=== PATIENT | female | born 1980 | race African-American/Black ===

== ENCOUNTER 2018-08-22 18:17 | Emergency (ER) | payer OTHER ==
[2018-08-22 19:01] LABS: Absolute Lymphocytes (CBC) 2.8 K/uL (0.7-4.9); Absolute Monocytes 0.8 K/uL (0.1-1.3); Absolute Neutrophil 4.7 K/uL (1.8-8.0); Basophils % 0.4 % (0-1.3); Eosinophils % 1.3 % (0-4.4); Hematocrit 40.7 % (36.0-45.0); MCH 30.1 pg (27.0-35.0); MCV 88.4 fL (80-100); MPV 8.5 fL (7.6-11.3); Monocytes % 9.5 % (3.3-12.3); RBC Red Blood Cell Count 4.61 M/uL (3.86-4.86)
[2018-08-22 19:13] LABS: ALT/SGPT 29 U/L (12-78); AST/SGOT 17 U/L (15-37); Albumin 3.7 g/dL (3.4-5.0); Alkaline Phosphatase 83 U/L (45-117); BUN Blood Urea Nitrogen 12 mg/dL (7-18); Bicarbonate 27 mmol/L (21-32); Bilirubin Direct 0.1 mg/dL (0-0.2); Bilirubin Total 0.5 mg/dL (0.2-1.0); Glucose Level 112 mg/dL (74-106); Lipase 105 U/L (73-393); Potassium 3.7 mmol/L (3.5-5.1); Protein, Total 7.8 g/dL (6.4-8.2); Sodium Level 138 mmol/L (136-145)
--- NOTE | 2018-08-22 19:46 | RAD REPORT ---
EXAM DESCRIPTION: US - Abdomen Exam Limited - 08/22/2018 7:40 pm CLINICAL HISTORY: Abdominal pain. COMPARISON: None. FINDINGS: Multiple gallstones. Gallbladder wall upper limits normal thickness. The biliary tree is not well visualized but appears to be grossly normal in caliber IMPRESSION: Cholelithiasis.
[2018-08-22] MEDS ORDERED: ONDANSETRON 4 MG/2 ML VIAL ONE (19:50)
[2018-08-22] MEDS ORDERED: MORPHINE 4 MG/ML SYR ONE (19:50)
[2018-08-22] MEDS ORDERED: KETOROLAC 30 MG/ML INJ ONE (20:46)
[2018-08-22] MEDS ORDERED: DICYCLOMINE HCL 10 MG CAP ONE (20:46)
--- NOTE | 2018-08-22 21:18 | ER ---
Nurse's Notes [facility] Name: Keyonna James Age: 37 yrs Sex: Female : 1980 Arrival Date: 08/22/2018 Time: 18:18 Bed 2 Private MD: None, None Diagnosis: Cholelithiasis;Epigastric pain Presentation: 08/22 18:25 Presenting complaint: states: "Her gallbladder been giving her trouble for the jl7 last 4 days. She don't want to be here but she's in pain.". Transition of care: patient was not received from another setting of care. Onset of symptoms was August 18, 2018. Risk Assessment: Do you want to hurt yourself or someone else? Patient reports no desire to harm self or others. Initial Sepsis Screen: Does the patient meet any 2 criteria? No. Patient's initial sepsis screen is negative. Does the patient have a suspected source of infection? No. Patient's initial sepsis screen is negative. Care prior to arrival: None. 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 - Social history:: Smoking status: Patient/guardian denies using tobacco. - Ebola Screening: : No symptoms or risks identified at this time. Screenin:55 Abuse screen: Denies threats or abuse. Nutritional screening: No deficits noted. jd3 Tuberculosis screening: No symptoms or risk factors identified. Fall Risk Ambulatory Aid- None/Bed Rest/Nurse Assist (0 pts). Gait- Normal/Bed Rest/Wheelchair (0 pts) Mental Status- Oriented to own ability (0 pts). Total Almaraz Fall Scale indicates No Risk (0-24 pts). Assessment: 19:20 General: Appears in no apparent distress. uncomfortable, Behavior is calm, cooperative, jd3 appropriate for age. Pain: Complains of pain in abdomen. Neuro: Level of Consciousness is awake, alert, obeys commands, Oriented to person, place, time, situation. Cardiovascular: Capillary refill < 3 seconds Patient's skin is warm and dry. Respiratory: Airway is patent Respiratory effort is even, unlabored, Respiratory pattern is regular, symmetrical. GI: Abdomen is round non-distended, Reports upper abdominal pain, nausea. : No signs and/or symptoms were reported regarding the genitourinary system. EENT: No signs and/or symptoms were reported regarding the EENT system. Derm: Skin is intact, Skin is dry, Skin is normal, Skin temperature is warm. Musculoskeletal: Circulation, motion, and sensation intact. Range of motion: intact in all extremities. 20:20 Reassessment: Patient appears in no apparent distress at this time. Patient and/or jd3 family updated on plan of care and expected duration. Pain level reassessed. Patient is alert, oriented x 3, equal unlabored respirations, skin warm/dry/pink. 21:30 Reassessment: Patient appears in no apparent distress at this time. Patient and/or jd3 family updated on plan of care and expected duration. Pain level reassessed. Patient is alert, oriented x 3, equal unlabored respirations, skin warm/dry/pink. 22:31 Reassessment: Patient appears in no apparent distress at this time. Patient and/or jd3 family updated on plan of care and expected duration. Pain level reassessed. Patient is alert, oriented x 3, equal unlabored respirations, skin warm/dry/pink. Patient states feeling better. Vital Signs: 18:27 BP 144 / 97; Pulse 91; Resp 16 S; Temp 98.8(O); Pulse Ox 99% on R/A; Pain 10/10; jl7 19:58 BP 152 / 96; Pulse 86; Resp 16; Pulse Ox 100% on R/A; mt 21:00 BP 143 / 95; Pulse 88; Resp 17 S; Pulse Ox 98% on R/A; jd3 22:21 BP 126 / 86; Pulse 77; Resp 16; Pulse Ox 92% on R/A; mt ED Course: 18:18 Patient arrived in ED. sb2 18:18 None, None is Private Physician. sb2 18:26 Triage completed. jl7 18:27 Arm band placed on right wrist. jl7 18:30 Yan Gan PA is PHCP. jmm 18:30 Neto Acevedo MD is Attending Physician. jmm 19:00 IV is patent, is intact, with fluids infusing freely, with good blood return. jd3 19:40 Ultrasound completed. Patient tolerated well. ester 19:41 US Abdomen Limited In Process Unspecified. EDMS 20:44 Magaly Ramirez is Primary Nurse. cc3 20:56 Patient has correct armband on for positive identification. Placed in gown. Bed in low jd3 position. Call light in reach. Side rails up X 1. Adult w/ patient. 21:17 Brian Vazquez MD is Referral Physician. jmm 21:17 Nikita Thompson MD is Referral Physician. jmm 22:30 No provider procedures requiring assistance completed. IV discontinued, intact, jd3 bleeding controlled, No redness/swelling at site. Pressure dressing applied. Administered Medications: 19:46 Drug: morphine 4 mg Route: IVP; Site: right antecubital; rv 22:29 Follow up: Response: No adverse reaction jd3 19:46 Drug: Zofran 4 mg Route: IVP; Site: right antecubital; rv 22:29 Follow up: Response: No adverse reaction jd3 20:45 Drug: Ketorolac 30 mg Route: IVP; Site: right antecubital; jd3 22:29 Follow up: Response: No adverse reaction jd3 20:45 Drug: Bentyl 20 mg Route: PO; jd3 22:29 Follow up: Response: No adverse reaction jd3 22:29 CANCELLED (Physician Discretion): fentaNYL (PF) 25 mcg IVP once jd3 Outcome: 21:17 Discharge ordered by . jmm 22:30 Discharged to home ambulatory, with family. jd3 22:30 Condition: stable 22:30 Discharge instructions given to patient, family, Instructed on discharge instructions, follow up and referral plans. medication usage, Demonstrated understanding of instructions, follow-up care, medications, Prescriptions given X 4. 22:31 Patient left the ED. jd3 Signatures: Dispatcher [employer] EDMS Yan Gan PA PA jmm Dupre, Jacques jd Leal, Jahala, RN RN [email or web address] Clau Song mt, Jonathon, RN RN jd3 Nell Root 2 Hubert Viveros RN RN rv Magaly Ramirez cc3
--- NOTE | 2018-08-22 21:18 | EDPHYS ---
Physician Documentation [facility] Name: Keyonna James Age: 37 yrs Sex: Female : 1980 Arrival Date: 08/22/2018 Time: 18:18 Bed 2 Private MD: None, None ED Physician Neto Acevedo HPI: 08/22 18:56 This 37 yrs old Black Female presents to ER via Ambulatory with complaints of Abdominal jmm Pain. 18:56 The patient presents with abdominal pain in the epigastric area. Onset: The jmm symptoms/episode began/occurred gradually, 1 week(s) ago. The symptoms do not radiate. Associated signs and symptoms: Pertinent negatives: nausea and vomiting, diarrhea, fever. Modifying factors: The symptoms are alleviated by nothing. The patient has experienced similar episodes in the past. 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 - Social history:: Smoking status: Patient/guardian denies using tobacco. - Ebola Screening: : No symptoms or risks identified at this time. ROS: 18:56 Constitutional: Negative for fever, chills, and weight loss, Cardiovascular: Negative jmm for chest pain, palpitations, and edema, Respiratory: Negative for shortness of breath, cough, wheezing, and pleuritic chest pain. 18:56 Abdomen/GI: Positive for abdominal pain. 18:56 All other systems are negative. Exam: 18:56 Head/Face: atraumatic. Chest/axilla: Normal chest wall appearance and motion. jmm Cardiovascular: Regular rate and rhythm. No edema appreciated Respiratory: Normal respirations, no respiratory distress appreciated 18:56 Constitutional: The patient appears in no acute distress, alert, awake. 18:56 Abdomen/GI: Inspection: abdomen appears normal, Bowel sounds: normal, Palpation: soft, moderate abdominal tenderness, in the right upper quadrant. 18:56 Back: ROM is normal. 18:56 Musculoskeletal/extremity: ROM: intact in all extremities. 18:56 Neuro: Orientation: is normal, Mentation: is normal, Memory: is normal. 18:56 Psych: Behavior/mood is pleasant, cooperative. Vital Signs: 18:27 BP 144 / 97; Pulse 91; Resp 16 S; Temp 98.8(O); Pulse Ox 99% on R/A; Pain 10/10; jl7 19:58 BP 152 / 96; Pulse 86; Resp 16; Pulse Ox 100% on R/A; mt 21:00 BP 143 / 95; Pulse 88; Resp 17 S; Pulse Ox 98% on R/A; jd3 22:21 BP 126 / 86; Pulse 77; Resp 16; Pulse Ox 92% on R/A; mt MDM: 18:52 Patient medically screened. [facility] 21:15 Data reviewed: vital signs, nurses notes, lab test result(s). Data interpreted: Pulse [facility] oximetry: on room air is 98 %. Interpretation: normal. Counseling: I had a detailed discussion with the patient and/or guardian regarding: the historical points, exam findings, and any diagnostic results supporting the discharge/admit diagnosis, lab results, radiology results, the need for outpatient follow up, to return to the emergency department if symptoms worsen or persist or if there are any questions or concerns that arise at home. Response to treatment: the patient's symptoms have markedly improved after treatment. ED course: Patient states she feels much better. I advised the patient to follow up with general surgery. Patient given abdominal pain return precautions. patient and family understood and agree with the plan of care. . 08/22 18:31 Order name: Basic Metabolic Panel [facility] 08/22 18:31 Order name: CBC with Diff [facility] 08/22 18:31 Order name: Creatinine for Radiology [facility] 08/22 18:31 Order name: Hepatic Function [facility] 08/22 18:31 Order name: Lipase [facility] 08/22 19:02 Order name: CBC with Automated Diff; Complete Time: 19:12 EDNJ 08/22 18:53 Order name: US Abdomen Limited; Complete Time: 19:47 [facility] 08/22 19:12 Order name: Creatinine (Radiology Only); Complete Time: 19:34 EDMS 08/22 19:14 Order name: Basic Metabolic Panel; Complete Time: 19:34 EDNJ 08/22 19:14 Order name: Liver (Hepatic) Function; Complete Time: 19:34 EDMS 08/22 19:14 Order name: Lipase; Complete Time: 19:34 [facility] 08/22 18:31 Order name: IV Saline Lock; Complete Time: 19:04 [facility] 08/22 18:31 Order name: Labs collected and sent; Complete Time: 19:04 [facility] 08/22 18:31 Order name: Urine Test (obtain specimen); Complete Time: 21:01 [facility] Administered Medications: 19:46 Drug: morphine 4 mg Route: IVP; Site: right antecubital; rv 22:29 Follow up: Response: No adverse reaction jd3 19:46 Drug: Zofran 4 mg Route: IVP; Site: right antecubital; rv 22:29 Follow up: Response: No adverse reaction jd3 20:45 Drug: Ketorolac 30 mg Route: IVP; Site: right antecubital; jd3 22:29 Follow up: Response: No adverse reaction jd3 20:45 Drug: Bentyl 20 mg Route: PO; jd3 22:29 Follow up: Response: No adverse reaction jd3 22:29 CANCELLED (Physician Discretion): fentaNYL (PF) 25 mcg IVP once jd3 Disposition: 08/23 05:19 Co-signature as Attending Physician, Neto Acevedo MD I agree with the assessment and tw4 plan of care. Disposition: 08/22/18 21:17 Discharged to Home. Impression: Cholelithiasis, Epigastric pain. - Condition is Stable. - Discharge Instructions: Abdominal Pain, Adult, Cholelithiasis. - Prescriptions for Zofran ODT 4 mg Oral tablet,disintegrating - place 1 tablet by TRANSLINGUAL route every 4-6 hours; 20 tablet. Bentyl 20 mg Oral Tablet - take 1 tablet by ORAL route every 6 hours As needed; 40 tablet. Ibuprofen 800 mg Oral Tablet - take 1 tablet by ORAL route every 8 hours As needed take with food; 30 tablet. Ultracet 37.5- 325 mg Oral Tablet - take 1 tablet by ORAL route every 6 hours - for up to 5 days; do not exceed 8 tablets per day.; 12 tablet. - Medication Reconciliation Form, Thank You Letter, Antibiotic Education, Prescription Opioid Use form. - Follow up: Brian Vazquez MD; When: As needed; Reason: Recheck today's complaints, Continuance of care, Re-evaluation by your physician. Follow up: Nikita Thompson MD; When: As needed; Reason: Recheck today's complaints, Continuance of care, Re-evaluation by your physician. Signatures: Dispatcher [employer] EDYan Cook PA PA jmm Leal, Jahala, RN RN jl7 Julio Cesar Chau RN RN jd3 Neto Acevedo MD MD tw4 Hubert Viveros RN RN rv Corrections: (The following items were deleted from the chart) 08/22 22:29 22:22 fentaNYL (PF) 25 mcg IVP once ordered. [facility] jd3 22:31 21:17 08/22/2018 21:17 Discharged to Home. Impression: Cholelithiasis; Epigastric pain. jd3 Condition is Stable. Forms are Medication Reconciliation Form, Thank You Letter, Antibiotic Education, Prescription Opioid Use. Follow up: Brian Vazquez; When: As needed; Reason: Recheck today's complaints, Continuance of care, Re-evaluation by your physician. Follow up: Nikita Thompson; When: As needed; Reason: Recheck today's complaints, Continuance of care, Re-evaluation by your physician. stephan
[2018-08-22 23:49] VITALS: TEMP 98.8
[2018-08-22 23:53] VITALS: BP 126/86; O2SAT 92
== END 2018-08-22 22:31 | disposition home or self-care (01) ==
LOC: ER 18:17
DX: K80.20 Calculus of gallbladder without cholecystitis without obstruction (principal)
CPT/HCPCS: 36415; 76705; 80048; 80076; 83690; 85025; 96374; 96375; 99283; J2405

== ENCOUNTER 2021-11-25 19:18 | Emergency (ER) | payer BC, OTHER ==
--- OUTSIDE RECORDS SUMMARY | 2021-11-25 19:27 | XMS REPORT | Continuity of Care Document ---
:1980 Author Organization [facility] t Address [address] [place] [address] Care Team Providers Name Role Phone Pcp, Does Not Have A Primary Care Physician Sarah Denson NP Attending Clinician Tanna SOLARES Attending Clinician Unavailable Tanna Solares MD Attending Clinician Jil Lopez MD Attending Clinician FELIBERTO Attending Clinician Unavailable Feliberto BLACK Attending Clinician JIL LOPEZ Attending Clinician Unavailable Nurse, Women's Health Attending Clinician Unavailable Pob, Lab Main Attending Clinician Unavailable Room, Nst Attending Clinician Unavailable Doctor Unassigned, Name Attending Clinician Unavailable Ultrasound Attending Clinician Unavailable Dane Gallegos MD Attending Clinician 2, Lab Attending Clinician Unavailable Visit, Nurse Attending Clinician Unavailable Alexis FONSECA Attending Clinician Adriana Ruff MD Attending Clinician JIL LOPEZ Admitting Clinician Unavailable Jil Lopez MD Admitting Clinician Payers Payer Name Policy Type Policy Number Effective Date Expiration Date S ource BCBS OF [place] [facility] [id number] 2019 [facility] 00:00:00 [facility] [id number] 2020 [employer] MEDICAID 00:00:00 [facility] [id number] 2020 PPO/POS 00:00:00 Problems Condition Condition Condition Status Onset Resolution Last Treating Co mments Source Name Details Category Date Date Treatment Clinician Date Liveborn Liveborn Disease Active 2020-0 Unive rs infant, of , of 8-14 it y of higgins higgins 00:00: Luis A s , , 00 Me dical born in born in [facility] hospital by by delivery delivery 38 weeks 38 weeks Disease Active 2020-0 Unive rs gestation gestation 8-12 ity of of of 00:00: [place] 00 [facility] Status Status Disease Active 2020-0 Univers post post 8-12 ity of bilateral bilateral 00:00: Luis A s salpingect salpingect [address] [facility] GDM, class GDM, class Disease Active 2020-0 U nivers A2 A2 7-31 ity of 00:00: [address] GDM, class GDM, class Disease Active 2020-0 U nivers A1 A1 7-15 ity of 00:00: [address] Diet Diet Disease Active 2020-0 Univers controlled controlled 4-01 it y of gestationa gestationa [place] diabetes l diabetes 00 Me dical mellitus mellitus [place] (GDM) in (GDM) in second second trimester trimester Chronic Chronic Disease Active 2020-0 Univers hypertensi hypertensi 2-20 it y of on on 00:00: [address] 12 weeks 12 weeks Disease Active 2020-0 Unive rs gestation gestation 2-20 ity of of of 00:00: [place] [facility] 19 weeks 19 weeks Disease Active 2020-0 Unive rs gestation gestation 2-20 ity of of of 00:00: [place] 00 [facility] Supervisio Supervisio Disease Active 2020-0 U nivers n of n of 1-22 ity of high-risk high-risk 00:00: Luis A s [facility] of elderly of elderly Br anch multigravi multigravi da da Antepartum Antepartum Disease Active 2020-0 U nivers multigravi multigravi 1-22 it y of da of da of 00:00: [place] advanced advanced 00 Medica l maternal maternal Branch age age Previous Previous Disease Active 2020-0 Unive rs 1-22 ity of section section 00:00: [place] 00 Medical Branch Vaginal Vaginal Disease Active Univers spotting spotting 1-22 ity of 00:00: [place] [facility] Morbid Morbid Disease Active Univers obesity obesity 1-21 ity of with body with body 00:00[place] mass index mass index 00 Me dical of of Branch 40.0-49.9 40.0-49.9 Obesity Obesity Disease Active Overview: Univ ers complicati complicati 7-14 ICD10 it y of ng ng 00:00: Diagnosis [place] , , 00 Term Me dical childbirth childbirth Freedom Of Information Officer Branch , or , or Utility puerperium puerperium , , antepartum antepartum Abnormal Abnormal Disease Active Unive rs maternal maternal 6-11 ity of glucose glucose 00:00: [place] tolerance, tolerance, 00 Me dical antepartum antepartum Br anch No known No known Disease Unive rs active active ity of problems problems [facility] Allergies, Adverse Reactions, Alerts Allergy Allergy Status Severity Reaction(s) Onset Inactive Treating Comm ents Source Name Type Date Date Clinician CODEINE DRUG Active Hives Univers INGREDI 9-03 ity of 00:00: [place] [facility] Codeine Propensi Active Hives Univers ty to 9-03 ity of adverse 00:00: [place] reaction 00 [facility] Codeine Propensi Active Nausea Only 2005-10 Un kayleigh ty to 2-28 ity of adverse 00:00: [place] reaction 00 [facility] CODEINE DRUG Active NAUSEA ONLY 2005-10 Univ ers INGREDI 2-28 ity of 00:00: [place] 00 Medical Branch NO KNOWN Drug Active Univers ALLERGIE Class ity of S [facility] codeine Adverse Active rash [facility] Social History Social Habit Start Date Stop Date Quantity Comments Source ASSERTION 2019-09-05 University of 00:00:00 [facility] Exposure to Not sure University of SARS-CoV-2 [facility] (event) Branch Alcohol intake 2020-05-15 2020-05-15 Current University of 00:00:00 00:00:00 non-drinker of [facility] alcohol [place] (finding) Tobacco use and 2020-05-15 2020-05-15 Never used Universit y of exposure 00:00:00 00:00:00 [place] [facility] Sex [birth year] Benjamin y of 00:00:00 00:00:00 [facility] Smoking Status Start Date Stop Date Source Unknown if ever smoked [facility] y [facility] Never smoker [facility] Medications Ordered Filled Start Stop Current Ordering Indication Dosage Frequency Signature Comments Components Source Medication Medication Date Date Medication? Clinician (SIG) Name Name cefTRIAXone 2020- No 1000mg 1,000 mg, Univers (ROCEPHIN) 06-11 IV ity of 1,000 mg in 02:45: 02:19 [place], [place] NaCl 0.9% 00 :00 ONCE, 1 Medical (NS) 50 mL dose, Wed Bran ch MINI-BAG 06/10/21 at 2145, Administer over 30 Minutes, 50 mL
Reas on for Anti-Infec tive: Documented Infection< br>Documen maria e Infection Site: Urine
D uration of Therapy: 7 days ketorolac 2020- No 30mg 30 mg, Unive rs (TORADOL) 06-11 Slow IV ity of injection 02:45: 01:53 [place], [place] 30 mg 00 :00 ONCE, 1 Medical dose, [facility] 06/10/21 at 2145, Routine
sales floor team member approving Restricted medication : ERLIN DENSON cefTRIAXone 2020- No 1000mg 1,000 mg, Univers (ROCEPHIN) 06-11 IV ity of 1,000 mg in 02:45: 02:19 [place], [place] NaCl 0.9% 00 :00 ONCE, 1 Medical (NS) 50 mL dose, Wed Bran ch MINI-BAG 06/10/21 at 2145, Administer over 30 Minutes, 50 mL
Reas on for Anti-Infec tive: Documented Infection< br>Documen maria e Infection Site: Urine
D uration of Therapy: 7 days ketorolac 2020- No 30mg 30 mg, Unive rs (TORADOL) 06-11 Slow IV ity of injection 02:45: 01:53 [place], [place] 30 mg 00 :00 ONCE, 1 Medical dose, [facility] 06/10/21 at 2145, Routine
sales floor team member approving Restricted medication : ERLIN DENSON acetaminoph 2020- No 650mg 650 mg, U nivers en 06-11 Oral, ity of (TYLENOL) 00:30: 23:53 ONCE, 1 [place] tablet 650 00 :00 dose, Tue Medi hang mg 06/10/21 at [place] [address], CLAUDY ibuprofen 2020- No 800mg 800 mg, Uni vers (IBU) 06-11 Oral, ity of tablet 800 00:30: 23:53 ONCE, 1 [place] mg 00 :00 dose, [facility] Medical 06/10/21 at [place] [address], CLAUDY acetaminoph 2020- No 650mg 650 mg, U nivers en 06-11 Oral, ity of (TYLENOL) 00:30: 23:53 ONCE, 1 [place] tablet 650 00 :00 dose, Tue Medi hang mg 06/10/21 at [place] [address], CLAUDY ibuprofen 2020- No 800mg 800 mg, Uni vers (IBU) 06-11 Oral, ity of tablet 800 00:30: 23:53 ONCE, 1 [place] mg 00 :00 dose, [facility] 06/10/21 at [place] [address], [facility] cefdinir 2020- No [id number] 300mg Take 1 U nivers 300 mg 06-10 capsule by ity of capsule 00:00: 04:59 mouth [place] 00 :00 every 12 Medical (twelve) Branch hours for 10 days. cefdinir 2020- No [id number] 300mg Take 1 U nivers 300 mg 06-10 capsule by ity of capsule 00:00: 04:59 mouth [place] 00 :00 every 12 Medical (twelve) Branch hours for 10 days. traMADoL 50 2020-2020- No [id number] 50mg Take 1 Uni vers mg tablet 06-10 tablet by ity of 00:00: 04:59 mouth [place] 00 :00 every 6 Medical (six) Branch hours as needed for Pain (scale 4-6) or Pain (scale 7-10) for up to 7 days. Indication s: acute pain traMADoL 50 2020-0 2020- No [id number] 50mg Take 1 Uni vers mg tablet 9-08 09-16 tablet by ity of 00:00: 04:59 mouth [place] 00 :00 every 6 Medical (six) Branch hours as needed for Pain (scale 4-6) or Pain (scale 7-10) for up to 7 days. Indication s: acute pain fluconazole 2020- No [id number] 150mg Take 1 Univers 150 mg 06-10 tablet by ity of tablet 00:00: 04:59 mouth once [place] 00 :00 now for 1 Medical dose. Branch fluconazole 2020- No [id number] 150mg Take 1 Univers 150 mg 06-10 tablet by ity of tablet 00:00: 04:59 mouth once [place] 00 :00 now for 1 Medical dose. Branch ibuprofen Yes 600mg 600 mg, Univ ers (IBU) 8-14 Oral, Q6H ity of tablet 600 11:00: ABX, First [place] mg 00 dose on Medical Fri Branch 05/16/20 at 0600, Until Discontinu ed, Routine docusate 2019-0 Yes [id number] 240mg Take 1 U nivers calcium 240 8-14 capsule by it y of mg capsule 00:00: mouth once [place] 00 daily as Medical needed for Branch Constipati on. ferrous 2020-0 Yes [id number] 325mg Take 1 Un [place] sulfate 325 8-14 tablet by ity of mg (65 mg 00:00: mouth 2 [place] iron) 00 (two) Medical tablet times Branch daily. ibuprofen 0 Yes [id number] 600mg Take 1 Univers 600 mg 8-14 tablet by ity of tablet 00:00: mouth [place] 00 every 6 Medical (six) Branch hours as needed for Pain (scale 1-3) or Pain (scale 4-6) (Pain). Take with food or milk. acetaminoph 2020-0 Yes [id number] 650mg Take 2 Univers en 325 mg 8-14 tablets by ity of tablet 00:00: mouth [place] 00 every 6 Medical (six) Branch hours as needed for Pain (scale 1-3) or Pain (scale 4-6). 2020-0 Yes [id number] 1{tbl} Take 1 Univers vitamin 8-14 tablet by ity of w/FA tablet 00:00: mouth [place] 00 daily. Medical Branch docusate 2020-0 Yes [id number] 240mg Take 1 U nivers calcium 240 8-14 capsule by it y of mg capsule 00:00: mouth once [place] 00 daily as Medical needed for Branch Constipati on. ferrous 2020-0 Yes [id number] 325mg Take 1 Un [place] sulfate 325 8-14 tablet by ity of mg (65 mg 00:00: mouth 2 [place] iron) 00 (two) Medical tablet times Branch daily. ibuprofen 2020-0 Yes [id number] 600mg Take 1 Univers 600 mg 8-14 tablet by ity of tablet 00:00: mouth [place] 00 every 6 Medical (six) Branch hours as needed for Pain (scale 1-3) or Pain (scale 4-6) (Pain). Take with food or milk. acetaminoph 2020-0 Yes [id number] 650mg Take 2 Univers en 325 mg 8-14 tablets by ity of tablet 00:00: mouth [place] 00 every 6 Medical (six) Branch hours as needed for Pain (scale 1-3) or Pain (scale 4-6). 2020-0 Yes [id number] 1{tbl} Take 1 Univers vitamin 8-14 tablet by ity of w/FA tablet 00:00: mouth [place] 00 daily. Medical Branch docusate 2020-0 Yes [id number] 240mg Take 1 U nivers calcium 240 8-14 capsule by it y of mg capsule 00:00: mouth once [place] 00 daily as Medical needed for Branch Constipati on. ferrous 2020-0 Yes [id number] 325mg Take 1 Un [place] sulfate 325 8-14 tablet by ity of mg (65 mg 00:00: mouth 2 [place] iron) 00 (two) Medical tablet times Branch daily. ibuprofen 2020-0 Yes [id number] 600mg Take 1 Univers 600 mg 8-14 tablet by ity of tablet 00:00: mouth [place] 00 every 6 Medical (six) Branch hours as needed for Pain (scale 1-3) or Pain (scale 4-6) (Pain). Take with food or milk. acetaminoph 2020-0 Yes [id number] 650mg Take 2 Univers en 325 mg 8-14 tablets by ity of tablet 00:00: mouth [place] 00 every 6 Medical (six) Branch hours as needed for Pain (scale 1-3) or Pain (scale 4-6). 2020-0 Yes [id number] 1{tbl} Take 1 Univers vitamin 8-14 tablet by ity of w/FA tablet 00:00: mouth [place] 00 daily. Medical Branch docusate 2020-0 Yes [id number] 240mg Take 1 U nivers calcium 240 8-14 capsule by it y of mg capsule 00:00: mouth once [place] 00 daily as Medical needed for Branch Constipati on. ferrous 2020-0 Yes [id number] 325mg Take 1 Un [place] sulfate 325 8-14 tablet by ity of mg (65 mg 00:00: mouth 2 [place] iron) 00 (two) Medical tablet times Branch daily. ibuprofen 2020-0 Yes [id number] 600mg Take 1 Univers 600 mg 8-14 tablet by ity of tablet 00:00: mouth [place] 00 every 6 Medical (six) Branch hours as needed for Pain (scale 1-3) or Pain (scale 4-6) (Pain). Take with food or milk. acetaminoph 2020-0 Yes [id number] 650mg Take 2 Univers en 325 mg 8-14 tablets by ity of tablet 00:00: mouth [place] 00 every 6 Medical (six) Branch hours as needed for Pain (scale 1-3) or Pain (scale 4-6). 2020-0 Yes [id number] 1{tbl} Take 1 Univers vitamin 8-14 tablet by ity of w/FA tablet 00:00: mouth [place] 00 daily. Medical Branch docusate 2020-0 Yes [id number] 240mg Take 1 U nivers calcium 240 8-14 capsule by it y of mg capsule 00:00: mouth once [place] 00 daily as Medical needed for Branch Constipati on. ferrous 2020-0 Yes [id number] 325mg Take 1 Un [place] sulfate 325 8-14 tablet by ity of mg (65 mg 00:00: mouth 2 [place] iron) 00 (two) Medical tablet times Branch daily. ibuprofen 2020-0 Yes [id number] 600mg Take 1 Univers 600 mg 8-14 tablet by ity of tablet 00:00: mouth [place] 00 every 6 Medical (six) Branch hours as needed for Pain (scale 1-3) or Pain (scale 4-6) (Pain). Take with food or milk. acetaminoph 2020-0 Yes [id number] 650mg Take 2 Univers en 325 mg 8-14 tablets by ity of tablet 00:00: mouth [place] 00 every 6 Medical (six) Branch hours as needed for Pain (scale 1-3) or Pain (scale 4-6). 2020-0 Yes [id number] 1{tbl} Take 1 Univers vitamin 8-14 tablet by ity of w/FA tablet 00:00: mouth [place] 00 daily. Medical Branch docusate 2020-0 Yes [id number] 240mg Take 1 U nivers calcium 240 8-14 capsule by it y of mg capsule 00:00: mouth once [place] 00 daily as Medical needed for Branch Constipati on. ferrous 2020-0 Yes [id number] 325mg Take 1 Un [place] sulfate 325 8-14 tablet by ity of mg (65 mg 00:00: mouth 2 [place] iron) 00 (two) Medical tablet times Branch daily. ibuprofen 2020-0 Yes [id number] 600mg Take 1 Univers 600 mg 8-14 tablet by ity of tablet 00:00: mouth [place] 00 every 6 Medical (six) Branch hours as needed for Pain (scale 1-3) or Pain (scale 4-6) (Pain). Take with food or milk. acetaminoph 2020-0 Yes [id number] 650mg Take 2 Univers en 325 mg 8-14 tablets by ity of tablet 00:00: mouth [place] 00 every 6 Medical (six) Branch hours as needed for Pain (scale 1-3) or Pain (scale 4-6). 2020-0 Yes [id number] 1{tbl} Take 1 Univers vitamin 8-14 tablet by ity of w/FA tablet 00:00: mouth [place] 00 daily. Medical Branch docusate 2020-0 Yes [id number] 240mg Take 1 U nivers calcium 240 8-14 capsule by it y of mg capsule 00:00: mouth once [place] 00 daily as Medical needed for Branch Constipati on. ferrous 2020-0 Yes [id number] 325mg Take 1 Un [place] sulfate 325 8-14 tablet by ity of mg (65 mg 00:00: mouth 2 [place] iron) 00 (two) Medical tablet times Branch daily. ibuprofen 2020-0 Yes [id number] 600mg Take 1 Univers 600 mg 8-14 tablet by ity of tablet 00:00: mouth [place] 00 every 6 Medical (six) Branch hours as needed for Pain (scale 1-3) or Pain (scale 4-6) (Pain). Take with food or milk. acetaminoph 2020-0 Yes [id number] 650mg Take 2 Univers en 325 mg 8-14 tablets by ity of tablet 00:00: mouth [place] 00 every 6 Medical (six) Branch hours as needed for Pain (scale 1-3) or Pain (scale 4-6). 2020-0 Yes [id number] 1{tbl} Take 1 Univers vitamin 8-14 tablet by ity of w/FA tablet 00:00: mouth [place] 00 daily. Medical Branch docusate 2020-0 Yes [id number] 240mg Take 1 U nivers calcium 240 8-14 capsule by it y of mg capsule 00:00: mouth once [place] 00 daily as Medical needed for Branch Constipati on. ferrous 2020-0 Yes [id number] 325mg Take 1 Un [place] sulfate 325 8-14 tablet by ity of mg (65 mg 00:00: mouth 2 [place] iron) 00 (two) Medical tablet times Branch daily. ibuprofen 2020-0 Yes [id number] 600mg Take 1 Univers 600 mg 8-14 tablet by ity of tablet 00:00: mouth [place] 00 every 6 Medical (six) Branch hours as needed for Pain (scale 1-3) or Pain (scale 4-6) (Pain). Take with food or milk. acetaminoph 2020-0 Yes [id number] 650mg Take 2 Univers en 325 mg 8-14 tablets by ity of tablet 00:00: mouth [place] 00 every 6 Medical (six) Branch hours as needed for Pain (scale 1-3) or Pain (scale 4-6). 2020-0 Yes [id number] 1{tbl} Take 1 Univers vitamin 8-14 tablet by ity of w/FA tablet 00:00: mouth [place] 00 daily. Medical Branch docusate 2020-0 Yes [id number] 240mg Take 1 U nivers calcium 240 8-14 capsule by it y of mg capsule 00:00: mouth once [place] 00 daily as Medical needed for Branch Constipati on. ferrous 2020-0 Yes [id number] 325mg Take 1 Un [place] sulfate 325 8-14 tablet by ity of mg (65 mg 00:00: mouth 2 [place] iron) 00 (two) Medical tablet times Branch daily. ibuprofen 2020-0 Yes [id number] 600mg Take 1 Univers 600 mg 8-14 tablet by ity of tablet 00:00: mouth [place] 00 every 6 Medical (six) Branch hours as needed for Pain (scale 1-3) or Pain (scale 4-6) (Pain). Take with food or milk. acetaminoph 2020-0 Yes [id number] 650mg Take 2 Univers en 325 mg 8-14 tablets by ity of tablet 00:00: mouth [place] 00 every 6 Medical (six) Branch hours as needed for Pain (scale 1-3) or Pain (scale 4-6). 2020-0 Yes [id number] 1{tbl} Take 1 Univers vitamin 8-14 tablet by ity of w/FA tablet 00:00: mouth [place] 00 daily. Medical Branch docusate 2019-0 Yes [id number] 240mg Take 1 U nivers calcium 240 8-14 capsule by it y of mg capsule 00:00: mouth once [place] 00 daily as Medical needed for Branch Constipati on. ferrous 2020-0 Yes [id number] 325mg Take 1 Un [place] sulfate 325 8-14 tablet by ity of mg (65 mg 00:00: mouth 2 [place] iron) 00 (two) Medical tablet times Branch daily. ibuprofen 2019-0 Yes [id number] 600mg Take 1 Univers 600 mg 8-14 tablet by ity of tablet 00:00: mouth [place] 00 every 6 Medical (six) Branch hours as needed for Pain (scale 1-3) or Pain (scale 4-6) (Pain). Take with food or milk. acetaminoph 2019-0 Yes [id number] 650mg Take 2 Univers en 325 mg 8-14 tablets by ity of tablet 00:00: mouth [place] 00 every 6 Medical (six) Branch hours as needed for Pain (scale 1-3) or Pain (scale 4-6). 2020-0 Yes [id number] 1{tbl} Take 1 Univers vitamin 8-14 tablet by ity of w/FA tablet 00:00: mouth [place] 00 daily. Medical Branch HYDROcodone 2019-0 2020- No [id number] 1{tbl} Take 1 U nivers -acetaminop 8-14 08-22 tablet by it y of hen 5-325 00:00: 04:59 mouth [place] mg tablet 00 :00 every 6 Medical (six) Branch hours as needed for Pain (scale 7-10) for up to 7 days. Indication s: acute pain HYDROcodone 2020-0 2020- No [id number] 1{tbl} Take 1 U nivers -acetaminop 05-1622 tablet by it y of hen 5-325 00:00: 04:59 mouth [place] mg tablet 00 :00 every 6 Medical (six) Branch hours as needed for Pain (scale 7-10) for up to 7 days. Indication s: acute pain gabapentin 2019-0 2020- No [id number] 300mg Take 1 Univers 300 mg 05-16-20 capsule by ity of capsule 00:00: 04:59 mouth 3 [place] 00 :00 (three) Medical times Branch daily for 5 days. gabapentin 2020-0 2020- No [id number] 300mg Take 1 Univers 300 mg 05-16- capsule by ity of capsule 00:00: 04:59 mouth 3 [place] 00 :00 (three) Medical times Branch daily for 5 days. acetaminoph 2019-0 Yes 650mg 650 mg, Un kayleigh en 05-15 Oral, Q6H ity of (TYLENOL) 23:00: ABX, First [place] tablet 650 00 dose on Medica l mg Tue Branch 05/15/20 at 1800, Until Discontinu ed, Routine HYDROcodone 2019-0 Yes 1{tbl} 1 tablet, Univers -acetaminop 05-15 Oral, ity of hen (NORCO 18:26: Q6HPRN, [place] 5) 5-325 mg 32 Starting Medi hang tablet 1 Allie Branch tablet 05/15/20 at 1326, Until Discontinu ed, Routine, Pain (scale 7-10) ketorolac 2019-0 2019- No 30mg 30 mg, Unive rs (TORADOL) 05-15 Slow IV ity of injection 11:00: 05:05 [place], Q6H [place] 30 mg 00 :00 ABX, 4 Medical doses, Branch First dose on Tue05/15/20 at 0600, Last dose on Tue05/16/20 at 0000, Routine
sales floor team member approving Restricted medication : LPOEZ MELYSSA CAM labetalol 2019-0 Yes 100mg 100 mg, Univ ers (NORMODYNE) 8 Oral, ity of tablet 100 01:00: Q12H, [place] mg 00 First dose Medical on Tue Branch 05/14/20 at 2000, Until Discontinu ed, Routine acetaminoph 2020-0 2020- No 1000mg 1,000 mg, Univers en ADULT 05-14 08-12 IV ity of (OFIRMEV) 23:00: 23:09 Infusion, [place] injection 00 :00 Administer Medi hang 1,000 mg over 15 Branch Minutes, ONCE, 1 dose, [facility] 05/14/20 at 1800, Routine, PACU
Indicatio n: Perioperat roberta Patient gabapentin 2020-0 Yes 300mg 300 mg, Uni vers (NEURONTIN) 8-12 Oral, TID, it y of capsule 300 19:00: First dose [place] mg 00 on Tue Medical 05/14/20 at Branch 1400, Until Discontinu ed, Routine simethicone 2020-0 Yes 160mg 160 mg, Un [place] (GAS RELIEF 05-14 Oral, ity of (SIMETHICON 18:00: PC+HS, [place] E)) 00 First dose Medical chewable on Tue Branch tablet 160 05/14/20 at mg 1300, Until Discontinu ed, Routine lactated 2020-0 Yes 1000mL at 75 Univer s ringers IV 8-12 mL/hr, ity of infusion 17:45: 1,000 mL, [place] 1,000 mL 00 IV Medical Infusion, Branch CONTINUOUS , Starting [facility] 05/14/20 at 1245, Until Discontinu ed, Routine, PACU rho(D) 2020-0 Yes 300ug 300 mcg, Univer s immune 812 Intramuscu ity of globulin 17:42: lar, ONCE, [place] as (RHOGAM) 25 For 1 Medical syringe 300 dose, Branch mcg Conditiona l, Routine diphenhydrA 2020-0 Yes 25mg 25 mg, Univ ers MINE 812 Oral, ity of (BENADRYL) 17:42: Q6HPRN, [place] tablet 25 12 Starting Medica l mg [facility] 05/14/20 at 1242, Until Discontinu ed, Routine, Sleep, Itching ondansetron 2020-0 Yes 4mg 4 mg, Slow Univers (ZOFRAN 8 IV Push, ity of (PF)) 17:42: Q8HPRN, [place] injection 4 12 Starting Medi hang mg [facility] 05/14/20 at 1242, Until Discontinu ed, Routine, Nausea and Vomiting (N/V) bisacodyL 2020-0 Yes 10mg 10 mg, Univer s (DULCOLAX) 05-14 Rectal, ity of suppository 17:42: QDAILYPRN, [place] 10 mg 12 Starting Medical Wed Branch 05/14/20 at 1242, Until Discontinu ed, Routine, Constipati on docusate 2020-0 Yes 240mg 240 mg, Unive rs calcium 05-14 Oral, ity of (SURFAK) 17:42: QDAILYPRN, [place] capsule 240 12 Starting Medi hang mg Wed Branch 05/14/20 at 1242, Until Discontinu ed, Routine, Constipati on magnesium 2020-0 Yes 30mL 30 mL, Univer s hydroxide 05-14 Oral, ity of (MILK OF 17:42: QDAILYPRN, [place] MAGNESIA) 12 Starting Medica l 400 mg/5 mL [facility] Branch suspension 05/14/20 at 30 mL 1242, Until Discontinu ed, Routine, Constipati on nalbuphine 2019-0 2020- No 5mg 5 mg, Unive rs (NUBAIN) 05-1413 Intravenou ity of injection 5 17:41: 09:49 s, PRN, 1 [place] mg 44 :00 dose, Medical Starting Branch [facility] 05/14/20 at 1241, Until Discontinu ed, Routine, Itching, PACU ondansetron 2019-0 2020- No 4mg 4 mg, Slow Univers (ZOFRAN 05-14 IV Push, ity of (PF)) 17:41: 23:55 PRN, 1 [place] injection 4 44 :00 dose, Medical mg Starting Branch [facility] 05/14/20 at 1241, Until Discontinu ed, Routine, Nausea and Vomiting (N/V), PACU mupirocin 2019-0 Yes Intra-op Univ ers (BACTROBAN 05-14 ity of OINT) 2 % 16:54: [place] skin 00 Medical ointment Branch sodium 2020-0 Yes PRN, Univers chloride 05-14 Starting ity of 0.9 % 16:31: Wed [place] irrigation 00 05/14/20 at Med ical solution 1131, Branch Until Discontinu ed, Intra-op [id number] IV 2019-0 2020- No 1000mL at 125 Uni vers infusion 05-14 mL/hr, IV ity o f 1,000 mL 14:00: 17:42 Infusion, [place] 00 :26 CONTINUOUS Medical , Starting Branch Tue05/14/20 at 0900, Until Tue05/14/20 at 1242, Routine sodium 2020-0 2020- No 30mL 30 mL, Univers citrate-cit 05-14 Oral, ity of kevin acid 13:45: 15:14 PRE-PROCED [place] (BICITRA) 26 :00 URE ONCE, Medic al [id number] 1 dose, Branch mg/5 mL Starting solution 30 Tue mL 05/14/20 at 0845, Until Discontinu ed, Routine, Surgery glyBURIDE 2020-0 Yes [id number] 2.5mg Take 1 U nivers 2.5 mg 7-29 tablet by ity of tablet 00:00: mouth [place] 00 every Medical evening. Branch glyBURIDE 2020-0 Yes [id number] 2.5mg Take 1 U nivers 2.5 mg 7-29 tablet by ity of tablet 00:00: mouth [place] 00 every Medical evening. Branch glyBURIDE 2020-0 Yes [id number] 2.5mg Take 1 U nivers 2.5 mg 7-29 tablet by ity of tablet 00:00: mouth [place] 00 every Medical evening. Branch glyBURIDE 2020-0 Yes [id number] 2.5mg Take 1 [facility] 2.5 mg 7-29 tablet by ity of tablet 00:00: mouth [place] 00 every Medical evening. Branch glyBURIDE 2020-0 Yes [id number] 2.5mg Take 1 [facility] 2.5 mg 7-29 tablet by ity of tablet 00:00: mouth [place] 00 every Medical evening. Branch glyBURIDE 2020-0 Yes [id number] 2.5mg Take 1 [facility] 2.5 mg 7-29 tablet by ity of tablet 00:00: mouth [place] 00 every Medical evening. Branch glyBURIDE 2020-0 Yes [id number] 2.5mg Take 1 [facility] 2.5 mg 7-29 tablet by ity of tablet 00:00: mouth [place] 00 every Medical evening. Branch glyBURIDE 2020-0 Yes [id number] 2.5mg Take 1 [facility] 2.5 mg 7-29 tablet by ity of tablet 00:00: mouth [place] 00 every Medical evening. Branch glyBURIDE 2020-0 Yes [id number] 2.5mg Take 1 [facility] 2.5 mg 7-29 tablet by ity of tablet 00:00: mouth [place] 00 every Medical evening. Branch glyBURIDE 2020-0 Yes [id number] 2.5mg Take 1 [facility] 2.5 mg 7-29 tablet by ity of tablet 00:00: mouth [place] 00 every Medical evening. Branch glyBURIDE 2020-0 Yes [id number] 2.5mg Take 1 [facility] 2.5 mg 7-29 tablet by ity of tablet 00:00: mouth [place] 00 every Medical evening. Branch glyBURIDE 2020-0 Yes [id number] 2.5mg Take 1 [facility] 2.5 mg 7-29 tablet by ity of tablet 00:00: mouth [place] 00 every Medical evening. Branch glyBURIDE 2020-0 Yes [id number] 2.5mg Take 1 [facility] 2.5 mg 7-29 tablet by ity of tablet 00:00: mouth [place] 00 every Medical evening. Branch glyBURIDE 2020-0 2020- No [id number] 2.5mg Take 1 [facility] 2.5 mg 7-29 08-14 tablet by ity of tablet 00:00: 00:00 mouth [place] 00 :00 every Medical evening. Branch Blood-Gluco 2020-0 Yes Patient to [facility] se Meter 6-18 check ity of (BLOOD 00:00: blood [place] GLUCOSE 00 glucose 4 Medical MONITORING) times Branch Kit daily. blood sugar 2020-0 Yes Patient to [facility] diagnostic 6-18 check ity of strip 00:00: blood [place] 00 glucose 4 Medical times Branch daily Lancets 2020-0 Yes Patient to [facility] ers Misc 6-18 check ity of 00:00: blood [place] 00 glucose 4 Medical times Branch daily. Blood-Gluco 2020-0 Yes Patient to [facility] se Meter 6-18 check ity of (BLOOD 00:00: blood [place] GLUCOSE 00 glucose 4 Medical MONITORING) times Branch Kit daily. blood sugar 2020-0 Yes Patient to [facility] diagnostic 6-18 check ity of strip 00:00: blood [place] 00 glucose 4 Medical times Branch daily Lancets 2020-0 Yes Patient to [facility] ers Misc 6-18 check ity of 00:00: blood [place] 00 glucose 4 Medical times Branch daily. Blood-Gluco 2020-0 Yes Patient to [facility] se Meter 6-18 check ity of (BLOOD 00:00: blood [place] GLUCOSE 00 glucose 4 Medical MONITORING) times Branch Kit daily. blood sugar 2020-0 Yes Patient to [facility] diagnostic 6-18 check ity of strip 00:00: blood [place] 00 glucose 4 Medical times Branch daily Lancets 2020-0 Yes Patient to [facility] ers Misc 6-18 check ity of 00:00: blood [place] 00 glucose 4 Medical times Branch daily. Blood-Gluco 2020-0 Yes Patient to [facility] se Meter 6-18 check ity of (BLOOD 00:00: blood [place] GLUCOSE 00 glucose 4 Medical MONITORING) times Branch Kit daily. blood sugar 2020-0 Yes Patient to [facility] diagnostic 6-18 check ity of strip 00:00: blood [place] 00 glucose 4 Medical times Branch daily Lancets 2020-0 Yes Patient to [facility] ers Misc 6-18 check ity of 00:00: blood [place] 00 glucose 4 Medical times Branch daily. Blood-Gluco 2020-0 Yes Patient to [facility] se Meter 6-18 check ity of (BLOOD 00:00: blood [place] GLUCOSE 00 glucose 4 Medical MONITORING) times Branch Kit daily. blood sugar 2020-0 Yes Patient to [facility] diagnostic 6-18 check ity of strip 00:00: blood [place] 00 glucose 4 Medical times Branch daily Lancets 2020-0 Yes Patient to [employer] ers Misc 6-18 check ity of 00:00: blood [place] 00 glucose 4 Medical times Branch daily. Blood-Gluco 2020-0 Yes Patient to [facility] se Meter 6-18 check ity of (BLOOD 00:00: blood [place] GLUCOSE 00 glucose 4 Medical MONITORING) times Branch Kit daily. blood sugar 2020-0 Yes Patient to [facility] diagnostic 6-18 check ity of strip 00:00: blood [place] 00 glucose 4 Medical times Branch daily Lancets 2020-0 Yes Patient to [employer] ers Misc 6-18 check ity of 00:00: blood [place] 00 glucose 4 Medical times Branch daily. Blood-Gluco 2020-0 Yes Patient to [facility] se Meter 6-18 check ity of (BLOOD 00:00: blood [place] GLUCOSE 00 glucose 4 Medical MONITORING) times Branch Kit daily. blood sugar 2020-0 Yes Patient to [facility] diagnostic 6-18 check ity of strip 00:00: blood [place] 00 glucose 4 Medical times Branch daily Lancets 2020-0 Yes Patient to [facility] ers Misc 6-18 check ity of 00:00: blood [place] 00 glucose 4 Medical times Branch daily. Blood-Gluco 2020-0 Yes Patient to [facility] se Meter 6-18 check ity of (BLOOD 00:00: blood [place] GLUCOSE 00 glucose 4 Medical MONITORING) times Branch Kit daily. blood sugar 2020-0 Yes Patient to [facility] diagnostic 6-18 check ity of strip 00:00: blood [place] 00 glucose 4 Medical times Branch daily Lancets 2020-0 Yes Patient to [facility] ers Misc 6-18 check ity of 00:00: blood [place] 00 glucose 4 Medical times Branch daily. Blood-Gluco 2020-0 Yes Patient to [facility] se Meter 6-18 check ity of (BLOOD 00:00: blood [place] GLUCOSE 00 glucose 4 Medical MONITORING) times Branch Kit daily. blood sugar 2020-0 Yes Patient to [facility] diagnostic 6-18 check ity of strip 00:00: blood [place] 00 glucose 4 Medical times Branch daily Lancets 2020-0 Yes Patient to [facility] ers Misc 6-18 check ity of 00:00: blood [place] 00 glucose 4 Medical times Branch daily. Blood-Gluco 2020-0 Yes Patient to [facility] se Meter 6-18 check ity of (BLOOD 00:00: blood [place] GLUCOSE 00 glucose 4 Medical MONITORING) times Branch Kit daily. blood sugar 2020-0 Yes Patient to [facility] diagnostic 6-18 check ity of strip 00:00: blood [place] 00 glucose 4 Medical times Branch daily Lancets 2020-0 Yes Patient to [facility] ers Misc 6-18 check ity of 00:00: blood [place] 00 glucose 4 Medical times Branch daily. Blood-Gluco 2020-0 Yes Patient to [facility] se Meter 6-18 check ity of (BLOOD 00:00: blood [place] GLUCOSE 00 glucose 4 Medical MONITORING) times Branch Kit daily. blood sugar 2020-0 Yes Patient to [facility] diagnostic 6-18 check ity of strip 00:00: blood [place] 00 glucose 4 Medical times Branch daily Lancets 2020-0 Yes Patient to [facility] ers Misc 6-18 check ity of 00:00: blood [place] 00 glucose 4 Medical times Branch daily. Blood-Gluco 2020-0 Yes Patient to [facility] se Meter 6-18 check ity of (BLOOD 00:00: blood [place] GLUCOSE 00 glucose 4 Medical MONITORING) times Branch Kit daily. blood sugar 2020-0 Yes Patient to [facility] diagnostic 6-18 check ity of strip 00:00: blood [place] 00 glucose 4 Medical times Branch daily Lancets 2020-0 Yes Patient to [facility] ers Misc 6-18 check ity of 00:00: blood [place] 00 glucose 4 Medical times Branch daily. Blood-Gluco 2020-0 Yes Patient to [facility] se Meter 6-18 check ity of (BLOOD 00:00: blood [place] GLUCOSE 00 glucose 4 Medical MONITORING) times Branch Kit daily. blood sugar 2020-0 Yes Patient to [facility] diagnostic 6-18 check ity of strip 00:00: blood [place] 00 glucose 4 Medical times Branch daily Lancets 2020-0 Yes Patient to [facility] ers Misc 6-18 check ity of 00:00: blood [place] 00 glucose 4 Medical times Branch daily. Blood-Gluco 2020-0 Yes Patient to [facility] se Meter 6-18 check ity of (BLOOD 00:00: blood [place] GLUCOSE 00 glucose 4 Medical MONITORING) times Branch Kit daily. blood sugar 2020-0 Yes Patient to [facility] diagnostic 6-18 check ity of strip 00:00: blood [place] 00 glucose 4 Medical times Branch daily Lancets 2020-0 Yes Patient to [facility] ers Misc 6-18 check ity of 00:00: blood [place] 00 glucose 4 Medical times Branch daily. Blood-Gluco 2020-0 Yes Patient to [facility] se Meter 6-18 check ity of (BLOOD 00:00: blood [place] GLUCOSE 00 glucose 4 Medical MONITORING) times Branch Kit daily. blood sugar 2020-0 Yes Patient to [facility] diagnostic 6-18 check ity of strip 00:00: blood [place] 00 glucose 4 Medical times Branch daily Lancets 2020-0 Yes Patient to [employer] ers Misc 6-18 check ity of 00:00: blood [place] 00 glucose 4 Medical times Branch daily. Blood-Gluco 2020-0 Yes Patient to [facility] se Meter 6-18 check ity of (BLOOD 00:00: blood [place] GLUCOSE 00 glucose 4 Medical MONITORING) times Branch Kit daily. blood sugar 2020-0 Yes Patient to [facility] diagnostic 6-18 check ity of strip 00:00: blood [place] 00 glucose 4 Medical times Branch daily Lancets 2020-0 Yes Patient to [employer] ers Misc 6-18 check ity of 00:00: blood [place] 00 glucose 4 Medical times Branch daily. Blood-Gluco 2020-0 Yes Patient to [facility] se Meter 6-18 check ity of (BLOOD 00:00: blood [place] GLUCOSE 00 glucose 4 Medical MONITORING) times Branch Kit daily. blood sugar 2020-0 Yes Patient to [facility] diagnostic 6-18 check ity of strip 00:00: blood [place] 00 glucose 4 Medical times Branch daily Lancets 2020-0 Yes Patient to [facility] ers Misc 6-18 check ity of 00:00: blood [place] 00 glucose 4 Medical times Branch daily. Blood-Gluco 2020-0 Yes Patient to [facility] se Meter 6-18 check ity of (BLOOD 00:00: blood [place] GLUCOSE 00 glucose 4 Medical MONITORING) times Branch Kit daily. blood sugar 2020-0 Yes Patient to [facility] diagnostic 6-18 check ity of strip 00:00: blood [place] 00 glucose 4 Medical times Branch daily Lancets 2020-0 Yes Patient to [facility] ers Misc 6-18 check ity of 00:00: blood [place] 00 glucose 4 Medical times Branch daily. Blood-Gluco 2020-0 Yes Patient to [facility] se Meter 6-18 check ity of (BLOOD 00:00: blood [place] GLUCOSE 00 glucose 4 Medical MONITORING) times Branch Kit daily. blood sugar 2020-0 Yes Patient to [facility] diagnostic 6-18 check ity of strip 00:00: blood [place] 00 glucose 4 Medical times Branch daily Lancets 2020-0 Yes Patient to [facility] ers Misc 6-18 check ity of 00:00: blood [place] 00 glucose 4 Medical times Branch daily. Blood-Gluco 2020-0 Yes Patient to [facility] se Meter 6-18 check ity of (BLOOD 00:00: blood [place] GLUCOSE 00 glucose 4 Medical MONITORING) times Branch Kit daily. blood sugar 2020-0 Yes Patient to [facility] diagnostic 6-18 check ity of strip 00:00: blood [place] 00 glucose 4 Medical times Branch daily Lancets 2020-0 Yes Patient to [facility] ers Misc 6-18 check ity of 00:00: blood [place] 00 glucose 4 Medical times Branch daily. Blood-Gluco 2020-0 Yes Patient to [facility] se Meter 6-18 check ity of (BLOOD 00:00: blood [place] GLUCOSE 00 glucose 4 Medical MONITORING) times Branch Kit daily. blood sugar 2020-0 Yes Patient to [facility] diagnostic 6-18 check ity of strip 00:00: blood [place] 00 glucose 4 Medical times Branch daily Lancets 2020-0 Yes Patient to [employer] ers Misc 6-18 check ity of 00:00: blood [place] 00 glucose 4 Medical times Branch daily. Blood-Gluco 2020-0 Yes Patient to [facility] se Meter 6-18 check ity of (BLOOD 00:00: blood [place] GLUCOSE 00 glucose 4 Medical MONITORING) times Branch Kit daily. blood sugar 2020-0 Yes Patient to [facility] diagnostic 6-18 check ity of strip 00:00: blood [place] 00 glucose 4 Medical times Branch daily Lancets 2020-0 Yes Patient to [facility] ers Misc 6-18 check ity of 00:00: blood [place] 00 glucose 4 Medical times Branch daily. Blood-Gluco 2020-0 Yes Patient to [facility] se Meter 6-18 check ity of (BLOOD 00:00: blood [place] GLUCOSE 00 glucose 4 Medical MONITORING) times Branch Kit daily. blood sugar 2020-0 Yes Patient to [facility] diagnostic 6-18 check ity of strip 00:00: blood [place] 00 glucose 4 Medical times Branch daily Lancets 2020-0 Yes Patient to [facility] ers Misc 6-18 check ity of 00:00: blood [place] 00 glucose 4 Medical times Branch daily. Blood-Gluco 2020-0 Yes Patient to [facility] se Meter 6-18 check ity of (BLOOD 00:00: blood [place] GLUCOSE 00 glucose 4 Medical MONITORING) times Branch Kit daily. blood sugar 2020-0 Yes Patient to [facility] diagnostic 6-18 check ity of strip 00:00: blood [place] 00 glucose 4 Medical times Branch daily Lancets 2020-0 Yes Patient to [employer] ers Misc 6-18 check ity of 00:00: blood [place] 00 glucose 4 Medical times Branch daily. Blood-Gluco 2020-0 Yes Patient to [facility] se Meter 6-18 check ity of (BLOOD 00:00: blood [place] GLUCOSE 00 glucose 4 Medical MONITORING) times Branch Kit daily. blood sugar 2020-0 Yes Patient to [facility] diagnostic 6-18 check ity of strip 00:00: blood [place] 00 glucose 4 Medical times Branch daily Lancets 2020-0 Yes Patient to [employer] ers Misc 6-18 check ity of 00:00: blood [place] 00 glucose 4 Medical times Branch daily. Blood-Gluco 2020-0 Yes Patient to [facility] 6-18 check ity of (BLOOD 00:00: blood [place] GLUCOSE 00 glucose 4 Medical MONITORING) times Branch Kit daily. blood sugar 2020-0 Yes Patient to [facility] diagnostic 6-18 check ity of strip 00:00: blood [place] 00 glucose 4 Medical times Branch daily Lancets 2020-0 Yes Patient to [employer] [facility] Misc 6-18 check ity of 00:00: blood [place] 00 glucose 4 Medical times Branch daily. Blood-Gluco 2020-0 Yes Patient to [facility] se Meter 6-18 check ity of (BLOOD 00:00: blood [place] GLUCOSE 00 glucose 4 Medical MONITORING) times Branch Kit daily. blood sugar 2020-0 Yes Patient to [facility] diagnostic 6-18 check ity of strip 00:00: blood [place] 00 glucose 4 Medical times Branch daily Lancets 2020-[address] [facility] Misc 6-18 check ity of 00:00: blood [place] 00 glucose 4 Medical times Branch daily. Blood-Gluco 2020-0 Yes Patient to [facility] se Meter 6-18 check ity of (BLOOD 00:00: blood [place] GLUCOSE 00 glucose 4 Medical MONITORING) times Branch Kit daily. blood sugar 2020-0 Yes Patient to [facility] diagnostic 6-18 check ity of strip 00:00: blood [place] 00 glucose 4 Medical times Branch daily Lancets 2020-[address] [facility] Misc 6-18 check ity of 00:00: blood [place] 00 glucose 4 Medical times Branch daily. Blood-Gluco 2020-0 2020- No Patient to [facility] se Meter 6-18 05-16 check ity of (BLOOD 00:00: 00:00 blood [place] GLUCOSE 00 :00 glucose 4 Medical MONITORING) times Branch Kit daily. blood sugar 2020-0 2020- No Patient to [facility] diagnostic -18 05-16 check ity of strip 00:00: 00:00 blood [place] 00 :00 glucose 4 Medical times Branch daily Lancets 2020-0 2020- No Patient to [facility] [place] Misc -18 05-16 check ity of 00:00: 00:00 blood [place] 00 :00 glucose 4 Medical times Branch daily. labetalol 2020-0 Yes [id number] 100mg Take 1 [facility] nivers 100 mg 5-28 tablet by ity of tablet 00:00: mouth [place] 00 every 12 Medical (twelve) Branch hours. labetalol 2020-0 Yes [id number] 100mg Take 1 [facility] 100 mg 5-28 tablet by ity of tablet 00:00: mouth [place] 00 every 12 Medical (twelve) Branch hours. labetalol 2020-0 Yes [id number] 100mg Take 1 [facility] 100 mg 5-28 tablet by ity of tablet 00:00: mouth [place] 00 every 12 Medical (twelve) Branch hours. labetalol 2020-0 Yes [id number] 100mg Take 1 [facility] 100 mg 5-28 tablet by ity of tablet 00:00: mouth [place] 00 every 12 Medical (twelve) Branch hours. labetalol 2020-0 Yes [id number] 100mg Take 1 [facility] 100 mg 5-28 tablet by ity of tablet 00:00: mouth [place] 00 every 12 Medical (twelve) Branch hours. labetalol 2020-0 Yes [id number] 100mg Take 1 [facility] 100 mg 5-28 tablet by ity of tablet 00:00: mouth [place] 00 every 12 Medical (twelve) Branch hours. labetalol 2020-0 Yes [id number] 100mg Take 1 [facility] 100 mg 5-28 tablet by ity of tablet 00:00: mouth [place] 00 every 12 Medical (twelve) Branch hours. labetalol 2020-0 Yes [id number] 100mg Take 1 [facility] 100 mg 5-28 tablet by ity of tablet 00:00: mouth [place] 00 every 12 Medical (twelve) Branch hours. labetalol 2020-0 Yes [id number] 100mg Take 1 [facility] 100 mg 5-28 tablet by ity of tablet 00:00: mouth [place] 00 every 12 Medical (twelve) Branch hours. labetalol 2020-0 Yes [id number] 100mg Take 1 [facility] 100 mg 5-28 tablet by ity of tablet 00:00: mouth [place] 00 every 12 Medical (twelve) Branch hours. labetalol 2020-0 Yes [id number] 100mg Take 1 [facility] 100 mg 5-28 tablet by ity of tablet 00:00: mouth [place] 00 every 12 Medical (twelve) Branch hours. labetalol 2020-0 Yes [id number] 100mg Take 1 [facility] 100 mg 5-28 tablet by ity of tablet 00:00: mouth [place] 00 every 12 Medical (twelve) Branch hours. labetalol 2020-0 Yes [id number] 100mg Take 1 [facility] 100 mg 5-28 tablet by ity of tablet 00:00: mouth [place] 00 every 12 Medical (twelve) Branch hours. labetalol 2020-0 Yes [id number] 100mg Take 1 [facility] 100 mg 5-28 tablet by ity of tablet 00:00: mouth [place] 00 every 12 Medical (twelve) Branch hours. labetalol 2020-0 Yes [id number] 100mg Take 1 [facility] 100 mg 5-28 tablet by ity of tablet 00:00: mouth [place] 00 every 12 Medical (twelve) Branch hours. labetalol 2020-0 Yes [id number] 100mg Take 1 [facility] 100 mg 5-28 tablet by ity of tablet 00:00: mouth [place] 00 every 12 Medical (twelve) Branch hours. labetalol 2020-0 Yes [id number] 100mg Take 1 [facility] 100 mg 5-28 tablet by ity of tablet 00:00: mouth [place] 00 every 12 Medical (twelve) Branch hours. labetalol 2020-0 Yes [id number] 100mg Take 1 [facility] 100 mg 5-28 tablet by ity of tablet 00:00: mouth [place] 00 every 12 Medical (twelve) Branch hours. labetalol 2020-0 Yes [id number] 100mg Take 1 [facility] 100 mg 5-28 tablet by ity of tablet 00:00: mouth [place] 00 every 12 Medical (twelve) Branch hours. labetalol 2020-0 Yes [id number] 100mg Take 1 [facility] 100 mg 5-28 tablet by ity of tablet 00:00: mouth [place] 00 every 12 Medical (twelve) Branch hours. labetalol 2020-0 Yes [id number] 100mg Take 1 [facility] 100 mg 5-28 tablet by ity of tablet 00:00: mouth [place] 00 every 12 Medical (twelve) Branch hours. labetalol 2020-0 Yes [id number] 100mg Take 1 [facility] 100 mg 5-28 tablet by ity of tablet 00:00: mouth [place] 00 every 12 Medical (twelve) Branch hours. labetalol 2020-0 Yes [id number] 100mg Take 1 [facility] 100 mg 5-28 tablet by ity of tablet 00:00: mouth [place] 00 every 12 Medical (twelve) Branch hours. labetalol 2020-0 Yes [id number] 100mg Take 1 [facility] 100 mg 5-28 tablet by ity of tablet 00:00: mouth [place] 00 every 12 Medical (twelve) Branch hours. labetalol 2020-0 Yes [id number] 100mg Take 1 [facility] 100 mg 5-28 tablet by ity of tablet 00:00: mouth [place] 00 every 12 Medical (twelve) Branch hours. labetalol 2020-0 Yes [id number] 100mg Take 1 [facility] 100 mg 5-28 tablet by ity of tablet 00:00: mouth [place] 00 every 12 Medical (twelve) Branch hours. labetalol 2020-0 Yes [id number] 100mg Take 1 [facility] 100 mg 5-28 tablet by ity of tablet 00:00: mouth [place] 00 every 12 Medical (twelve) Branch hours. labetalol 2020-0 Yes [id number] 100mg Take 1 [facility] nivers 100 mg 5-28 tablet by ity of tablet 00:00: mouth [place] 00 every 12 Medical (twelve) Branch hours. labetalol 2020-0 Yes [id number] 100mg Take 1 [facility] 100 mg 5-28 tablet by ity of tablet 00:00: mouth [place] 00 every 12 Medical (twelve) Branch hours. labetalol 2020-0 Yes [id number] 100mg Take 1 [facility] 100 mg 5-28 tablet by ity of tablet 00:00: mouth [place] 00 every 12 Medical (twelve) Branch hours. labetalol 2020-0 Yes [id number] 100mg Take 1 [facility] 100 mg 5-28 tablet by ity of tablet 00:00: mouth [place] 00 every 12 Medical (twelve) Branch hours. labetalol 2020-0 Yes [id number] 100mg Take 1 [facility] 100 mg 5-28 tablet by ity of tablet 00:00: mouth [place] 00 every 12 Medical (twelve) Branch hours. labetalol 2020-0 2020- No [id number] 100mg Take 1 [facility] 100 mg 5-28 08-14 tablet by ity of tablet 00:00: 00:00 mouth [place] 00 :00 every 12 Medical (twelve) Branch hours. labetalol 2020-0 Yes [id number] 100mg Take 1 [facility] n[facility] 100 mg 3-17 tablet by ity of tablet 00:00: mouth [place] 00 every 12 Medical (twelve) Branch hours. labetalol 2020-0 Yes [id number] 100mg Take 1 [facility] 100 mg 3-17 tablet by ity of tablet 00:00: mouth [place] 00 every 12 Medical (twelve) Branch hours. labetalol 2020-0 Yes [id number] 100mg Take 1 [facility] 100 mg 3-17 tablet by ity of tablet 00:00: mouth [place] 00 every 12 Medical (twelve) Branch hours. labetalol 2020-0 Yes [id number] 100mg Take 1 [facility] 100 mg 3-17 tablet by ity of tablet 00:00: mouth [place] 00 every 12 Medical (twelve) Branch hours. labetalol 2020-0 Yes [id number] 100mg Take 1 [facility] 100 mg 3-17 tablet by ity of tablet 00:00: mouth [place] 00 every 12 Medical (twelve) Branch hours. labetalol 2020-0 Yes [id number] 100mg Take 1 [facility] 100 mg 3-17 tablet by ity of tablet 00:00: mouth [place] 00 every 12 Medical (twelve) Branch hours. labetalol 2020-0 Yes [id number] 100mg Take 1 [facility] 100 mg 3-17 tablet by ity of tablet 00:00: mouth [place] 00 every 12 Medical (twelve) Branch hours. labetalol 2020-0 Yes [id number] 100mg Take 1 [facility] 100 mg 3-17 tablet by ity of tablet 00:00: mouth [place] 00 every 12 Medical (twelve) Branch hours. labetalol 2020-0 Yes [id number] 100mg Take 1 [facility] 100 mg 3-17 tablet by ity of tablet 00:00: mouth [place] 00 every 12 Medical (twelve) Branch hours. labetalol 2020-0 2020- No [id number] 100mg Take 1 [facility] 100 mg 3-17 05-28 tablet by ity of tablet 00:00: 00:00 mouth [place] 00 :00 every 12 Medical (twelve) Branch hours. Alcohol 2020-0 Yes [id number] Apply to [facility] Swabs 3-02 area(s) 4 ity of (ALCOHOL 00:00: (four) [place] PREP PADS) 00 times Medical PadM daily. Branch Blood-Gluco 2020-0 Yes [id number] Check BS [facility] se Meter 3-02 QID ity of Kit 00:00: [place] 00 Medical Branch Lancets 2020-0 Yes [id number] Check BS [facility] nivers Misc 3-02 QID ity of 00:00: [place] 00 Medical Branch blood sugar 2020-0 Yes [id number] Check BS [facility] diagnostic 3-02 QID ity of (BLOOD 00:00: [place] GLUCOSE 00 Medical TEST) strip Branch Alcohol 2020-0 Yes [id number] Apply to [facility] Swabs 3-02 area(s) 4 ity of (ALCOHOL 00:00: (four) [place] PREP PADS) 00 times Medical PadM daily. Branch Blood-Gluco 2020-0 Yes [id number] Check BS [facility] se Meter 3-02 QID ity of Kit 00:00: [place] 00 Medical Branch Lancets 2020-0 Yes [id number] Check BS [facility] nivers Misc 3-02 QID ity of 00:00: [place] 00 Medical Branch blood sugar 2020-0 Yes [id number] Check BS [facility] diagnostic 3-02 QID ity of (BLOOD 00:00: [place] GLUCOSE 00 Medical TEST) strip Branch Alcohol 2020-0 Yes [id number] Apply to [facility] Swabs 3-02 area(s) 4 ity of (ALCOHOL 00:00: (four) [place] PREP PADS) 00 times Medical PadM daily. Branch Blood-Gluco 2020-0 Yes [id number] Check BS [facility] se Meter 3-02 QID ity of Kit 00:00: [place] 00 Medical Branch Lancets 2020-0 Yes [id number] Check BS [facility] nivers Misc 3-02 QID ity of 00:00: [place] 00 Medical Branch blood sugar 2020-0 Yes [id number] Check BS [facility] diagnostic 3-02 QID ity of (BLOOD 00:00: [place] GLUCOSE 00 Medical TEST) strip Branch Alcohol 2020-0 Yes [id number] Apply to [facility] Swabs 3-02 area(s) 4 ity of (ALCOHOL 00:00: (four) [place] PREP PADS) 00 times Medical PadM daily. Branch Blood-Gluco 2020-0 Yes [id number] Check BS [facility] se Meter 3-02 QID ity of Kit 00:00: [place] 00 Medical Branch Lancets 2020-0 Yes [id number] Check BS U nivers Misc 3-02 QID ity of 00:00: [place] 00 Medical Branch blood sugar 2020-0 Yes [id number] Check BS [facility] diagnostic 3-02 QID ity of (BLOOD 00:00: [place] GLUCOSE 00 Medical TEST) strip Branch Alcohol 2020-0 Yes [id number] Apply to [facility] Swabs 3-02 area(s) 4 ity of (ALCOHOL 00:00: (four) [place] PREP PADS) 00 times Medical PadM daily. Branch Blood-Gluco 2020-0 Yes [id number] Check BS [facility] se Meter 3-02 QID ity of Kit 00:00: [place] 00 Medical Branch Lancets 2020-0 Yes [id number] Check BS U nivers Misc 3-02 QID ity of 00:00: [place] 00 Medical Branch blood sugar 2020-0 Yes [id number] Check BS [facility] diagnostic 3-02 QID ity of (BLOOD 00:00: [place] GLUCOSE 00 Medical TEST) strip Branch Alcohol 2020-0 Yes [id number] Apply to [facility] Swabs 3-02 area(s) 4 ity of (ALCOHOL 00:00: (four) [place] PREP PADS) 00 times Medical PadM daily. Branch Blood-Gluco 2020-0 Yes [id number] Check BS [facility] se Meter 3-02 QID ity of Kit 00:00: [place] 00 Medical Branch Lancets 2020-0 Yes [id number] Check BS U nivers Misc 3-02 QID ity of 00:00: [place] 00 Medical Branch blood sugar 2020-0 Yes [id number] Check BS [facility] diagnostic 3-02 QID ity of (BLOOD 00:00: [place] GLUCOSE 00 Medical TEST) strip Branch Alcohol 2020-0 Yes [id number] Apply to [facility] Swabs 3-02 area(s) 4 ity of (ALCOHOL 00:00: (four) [place] PREP PADS) 00 times Medical PadM daily. Branch Blood-Gluco 2020-0 Yes [id number] Check BS [facility] se Meter 3-02 QID ity of Kit 00:00: [place] 00 Medical Branch Lancets 2020-0 Yes [id number] Check BS U nivers Misc 3-02 QID ity of 00:00: [place] 00 Medical Branch blood sugar 2020-0 Yes [id number] Check BS [facility] diagnostic 3-02 QID ity of (BLOOD 00:00: [place] GLUCOSE 00 Medical TEST) strip Branch Alcohol 2020-0 Yes [id number] Apply to [facility] Swabs 3-02 area(s) 4 ity of (ALCOHOL 00:00: (four) [place] PREP PADS) 00 times Medical PadM daily. Branch Blood-Gluco 2020-0 Yes [id number] Check BS [facility] se Meter 3-02 QID ity of Kit 00:00: [place] 00 Medical Branch Lancets 2020-0 Yes [id number] Check BS [facility] n[facility] Misc 3-02 QID ity of 00:00: [place] 00 Medical Branch blood sugar 2020-0 Yes [id number] Check BS [facility] diagnostic 3-02 QID ity of (BLOOD 00:00: [place] GLUCOSE 00 Medical TEST) strip Branch Alcohol 2020-0 Yes [id number] Apply to [facility] Swabs 3-02 area(s) 4 ity of (ALCOHOL 00:00: (four) [place] PREP PADS) 00 times Medical PadM daily. Branch Blood-Gluco 2020-0 Yes [id number] Check BS [facility] se Meter 3-02 QID ity of Kit 00:00: [place] 00 Medical Branch Lancets 2020-0 Yes [id number] Check BS [facility] n[facility] Misc 3-02 QID ity of 00:00: [place] 00 Medical Branch blood sugar 2020-0 Yes [id number] Check BS [facility] diagnostic 3-02 QID ity of (BLOOD 00:00: [place] GLUCOSE 00 Medical TEST) strip Branch Alcohol 2020-0 Yes [id number] Apply to [facility] Swabs 3-02 area(s) 4 ity of (ALCOHOL 00:00: (four) [place] PREP PADS) 00 times Medical PadM daily. Branch Blood-Gluco 2020-0 Yes [id number] Check BS [facility] se Meter 3-02 QID ity of Kit 00:00: [place] 00 Medical Branch Lancets 2020-0 Yes [id number] Check BS [facility] nivers Misc 3-02 QID ity of 00:00: [place] 00 Medical Branch blood sugar 2020-0 Yes [id number] Check BS [facility] diagnostic 3-02 QID ity of (BLOOD 00:00: [place] GLUCOSE 00 Medical TEST) strip Branch Alcohol 2020-0 Yes [id number] Apply to [facility] Swabs 3-02 area(s) 4 ity of (ALCOHOL 00:00: (four) [place] PREP PADS) 00 times Medical PadM daily. Branch Blood-Gluco 2020-0 Yes [id number] Check BS [facility] se Meter 3-02 QID ity of Kit 00:00: [place] 00 Medical Branch Lancets 2020-0 Yes [id number] Check BS [facility] nivers Misc 3-02 QID ity of 00:00: [place] 00 Medical Branch blood sugar 2020-0 Yes [id number] Check BS [facility] diagnostic 3-02 QID ity of (BLOOD 00:00: [place] GLUCOSE 00 Medical TEST) strip Branch Alcohol 2020-0 Yes [id number] Apply to [facility] Swabs 3-02 area(s) 4 ity of (ALCOHOL 00:00: (four) [place] PREP PADS) 00 times Medical PadM daily. Branch Blood-Gluco 2020-0 Yes [id number] Check BS [facility] se Meter 3-02 QID ity of Kit 00:00: [place] 00 Medical Branch Lancets 2020-0 Yes [id number] Check BS [facility] nivers Misc 3-02 QID ity of 00:00: [place] 00 Medical Branch blood sugar 2020-0 Yes [id number] Check BS [facility] diagnostic 3-02 QID ity of (BLOOD 00:00: [place] GLUCOSE 00 Medical TEST) strip Branch Alcohol 2020-0 Yes [id number] Apply to [facility] Swabs 3-02 area(s) 4 ity of (ALCOHOL 00:00: (four) [place] PREP PADS) 00 times Medical PadM daily. Branch Blood-Gluco 2020-0 Yes [id number] Check BS [facility] se Meter 3-02 QID ity of Kit 00:00: [place] 00 Medical Branch Lancets 2020-0 Yes [id number] Check BS [facility] nivers Misc 3-02 QID ity of 00:00: [place] 00 Medical Branch blood sugar 2020-0 Yes [id number] Check BS [facility] diagnostic 3-02 QID ity of (BLOOD 00:00: [place] GLUCOSE 00 Medical TEST) strip Branch Alcohol 2020-0 Yes [id number] Apply to [facility] Swabs 3-02 area(s) 4 ity of (ALCOHOL 00:00: (four) [place] PREP PADS) 00 times Medical PadM daily. Branch Blood-Gluco 2020-0 Yes [id number] Check BS [facility] se Meter 3-02 QID ity of Kit 00:00: [place] 00 Medical Branch Lancets 2020-0 Yes [id number] Check BS [facility] nivers Misc 3-02 QID ity of 00:00: [place] 00 Medical Branch blood sugar 2020-0 Yes [id number] Check BS [facility] diagnostic 3-02 QID ity of (BLOOD 00:00: [place] GLUCOSE 00 Medical TEST) strip Branch Alcohol 2020-0 Yes [id number] Apply to [facility] Swabs 3-02 area(s) 4 ity of (ALCOHOL 00:00: (four) [place] PREP PADS) 00 times Medical PadM daily. Branch Blood-Gluco 2020-0 Yes [id number] Check BS [facility] se Meter 3-02 QID ity of Kit 00:00: [place] 00 Medical Branch Lancets 2020-0 Yes [id number] Check BS [facility] nivers Misc 3-02 QID ity of 00:00: [place] 00 Medical Branch blood sugar 2020-0 Yes [id number] Check BS [facility] diagnostic 3-02 QID ity of (BLOOD 00:00: [place] GLUCOSE 00 Medical TEST) strip Branch Alcohol 2020-0 Yes [id number] Apply to [facility] Swabs 3-02 area(s) 4 ity of (ALCOHOL 00:00: (four) [place] PREP PADS) 00 times Medical PadM daily. Branch Blood-Gluco 2020-0 Yes [id number] Check BS [facility] se Meter 3-02 QID ity of Kit 00:00: [place] 00 Medical Branch Lancets 2020-0 Yes [id number] Check BS [facility] nivers Misc 3-02 QID ity of 00:00: [place] 00 Medical Branch blood sugar 2020-0 Yes [id number] Check BS [facility] diagnostic 3-02 QID ity of (BLOOD 00:00: [place] GLUCOSE 00 Medical TEST) strip Branch Alcohol 2020-0 Yes [id number] Apply to [facility] Swabs 3-02 area(s) 4 ity of (ALCOHOL 00:00: (four) [place] PREP PADS) 00 times Medical PadM daily. Branch Blood-Gluco 2020-0 Yes [id number] Check BS [facility] se Meter 3-02 QID ity of Kit 00:00: [place] 00 Medical Branch Lancets 2020-0 Yes [id number] Check BS [facility] nivers Misc 3-02 QID ity of 00:00: [place] 00 Medical Branch blood sugar 2020-0 Yes [id number] Check BS [facility] diagnostic 3-02 QID ity of (BLOOD 00:00: [place] GLUCOSE 00 Medical TEST) strip Branch Alcohol 2020-0 Yes [id number] Apply to [facility] Swabs 3-02 area(s) 4 ity of (ALCOHOL 00:00: (four) [place] PREP PADS) 00 times Medical PadM daily. Branch Alcohol 2020-0 Yes [id number] Apply to [facility] Swabs 3-02 area(s) 4 ity of (ALCOHOL 00:00: (four) [place] PREP PADS) 00 times Medical PadM daily. Branch Alcohol 2020-0 Yes [id number] Apply to [facility] Swabs 3-02 area(s) 4 ity of (ALCOHOL 00:00: (four) [place] PREP PADS) 00 times Medical PadM daily. Branch Alcohol 2020-0 Yes [id number] Apply to [facility] Swabs 3-02 area(s) 4 ity of (ALCOHOL 00:00: (four) [place] PREP PADS) 00 times Medical PadM daily. Branch Alcohol 2020-0 Yes [id number] Apply to [facility] Swabs 3-02 area(s) 4 ity of (ALCOHOL 00:00: (four) [place] PREP PADS) 00 times Medical PadM daily. Branch Alcohol 2020-0 Yes [id number] Apply to [facility] Swabs 3-02 area(s) 4 ity of (ALCOHOL 00:00: (four) [place] PREP PADS) 00 times Medical PadM daily. Branch Alcohol 2020-0 Yes [id number] Apply to [facility] Swabs 3-02 area(s) 4 ity of (ALCOHOL 00:00: (four) [place] PREP PADS) 00 times Medical PadM daily. Branch Alcohol 2020-0 Yes [id number] Apply to [facility] Swabs 3-02 area(s) 4 ity of (ALCOHOL 00:00: (four) [place] PREP PADS) 00 times Medical PadM daily. Branch Alcohol 2020-0 Yes [id number] Apply to [facility] Swabs 3-02 area(s) 4 ity of (ALCOHOL 00:00: (four) [place] PREP PADS) 00 times Medical PadM daily. Branch Alcohol 2020-0 Yes [id number] Apply to [facility] Swabs 3-02 area(s) 4 ity of (ALCOHOL 00:00: (four) [place] PREP PADS) 00 times Medical PadM daily. Branch Alcohol 2020-0 Yes [id number] Apply to [facility] Swabs 3-02 area(s) 4 ity of (ALCOHOL 00:00: (four) [place] PREP PADS) 00 times Medical PadM daily. Branch Alcohol 2020-0 Yes [id number] Apply to [facility] Swabs 3-02 area(s) 4 ity of (ALCOHOL 00:00: (four) [place] PREP PADS) 00 times Medical PadM daily. Branch Alcohol 2020-0 Yes [id number] Apply to [facility] Swabs 3-02 area(s) 4 ity of (ALCOHOL 00:00: (four) [place] PREP PADS) 00 times Medical PadM daily. Branch Alcohol 2020-0 Yes [id number] Apply to [facility] Swabs 3-02 area(s) 4 ity of (ALCOHOL 00:00: (four) [place] PREP PADS) 00 times Medical PadM daily. Branch Alcohol 2020-0 Yes [id number] Apply to [facility] Swabs 3-02 area(s) 4 ity of (ALCOHOL 00:00: (four) [place] PREP PADS) 00 times Medical PadM daily. Branch Alcohol 2020-0 Yes [id number] Apply to [facility] Swabs 3-02 area(s) 4 ity of (ALCOHOL 00:00: (four) [place] PREP PADS) 00 times Medical PadM daily. Branch Alcohol 2020-0 Yes [id number] Apply to [facility] Swabs 3-02 area(s) 4 ity of (ALCOHOL 00:00: (four) [place] PREP PADS) 00 times Medical PadM daily. Branch Alcohol 2020-0 Yes [id number] Apply to [facility] Swabs 3-02 area(s) 4 ity of (ALCOHOL 00:00: (four) [place] PREP PADS) 00 times Medical PadM daily. Branch Alcohol 2020-0 Yes [id number] Apply to [facility] Swabs 3-02 area(s) 4 ity of (ALCOHOL 00:00: (four) [place] PREP PADS) 00 times Medical PadM daily. Branch Alcohol 2020-0 Yes [id number] Apply to [facility] Swabs 3-02 area(s) 4 ity of (ALCOHOL 00:00: (four) [place] PREP PADS) 00 times Medical PadM daily. Branch Alcohol 2020-0 Yes [id number] Apply to [facility] Swabs 3-02 area(s) 4 ity of (ALCOHOL 00:00: (four) [place] PREP PADS) 00 times Medical PadM daily. Branch Alcohol 2020-0 Yes [id number] Apply to [facility] Swabs 3-02 area(s) 4 ity of (ALCOHOL 00:00: (four) [place] PREP PADS) 00 times Medical PadM daily. Branch Alcohol 2020-0 Yes [id number] Apply to [facility] Swabs 3-02 area(s) 4 ity of (ALCOHOL 00:00: (four) [place] PREP PADS) 00 times Medical PadM daily. Branch Alcohol 2020-0 Yes [id number] Apply to [facility] Swabs 3-02 area(s) 4 ity of (ALCOHOL 00:00: (four) [place] PREP PADS) 00 times Medical PadM daily. Branch Alcohol 2020-0 Yes [id number] Apply to [facility] Swabs 3-02 area(s) 4 ity of (ALCOHOL 00:00: (four) [place] PREP PADS) 00 times Medical PadM daily. Branch Alcohol 2020-0 Yes [id number] Apply to [facility] Swabs 3-02 area(s) 4 ity of (ALCOHOL 00:00: (four) [place] PREP PADS) 00 times Medical PadM daily. Branch Alcohol 2020-0 Yes [id number] Apply to [facility] Swabs 3-02 area(s) 4 ity of (ALCOHOL 00:00: (four) [place] PREP PADS) 00 times Medical PadM daily. Branch Alcohol 2020-0 Yes [id number] Apply to [facility] Swabs 3-02 area(s) 4 ity of (ALCOHOL 00:00: (four) [place] PREP PADS) 00 times Medical PadM daily. Branch Alcohol 2019-0 2020- No [id number] Apply to [facility] Swabs 12-02 area(s) 4 ity of (ALCOHOL 00:00: 00:00 (four) [place] PREP PADS) 00 :00 times Medical PadM daily. Branch Blood-Gluco 2019-0 2020- No [id number] Check BS [facility] se Meter 12-02 QID ity of Kit 00:00: 00:00 [place] 00 :00 Medical Branch Lancets 2019-0 2020- No [id number] Check BS [facility] Misc 12-02 QID ity of 00:00: 00:00 [place] 00 :00 Medical Branch blood sugar 2019-0 2020- No [id number] Check BS [facility] diagnostic 12-02 QID ity of (BLOOD 00:00: 00:00 [place] GLUCOSE 00 :00 Medical TEST) strip Branch aspirin 81 2020-0 Yes [id number] 81mg Take 1 [facility] mg EC 2-19 tablet by ity of tablet 00:00: mouth [place] 00 daily. Medical Branch aspirin 81 2020-0 Yes [id number] 81mg Take 1 [facility] mg EC 2-19 tablet by ity of tablet 00:00: mouth [place] 00 daily. Medical Branch aspirin 81 2020-0 Yes [id number] 81mg Take 1 [facility] mg EC 2-19 tablet by ity of tablet 00:00: mouth [place] 00 daily. Medical Branch aspirin 81 2020-0 Yes [id number] 81mg Take 1 [facility] mg EC 2-19 tablet by ity of tablet 00:00: mouth [place] 00 daily. Medical Branch aspirin 81 2020-0 Yes [id number] 81mg Take 1 [facility] mg EC 2-19 tablet by ity of tablet 00:00: mouth [place] 00 daily. Medical Branch aspirin 81 2020-0 Yes [id number] 81mg Take 1 [facility] mg EC 2-19 tablet by ity of tablet 00:00: mouth [place] 00 daily. Medical Branch aspirin 81 2020-0 Yes [id number] 81mg Take 1 [facility] mg EC 2-19 tablet by ity of tablet 00:00: mouth [place] 00 daily. Medical Branch aspirin 81 2020-0 Yes [id number] 81mg Take 1 [facility] mg EC 2-19 tablet by ity of tablet 00:00: mouth [place] 00 daily. Medical Branch aspirin 81 2020-0 Yes [id number] 81mg Take 1 [facility] mg EC 2-19 tablet by ity of tablet 00:00: mouth [place] 00 daily. Medical Branch aspirin 81 2020-0 Yes [id number] 81mg Take 1 [facility] mg EC 2-19 tablet by ity of tablet 00:00: mouth [place] 00 daily. Medical Branch aspirin 81 2020-0 Yes [id number] 81mg Take 1 [facility] mg EC 2-19 tablet by ity of tablet 00:00: mouth [place] 00 daily. Medical Branch aspirin 81 2020-0 Yes [id number] 81mg Take 1 [facility] mg EC 2-19 tablet by ity of tablet 00:00: mouth [place] 00 daily. Medical Branch aspirin 81 2020-0 Yes [id number] 81mg Take 1 [facility] mg EC 2-19 tablet by ity of tablet 00:00: mouth [place] 00 daily. Medical Branch aspirin 81 2020-0 Yes [id number] 81mg Take 1 [facility] mg EC 2-19 tablet by ity of tablet 00:00: mouth [place] 00 daily. Medical Branch aspirin 81 2020-0 Yes [id number] 81mg Take 1 [facility] mg EC 2-19 tablet by ity of tablet 00:00: mouth [place] 00 daily. Medical Branch aspirin 81 2020-0 Yes [id number] 81mg Take 1 [facility] mg EC 2-19 tablet by ity of tablet 00:00: mouth [place] 00 daily. Medical Branch aspirin 81 2020-0 Yes [id number] 81mg Take 1 [facility] mg EC 2-19 tablet by ity of tablet 00:00: mouth [place] 00 daily. Medical Branch aspirin 81 2020-0 Yes [id number] 81mg Take 1 [facility] mg EC 2-19 tablet by ity of tablet 00:00: mouth [place] 00 daily. Medical Branch aspirin 81 2020-0 Yes [id number] 81mg Take 1 [facility] mg EC 2-19 tablet by ity of tablet 00:00: mouth [place] 00 daily. Medical Branch aspirin 81 2020-0 Yes [id number] 81mg Take 1 [facility] mg EC 2-19 tablet by ity of tablet 00:00: mouth [place] 00 daily. Medical Branch aspirin 81 2020-0 Yes [id number] 81mg Take 1 [facility] mg EC 2-19 tablet by ity of tablet 00:00: mouth [place] 00 daily. Medical Branch aspirin 81 2020-0 Yes [id number] 81mg Take 1 [facility] mg EC 2-19 tablet by ity of tablet 00:00: mouth [place] 00 daily. Medical Branch aspirin 81 2020-0 Yes [id number] 81mg Take 1 [facility] mg EC 2-19 tablet by ity of tablet 00:00: mouth [place] 00 daily. Medical Branch aspirin 81 2020-0 Yes [id number] 81mg Take 1 [facility] mg EC 2-19 tablet by ity of tablet 00:00: mouth [place] 00 daily. Medical Branch aspirin 81 2020-0 Yes [id number] 81mg Take 1 [facility] mg EC 2-19 tablet by ity of tablet 00:00: mouth [place] 00 daily. Medical Branch aspirin 81 2020-0 Yes [id number] 81mg Take 1 [facility] mg EC 2-19 tablet by ity of tablet 00:00: mouth [place] 00 daily. Medical Branch aspirin 81 2020-0 Yes [id number] 81mg Take 1 [facility] mg EC 2-19 tablet by ity of tablet 00:00: mouth [place] 00 daily. Medical Branch aspirin 81 2020-0 Yes [id number] 81mg Take 1 [facility] mg EC 2-19 tablet by ity of tablet 00:00: mouth [place] 00 daily. Medical Branch aspirin 81 2020-0 Yes [id number] 81mg Take 1 [facility] mg EC 2-19 tablet by ity of tablet 00:00: mouth [place] 00 daily. Medical Branch aspirin 81 2020-0 Yes [id number] 81mg Take 1 [facility] mg EC 2-19 tablet by ity of tablet 00:00: mouth [place] 00 daily. Medical Branch aspirin 81 2020-0 Yes [id number] 81mg Take 1 [facility] mg EC 2-19 tablet by ity of tablet 00:00: mouth [place] 00 daily. Medical Branch aspirin 81 2020-0 Yes [id number] 81mg Take 1 [facility] mg EC 2-19 tablet by ity of tablet 00:00: mouth [place] 00 daily. Medical Branch aspirin 81 2020-0 Yes [id number] 81mg Take 1 [facility] mg EC 2-19 tablet by ity of tablet 00:00: mouth [place] 00 daily. Medical Branch aspirin 81 2020-0 Yes [id number] 81mg Take 1 [facility] mg EC 2-19 tablet by ity of tablet 00:00: mouth [place] 00 daily. Medical Branch aspirin 81 2020-0 Yes [id number] 81mg Take 1 [facility] mg EC 2-19 tablet by ity of tablet 00:00: mouth [place] 00 daily. Medical Branch aspirin 81 2020-0 Yes [id number] 81mg Take 1 [facility] mg EC 2-19 tablet by ity of tablet 00:00: mouth [place] 00 daily. Medical Branch aspirin 81 2020-0 Yes [id number] 81mg Take 1 [facility] mg EC 2-19 tablet by ity of tablet 00:00: mouth [place] 00 daily. Medical Branch aspirin 81 2020-0 Yes [id number] 81mg Take 1 [facility] mg EC 2-19 tablet by ity of tablet 00:00: mouth [place] 00 daily. Medical Branch aspirin 81 2020-0 Yes [id number] 81mg Take 1 [facility] mg EC 2-19 tablet by ity of tablet 00:00: mouth [place] 00 daily. Medical Branch aspirin 81 2020-0 Yes [id number] 81mg Take 1 [facility] mg EC 2-19 tablet by ity of tablet 00:00: mouth [place] 00 daily. Medical Branch aspirin 81 2020-0 Yes [id number] 81mg Take 1 [facility] mg EC 2-19 tablet by ity of tablet 00:00: mouth [place] 00 daily. Medical Branch aspirin 81 2020-0 Yes [id number] 81mg Take 1 [facility] mg EC 2-19 tablet by ity of tablet 00:00: mouth [place] 00 daily. Medical Branch aspirin 81 2020-0 Yes [id number] 81mg Take 1 [facility] mg EC 2-19 tablet by ity of tablet 00:00: mouth [place] 00 daily. Medical Branch aspirin 81 2020-0 Yes [id number] 81mg Take 1 [facility] mg EC 2-19 tablet by ity of tablet 00:00: mouth [place] 00 daily. Medical Branch aspirin 81 2020-0 Yes [id number] 81mg Take 1 [facility] mg EC 2-19 tablet by ity of tablet 00:00: mouth [place] 00 daily. Medical Branch aspirin 81 2020-0 Yes [id number] 81mg Take 1 [facility] mg EC 2-19 tablet by ity of tablet 00:00: mouth [place] 00 daily. Medical Branch aspirin 81 2020-0 Yes [id number] 81mg Take 1 [facility] mg EC 2-19 tablet by ity of tablet 00:00: mouth [place] 00 daily. Medical Branch aspirin 81 2020-0 Yes [id number] 81mg Take 1 [facility] mg EC 2-19 tablet by ity of tablet 00:00: mouth [place] 00 daily. Medical Branch aspirin 81 2020-0 Yes [id number] 81mg Take 1 [facility] mg EC 2-19 tablet by ity of tablet 00:00: mouth [place] 00 daily. Medical Branch aspirin 81 2020-0 Yes [id number] 81mg Take 1 [facility] mg EC 2-19 tablet by ity of tablet 00:00: mouth [place] 00 daily. Medical Branch aspirin 81 2020-0 Yes [id number] 81mg Take 1 [facility] mg EC 2-19 tablet by ity of tablet 00:00: mouth [place] 00 daily. Medical Branch aspirin 81 2020-0 Yes [id number] 81mg Take 1 [facility] mg EC 2-19 tablet by ity of tablet 00:00: mouth [place] 00 daily. Medical Branch aspirin 81 2020-0 Yes [id number] 81mg Take 1 [facility] mg EC 2-19 tablet by ity of tablet 00:00: mouth [place] 00 daily. Medical Branch aspirin 81 2020-0 Yes [id number] 81mg Take 1 [facility] mg EC 2-19 tablet by ity of tablet 00:00: mouth [place] 00 daily. Medical Branch aspirin 81 2020-0 Yes [id number] 81mg Take 1 [facility] mg EC 2-19 tablet by ity of tablet 00:00: mouth [place] 00 daily. Medical Branch aspirin 81 2020-0 Yes [id number] 81mg Take 1 [facility] mg EC 2-19 tablet by ity of tablet 00:00: mouth [place] 00 daily. Medical Branch aspirin 81 2020-0 Yes [id number] 81mg Take 1 [facility] mg EC 2-19 tablet by ity of tablet 00:00: mouth [place] 00 daily. Medical Branch aspirin 81 2020-0 Yes [id number] 81mg Take 1 [facility] mg EC 2-19 tablet by ity of tablet 00:00: mouth [place] 00 daily. Medical Branch aspirin 81 2020-0 Yes [id number] 81mg Take 1 [facility] mg EC 2-19 tablet by ity of tablet 00:00: mouth [place] 00 daily. Medical Branch aspirin 81 2020-0 Yes [id number] 81mg Take 1 [facility] mg EC 2-19 tablet by ity of tablet 00:00: mouth [place] 00 daily. Medical Branch aspirin 81 2020-0 Yes [id number] 81mg Take 1 [facility] mg EC 2-19 tablet by ity of tablet 00:00: mouth [place] 00 daily. Medical Branch aspirin 81 2020-0 Yes [id number] 81mg Take 1 [facility] mg EC 2-19 tablet by ity of tablet 00:00: mouth [place] 00 daily. Medical Branch aspirin 81 2020-0 Yes [id number] 81mg Take 1 [facility] mg EC 2-19 tablet by ity of tablet 00:00: mouth [place] 00 daily. Medical Branch aspirin 81 2020-0 2020- No [id number] 81mg Take 1 [facility] mg EC 2-19 08-14 tablet by ity of tablet 00:00: 00:00 mouth [place] 00 :00 daily. Medical Branch PNV 2020-0 Yes [id number] 1{tbl} Take 1 [facility] rs 102-iron-fo 2-18 tablet by ity of late 00:00: mouth [place] 1-dss-dha 00 daily. Medical (VITAFOL Branch FE+, WITH DOCUSATE,) 90 mg iron-1 mg -50 mg-200 mg Cap PNV 2020-0 Yes [id number] 1{tbl} Take 1 [facility] rs 102-iron-fo 2-18 tablet by ity of late 00:00: mouth [place] 1-dss-dha 00 daily. Medical (VITAFOL Branch FE+, WITH DOCUSATE,) 90 mg iron-1 mg -50 mg-200 mg Cap PNV 2020-0 Yes [id number] 1{tbl} Take 1 [facility] rs 102-iron-fo 2-18 tablet by ity of late 00:00: mouth [place] 1-dss-dha 00 daily. Medical (VITAFOL Branch FE+, WITH DOCUSATE,) 90 mg iron-1 mg -50 mg-200 mg Cap PNV 2020-0 Yes [id number] 1{tbl} Take 1 [facility] rs 102-iron-fo 2-18 tablet by ity of late 00:00: mouth [place] 1-dss-dha 00 daily. Medical (VITAFOL Branch FE+, WITH DOCUSATE,) 90 mg iron-1 mg -50 mg-200 mg Cap PNV 2020-0 Yes [id number] 1{tbl} Take 1 [facility] rs 102-iron-fo 2-18 tablet by ity of late 00:00: mouth [place] 1-dss-dha 00 daily. Medical (VITAFOL Branch FE+, WITH DOCUSATE,) 90 mg iron-1 mg -50 mg-200 mg Cap PNV 2020-0 Yes [id number] 1{tbl} Take 1 [facility] rs 102-iron-fo 2-18 tablet by ity of late 00:00: mouth [place] 1-dss-dha 00 daily. Medical (VITAFOL Branch FE+, WITH DOCUSATE,) 90 mg iron-1 mg -50 mg-200 mg Cap PNV 2020-0 Yes [id number] 1{tbl} Take 1 [facility] rs 102-iron-fo 2-18 tablet by ity of late 00:00: mouth [place] 1-dss-dha 00 daily. Medical (VITAFOL Branch FE+, WITH DOCUSATE,) 90 mg iron-1 mg -50 mg-200 mg Cap PNV 2020-0 Yes [id number] 1{tbl} Take 1 [facility] rs 102-iron-fo 2-18 tablet by ity of late 00:00: mouth [place] [address]-dss-dha 00 daily. Medical (VITAFOL Branch FE+, WITH DOCUSATE,) 90 mg iron-1 mg -50 mg-200 mg Cap PNV 2020-0 Yes [id number] 1{tbl} Take 1 [facility] rs 102-iron-fo 2-18 tablet by ity of late 00:00: mouth [place] [address]-dss-dha 00 daily. Medical (VITAFOL Branch FE+, WITH DOCUSATE,) 90 mg iron-1 mg -50 mg-200 mg Cap PNV 2020-0 Yes [id number] 1{tbl} Take 1 [facility] rs 102-iron-fo 2-18 tablet by ity of late 00:00: mouth [place] [address]-dss-dha 00 daily. Medical (VITAFOL Branch FE+, WITH DOCUSATE,) 90 mg iron-1 mg -50 mg-200 mg Cap PNV 2020-0 Yes [id number] 1{tbl} Take 1 [facility] rs 102-iron-fo 2-18 tablet by ity of late 00:00: mouth [place] [address]-dss-dha 00 daily. Medical (VITAFOL Branch FE+, WITH DOCUSATE,) 90 mg iron-1 mg -50 mg-200 mg Cap PNV 2020-0 Yes [id number] 1{tbl} Take 1 [facility] rs 102-iron-fo 2-18 tablet by ity of late 00:00: mouth [place] 1-dss-dha 00 daily. Medical (VITAFOL Branch FE+, WITH DOCUSATE,) 90 mg iron-1 mg -50 mg-200 mg Cap PNV 2020-0 Yes [id number] 1{tbl} Take 1 [facility] rs 102-iron-fo 2-18 tablet by ity of late 00:00: mouth [place] 1-dss-dha 00 daily. Medical (VITAFOL Branch FE+, WITH DOCUSATE,) 90 mg iron-1 mg -50 mg-200 mg Cap PNV 2020-0 Yes [id number] 1{tbl} Take 1 [facility] rs 102-iron-fo 2-18 tablet by ity of late 00:00: mouth [place] 1-dss-dha 00 daily. Medical (VITAFOL Branch FE+, WITH DOCUSATE,) 90 mg iron-1 mg -50 mg-200 mg Cap PNV 2020-0 Yes [id number] 1{tbl} Take 1 [facility] rs 102-iron-fo 2-18 tablet by ity of late 00:00: mouth [place] 1-dss-dha 00 daily. Medical (VITAFOL Branch FE+, WITH DOCUSATE,) 90 mg iron-1 mg -50 mg-200 mg Cap PNV 2020-0 Yes [id number] 1{tbl} Take 1 [facility] rs 102-iron-fo 2-18 tablet by ity of late 00:00: mouth [place] 1-dss-dha 00 daily. Medical (VITAFOL Branch FE+, WITH DOCUSATE,) 90 mg iron-1 mg -50 mg-200 mg Cap PNV 2020-0 Yes [id number] 1{tbl} Take 1 [facility] rs 102-iron-fo 2-18 tablet by ity of late 00:00: mouth [place] 1-dss-dha 00 daily. Medical (VITAFOL Branch FE+, WITH DOCUSATE,) 90 mg iron-1 mg -50 mg-200 mg Cap PNV 2020-0 Yes [id number] 1{tbl} Take 1 [facility] rs 102-iron-fo 2-18 tablet by ity of late 00:00: mouth [place] 1-dss-dha 00 daily. Medical (VITAFOL Branch FE+, WITH DOCUSATE,) 90 mg iron-1 mg -50 mg-200 mg Cap PNV 2020-0 Yes [id number] 1{tbl} Take 1 [facility] rs 102-iron-fo 2-18 tablet by ity of late 00:00: mouth [place] 1-dss-dha 00 daily. Medical (VITAFOL Branch FE+, WITH DOCUSATE,) 90 mg iron-1 mg -50 mg-200 mg Cap PNV 2020-0 Yes [id number] 1{tbl} Take 1 [facility] rs 102-iron-fo 2-18 tablet by ity of late 00:00: mouth [place] 1-dss-dha 00 daily. Medical (VITAFOL Branch FE+, WITH DOCUSATE,) 90 mg iron-1 mg -50 mg-200 mg Cap PNV 2020-0 Yes [id number] 1{tbl} Take 1 [facility] rs 102-iron-fo 2-18 tablet by ity of late 00:00: mouth [place] 1-dss-dha 00 daily. Medical (VITAFOL Branch FE+, WITH DOCUSATE,) 90 mg iron-1 mg -50 mg-200 mg Cap PNV 2020-0 Yes [id number] 1{tbl} Take 1 [facility] rs 102-iron-fo 2-18 tablet by ity of late 00:00: mouth [place] 1-dss-dha 00 daily. Medical (VITAFOL Branch FE+, WITH DOCUSATE,) 90 mg iron-1 mg -50 mg-200 mg Cap PNV 2020-0 Yes [id number] 1{tbl} Take 1 [facility] rs 102-iron-fo 2-18 tablet by ity of late 00:00: mouth [place] [address]-dss-dha 00 daily. Medical (VITAFOL Branch FE+, WITH DOCUSATE,) 90 mg iron-1 mg -50 mg-200 mg Cap PNV 2020-0 Yes [id number] 1{tbl} Take 1 [facility] rs 102-iron-fo 2-18 tablet by ity of late 00:00: mouth [place] [address]-dss-dha 00 daily. Medical (VITAFOL Branch FE+, WITH DOCUSATE,) 90 mg iron-1 mg -50 mg-200 mg Cap PNV 2020-0 Yes [id number] 1{tbl} Take 1 [facility] rs 102-iron-fo 2-18 tablet by ity of late 00:00: mouth [place] 1-dss-dha 00 daily. Medical (VITAFOL Branch FE+, WITH DOCUSATE,) 90 mg iron-1 mg -50 mg-200 mg Cap PNV 2020-0 Yes [id number] 1{tbl} Take 1 [facility] rs 102-iron-fo 2-18 tablet by ity of late 00:00: mouth [place] 1-dss-dha 00 daily. Medical (VITAFOL Branch FE+, WITH DOCUSATE,) 90 mg iron-1 mg -50 mg-200 mg Cap PNV 2020-0 Yes [id number] 1{tbl} Take 1 [facility] rs 102-iron-fo 2-18 tablet by ity of late 00:00: mouth [place] 1-dss-dha 00 daily. Medical (VITAFOL Branch FE+, WITH DOCUSATE,) 90 mg iron-1 mg -50 mg-200 mg Cap PNV 2020-0 Yes [id number] 1{tbl} Take 1 [facility] rs 102-iron-fo 2-18 tablet by ity of late 00:00: mouth [place] [address]-dss-dha 00 daily. Medical (VITAFOL Branch FE+, WITH DOCUSATE,) 90 mg iron-1 mg -50 mg-200 mg Cap PNV 2020-0 Yes [id number] 1{tbl} Take 1 Unive rs 102-iron-fo 2-18 tablet by ity of late 00:00: mouth [place] [address]-dss-dha 00 daily. Medical (VITAFOL Branch FE+, WITH DOCUSATE,) 90 mg iron-1 mg -50 mg-200 mg Cap PNV 2020-0 Yes [id number] 1{tbl} Take 1 Unive rs 102-iron-fo 2-18 tablet by ity of late 00:00: mouth [place] [address]-dss-dha 00 daily. Medical (VITAFOL Branch FE+, WITH DOCUSATE,) 90 mg iron-1 mg -50 mg-200 mg Cap PNV 2020-0 Yes [id number] 1{tbl} Take 1 Unive rs 102-iron-fo 2-18 tablet by ity of late 00:00: mouth [place] [address]-dss-dha 00 daily. Medical (VITAFOL Branch FE+, WITH DOCUSATE,) 90 mg iron-1 mg -50 mg-200 mg Cap PNV 2020-0 Yes [id number] 1{tbl} Take 1 Unive rs 102-iron-fo 2-18 tablet by ity of late 00:00: mouth [place] 1-dss-dha 00 daily. Medical (VITAFOL Branch FE+, WITH DOCUSATE,) 90 mg iron-1 mg -50 mg-200 mg Cap PNV 2020-0 Yes [id number] 1{tbl} Take 1 Unive rs 102-iron-fo 2-18 tablet by ity of late 00:00: mouth [place] 1-dss-dha 00 daily. Medical (VITAFOL Branch FE+, WITH DOCUSATE,) 90 mg iron-1 mg -50 mg-200 mg Cap PNV 2020-0 Yes [id number] 1{tbl} Take 1 Unive rs 102-iron-fo 2-18 tablet by ity of late 00:00: mouth [place] 1-dss-dha 00 daily. Medical (VITAFOL Branch FE+, WITH DOCUSATE,) 90 mg iron-1 mg -50 mg-200 mg Cap PNV 2020-0 Yes [id number] 1{tbl} Take 1 Unive rs 102-iron-fo 2-18 tablet by ity of late 00:00: mouth [place] 1-dss-dha 00 daily. Medical (VITAFOL Branch FE+, WITH DOCUSATE,) 90 mg iron-1 mg -50 mg-200 mg Cap PNV 2020-0 Yes [id number] 1{tbl} Take 1 Unive rs 102-iron-fo 2-18 tablet by ity of late 00:00: mouth [place] 1-dss-dha 00 daily. Medical (VITAFOL Branch FE+, WITH DOCUSATE,) 90 mg iron-1 mg -50 mg-200 mg Cap PNV 2020-0 Yes [id number] 1{tbl} Take 1 Unive rs 102-iron-fo 2-18 tablet by ity of late 00:00: mouth [place] 1-dss-dha 00 daily. Medical (VITAFOL Branch FE+, WITH DOCUSATE,) 90 mg iron-1 mg -50 mg-200 mg Cap PNV 2020-0 Yes [id number] 1{tbl} Take 1 Unive rs 102-iron-fo 2-18 tablet by ity of late 00:00: mouth [place] 1-dss-dha 00 daily. Medical (VITAFOL Branch FE+, WITH DOCUSATE,) 90 mg iron-1 mg -50 mg-200 mg Cap PNV 2020-0 Yes [id number] 1{tbl} Take 1 Unive rs 102-iron-fo 2-18 tablet by ity of late 00:00: mouth [place] 1-dss-dha 00 daily. Medical (VITAFOL Branch FE+, WITH DOCUSATE,) 90 mg iron-1 mg -50 mg-200 mg Cap PNV 2020-0 Yes [id number] 1{tbl} Take 1 Unive rs 102-iron-fo 2-18 tablet by ity of late 00:00: mouth [place] 1-dss-dha 00 daily. Medical (VITAFOL Branch FE+, WITH DOCUSATE,) 90 mg iron-1 mg -50 mg-200 mg Cap PNV 2020-0 Yes [id number] 1{tbl} Take 1 Unive rs 102-iron-fo 2-18 tablet by ity of late 00:00: mouth [place] 1-dss-dha 00 daily. Medical (VITAFOL Branch FE+, WITH DOCUSATE,) 90 mg iron-1 mg -50 mg-200 mg Cap PNV 2020-0 Yes [id number] 1{tbl} Take 1 Unive rs 102-iron-fo 2-18 tablet by ity of late 00:00: mouth [place] 1-dss-dha 00 daily. Medical (VITAFOL Branch FE+, WITH DOCUSATE,) 90 mg iron-1 mg -50 mg-200 mg Cap PNV 2020-0 Yes [id number] 1{tbl} Take 1 Unive rs 102-iron-fo 2-18 tablet by ity of late 00:00: mouth [place] [address]-dss-dha 00 daily. Medical (VITAFOL Branch FE+, WITH DOCUSATE,) 90 mg iron-1 mg -50 mg-200 mg Cap PNV 2020-0 Yes [id number] 1{tbl} Take 1 Unive rs 102-iron-fo 2-18 tablet by ity of late 00:00: mouth [place] [address]-dss-dha 00 daily. Medical (VITAFOL Branch FE+, WITH DOCUSATE,) 90 mg iron-1 mg -50 mg-200 mg Cap PNV 2020-0 Yes [id number] 1{tbl} Take 1 Unive rs 102-iron-fo 2-18 tablet by ity of late 00:00: mouth [place] 1-dss-dha 00 daily. Medical (VITAFOL Branch FE+, WITH DOCUSATE,) 90 mg iron-1 mg -50 mg-200 mg Cap PNV 2020-0 Yes [id number] 1{tbl} Take 1 Unive rs 102-iron-fo 2-18 tablet by ity of late 00:00: mouth [place] 1-dss-dha 00 daily. Medical (VITAFOL Branch FE+, WITH DOCUSATE,) 90 mg iron-1 mg -50 mg-200 mg Cap PNV 2020-0 Yes [id number] 1{tbl} Take 1 Unive rs 102-iron-fo 2-18 tablet by ity of late 00:00: mouth [place] 1-dss-dha 00 daily. Medical (VITAFOL Branch FE+, WITH DOCUSATE,) 90 mg iron-1 mg -50 mg-200 mg Cap PNV 2020-0 Yes [id number] 1{tbl} Take 1 Unive rs 102-iron-fo 2-18 tablet by ity of late 00:00: mouth [place] [address]-dss-dha 00 daily. Medical (VITAFOL Branch FE+, WITH DOCUSATE,) 90 mg iron-1 mg -50 mg-200 mg Cap PNV 2020-0 Yes [id number] 1{tbl} Take 1 Unive rs 102-iron-fo 2-18 tablet by ity of late 00:00: mouth [place] [address]-dss-dha 00 daily. Medical (VITAFOL Branch FE+, WITH DOCUSATE,) 90 mg iron-1 mg -50 mg-200 mg Cap PNV 2020-0 Yes [id number] 1{tbl} Take 1 Unive rs 102-iron-fo 2-18 tablet by ity of late 00:00: mouth [place] [address]-dss-dha 00 daily. Medical (VITAFOL Branch FE+, WITH DOCUSATE,) 90 mg iron-1 mg -50 mg-200 mg Cap PNV 2020-0 Yes [id number] 1{tbl} Take 1 Unive rs 102-iron-fo 2-18 tablet by ity of late 00:00: mouth [place] [address]-dss-dha 00 daily. Medical (VITAFOL Branch FE+, WITH DOCUSATE,) 90 mg iron-1 mg -50 mg-200 mg Cap PNV 2020-0 Yes [id number] 1{tbl} Take 1 Unive rs 102-iron-fo 2-18 tablet by ity of late 00:00: mouth [place] 1-dss-dha 00 daily. Medical (VITAFOL Branch FE+, WITH DOCUSATE,) 90 mg iron-1 mg -50 mg-200 mg Cap PNV 2020-0 Yes [id number] 1{tbl} Take 1 Unive rs 102-iron-fo 2-18 tablet by ity of late 00:00: mouth [place] 1-dss-dha 00 daily. Medical (VITAFOL Branch FE+, WITH DOCUSATE,) 90 mg iron-1 mg -50 mg-200 mg Cap PNV 2020-0 Yes [id number] 1{tbl} Take 1 Unive rs 102-iron-fo 2-18 tablet by ity of late 00:00: mouth [place] 1-dss-dha 00 daily. Medical (VITAFOL Branch FE+, WITH DOCUSATE,) 90 mg iron-1 mg -50 mg-200 mg Cap PNV 2020-0 Yes [id number] 1{tbl} Take 1 Unive rs 102-iron-fo 2-18 tablet by ity of late 00:00: mouth [place] 1-dss-dha 00 daily. Medical (VITAFOL Branch FE+, WITH DOCUSATE,) 90 mg iron-1 mg -50 mg-200 mg Cap PNV 2020-0 Yes [id number] 1{tbl} Take 1 Unive rs 102-iron-fo 2-18 tablet by ity of late 00:00: mouth [place] 1-dss-dha 00 daily. Medical (VITAFOL Branch FE+, WITH DOCUSATE,) 90 mg iron-1 mg -50 mg-200 mg Cap PNV 2020-0 Yes [id number] 1{tbl} Take 1 Unive rs 102-iron-fo 2-18 tablet by ity of late 00:00: mouth [place] 1-dss-dha 00 daily. Medical (VITAFOL Branch FE+, WITH DOCUSATE,) 90 mg iron-1 mg -50 mg-200 mg Cap PNV 2020-0 Yes [id number] 1{tbl} Take 1 Unive rs 102-iron-fo 2-18 tablet by ity of late 00:00: mouth [place] 1-dss-dha 00 daily. Medical (VITAFOL Branch FE+, WITH DOCUSATE,) 90 mg iron-1 mg -50 mg-200 mg Cap PNV 2020-0 Yes [id number] 1{tbl} Take 1 Unive rs 102-iron-fo 2-18 tablet by ity of late 00:00: mouth [place] 1-dss-dha 00 daily. Medical (VITAFOL Branch FE+, WITH DOCUSATE,) 90 mg iron-1 mg -50 mg-200 mg Cap PNV 2019-0 2020- No [id number] 1{tbl} Take 1 Univ ers 102-iron-fo 2-18 08-14 tablet by it y of late 00:00: 00:00 mouth [place] 1-dss-dha 00 :00 daily. Medical (VITAFOL Branch FE+, WITH DOCUSATE,) 90 mg iron-1 mg -50 mg-200 mg Cap Yes 1{tbl} Take 1 Tab U nivers multivitami 6-09 by mouth [facility] [place] ( [place] 00 Medical tablet Branch Yes 1{tbl} Take 1 Tab U nivers multivitami 6-09 by mouth [facility] [place] ( [place] [facility] [facility] tablet Branch Yes 1{tbl} Take 1 Tab U nivers multivitami 6-09 by mouth [facility] n ( [place] [facility] Medical tablet Branch Yes 1{tbl} Take 1 Tab U nivers multivitami 6-09 by mouth [facility] n ( [place]. [place] VITAM[place] 00 Medical tablet Branch Yes 1{tbl} Take 1 Tab U nivers multivitami 6-09 by mouth [facility] n ( [place]. [place] VITAM[place] 00 Medical tablet Branch Yes 1{tbl} Take 1 Tab U nivers multivitami 6-09 by mouth [facility] n ( [place] [facility] Medical tablet Branch Yes 1{tbl} Take 1 Tab U nivers multivitami 6-09 by mouth [facility] of n ( [place]. [place] VITAM[place] Medical tablet Branch Yes 1{tbl} Take 1 Tab U nivers multivitami 6-09 by mouth [facility] of n ( [place]: [place]. [place] VITAMIN[place] 00 Medical tablet Branch Yes 1{tbl} Take 1 Tab U nivers multivitami 6-09 by mouth [facility] of n ( [place]: [place]. [place] VITAMIN[place] Medical tablet Branch Yes 1{tbl} Take 1 Tab U nivers multivitami 6-09 by mouth [facility]y of n ( [place]: [place]. [place] VITAMIN[place] 00 Medical tablet Branch Yes 1{tbl} Take 1 Tab U nivers multivitami 6-09 by mouth [facility] of n ( [place]. [place] VITAMIN[place] 00 Medical tablet Branch Yes 1{tbl} Take 1 Tab U nivers multivitami 6-09 by mouth [facility] of n ( [place] VITAMIN[place] 00 Medical tablet Branch 2020- No 1{tbl} Take 1 Tab Univers multivitami 6-09 02-20 by mouth ity of n ( 00:00: 00:00 daily. [place] VITAMIN) 00 :00 Medical tablet Branch Citalopram Citalopram Yes María Elena take [address] [facility] Hydrobromid Hydrobromid [place] [facility] Levothyroxi Levothyroxi Yes María Elena take [address] [facility] ne Sodium ne Sodium [place] tablet by [facility] once [facility] daily l [facility] Gabapentin Gabapentin Yes María Elena [address] [facility] [place] [facility] Immunizations Ordered Filled Immunization Date Status Comments Sour e Immunization Name Name TDAP (ADACEL) 2020-03-19 Completed University of VACCINE 00:00:00 [facility] TDAP (ADACEL) 2020-03-19 Completed University of VACCINE 00:00:00 [place] [facility] TDAP (ADACEL) 2020-03-19 Completed University of VACCINE 00:00:00 [place] [facility] TDAP (ADACEL) 2020-03-19 Completed University of VACCINE 00:00:00 [place] [facility] TDAP (ADACEL) 2020-03-19 Completed University of VACCINE 00:00:00 [place] [facility] TDAP (ADACEL) 2020-03-19 Completed University of VACCINE 00:00:00 [place] [facility] TDAP (ADACEL) 2020-03-19 Completed University of VACCINE 00:00:00 [place] [facility] TDAP (ADACEL) 2020-03-19 Completed University of VACCINE 00:00:00 [place] [facility] TDAP (ADACEL) 2020-03-19 Completed University of VACCINE 00:00:00 [facility] TDAP (ADACEL) 2020-03-19 Completed University of VACCINE 00:00:00 [place] [facility] TDAP (ADACEL) 2020-03-19 Completed University of VACCINE 00:00:00 [place] [facility] TDAP (ADACEL) 2020-03-19 Completed University of VACCINE 00:00:00 [place] [facility] TDAP (ADACEL) 2020-03-19 Completed University of VACCINE 00:00:00 [place] [facility] TDAP (ADACEL) 2020-03-19 Completed University of VACCINE 00:00:00 [place] [facility] TDAP (ADACEL) 2020-03-19 Completed University of VACCINE 00:00:00 [place] [facility] TDAP (ADACEL) 2020-03-19 Completed University of VACCINE 00:00:00 [facility] TDAP (ADACEL) 2020-03-19 Completed University of VACCINE 00:00:00 [facility] TDAP (ADACEL) 2020-03-19 Completed University of VACCINE 00:00:00 [facility] TDAP (ADACEL) 2020-03-19 Completed University of VACCINE 00:00:00 [facility] TDAP (ADACEL) 2020-03-19 Completed University of VACCINE 00:00:00 [facility] TDAP (ADACEL) 2020-03-19 Completed University of VACCINE 00:00:00 [facility] TDAP (ADACEL) 2020-03-19 Completed University of VACCINE 00:00:00 [place] [facility] TDAP (ADACEL) 2020-03-19 Completed University of VACCINE 00:00:00 [facility] TDAP (ADACEL) 2020-03-19 Completed University of VACCINE 00:00:00 [facility] TDAP (ADACEL) 2020-03-19 Completed University of VACCINE 00:00:00 [place] [facility] TDAP (ADACEL) 2020-03-19 Completed University of VACCINE 00:00:00 [place] [facility] TDAP (ADACEL) 2020-03-19 Completed University of VACCINE 00:00:00 [place] [facility] TDAP (ADACEL) 2020-03-19 Completed University of VACCINE 00:00:00 [place] [facility] TDAP (ADACEL) 2020-03-19 Completed University of VACCINE 00:00:00 [place] [facility] TDAP (ADACEL) 2020-03-19 Completed University of VACCINE 00:00:00 [place] [facility] TDAP (ADACEL) 2020-03-19 Completed University of VACCINE 00:00:00 [facility] TDAP (ADACEL) 2020-03-19 Completed University of VACCINE 00:00:00 [facility] TDAP (ADACEL) 2020-03-19 Completed University of VACCINE 00:00:00 [facility] TDAP (ADACEL) 2020-03-19 Completed University of VACCINE 00:00:00 [facility] TDAP (ADACEL) 2020-03-19 Completed University of VACCINE 00:00:00 [facility] TDAP (ADACEL) 2020-03-19 Completed University of VACCINE 00:00:00 [facility] TDAP (ADACEL) 2020-03-19 Completed University of VACCINE 00:00:00 [facility] TDAP (ADACEL) 2020-03-19 Completed University of VACCINE 00:00:00 [facility] TDAP (ADACEL) 2020-03-19 Completed University of VACCINE 00:00:00 [facility] Vital Signs Vital Name Observation Time Observation Value Comments Source Body temperature 2021-06-11 01:36:00 [facility] 2021-06-11 00:19:00 96 mm[Hg] Univer sity of pressure [facility] Diastolic blood 2021-06-11 00:19:00 63 mm[Hg] Unive rsity of pressure [facility] Heart rate 2021-06-11 00:19:00 98 /min [facility] Respiratory rate 2021-06-11 00:19:00 18 /min Univ [facility] Oxygen saturation in 2021-06-11 00:19:00 98 /min [facility] Arterial blood by [facility] Pulse oximetry Branch Body weight 2021-06-10 21:50:00 52.164 kg [facility] Systolic blood 2020-06-11 16:39:00 148 mm[Hg] Univer sity of pressure [facility] Diastolic blood 2020-06-11 16:39:00 82 mm[Hg] Unive rsity of pressure [facility] Heart rate 2020-06-11 16:35:00 71 [facility] 2020-06-11 16:35:00 36.83 [facility] Respiratory rate 2020-06-11 16:35:00 18 /min Univ ersity [facility] Body height 2020-06-11 16:35:00 160 cm [facility] [place] [facility] Body weight 2020-06-11 16:35:00 110.224 kg [facility] [place] [facility] BMI 2020-06-11 16:35:00 43.05 kg/m2 [facility] [place] [facility] Systolic blood 2020-05-21 16:01:00 139 mm[Hg] Univer sity of pressure [facility] Diastolic blood 2020-05-21 16:01:00 85 mm[Hg] Unive rsity of pressure [facility] Heart rate 2020-05-21 16:01:00 88 /min Universi ty of [facility] Body temperature 2020-05-21 15:44:00 36.78 [facility] ersity of [facility] Respiratory rate 2020-05-21 15:44:00 18 /min Univ ersity of [facility] Body height 2020-05-21 15:44:00 161.3 cm [facility] [place] [facility] Body weight 2020-05-21 15:44:00 117.482 kg [facility] [place] [facility] BMI 2020-05-21 15:44:00 45.16 kg/m2 Universi ty of [facility] Systolic blood 2020-05-16 15:00:00 145 mm[Hg] Univer sity of pressure [facility] Diastolic blood 2020-05-16 15:00:00 78 mm[Hg] Unive rsity of pressure [facility] Heart rate 2020-05-16 15:00:00 102 /min [facility]i [facility] of [place] [facility] Body temperature 2020-05-16 15:00:00 36.72 [place] [facility] ersity of [facility] Respiratory rate 2020-05-16 15:00:00 16 /min Univ ersity of [facility] Oxygen saturation in 2020-05-16 15:00:00 99 /min University Arterial blood by [facility] Pulse oximetry Branch Body height 2020-05-14 14:19:00 161.5 cm [facility] [place] [facility] Body weight 2020-05-14 14:19:00 125.646 kg [facility] [place] [facility] BMI 2020-05-14 14:19:00 48.17 kg/m2 Universi ty of [facility] Systolic blood 2020-05-12 18:28:00 139 mm[Hg] Univer sity of pressure [facility] Diastolic blood 2020-05-12 18:28:00 87 mm[Hg] Unive rsity of pressure [place] [facility] Heart rate 2020-05-12 18:28:00 114 /min Universi ty of [facility] Body temperature 2020-05-12 18:28:00 36.5 [facility] ers[facility] of [place] [facility] Respiratory rate 2020-05-12 18:28:00 18 /min Univ ersity of [facility] Body height 2020-05-12 18:28:00 160 cm [facility] [place] [facility] Body weight 2020-05-12 18:28:00 128.368 kg [facility] [place] [facility] BMI 2020-05-12 18:28:00 50.13 kg/m2 Universi ty of [facility] Systolic blood 2020-05-09 18:05:00 138 mm[Hg] Univer sity of pressure [place] [facility] Diastolic blood 2020-05-09 18:05:00 80 mm[Hg] Unive rsity of pressure [facility] Heart rate 2020-05-09 18:00:00 101 /min Universi ty of [facility] Body temperature 2020-05-09 18:00:00 36.72 [place] [facility] ersity of [facility] Respiratory rate 2020-05-09 18:00:00 18 /min Univ ersity of [place] [facility] Body height 2020-05-09 18:00:00 160 cm [facility] [place] [facility] Body weight 2020-05-09 18:00:00 125.465 kg Universi ty of [facility] BMI 2020-05-09 18:00:00 49.00 kg/m2 Universi ty of [facility] Systolic blood 2020-05-05 18:25:00 147 mm[Hg] Univer sity of pressure [place] [facility] Diastolic blood 2020-05-05 18:25:00 73 mm[Hg] Unive rsity of pressure [place] [facility] Heart rate 2020-05-05 18:25:00 97 /min [facility] [place] [facility] Body temperature 2020-05-05 18:25:00 36.94 [facility] [place] [facility] Respiratory rate 2020-05-05 18:25:00 18 /min Univ ersity of [facility] Body height 2020-05-05 18:25:00 160 cm [facility] [place] [facility] Body weight 2020-05-05 18:25:00 128.096 kg [facility] [place] [facility] BMI 2020-05-05 18:25:00 50.02 kg/m2 [facility] [place] [facility] Systolic blood 2020-04-30 14:04:00 130 mm[Hg] Univer sity of pressure [place] [facility] Diastolic blood 2020-04-30 14:04:00 84 mm[Hg] Unive rsity of pressure [place] [facility] Heart rate 2020-04-30 14:01:00 105 /min [facility] [place] [facility] Body temperature 2020-04-30 14:01:00 36.44 [facility] [place] [facility] Respiratory rate 2020-04-30 14:01:00 18 /min Univ ersity of [place] [facility] Body height 2020-04-30 14:01:00 160 cm [facility] [place] [facility] Body weight 2020-04-30 14:01:00 124.921 kg [facility] [place] [facility] BMI 2020-04-30 14:01:00 48.78 kg/m2 [facility] [place] [facility] Systolic blood 2020-05-02 14:23:00 139 mm[Hg] Univer sity of pressure [place] [facility] Diastolic blood 2020-05-02 14:23:00 85 mm[Hg] Unive rsity of pressure [place] [facility] Heart rate 2020-05-02 14:23:00 98 /min [facility] [place] [facility] Body temperature 2020-05-02 14:23:00 36.78 [facility] [place] [facility] Respiratory rate 2020-05-02 14:23:00 18 /min Univ ersity of [place] [facility] Body weight 2020-05-02 14:23:00 126.1 kg [facility] [place] [facility] BMI 2020-05-02 14:23:00 49.25 kg/m2 [facility] [place] [facility] Systolic blood 2020-04-16 20:22:00 121 mm[Hg] Univer sity of pressure [place] [facility] Diastolic blood 2020-04-16 20:22:00 67 mm[Hg] Unive rsity of pressure [place] [facility] Heart rate 2020-04-16 20:22:00 104 /min [facility] [place] [facility] Body temperature 2020-04-16 20:22:00 36.94 [facility] [place] [facility] Respiratory rate 2020-04-16 20:22:00 18 /min Univ ersity of [facility] Body height 2020-04-16 20:22:00 160 cm [facility] [place] [facility] Body weight 2020-04-16 20:22:00 124.286 kg [facility] [place] [facility] BMI 2020-04-16 20:22:00 48.54 kg/m2 Universi ty of [facility] Heart rate 2020-04-14 17:00:00 102 /min Universi ty of [facility] Oxygen saturation in 2020-04-14 16:45:00 100 /min University of Arterial blood by [facility] Pulse oximetry Branch Systolic blood 2020-04-14 16:26:00 141 mm[Hg] Univer sity of pressure [place] [facility] Diastolic blood 2020-04-14 16:26:00 79 mm[Hg] Unive rsity of pressure [facility] Body temperature 2020-04-14 16:26:00 36.89 [facility] ersity of [facility] Respiratory rate 2020-04-14 16:26:00 18 /min Univ ersity of [facility] Body height 2020-04-14 16:26:00 160 cm [facility] [place] [facility] Body weight 2020-04-14 16:26:00 123.832 kg [facility] [place] [facility] BMI 2020-04-14 16:26:00 48.36 kg/m2 Universi ty of [facility] Systolic blood 2020-04-14 14:46:00 133 mm[Hg] Univer sity of pressure [facility] Diastolic blood 2020-04-14 14:46:00 89 mm[Hg] Unive rsity of pressure [facility] Heart rate 2020-04-14 14:46:00 101 /min Universi ty of [facility] Body temperature 2020-04-14 14:46:00 36.83 [place] ersity of [facility] Respiratory rate 2020-04-14 14:46:00 18 /min Univ ersity of [facility] Body height 2020-04-14 14:46:00 160 cm [facility] [place] [facility] Body weight 2020-04-14 14:46:00 123.832 kg [facility] [place] [facility] BMI 2020-04-14 14:46:00 48.36 kg/m2 Universi ty of [facility] Systolic blood 2020-04-09 20:14:00 138 mm[Hg] Univer sity of pressure [place] [facility] Diastolic blood 2020-04-09 20:14:00 83 mm[Hg] Unive rsity of pressure [facility] Heart rate 2020-04-09 20:14:00 118 /min [facility] [place] [facility] Body temperature 2020-04-09 20:14:00 36.67 [facility] [place] [facility] Respiratory rate 2020-04-09 20:14:00 18 /min Univ ersity of [place] [facility] Body height 2020-04-09 20:14:00 160 cm [facility] [place] [facility] Body weight 2020-04-09 20:14:00 123.378 kg [facility] [place] [facility] BMI 2020-04-09 20:14:00 48.18 kg/m2 [facility] [place] [facility] Systolic blood 2020-04-07 14:08:00 136 mm[Hg] Univer sity of pressure [facility] Diastolic blood 2020-04-07 14:08:00 84 mm[Hg] Unive rsity of pressure [facility] Heart rate 2020-04-07 14:08:00 108 /min [facility] [place] [facility] Body temperature 2020-04-07 14:08:00 36.5 [facility] [place] [facility] Respiratory rate 2020-04-07 14:08:00 18 /min Univ ersity of [place] [facility] Body height 2020-04-07 14:08:00 160 cm [facility] [place] [facility] Body weight 2020-04-07 14:08:00 123.378 kg [facility] [place] [facility] BMI 2020-04-07 14:08:00 48.18 kg/m2 [facility] [place] [facility] Systolic blood 2020-03-19 21:20:00 133 mm[Hg] Univer sity of pressure [facility] Diastolic blood 2020-03-19 21:20:00 79 mm[Hg] Unive rsity of pressure [facility] Heart rate 2020-03-19 21:20:00 104 /min [facility]i [facility] [place] [facility] Body temperature 2020-03-19 21:20:00 37 [facility] [place] [facility] Respiratory rate 2020-03-19 21:20:00 18 /min Univ ersity of [place] [facility] Body height 2020-03-19 21:20:00 160 cm [facility] [place] [facility] Body weight 2020-03-19 21:20:00 125.737 kg [facility] [place] [facility] BMI 2020-03-19 21:20:00 49.10 kg/m2 [facility] [place] [facility] Systolic blood 2019-12-18 14:03:00 159 mm[Hg] Univer sity of pressure [facility] Diastolic blood 2019-12-18 14:03:00 94 mm[Hg] Unive rsity of pressure [facility] Heart rate 2019-12-18 14:02:00 93 /min [facility]i [facility] [place] [facility] Body temperature 2019-12-18 14:02:00 36.72 [facility] [place] [facility] Respiratory rate 2019-12-18 14:02:00 18 /min Univ ersity of [facility] Body height 2019-12-18 14:02:00 160 cm [facility] Body weight 2019-12-18 14:02:00 122.925 kg [facility] [place] [facility] BMI 2019-12-18 14:02:00 48.01 kg/m2 [facility] [place] [facility] Systolic blood 2019-11-20 19:40:00 149 mm[Hg] Univer sity of pressure [facility] Diastolic blood 2019-11-20 19:40:00 96 mm[Hg] Unive rsity of pressure [facility] Heart rate 2019-11-20 19:30:00 91 /min [facility] Body temperature 2019-11-20 19:30:00 36.39 [facility] Respiratory rate 2019-11-20 19:30:00 18 /min [facility] Body height 2019-11-20 19:30:00 160 cm [facility] Body weight 2019-11-20 19:30:00 121.564 kg [facility] BMI 2019-11-20 19:30:00 47.47 kg/m2 [facility] Systolic blood 2019-10-23 21:05:00 140 mm[Hg] [facility] Diastolic blood 2019-10-23 21:05:00 87 mm[Hg] Unive rsity of pressure [facility] Heart rate 2019-10-23 20:59:00 93 /min [facility] Body temperature 2019-10-23 20:59:00 36.89 [facility] Respiratory rate 2019-10-23 20:59:00 18 /min [facility] Body height 2019-10-23 20:59:00 160 cm [facility] Body weight 2019-10-23 20:59:00 122.471 kg [facility] BMI 2019-10-23 20:59:00 47.83 kg/m2 [facility] Procedures Procedure Date / Time Performing Clinician Source Performed URINALYSIS 2021-06-10 23:51:[address] [facility] [place] [place] COVID-19 (ID NOW RAPID 2021-06-10 23:51:00 Erlin [facility]enson [facility] TESTING[facility] Medical [facility] NOTICE OF PRIVACY 2021-06-10 21:34:13 Doctor Unassigned, [facility] PRACTICES [facility] CONSENT/REFUSAL FOR 2021-06-10 21:33:17 Doctor Unasstova, [facility] DIAGNOSIS AND TREATMENT [facility] CBC WITH DIFF 2020-05-15 08:49:00 Melyssa Lopez [facility] VENOUS CORD GAS 2020-05-14 16:12:00 [facility] SECTION 2020-05-14 15:05:00 [facility] 2020-05-14 15:05:00 [facility]SE (AUTOMATED) 2020-05-14 14:05:00 Melyssa Lopez [facility] COVID-19 (ID NOW RAPID 2020-05-14 13:44:00 Melyssa Lopez [facility] TESTING) [facility] RHO (D) IMMUNE GLOBULIN 2020-05-13 20:12:00 Melyssa Lopez [facility] ASSIGNMENT OF BENEFITS 2020-05-12 19:19:25 Doctor Unassigned, [facility] NON-STRESS TEST 2020-05-12 19:05:26 Consuelo Dao [facility] NON-STRESS TEST 2020-05-09 19:02:46 Melyssa Lopez [facility] NON-STRESS TEST 2020-05-05 19:33:03 Consuelo Dao [facility] POCT URINALYSIS W/O 2020-05-05 00:00:00 Consuelo Dao [facility] NON-STRESS TEST 2020-05-02 14:52:11 Melyssa Lopez [facility] DSU PRE-OP 2020-05-02 05:01:00 Doctor Unalogan, [facility] >14 WEEKS US 2020-04-30 20:59:46 Consuelo Dao [facility] NON-STRESS TEST 2020-04-30 20:58:03 Consuelo Dao [facility] GC & CHLAMYDIA AMPLIFIED 2020-04-30 14:18:00 Consuelo Dao [facility] PATIENT QUESTIONNAIRE 2020-04-30 05:01:00 Doctor Jaleesa, [facility] POCT URINALYSIS W/O 2020-04-30 00:00:00 Consuelo Dao [facility] BIOPHYSICAL PROFILE 2020-04-16 21:24:19 Melyssa Lopez [facility] NON-STRESS TEST 2020-04-14 23:32:09 Melsysa Lopez [facility] US PELVIS LIMITED 2020-04-14 16:50:[address] [facility] [place] [place] ADC ONLY - FERN TEST 2020-04-14 16:38:00 Melyssa Lopez [facility] CONSENT/REFUSAL FOR 2020-04-14 15:58:43 Doctor Jaleesa, [facility] DIAGNOSIS AND TREATMENT [facility] ASSIGNMENT OF BENEFITS 2020-04-14 15:57:48 Doctor Jaleesa, [facility] Name Medical [place] NON-STRESS TEST 2020-04-09 20:55:36 Melyssa Lopez [facility] POCT URINALYSIS W/O 2020-04-09 00:00:00 Melyssa Lopez [facility] NON-STRESS TEST 2020-04-07 15:28:14 Consuelo Doa [facility] Medical [place] SECOND AND THIRD 2020-04-07 13:23:00 Melyssa Lopez [facility] TRIMESTER ULTRASOUND Medical [facility] STERILIZATION CONSENT 2020-04-07 05:01:00 Doctor Unassigned, [facility] [place] [facility] POCT GLUCOSE(AGE >30DAYS) 2020-04-07 00:00:00 [facility] PO[facility] URINALYSIS W/O 2020-04-07 00:00:00 Consuelo Dao [facility] SPECIFIC GRAVITY Medical [place] CBC WITH DIFFERENTIAL 2020-04-03 21:01:00 Melyssa Lopez [facility] POCT HEMOGLOBIN A1C TEST 2020-03-19 21:45:00 Melyssa Lopez [facility] POCT GLUCOSE(AGE >30DAYS) 2020-03-19 21:39:00 [facility] POCT URINALYSIS W/O 2020-03-19 21:23:00 Melyssa Lopez [facility] SPECIFIC GRAVITY Medical [place] TDAP (ADACEL) 2020-03-19 21:13:56 Melyssa Lopez [facility] IMMUNIZATION [facility] INSURANCE CORRESPONDENCE 2020-02-28 05:01:00 Doctor Unassigned, [facility] [place] SECOND AND THIRD 2020-01-02 15:53:00 Melyssa Lopez [facility] TRIMESTER ULTRASOUND Medical [facility] SECOND AND THIRD 2020-01-02 15:45:00 Melyssa Lopez [facility] ULTRASOUND Medical [facility] POCT URINALYSIS W/O 2019-12-18 00:00:00 Consuelo Dao [facility] SPECIFIC GRAVITY Medical [place] 3 HR GLUCOSE TOLERANCE 2019-11-30 18:35:00 Consuelo Dao [facility] TEST Medical [place] 2 HR GLUCOSE TOLERANCE 2019-11-30 17:39:00 [facility] TEST Medical [place] 1 HR GLUCOSE TOLERANCE 2019-11-30 16:36:00 [facility] TEST Medical [place] GLUCOSE FASTING 2019-11-30 15:32:00 Consuelo Dao [facility] GLUCOSE FASTING 2019-11-30 15:32:00 [facility] GLUCOSE 1 HOUR POST 2019-11-21 16:30:00 Melyssa Lopez [facility] CBC WITH DIFFERENTIAL 2019-11-21 16:01:00 Melyssa Lopez [facility] COMP. METABOLIC PANEL 2019-11-21 16:01:00 Melyssa Lopez [facility] ([id number]) [facility] HB ABO GROUPING 2019-11-21 16:01:00 Melyssa Lopez [facility] ASSIGNMENT OF BENEFITS 2019-11-21 14:51:24 Doctor Unassigned, [facility] [place] [facility] POCT URINALYSIS W/O 2019-11-20 00:00:00 Melyssa Lopez [facility] EXTERNAL PROVIDER RECORDS 2019-11-03 06:01:00 Doctor Unassigned, [facility] [place] [facility] [place] <14 WEEKS US 2019-10-25 03:52:05 [facility] GC & CHLAMYDIA AMPLIFIED 2019-10-23 21:42:00 Melyssa Lopez [facility] LAB ONLY PAP SMEAR-LIQUID 2019-10-23 21:42:00 [facility] - DRUG SCREEN 2019-10-23 21:42:00 Melyssa Lopez [facility] HIGH RISK HPV-THIN PREP 2019-10-23 21:42:00 Melyssa Lopez [facility] PAP SMEAR-LIQUID BASED-CP 2019-10-23 21:42:00 [facility] ASSIGN[facility] OF BENEFITS 2019-10-23 20:38:47 [facility]assigned, [facility] [place] POCT TEST 2019-10-23 00:00:00 Melyssa Lopez [facility] POCT URINALYSIS W/O 2019-10-23 00:00:00 Melyssa Lopez [facility] Encounters Start End Encounter Admission Attending Care Care Encounter Source Date/Time Date/Time Type Type Clinicians Facility Department ID 2021-07-31 Outpatient P [facility] LEONCIO [id number] Univers 06:20:58 it[facility] of [facility] 2021-06-10 2021-06-10 Emergency [facility] [id number] Univers 16:52:00 21:35:00 Erlin Smith Mary [id number] ity of [place] [id number] [facility] [phone] [address] 2021-06-10 2021-06-10 Emergency X [facility] ERT [id number] Univers 16:33:00 16:33:00 ity of [facility] 2021-06-05 2021-06-05 Emergency X [facility] ERT [id number] Univers 14:36:00 15:00:00 WALI ity [facility] 2021-06-05 2021-06-[address] [facility] [id number] Univers 14:36:00 15:00:00 Marin Cisse Mary [id number] ity of [place] [id number] [facility] [phone] [address] 2021-05-22 2021-05-22 Melyssa Lerma [facility] 1.2.162.393 [id number] Univers 00:00:00 00:00:00 Jil Hernandez [id number] i ty of [place] [id number] [facility] Professio [phone] Wy dical [address] 2020-12-10 2020-12-10 Outpatient James DAO [facility] [id number] Univers 09:00:00 09:00:00 [facility]O [id number] [facility] 2020-12-10 2020-12-10 Outpatient James DAO [facility] [id number] Univers 09:00:00 09:00:00 [facility] 2020-11-07 2020-11-07 Outpatient [facility] [id number] [facility] 2020-10-02 2020-10-02 [facility] [id number] 2020-09-22 2020-09-22 [facility] [id number] [facility] 2020-07-20 2020-07-20 Refill Melyssa Lopez [facility] [id number] Univers 00:00:00 00:00:00 Jil Hernandez [id number] [id number] [phone] Wy dical nal [address] [place] [address] 2020-07-10 2020-07-10 Telephone [facility] 1.2.840.114 [id number] Univers 00:00:00 00:00:00 Consuelo Hernandez [id number] [id number] [phone] Wy dical nal [address] [place] [address] 2020-07-10 2020-07-10 Telephone [facility] 1.2.840.114 [id number] Univers 00:00:00 00:00:00 Consuelo Hernandez [id number] [id number] [phone] Wy dical nal [address] [place] [address] 2020-06-18 2020-06-18 Outpatient R [facility] [id number] Univers 08:00:00 08:00:00 [id number] y [facility] 2020-06-18 2020-06-18 Outpatient R MELYSSA LOPEZ [facility] [id number] Univers 08:00:00 08:00:00 [facility] 2020-06-18 2020-06-18 Telephone [facility] 1.2.840.114 [id number] Univers 00:00:00 00:00:00 Consuelo Hernandez [id number] [id number] [phone] Wy dical [address] 2020-06-12 2020-06-12 Outpatient R [facility] [id number] Univers 09:30:00 09:30:00 ity of [facility] 2020-06-12 2020-06-12 Outpatient R [facility] [id number] Univers 09:30:00 09:30:00 ity [facility] 2020-06-11 2020-06-11 Routine Feliberto [facility] 1.2.832.797 [id number] Univers 11:23:57 11:54:13 Consuelo Hernandez [id number] [id number] [phone] [address] 2020-06-11 2020-06-11 [facility] [id number] Univers 11:30:00 11:30:00 CONSUELO ity of [facility] 2020-06-11 2020-06-11 [facility] [id number] Univers 11:30:00 11:30:00 CONSUELO ity [facility] 2020-06-01 2020-06-01 [facility] [id number] Univers 00:00:00 00:00:00 Consuelo Hernandez [id number] [id number] [phone] [address] 2020-05-21 2020-05-21 Nurse Nurse, [facility] 1.2.840.114 [id number] Univers 10:42:25 11:02:56 Visit Melyssa Lopze [id number] [id number] [phone] [address] 2020-05-21 2020-05-21 Outpatient R MELYSSA LOPEZ [facility] [id number] Univers 10:30:00 10:30:00 ity of [facility] 2020-05-14 2020-05-16 [facility] Melyssa Lopez [facility] 1.2.840.114 [id number] Univers 08:22:00 15:18:00 Encounter iJl Hernandez [id number] [id number] [phone] [facility] [address] [place] 2020-05-14 2020-05-14 Outpatient R MELYSSA LOPEZ [facility] TOBY [id number] Univers 10:30:00 10:30:00 ity of [facility] 2020-05-13 2020-05-13 Division Human Resources Manager Kelsea, [facility] Main [facility] 1.2.8 [id number] Univers 14:01:07 15:21:05 Visit Melyssa Lopez Mary [id number] [id number] [phone] Wy dical nal [address] [facility] 2020-05-12 2020-05-13 Routine Room, [facility] 1.2.840.1 [id number] Univers 13:15:48 14:16:43 Consuelo Dao [id number] it[id number] [phone] Wy dical nal [address] [facility] 2020-05-13 2020-05-13 Outpatient [facility] [id number] Univers 14:00:00 14:00:00 [id number] it[facility] of [facility] 2020-05-13 2020-05-13 Outpatient R MELYSSA LOPEZ [facility] [id number] Univers 14:00:00 14:00:00 it[facility] of [facility] 2020-05-13 2020-05-13 Case [facility] [id number] Univers 00:00:00 00:00:00 Management Jil Hernandez [id number] [id number] [phone] Wy dical nal [address] [facility] 2020-05-12 2020-05-12 Outpatient R [facility] [id number] Univers 13:00:00 13:00:00 it[facility] of [facility] 2020-05-12 2020-05-12 Outpatient R FELIBERTO [facility] [id number] Univers 13:00:00 13:00:00 CONSUELO ity of [facility] 2020-05-12 2020-05-12 Orders Doctor CURTIS 1.2.840.114 [id number] Univers 00:00:00 00:00:00 Only Unassigned, HOMER 350.1.13.10 [place] [facility] [id number] Miko as [phone] [address] 2020-05-09 2020-05-09 Routine Room, [facility] 1.2.840.1 14 [id number] Univers 12:58:24 13:56:20 Melyssa Lopez [facility] [id number] [id number] [phone] Wy dic[address] 2020-05-09 2020-05-09 Outpatient R MELYSSA LOPEZ [facility] [id number] Univers 13:00:00 13:00:00 ity of [facility] 2020-05-09 2020-05-09 Outpatient R [facility] [id number] Univers 13:00:00 13:00:00 ity [facility] 2020-05-06 2020-05-06 Division Human Resources Manager [facility]tras[facility] 1.2 .840.114 [id number] Univers 15:10:45 15:40:45 Visit Crsithian Gallegos EVENT HOST 350.1.13.1 0 ity of REGIONAL [id number] Miko as MATERNAL [phone] Med ical & CHILD [address] [place] [address] 2020-05-06 2020-05-06 Outpatient [facility] [id number] Univers 15:15:00 15:15:00 [id number] ity of [facility] 2020-05-06 2020-05-06 Outpatient P [facility] [id number] Univers 15:15:00 15:15:00 ity [facility] 2020-05-05 2020-05-05 Routine Room, [facility] 1.2.840.1 14 [id number] Univers 13:00:53 14:08:30 Lopez, Melyssa Cam [place] 350.1.13.10 [id number] [phone] Wy dical [address] 2020-05-05 2020-05-05 Outpatient R [facility] [id number] Univers 13:00:00 13:00:00 ity of [facility] 2020-05-05 2020-05-05 Outpatient R [facility] [id number] Univers 13:00:00 13:00:00 [facility] 2020-04-30 2020-05-02 Routine Room, [facility] 1.2.840.1 [id number] Univers 08:53:48 09:57:20 Melyssa Lopezton 350.1.13.10 [place]y [id number] [phone] Wy dical nal [address] [place] [address] 2020-05-02 2020-05-02 Routine Room, [facility] 1.2.840.1 14 [id number] Univers 08:50:07 09:51:44 Melyssa Lopezton 350.1.13.10 [place] [phone] Wy dic[address] 2020-05-02 2020-05-02 Outpatient R [facility] [id number] Univers 08:00:00 08:00:00 [id number] ity of [facility] 2020-05-02 2020-05-02 Outpatient R [facility] [id number] Univers 08:00:00 08:00:00 ity of [facility] 2020-04-30 2020-04-30 Outpatient R FELIBERTO, [facility] [id number] Univers 10:30:00 10:30:00 CONSUELO ity of [facility] 2020-04-30 2020-04-30 Division Human Resources Manager 2, [facility] 1.2.840.114 [id number] Univers 10:14:23 10:29:23 Visit Melyssa Lopezton 350.1.13.10 [place] [phone] Wy dical nal [address] [facility] 2020-04-30 2020-04-30 Outpatient R [facility] [id number] Univers 09:00:00 09:00:00 [id number] [facility] 2020-04-30 2020-04-30 Outpatient R [facility] [id number] Univers 09:00:00 09:00:00 ity of [facility] 2020-04-28 2020-04-28 Telephone Melyssa Lopez [facility] 1.2.840.114 [id number] Univers 00:00:00 00:00:00 Cam [place] 350.1.13.10 i [place] [phone] Wy dical nal [address] [facility] 2020-04-18 2020-04-18 Outpatient R [facility] [id number] Univers 09:00:00 09:00:00 [id number] ity of [facility] 2020-04-18 2020-04-18 Outpatient R [facility] [id number] Univers 09:00:00 09:00:00 ity of [facility] 2020-04-16 2020-04-16 Routine Room, [facility] 1.2.840.1 14 [id number] Univers 15:03:44 16:17:27 Melyssa Lopez 350.1.13.10 [id number] [phone] [facility] 2020-04-16 2020-04-16 Outpatient R [facility] [id number] Univers 15:00:00 15:00:00 ity of [facility] 2020-04-16 2020-04-16 Outpatient R [facility] [id number] Univers 11:00:00 11:00:00 [id number] it[facility] of [facility] 2020-04-16 2020-04-16 Outpatient R [facility] [id number] Univers 11:00:00 11:00:00 ity of [facility] 2020-04-14 2020-04-14 [facility] Melyssa Lopez [facility] 1.2.840.114 [id number] Univers 10:55:00 12:55:00 Encounter Jil Mary 350.1.13.10 it[id number] [phone] [facility] [address] 2020-04-14 2020-04-14 Routine Room, [facility] 1.2.840.1 14 [id number] Univers 09:08:45 10:35:40 Consuelo Dao Mary 350.1.13.10 ity [place] 4[place] [phone] Wy dical nal [address] [facility] 2020-04-14 2020-04-14 Outpatient R JOHN MELYSSA [facility] [id number] Univers 10:30:00 10:30:00 [id number] ity of [facility] 2020-04-14 2020-04-14 Outpatient R JOHN MELYSSA [facility] [id number] Univers 10:30:00 10:30:00 ity of [facility] 2020-04-09 2020-04-09 Nurse Visit, [facility] 1.2.840.1 14 [id number] Univers 15:50:02 16:12:41 Visit Melyssa Lopez Mary 350.1.13.10 ity of [place] 4.2.7.2.686 [place] Professio [phone] Wy dical nal [address] [facility] 2020-04-09 2020-04-09 Routine Room, [facility] 1.2.840.1 14 [id number] Univers 14:55:34 15:42:50 Melyssa Lopez [place] 350.1.13.10 ity [place] 4[place] [phone] Wy dical nal [address] [facility] 2020-04-09 2020-04-09 Outpatient R [facility] [id number] Univers 08:00:00 08:00:00 ity of [facility] 2020-04-09 2020-04-09 Outpatient R [facility] [id number] Univers 08:00:00 08:00:00 ity of [facility] 2020-04-07 2020-04-07 Routine Room, [facility] 1.2.840.1 14 [id number] Univers 08:51:52 10:30:48 Cruz Ruff 350.1.13.10 ity of Visit Consuelo Dao 4.2.7.2.686 [place] Professio [phone] Wy dical nal [address] [facility] 2020-04-07 2020-04-07 Outpatient R [facility] [id number] Univers 09:00:00 09:00:00 ity of [facility] 2020-04-07 2020-04-07 Outpatient R [facility] [id number] Univers 09:00:00 09:00:00 ity of [facility] 2020-04-07 2020-04-07 Division Human Resources Manager Tiffany, [facility] 1.2 .840.114 [id number] Univers 08:06:34 08:32:02 Visit Cruz Ruff EVENT HOST 350.1.13.10 ity of [facility] [id number] Miko as MATERNAL [phone] Med ical & CHILD [address] [place] [address] 2020-04-07 2020-04-07 Orders Doctor CURTIS 1.2.840.114 [id number] Univers 00:00:00 00:00:00 Only Unassigned, HOMER 350.1.13.10 [place] [facility] 4.2.7.2.686 Miko as [phone] [address] 2020-04-03 2020-04-03 Division Human Resources Manager 2, [facility] 1.2.840.114 [id number] Univers 15:50:56 16:30:33 Visit Melyssa Lopez 350.1.13.10 [place] [phone] Wy dical nal [address] [facility] 2020-04-03 2020-04-03 Outpatient R FELIBERTO [facility] [id number] Univers 16:30:00 16:30:00 CONSUELO [id number] ity of [facility] 2020-04-03 2020-04-03 Outpatient R FELIBERTO [facility] [id number] Univers 16:30:00 16:30:00 CONSUELO ity of [facility] 2020-04-03 2020-04-03 Case Melyssa Lopez [facility] 1.2.257.663 [id number] Univers 00:00:00 00:00:00 Management Cam [place] 350.1.13.10 it[place] [phone] [address] 2020-03-20 2020-03-20 Case Melyssa Lopez [facility] 1.2.309.007 [id number] Univers 00:00:00 00:00:00 Management Cam [place] 350.1.13.10 it[place] [phone] [address] 2020-03-19 2020-03-19 Routine Melyssa Lopez [facility] [id number] Univers 16:04:00 17:11:07 Cam [place] 350.1.13.10 ity [place] 4[place].2.[place] [phone] [address] 2020-03-19 2020-03-19 Outpatient R MELYSSA LOPEZ [facility] [id number] Univers 16:00:00 16:00:00 [id number] ity of [facility] 2020-03-19 2020-03-19 Outpatient R MELYSSA LOPEZ [facility] [id number] Univers 16:00:00 16:00:00 ity of [facility] 2020-03-10 2020-03-10 Telephone Melyssa Lopez [facility] 1.2.840.114 [id number] Univers 00:00:00 00:00:00 Cam [place] 350.1.13.10 i [place] 4[place]2.[place] [phone] [address] 2020-02-28 2020-02-28 Telephone Feliberto [facility] 1.2.840.114 [id number] Univers 00:00:00 00:00:00 Consuelo [place] 350.1.13.10 i [id number] [phone] Wy dical nal [address] [facility] 2020-02-28 2020-02-28 Orders Doctor CURTIS 1..840.114 [id number] Univers 00:00:00 00:00:00 Only Unassigned, HOMER [id number] ity of [place] [facility] [id number] Miko as [phone] [address] 2020-01-23 2020-01-23 Outpatient [facility] [id number] 15:00:00 15:00:00 t [facility] s [facility] Medicine Medicine Outpati ent Clinics 2020-01-17 2020-01-17 Telemedici Feliberto [facility] ..840.114 [id number] Univers 14:45:00 15:00:00 ne Visit Consuelo Hernandez [id number] [id number] [phone] Wy dical nal [address] [place] [address] 2020-01-17 2020-01-17 Outpatient R FELIBERTO [facility] [id number] 4P-20 Univers 14:45:00 14:45:00 CONSUELO [id number] [facility] 2020-01-17 2020-01-17 Outpatient R FELIBERTO [facility] [id number] Univers 14:45:00 14:45:00 [facility] 2020-01-16 2020-01-16 Outpatient R FELIBERTO [facility] [id number] 4P-20 Univers 11:00:00 11:00:00 CONSUELO [id number] [facility] 2020-01-16 2020-01-16 Outpatient R FELIBERTO [facility] [id number] Univers 11:00:00 11:00:00 [facility] 2020-01-15 2020-01-15 Telephone John Melyssa [facility] 1..840.114 [id number] Univers 00:00:00 00:00:00 Jil Hernandez 350.1.13.10 i [place] [phone] Wy dical nal 134 [facility] 2020-01-02 2020-01-07 Division Human Resources Manager Ultrasound, [facility] 1.2 .840.114 [id number] Univers 09:37:16 10:35:35 Visit John Melyssavenkatesh Ledbetter EVENT HOST 350.1.13.10 ity of REGIONAL 4.2.7.2.686 Miko as MATERNAL [phone] Med ical & CHILD [address] [place] [address] 2020-01-02 2020-01-02 Outpatient R LOPEZ MELYSSA [facility] [id number] Univers 16:00:00 16:00:00 ity of [facility] 2020-01-02 2020-01-02 Telemedici LopezLiaten [facility] 1.2.840.114 [id number] Univers 09:32:02 09:47:02 ne Visit Jil Hernandez 350.1.13.10 [place] [phone] Wy dical nal 134 [facility] 2020-01-02 2020-01-02 Outpatient R [facility] [id number] -[id number] Univers 09:30:00 09:30:00 ity [facility] 2019-12-18 2019-12-18 Routine Feliberto [facility] 1.2.338.346 [id number] Univers 08:50:36 14:03:18 Consuelo Hernandez 350.1.13.10 ity [id number] [phone] Wy dical nal 134 [facility] 2019-12-18 2019-12-18 Division Human Resources Manager Moy [place] Lab Main [facility] 1.2.8 40.114 [id number] Univers 09:57:49 10:12:49 Visit Consuelo Dao 350.1.13.10 [place] [phone] Wy dical nal 353 [facility] 2019-12-18 2019-12-18 Outpatient R [facility] [id number] -[id number] Univers 10:00:00 10:00:00 [id number] ity [facility] 2019-12-18 2019-12-18 Outpatient R FELIBERTO [facility] [id number] Univers 08:45:00 08:45:00 CONSUELO ity [facility] 2019 2019 Patient Doctor CURTIS 1.2.840.114 [id number] Univers 00:00:00 00:00:00 Secure Msg Unassigned, HOMER 350.1.13.10 [facility] 4.2.7.2.686 Miko as [phone] [address] 2019-12-07 2019-12-07 [facility] 1.2.840.114 [id number] Univers 00:00:00 00:00:00 Consuelo Hernandez 350.1.13.10 i [place] [phone] Wy dical nal 134 [facility] 2019-12-07 2019-12-07 Refill [facility] 1.2.627.411 [id number] Univers 00:00:00 00:00:00 Consuelo Hernandez 350.1.13.10 i [place] [phone] Wy dical nal 134 [facility] 2019-12-03 2019-12-03 [facility] 1.2.307.732 [id number] Univers 00:00:00 00:00:00 Management Consuelo Hernandez 350.1.13.10 it[place] [phone] Wy dical nal 134 [facility] 2019-11-30 2019-11-30 Division Human Resources Manager Kelsea, Moy Lab Main [facility] 1.2.8 40.114 [id number] Univers 09:00:16 09:15:16 Visit Consuelo Dao 350.1.13.10 [place] [phone] Wy dical nal 353 [facility] 2019-11-30 2019-11-30 Outpatient R [facility] [id number] -[id number] Univers 09:15:00 09:15:00 [id number] ity [facility] 2019-11-30 2019-11-30 Outpatient R FELIBERTO [facility] [id number] Univers 09:15:00 09:15:00 CONSUELO ity [facility] 2019-11-29 2019-11-29 Telephone Melyssa Lopez [facility] 1.2.840.114 [id number] Univers 00:00:00 00:00:00 Cam [place] 350.1.13.10 i [place] [phone] Wy dicvalor health 134 [facility] 2019-11-29 2019-11-29 Telephone Melyssa Lopez [facility] 1.2.840.114 [id number] Univers 00:00:00 00:00:00 Cam [place] 350.1.13.10 i [place] [phone] Wy dic[address] 2019-11-28 2019-11-28 Telephone Melyssa Lopez [facility] 1.2.840.114 [id number] Univers 00:00:00 00:00:00 Cam [place] 350.1.13.10 i [place] [phone] Wy dicvalor health 134 [facility] 2019-11-27 2019-11-27 Patient Doctor UN[facility] 1.2.798.411 [id number] Univers 00:00:00 00:00:00 Secure Msg Unassigned, Y HEALTH 350.1.13.10 [place] of [place] [facility] 4[place]7.2.[place] [phone] [address] 2019-11-26 2019-11-26 Division Human Resources Manager Kelsea, Moy Lab Main [facility] 1.2.8 40.114 [id number] Univers 08:59:02 09:14:02 Visit Liat Lopezvenkatesh Ledbetter [place] 350.1.13.10 ity of [place] [phone] Wy dicvalor health 353 [facility] 2019-11-26 2019-11-26 Outpatient R [facility] [id number] -[id number] Univers 08:30:00 08:30:00 [id number] ity of [facility] 2019-11-26 2019-11-26 Outpatient R JOHN MELYSSA [facility] [id number] Univers 08:30:00 08:30:00 ity of [facility] 2019-11-22 2019-11-22 Telephone Feliberto [facility] 1.2.840.114 [id number] Univers 00:00:00 00:00:00 Consuelo Hernandez 350.1.13.10 i [place] [phone] Wy dical nal 134 [facility] 2019-11-22 2019-11-22 Case [facility] 1.2.915.745 [id number] Univers 00:00:00 00:00:00 Management Consuelo Hernandez 350.1.13.10 it[place] [phone] Wy dical nal 134 [facility] 2019-11-21 2019-11-21 Division Human Resources Manager Kelsea, Moy Lab Main [facility] 1.2.8 40.114 [id number] Univers 08:53:23 11:28:02 Visit Melyssa Lopez 350.1.13.10 it[place] [phone] Wy dical nal 353 [facility] 2019-11-21 2019-11-21 Orders Doctor ACEVEDO 1.2.840.114 [id number] Univers 00:00:00 00:00:00 Only Unassigned, HOMER 350.1.13.10 [place] [facility] 4.2.7.2.686 Miko as [phone] [address] 2019-11-20 2019-11-20 Routine John Melyssa [facility] 1.2.793.758 [id number] Univers 13:13:37 14:20:40 Jil Hernandez 350.1.13.10 ity of [place] [phone] Wy dical nal 134 [facility] 2019-11-03 2019-11-03 Orders Doctor CURTIS 1.2.840.114 [id number] Univers 00:00:00 00:00:00 Only Unassigned, HOMER 350.1.13.10 [place]y of [place] [facility] 4.2.7.2.686 Miko as [phone] [address] 2019-10-30 2019-10-30 Case FelibertoYULISSA 1.2.863.139 [id number] Univers 00:00:00 00:00:00 Management Consuelo Hernandez 350.1.13.10 it[place] [phone] Wy dical nal 134 [facility] 2019-10-25 2019-10-25 Telephone JohnMelyssa [facility] 1.2.840.114 [id number] Univers 00:00:00 00:00:00 Jil Hernandez 350.1.13.10 i [place] [phone] Wy dical nal [address] [place] [address] 2019-10-23 2019-10-23 Initial Melyssa Lopez [facility] 1.2.947.326 [id number] Univers 14:42:54 15:53:56 Jil Hernandez 350.1.13.10 ity of [place] [phone] Wy dical nal [address] [place] [address] 2019-10-23 2019-10-23 Orders Doctor CURTIS 1.2.840.114 [id number] Univers 00:00:00 00:00:00 Only Unassigned, HOMER 350.1.13.10 ity of [place] [facility] 4.2.7.2.686 Miko as [phone] [address] 2019-10-16 2019-10-16 Telephone John Melyssa [facility] 1.2.840.114 [id number] Univers 00:00:00 00:00:00 Jil Hernandez 350.1.13.10 i ty of [place] [phone] Wy dical nal [address] [place] [address] 2019-09-17 2019-09-17 Outpatient [facility] [id number] [facility] 13:20:00 13:20:00 t [facility] Medicine Outpati ent Clinics Results Test Description Test Time Test Comments Results Result Comments Source URINALYSIS 2021-06-11 01:15:35 Test Item Value Reference Range Interpretation Comme nts APPEARANCE (test code = Cloudy Clear A 3432851528) COLOR (test code = 6706813678) Yellow Yellow PH (test code = 5663858595) 4.8-8.0 SP GRAVITY (test code = 1.003-1.030 1403826049) GLU U QUAL (test code = Normal Normal 3187178699) BLOOD (test code = 7624727205) 2+ Negative A KETONES (test code = 7804038989) Negative Negative PROTEIN (test code = 2887-8) 100 mg/dL Negative A UROBILIN (test code = 4.0 mg/dL Normal A 7834802114) BILIRUBIN (test code = Negative Negative 6014561986) NITRITE (test code = 4862637781) Negative Negative LEUK SERGIO (test code = 250/uL Negative A 1755596662) RBC/HPF (test code = 7373856394) See_Comment H [Automated message] The system which ge nerated this result transmit maria e reference range: 0 - 3 HP F. The reference range was not used to interpret th is result as normal/abnormal . WBC/HPF (test code = 3345655907) >182 See_Comment H [Automated message] The system which ge nerated this result transmit maria e reference range: 0 - 5 HP F. The reference range was not used to interpret th is result as normal/abnormal . BACTERIA (test code = Many Negative A 7377868711) MUCOUS (test code = 4504501884) Slight Negative LPF A AMORPHOUS (test code = Rare Rare HPF 2167159212) SQ EPITH (test code = HPF 9532500094) YEAST BUD (test code = See_Comment H [Aut omated message] The 9991946577) system which ge nerated this result transmit maria e reference range: <=1 HPF. The reference range was not used to interpret th is result as normal/abnormal . Lab Interpretation (test code = Abnormal 03287-5) [facility] [id number] 01:15:35 Test Item Value Reference Range Interpretation Comments APPEARANCE (test code = Cloudy Clear A 8558720610) COLOR (test code = Yellow Yellow 6436284696) PH (test code = 4.8-8.0 4267507020) SP GRAVITY (test code = 1.003-1.030 5368803782) GLU U QUAL (test code = Normal Normal 9897252277) BLOOD (test code = 2+ Negative A 0157113076) KETONES (test code = Negative Negative 4802111613) PROTEIN (test code = 100 mg/dL Negative A 2887-8) UROBILIN (test code = 4.0 mg/dL Normal A 5826999460) BILIRUBIN (test code = Negative Negative 8730861630) NITRITE (test code = Negative Negative 5713211486) LEUK SERGIO (test code = 250/uL Negative A 9897864688) RBC/HPF (test code = See_Comment H [Autom ated message] 5261587466) The system [employer] generated this result transmit maria e reference range : 0 - 3 HPF. The refe rence range was not u sed to interpret th is result as normal/abnormal . WBC/HPF (test code = >182 See_Comment H [Autom ated message] 2069928754) The system [employer] generated this result transmit maria e reference range : 0 - 5 HPF. The refe rence range was not u sed to interpret th is result as normal/abnormal . BACTERIA (test code = Many Negative A 1879586064) MUCOUS (test code = Slight Negative LPF A 1357161440) AMORPHOUS (test code = Rare Rare HPF 6245478357) SQ EPITH (test code = HPF 7824011234) YEAST BUD (test code = See_Comment H [Aut omated message] 8471014277) The system [employer] generated this result transmit maria e reference range : <=1 HPF. The refere nce range was not u sed to interpret th is result as normal/abnormal . Lab Interpretation (test Abnormal code = 60968-2) [facility] [place] (ID NOW RAPID TESTING)2021-06-11 00:40:45 Test Item Value Reference Range Interpretation Comments SARS-CoV-2 Rapid ID NOW Not Detected Not Detected (test code = 26941-3) MIKE (test code = MIKE) ID NOW COVID-19 Assay is an isothermal nucleic acid amplification test intended for the qualitative detection of nucleic acid from SARS-CoV-2 viral RNA in nasopharyngeal (CLOTH WORKER) specimens. It is used under Emergency Use Authorization (EUA) by FDA. The limit of detection (LOD) of the assay is 125 Genome Equivalents/mL. A positive result is indicative of the presence of SARS-CoV-2 RNA. ?Clinical correlation with patient history and other diagnostic information is necessary to determine patient infection status. A negative (Not Detected) result does not preclude SARS-CoV-2 infection. In patients with clinical symptoms and other tests that are consistent with SARS-CoV-2 infection, negative results should be treated as presumptive negative and a new specimen should be tested with alternative PCR molecular test. Invalid: Please collect a new specimen for repeat patient testing if clinically indicated. Lab Interpretation Normal (test code = 76579-4) [facility] [place] (ID NOW RAPID TESTING)2021-06-11 00:40:45 Test Item Value Reference Range Interpretation Comments SARS-CoV-2 Rapid ID NOW Not Detected Not Detected (test code = 08527-4) MIKE (test code = MIKE) ID NOW COVID-19 Assay is an isothermal nucleic acid amplification test intended for the qualitative detection of nucleic acid from SARS-CoV-2 viral RNA in nasopharyngeal (CLOTH WORKER) specimens. It is used under Emergency Use Authorization (EUA) by FDA. The limit of detection (LOD) of the assay is 125 Genome Equivalents/mL. A positive result is indicative of the presence of SARS-CoV-2 RNA. ?Clinical correlation with patient history and other diagnostic information is necessary to determine patient infection status. A negative (Not Detected) result does not preclude SARS-CoV-2 infection. In patients with clinical symptoms and other tests that are consistent with SARS-CoV-2 infection, negative results should be treated as presumptive negative and a new specimen should be tested with alternative PCR molecular test. Invalid: Please collect a new specimen for repeat patient testing if clinically indicated. Lab Interpretation Normal (test code = 36591-6) [facility] [place], [place]CB with [id number] 11:48:00 Test Item Value Reference Range Interpretation Comments WBC (test code = See_Comment H [Automated 5890-2) message] The system which generated this result transmit maria e reference range : 4.30 - 11.10 10*3/?L. The reference range was not used to interpret this result as normal/abnormal . RBC (test code = See_Comment [Automated 789-8) message] The system which generated this result transmit maria e reference range : 3.93 - 5.25 10*6/?L. The reference range was not used to interpret this result as normal/abnormal . HGB (test code = 11.3 g/dL 11.6-15 L 718-7) HCT (test code = 35.2 % 35.7-45.2 L 4544-3) MCV (test code = 86.7 fL 80.6-95.5 787-2) MCH (test code = 27.8 pg 25.9-32.8 785-6) MCHC (test code = 32.1 g/dL 31.6-35.1 786-4) RDW-SD (test code = 46.5 fL 39-49.9 04297-6) RDW-CV (test code = 14.6 % 12-15.5 788-0) PLT (test code = See_Comment [Automated 777-3) message] The system which generated this result transmit maria e reference range : 166 - 358 10*3/ ?L. The reference range was not u sed to interpret th is result as normal/abnormal . MPV (test code = 11.0 fL 9.5-12.9 04229-7) NRBC/100 WBC (test See_Comment [Automat ed code = 5792702102) message] The system which generated this result transmit maria e reference range : 0.0 - 10.0 /100 WBCs. The reference range was not used to interpret this result as normal/abnormal . NRBC x10^3 (test code <0.01 See_Comment [Auto mated = 4536339899) message] The system which generated this result transmit maria e reference range : 10*3/?L. The reference range was not used to interpret this result as normal/abnormal . GRAN MAT (NEUT) % 77.6 % (test code = 770-8) IMM GRAN % (test code 0.70 % = 2998997437) LYMPH % (test code = 10.4 % 736-9) MONO % (test code = 10.4 % 5905-5) EOS % (test code = 0.6 % 713-8) BASO % (test code = 0.3 % 706-2) GRAN MAT x10^3(ANC) 12.08 10*3/uL 1.88-7.09 H (test code = 8774921158) IMM GRAN x10^3 (test 0.11 10*3/uL 0-0.06 H code = 4766786202) LYMPH x10^3 (test code 1.61 10*3/uL 1.32-3.29 = 731-0) MONO x10^3 (test code 1.61 10*3/uL 0.33-0.92 H = 742-7) EOS x10^3 (test code = 0.09 10*3/uL 0.03-0.39 711-2) BASO x10^3 (test code 0.04 10*3/uL 0.01-0.07 = 704-7) GIANT PLATELETS (test Present See_Comment A [Auto mated code = 5908-9) message] The system which generated this result transmit maria e reference range : (none). The reference range was not used to interpret this result as normal/abnormal . Lab Interpretation Abnormal (test code = 80739-3) [facility] [place], TXRHO (D) IMMUNE [id number] 18:49:43 Test Item Value Reference Range Interpretation Comments RHIG CANDIDATE? No- see comment Patient i s not a (test code = candidate for R hIg- 5055) Patient is Rh Positive.Perfor med at [facility] Laboratory Services - [facility] Blood Inst[address] [place], [place] [address]Toll Free: [phone] A No. [id number] [facility] [place], TXArterial Cord [id number] 16:26:00 Test Item Value Reference Range Interpretation Comments BASE EXCESS, CORD (test mEq/L code = 2358202025) AC PH, CORD (BEAKER) 7.18-7.38 L (test code = 2604397753) PC02, CORD (test code = See_Comment H [Au tomated message] 1600969689) The system [employer] generated this result transmitted ref erence range: 32 - 66 mmHg. The reference r cipriano was not used to interpret this result as normal/abnor mal. PO2, CORD (test code = Unabl e to read 6754468532) BICARBONATE, CORD (test See_Comment [Au tomated message] code = 3670653297) The syste m which generated this result transmitted ref erence range: 17 - 27 mEq/L. The reference r cipriano was not used to interpret this result as normal/abnor mal. Lab Interpretation (test Abnormal code = 47134-7) [facility] [id number] 16:25:00 Test Item Value Reference Range Interpretation Comments VENOUS BASE EXCESS, CORD mEq/L (test code = 7004021629) VENOUS PH, CORD (test 7.25-7.45 code = 3522040532) VENOUS PC02, CORD (test See_Comment H [Au tomated message] code = 5816235924) The syste m which generated this result transmitted ref erence range: 27 - 49 mmHg. The reference r cipriano was not used to interpret this result as normal/abnor mal. VENOUS PO2, CORD (test See_Comment [Aut omated message] code = 8966195325) The syste m which generated this result transmitted ref erence range: 17 - 41 mmHg. The reference r cipriano was not used to interpret this result as normal/abnor mal. VENOUS BICARBONATE, CORD See_Comment [A utomated message] (test code = 8887541706) The system which generated this result transmitted ref erence range: 12 - 29 mEq/L. The reference r cipriano was not used to interpret this result as normal/abnor mal. Lab Interpretation (test Abnormal code = 55625-7) [facility] [place], [place]COVID[place] (ID NOW RAPID TESTING)2020-05-14 14:34:00 Test Item Value Reference Range Interpretation Comments SARS-CoV-2 Rapid ID NOW Not Detected Not Detected (test code = 85802-8) MIKE (test code = MIKE) ID NOW COVID-19 Assay is an isothermal nucleic acid amplification test intended for the qualitative detection of nucleic acid from SARS-CoV-2 viral RNA in nasopharyngeal (CLOTH WORKER) specimens. It is used under Emergency Use Authorization (EUA) by FDA. The limit of detection (LOD) of the assay is 125 Genome Equivalents/mL. A positive result is indicative of the presence of SARS-CoV-2 RNA. ?Clinical correlation with patient history and other diagnostic information is necessary to determine patient infection status. A negative (Not Detected) result does not preclude SARS-CoV-2 infection. In patients with clinical symptoms and other tests that are consistent with SARS-CoV-2 infection, negative results should be treated as presumptive negative and a new specimen should be tested with alternative PCR molecular test. Invalid: Please collect a new specimen for repeat patient testing if clinically indicated. Lab Interpretation Normal (test code = 31712-8) [facility] [place], TXPOCT GLUCOSE (AUTOMATED)2020-05-14 14:12:00 Test Item Value Reference Range Interpretation Comments POCT GLU (test code = 0465823405) 96 mg/dL 70-110 Lab Interpretation (test code = Normal 16602-6) [facility] NON-STRESS [id number] 19:06:12 Reactive and reassuring NST Irregular contractionsUnFa[facility] NON-STRESS [id number] 19:06:12Reactive and reassuring NST Irregular contractionsUnFaith Regional Medical Center NON-STRESS TEST 2020-05-09 19:03:19Reactive and reassuringToco with irritability Melyssa Lopez MD ?05/09/2020 ?2:03 PMUnCook Children's Medical CenterFETAL NON-STRESS TEST 2020-05-05 19:33:42Reactive and reassuring NSTUnCook Children's Medical Center POCT URINALYSIS W/O SPECIFIC [id number] 18:41:00 Test Item Value Reference Range Interpretation Comments POCT PH U (test code = 3254) n/a 5-8 POCT U LEUK EST (test code = 3263) n/a Negative - Negative POCT U NIT (test code = 3262) n/a Negative - Negative POCT U PROT (test code = 3259) neg Negative - Negative POCT U GLU (test code = 3256) neg Negative - Negative POCT U KETONE (test code = 3258) n/a Negative - Negative POCT U BLD (test code = 3257) n/a Negative - Negative Lab Interpretation (test code = Normal 10979-8) [facility] [id number] 14:53:01 Reactive and reassuring Dundarrach with irritability Melyssa Lopez MD ?05/02/2020 ?9:52 AMUnCook Children's Medical CenterGC & CHLAMYDIA AMPLIFIED [id number] 17:16:00 Test Item Value Reference Range Interpretation Comments C. trachomatis Nucleic Acid (test Negative Negative code = 99026-0) N. gonorrhoeae Nucleic Acid (test Negative Negative code = 85983-7) Lab Interpretation (test code = Normal 70727-0) [facility] [place]>14 WEEKS US [id number] 21:00:21Cephalic presentationUnCook Children's Medical Center>14 WEEKS US [id number] 21:00:21Cephalic presentationUnCook Children's Medical Center>14 WEEKS US [id number] 21:00:21Cephalic presentationUnCook Children's Medical CenterFETAL NON-STRESS [id number] 20:59:35Reactive and reassuring NSTUnAvera Creighton HospitalTAL NON- STRESS [id number] 20:59:35Reactive and reassuring NSTUnCook Children's Medical CenterFETAL NON-STRESS [id number] 20:59:35Reactive and reassuring NSTUnCook Children's Medical CenterPOCT URINALYSIS W/O SPECIFIC GRAVITY 2020-04-30 14:15:00 Test Item Value Reference Range Interpretation Comments POCT PH U (test code = 3254) n/a 5-8 POCT U LEUK EST (test code = 3263) n/a Negative - Negative POCT U NIT (test code = 3262) n/a Negative - Negative POCT U PROT (test code = 3259) neg Negative - Negative POCT U GLU (test code = 3256) neg Negative - Negative POCT U KETONE (test code = 3258) n/a Negative - Negative POCT U BLD (test code = 3257) n/a Negative - Negative Lab Interpretation (test code = Normal 09416-6) [facility] [place]PO[place] URINALYSIS W/O SPECIFIC [id number] 14:15:00 Test Item Value Reference Range Interpretation Comments POCT PH U (test code = 3254) n/a 5-8 POCT U LEUK EST (test code = 3263) n/a Negative - Negative POCT U NIT (test code = 3262) n/a Negative - Negative POCT U PROT (test code = 3259) neg Negative - Negative POCT U GLU (test code = 3256) neg Negative - Negative POCT U KETONE (test code = 3258) n/a Negative - Negative POCT U BLD (test code = 3257) n/a Negative - Negative Lab Interpretation (test code = Normal 83789-1) [facility] [place], TXPOCT URINALYSIS W/O SPECIFIC [id number] 14:15:00 Test Item Value Reference Range Interpretation Comments POCT PH U (test code = 3254) n/a 5-8 POCT U LEUK EST (test code = 3263) n/a Negative - Negative POCT U NIT (test code = 3262) n/a Negative - Negative POCT U PROT (test code = 3259) neg Negative - Negative POCT U GLU (test code = 3256) neg Negative - Negative POCT U KETONE (test code = 3258) n/a Negative - Negative POCT U BLD (test code = 3257) n/a Negative - Negative Lab Interpretation (test code = Normal 39778-9) [facility] [place], TXFETAL NON-STRESS [id number] 23:57:59 Reactive and reassuringToco quiescent Melyssa Lopez MD ?04/18/2020 ?6:[address] [facility] [place], TXBIOPHYSICAL PROFILE WITH NON-STRESS TEST 2020-04-16 21:25:34NST: ?Baseline 150s, moderate variability, spontaneous decel down to 100s x 40 secondsToco: ?Quiescent BPP performed, score 8/8. Melyssa Lopez MD ?04/16/2020 ?4:[facility] 2020-04-14 17:50:25Limited view of the gravid uterus with normal amniotic fluid. RL: 1105 Patient name: ALPHONSE BALL JULIEN: 1980 39 years EXAMINATION: US PELVIS LIMITED Ordering Physician: MELYSSA LOPEZ CLINICAL HISTORY:Amniotic fluid index COMPARISON:None TECHNIQUE:Grayscale and Doppler images of the gravid uterus performed. FINDINGS:Normal amniotic fluid identified at approximately 11 cm. An intrauterinegestation is partially visualized. This was not a dedicated anatomicsurvey. [facility], Radiant Results Inft User - 04/14/2020 12:51 PM CDTPatient name: ALPHONSE CALDERONB: 1980 39 years EXAMINATION: US PELVIS LIMITEDOrdering Physician: MELYSSA LOPEZ CLINICAL HISTORY:Amniotic fluid indexCOMPARISON:NoneTECHNIQUE:Grayscale and Doppler images of the gravid uterus performed.FINDINGS:Normal amniotic fluid identified at approximately 11 cm. An intrauterinegestation is partially visualized. This was not a dedicated anatomicsurvey.IMPRESSIONLimited view of the gravid uterus with normal amniotic fluid.RL: 1105 [facility] ONLY - FERN [id number] 17:27:00 Test Item Value Reference Range Interpretation Comments Fern Test (test code = 4424933190) Negative [facility] NON-STRESS [id number] 20:56:33 Reactive and reassuringToco quiescent Melyssa Lopez MD ?04/09/2020 ?3:56 PM [facility] URINALYSIS W/O SPECIFIC [id number] 20:15:00 Test Item Value Reference Range Interpretation Comments POCT PH U (test code = 3254) n/a 5-8 POCT U LEUK EST (test code = n/a Negative - Negative 3263) POCT U NIT (test code = 3262) n/a Negative - Negative POCT U PROT (test code = 3259) trace Negative - Negative POCT U GLU (test code = 3256) trace Negative - Negative POCT U KETONE (test code = 3258) n/a Negative - Negative POCT U BLD (test code = 3257) n/a Negative - Negative Lab Interpretation (test code = Abnormal 62115-0) [facility] [id number] 15:28:50 [facility] and [facility] 2020-04-07 15:17:00 Test Item Value Reference Range Interpretation Comments POCT Glu (age>30days) (test code = 150 mg/dL 70-110 A 3342) Lab Interpretation (test code = Abnormal 27103-9) [facility] URINALYSIS W/O SPECIFIC [id number] 14:17:00 Test Item Value Reference Range Interpretation Comments POCT PH U (test code = 3254) N/A 5-8 POCT U LEUK EST (test code = N/A Negative - Negative 3263) POCT U NIT (test code = 3262) N/A Negative - Negative POCT U PROT (test code = 3259) Negative Negative - Negative POCT U GLU (test code = 3256) Trace Negative - Negative POCT U KETONE (test code = 3258) N/A Negative - Negative POCT U BLD (test code = 3257) N/A Negative - Negative [facility] WITH [id number] 21:10:00 Test Item Value Reference Range Interpretation Comments WBC (test code = See_Comment [Automated 6690-2) message] The sy stem which generated this result transmitted reference range : 4.30 - 11.10 10*3/?L. The reference range was not used to interpret this result as normal/abnormal . RBC (test code = See_Comment L [Automated 789-8) message] The sy stem which generated this result transmitted reference range : 3.93 - 5.25 10*6/?L. The reference range was not used to interpret this result as normal/abnormal . HGB (test code = 11.3 g/dL 11.6-15 L 718-7) HCT (test code = 34.4 % 35.7-45.2 L 4544-3) MCV (test code = 89.8 fL 80.6-95.5 787-2) MCH (test code = 29.5 pg 25.9-32.8 785-6) MCHC (test code = 32.8 g/dL 31.6-35.1 786-4) RDW-SD (test code = 45.7 fL 39-49.9 79407-1) RDW-CV (test code = 14.1 % 12-15.5 788-0) PLT (test code = See_Comment [Automated 777-3) message] The sy stem which generated this result transmitted reference range : 166 - 358 10*3/ ?L. The reference r cipriano was not used to interpret this result as normal/abnormal . MPV (test code = 9.7 fL 9.5-12.9 26143-9) NRBC/100 WBC (test See_Comment [Automat ed code = 1993407396) message] The system which generated this result transmitted reference range : 0.0 - 10.0 /100 WBCs. The refer ence range was not u sed to interpret th is result as normal/abnormal . NRBC x10^3 (test code <0.01 See_Comment [Auto mated = 4091138358) message] The s ystem which generated this result transmitted reference range : 10*3/?L. The reference range was not used to interpret this result as normal/abnormal . GRAN MAT (NEUT) % 66.2 % (test code = 770-8) IMM GRAN % (test code 1.20 % = 3590220495) LYMPH % (test code = 19.5 % 736-9) MONO % (test code = 12.2 % 5905-5) EOS % (test code = 0.7 % 713-8) BASO % (test code = 0.2 % 706-2) GRAN MAT x10^3(ANC) 6.32 10*3/uL 1.88-7.09 (test code = 7079964744) IMM GRAN x10^3 (test 0.11 10*3/uL 0-0.06 H code = 9204566642) LYMPH x10^3 (test code 1.86 10*3/uL 1.32-3.29 = 731-0) MONO x10^3 (test code 1.16 10*3/uL 0.33-0.92 H = 742-7) EOS x10^3 (test code = 0.07 10*3/uL 0.03-0.39 711-2) BASO x10^3 (test code <0.03 0.01-0.07 = 704-7) Lab Interpretation Abnormal (test code = 84357-5) [facility] HEMOGLOBIN A1C [id number] 21:45:00 Test Item Value Reference Range Interpretation Comments POCT HBA1C (test code = 4548-4) 6.4 % 4-6 A Lab Interpretation (test code = Abnormal 92659-4) [facility] [id number] 21:39:00 Test Item Value Reference Range Interpretation Comments POCT Glu (age>30days) (test code = 96 mg/dL 70-110 3342) [facility] URINALYSIS W/O SPECIFIC [id number] 21:23:00 Test Item Value Reference Range Interpretation Comments POCT PH U (test code = 3254) n/a 5-8 POCT U LEUK EST (test code = 3263) n/a Negative - Negative POCT U NIT (test code = 3262) n/a Negative - Negative POCT U PROT (test code = 3259) neg Negative - Negative POCT U GLU (test code = 3256) neg Negative - Negative POCT U KETONE (test code = 3258) n/a Negative - Negative POCT U BLD (test code = 3257) n/a Negative - Negative [facility] URINALYSIS W/O SPECIFIC [id number] 14:37:00 Test Item Value Reference Range Interpretation Comments POCT PH U (test code = 3254) na/ 5-8 POCT U LEUK EST (test code = 3263) n/a Negative - Negative POCT U NIT (test code = 3262) n/a Negative - Negative POCT U PROT (test code = 3259) neg Negative - Negative POCT U GLU (test code = 3256) neg Negative - Negative POCT U KETONE (test code = 3258) n/a Negative - Negative POCT U BLD (test code = 3257) n/a Negative - Negative Lab Interpretation (test code = Normal 91630-4) [facility] URINALYSIS W/O SPECIFIC [id number] 14:37:00 Test Item Value Reference Range Interpretation Comments POCT PH U (test code = 3254) na/ 5-8 POCT U LEUK EST (test code = 3263) n/a Negative - Negative POCT U NIT (test code = 3262) n/a Negative - Negative POCT U PROT (test code = 3259) neg Negative - Negative POCT U GLU (test code = 3256) neg Negative - Negative POCT U KETONE (test code = 3258) n/a Negative - Negative POCT U BLD (test code = 3257) n/a Negative - Negative Lab Interpretation (test code = Normal 73990-3) [place] [address] HR GLUCOSE TOLERANCE [id number] 19:20:00 Test Item Value Reference Range Interpretation Comments GLUC 3 HR (test code = 7825878285) 144 mg/dL 70-110 H Lab Interpretation (test code = Abnormal 35638-6) [facility] [place], [place] HR GLUCOSE TOLERANCE [id number] 18:07:00 Test Item Value Reference Range Interpretation Comments GLUC 2 HR (test code = 4735424106) 198 mg/dL 70-120 H Lab Interpretation (test code = Abnormal 92212-5) [facility] [place], [place] HR GLUCOSE TOLERANCE [id number] 17:13:00 Test Item Value Reference Range Interpretation Comments GLUC 1 HR (test code = 9772301325) 206 mg/dL 120-170 H Lab Interpretation (test code = Abnormal 20091-0) [facility] [place], TXGLUCOSE [id number] 16:46:00 Test Item Value Reference Range Interpretation Comments GLU FASTNG (test code = 9036440989) 111 mg/dL 70-110 H Lab Interpretation (test code = Abnormal 36806-2) [facility] [place], TXPRENATAL WORKUP, BLOOD [id number] 17:39:20 Test Item Value Reference Range Interpretation Comments ABO & RH (test code O Positive Performe d at [facility] = 20) Laboratory Serv [facility] Blood Bank[address] [place], [place] [address]Toll Free: [phone] A No. [id number] IAT (test code = Negative Performed a t [facility] 1185) Laboratory Serv [facility] Blood [facility] [place], [place] [address]Toll Free: [phone] A No. [id number] [facility] [place], TXGLUCOSE 1 HOUR POST [id number] 17:18:00 Test Item Value Reference Range Interpretation Comments GLUC 1 HR (test code = 0837465703) 186 mg/dL 120-170 H Lab Interpretation (test code = Abnormal 54454-9) [facility] [place], TXGLUCOSE 1 HOUR POST [id number] 17:18:00 Test Item Value Reference Range Interpretation Comments GLUC 1 HR (test code = 3346273397) 186 mg/dL 120-170 H Lab Interpretation (test code = Abnormal 02267-4) [facility] [place], TXCOMP. METABOLIC PANEL ([id number])2019-11-21 17:17:00 Test Item Value Reference Range Interpretation Comments NA (test code = 134 mmol/L 135-145 L 3157248791) K (test code = 3.8 mmol/L 3.5-5 0713410844) CL (test code = 100 mmol/L 98-108 3557409997) CO2 TOTAL (test code = 24 mmol/L 23-31 0747600071) AGAP (test code = 2-16 1229787672) BUN (test code = 5 mg/dL 7-23 L 7462756110) GLUCOSE (test code = 188 mg/dL 70-110 H 5034474028) CREATININE (test code = 0.45 mg/dL 0.5-1.04 L 8069845312) TOTAL BILI (test code = 0.5 mg/dL 0.1-1.5 7465470587) CALCIUM (test code = 9.2 mg/dL 8.6-10.6 3800171538) T PROTEIN (test code = 6.7 g/dL 6.3-8.2 6219044674) ALBUMIN (test code = 3.9 g/dL 3.5-5 8389812446) ALK PHOS (test code = 50 U/L 34-122 3921826674) ALTv (test code = 13 U/L 5-35 1742-6) AST(SGOT) (test code = 16 U/L 13-40 6612440568) eGFR Calculation mL/min/1.73m2 (Non-) (test code = 3612428121) eGFR Calculation mL/min/1.73m2 () (test code = 3398544415) MIKE (test code = MIKE) Association of Glomerular Filtration Rate (GFR) and Staging of Kidney Disease* + --+ --+ ------+| GFR (mL/min/1.73 m2) ?| With Kidney Damage ?| ?Without Kidney Damage+ --------+ --------+ +| ?>90 ?| ?Stage one ?| ? Normal ?+ ---+ ---+ -------+| ?60-89 ?| ?Stage two ?| ? Decreased GFR ? + --+ --+ ------+| ?30-59 ?| ?Stage three ?| ? Stage three ? + --+ --+ ------+| ?15-29 ?| ?Stage four ? | ? Stage four ?+ ---+ ---+ -------+| ?<15 (or dialysis) ? ?| ?Stage five ? | ? Stage five ?+ ---+ ---+ -------+ *Each stage assumes the associated GFR level has been in effect for at least three months. ?Stages 1 to 5, with or without kidney disease, indicate chronic kidney disease. Notes: Determination of stages one and two (with eGFR >59mL/min/1.73 m2) requires estimation of kidney damage for at least three months as defined by structural or functional abnormalities of the kidney, manifested by either:Pathological abnormalities or Markers of kidney damage (including abnormalities in the composition of the blood or urine or abnormalities in imaging tests). Lab Interpretation Abnormal (test code = 08533-5) [facility]. METABOLIC PANEL ([id number])2019-11-21 17:17:00 Test Item Value Reference Range Interpretation Comments NA (test code = 134 mmol/L 135-145 L 2878842427) K (test code = 3.8 mmol/L 3.5-5 4747051878) CL (test code = 100 mmol/L 98-108 8955349154) CO2 TOTAL (test code = 24 mmol/L 23-31 8668046181) AGAP (test code = 2-16 4198246309) BUN (test code = 5 mg/dL 7-23 L 6871073745) GLUCOSE (test code = 188 mg/dL 70-110 H 9456135216) CREATININE (test code = 0.45 mg/dL 0.5-1.04 L 7270058229) TOTAL BILI (test code = 0.5 mg/dL 0.1-1.7 7652429007) CALCIUM (test code = 9.2 mg/dL 8.6-10.6 9912971647) T PROTEIN (test code = 6.7 g/dL 6.3-8.2 1370002580) ALBUMIN (test code = 3.9 g/dL 3.5-5 2946698764) ALK PHOS (test code = 50 U/L 34-122 1879331582) ALTv (test code = 13 U/L 5-35 1742-6) AST(SGOT) (test code = 16 U/L 13-40 7168773074) eGFR Calculation mL/min/1.73m2 (Non-) (test code = 9015691072) eGFR Calculation mL/min/1.73m2 () (test code = 0741508355) MIKE (test code = MIKE) Association of Glomerular Filtration Rate (GFR) and Staging of Kidney Disease* + --+ --+ ------+| GFR (mL/min/1.73 m2) ?| With Kidney Damage ?| ?Without Kidney Damage+ --------+ --------+ +| ?>90 ?| ?Stage one ?| ? Normal ?+ ---+ ---+ -------+| ?60-89 ?| ?Stage two ?| ? Decreased GFR ? + --+ --+ ------+| ?30-59 ?| ?Stage three ?| ? Stage three ? + --+ --+ ------+| ?15-29 ?| ?Stage four ? | ? Stage four ?+ ---+ ---+ -------+| ?<15 (or dialysis) ? ?| ?Stage five ? | ? Stage five ?+ ---+ ---+ -------+ *Each stage assumes the associated GFR level has been in effect for at least three months. ?Stages 1 to 5, with or without kidney disease, indicate chronic kidney disease. Notes: Determination of stages one and two (with eGFR >59mL/min/1.73 m2) requires estimation of kidney damage for at least three months as defined by structural or functional abnormalities of the kidney, manifested by either:Pathological abnormalities or Markers of kidney damage (including abnormalities in the composition of the blood or urine or abnormalities in imaging tests). Lab Interpretation Abnormal (test code = 03576-9) [facility] WITH [id number] 16:42:00 Test Item Value Reference Range Interpretation Comments WBC (test code = See_Comment [Automated message] 6690-2) The system [employer] generated this result transmitted ref erence range: 4.30 - 1 1.10 10*3/?L. The re ference range was not u sed to interpret this result as normal/abnor mal. RBC (test code = See_Comment [Automated message] 789-8) The system [employer] generated this result transmitted ref erence range: 3.93 - 5 .25 10*6/?L. The re ference range was not u sed to interpret this result as normal/abnor mal. HGB (test code = 12.7 g/dL 11.6-15 718-7) HCT (test code = 40.0 % 35.7-45.2 4544-3) MCV (test code = 89.9 fL 80.6-95.5 787-2) MCH (test code = 28.5 pg 25.9-32.8 785-6) MCHC (test code = 31.8 g/dL 31.6-35.1 786-4) RDW-SD (test code 47.0 fL 39-49.9 = 18431-0) RDW-CV (test code 14.4 % 12-15.5 = 788-0) PLT (test code = See_Comment [Automated message] 777-3) The system [employer] generated this result transmitted ref erence range: 166 - 35 8 10*3/?L. The re ference range was not u sed to interpret this result as normal/abnor mal. MPV (test code = 10.0 fL 9.5-12.9 65807-8) NRBC/100 WBC (test See_Comment [Automat ed message] code = 8050860855) The syste m which generated this result transmitted ref erence range: 0.0 - 10 .0 /100 WBCs. The refer ence range was not u sed to interpret this result as normal/abnor mal. NRBC x10^3 (test <0.01 See_Comment [Automated message] code = 5631190477) The syste m which generated this result transmitted ref erence range: 10*3/?L. The reference range was not used to interpr et this result as normal/abnormal . GRAN MAT (NEUT) % 72.2 % (test code = 770-8) IMM GRAN % (test 0.50 % code = 8766664741) LYMPH % (test code 19.9 % = 736-9) MONO % (test code 6.6 % = 5905-5) EOS % (test code = 0.6 % 713-8) BASO % (test code 0.2 % = 706-2) GRAN MAT 5.93 10*3/uL 1.88-7.09 x10^3(ANC) (test code = 7493308727) IMM GRAN x10^3 0.04 10*3/uL 0-0.06 (test code = 9258474494) LYMPH x10^3 (test 1.63 10*3/uL 1.32-3.29 code = 731-0) MONO x10^3 (test 0.54 10*3/uL 0.33-0.92 code = 742-7) EOS x10^3 (test 0.05 10*3/uL 0.03-0.39 code = 711-2) BASO x10^3 (test <0.03 0.01-0.07 code = 704-7) [facility] WITH [id number] 16:42:00 Test Item Value Reference Range Interpretation Comments WBC (test code = See_Comment [Automated message] 9690-2) The system [employer] generated this result transmitted ref erence range: 4.30 - 1 1.10 10*3/?L. The re ference range was not u sed to interpret this result as normal/abnor mal. RBC (test code = See_Comment [Automated message] 129-8) The system [employer] generated this result transmitted ref erence range: 3.93 - 5 .25 10*6/?L. The re ference range was not u sed to interpret this result as normal/abnor mal. HGB (test code = 12.7 g/dL 11.6-15 718-7) HCT (test code = 40.0 % 35.7-45.2 4544-3) MCV (test code = 89.9 fL 80.6-95.5 787-2) MCH (test code = 28.5 pg 25.9-32.8 785-6) MCHC (test code = 31.8 g/dL 31.6-35.1 786-4) RDW-SD (test code 47.0 fL 39-49.9 = 60340-2) RDW-CV (test code 14.4 % 12-15.5 = 788-0) PLT (test code = See_Comment [Automated message] 777-3) The system whic h generated this result transmitted ref erence range: 166 - 35 8 10*3/?L. The re ference range was not u sed to interpret this result as normal/abnor mal. MPV (test code = 10.0 fL 9.5-12.9 45820-3) NRBC/100 WBC (test See_Comment [Automat ed message] code = 2205227032) The syste m which generated this result transmitted ref erence range: 0.0 - 10 .0 /100 WBCs. The refer ence range was not u sed to interpret this result as normal/abnor mal. NRBC x10^3 (test <0.01 See_Comment [Automated message] code = 5290589400) The syste m which generated this result transmitted ref erence range: 10*3/?L. The reference range was not used to interpr et this result as normal/abnormal . GRAN MAT (NEUT) % 72.2 % (test code = 770-8) IMM GRAN % (test 0.50 % code = 6453456711) LYMPH % (test code 19.9 % = 736-9) MONO % (test code 6.6 % = 5905-5) EOS % (test code = 0.6 % 713-8) BASO % (test code 0.2 % = 706-2) GRAN MAT 5.93 10*3/uL 1.88-7.09 x10^3(ANC) (test code = 5789406112) IMM GRAN x10^3 0.04 10*3/uL 0-0.06 (test code = 5647859511) LYMPH x10^3 (test 1.63 10*3/uL 1.32-3.29 code = 731-0) MONO x10^3 (test 0.54 10*3/uL 0.33-0.92 code = 742-7) EOS x10^3 (test 0.05 10*3/uL 0.03-0.39 code = 711-2) BASO x10^3 (test <0.03 0.01-0.07 code = 704-7) [facility] WITH [id number] 16:42:00 Test Item Value Reference Range Interpretation Comments WBC (test code = See_Comment [Automated message] 6690-2) The system [employer] generated this result transmitted ref erence range: 4.30 - 1 1.10 10*3/?L. The re ference range was not u sed to interpret this result as normal/abnor mal. RBC (test code = See_Comment [Automated message] 789-8) The system [employer] generated this result transmitted ref erence range: 3.93 - 5 .25 10*6/?L. The re ference range was not u sed to interpret this result as normal/abnor mal. HGB (test code = 12.7 g/dL 11.6-15 718-7) HCT (test code = 40.0 % 35.7-45.2 4544-3) MCV (test code = 89.9 fL 80.6-95.5 787-2) MCH (test code = 28.5 pg 25.9-32.8 785-6) MCHC (test code = 31.8 g/dL 31.6-35.1 786-4) RDW-SD (test code 47.0 fL 39-49.9 = 25473-0) RDW-CV (test code 14.4 % 12-15.5 = 788-0) PLT (test code = See_Comment [Automated message] 777-3) The system [employer] generated this result transmitted ref erence range: 166 - 35 8 10*3/?L. The re ference range was not u sed to interpret this result as normal/abnor mal. MPV (test code = 10.0 fL 9.5-12.9 95311-8) NRBC/100 WBC (test See_Comment [Automat ed message] code = 2856457948) The syste [employer] which generated this result transmitted ref erence range: 0.0 - 10 .0 /100 WBCs. The refer ence range was not u sed to interpret this result as normal/abnor mal. NRBC x10^3 (test <0.01 See_Comment [Automated message] code = 1219746405) The syste m which generated this result transmitted ref erence range: 10*3/?L. The reference range was not used to interpr et this result as normal/abnormal . GRAN MAT (NEUT) % 72.2 % (test code = 770-8) IMM GRAN % (test 0.50 % code = 5089405501) LYMPH % (test code 19.9 % = 736-9) MONO % (test code 6.6 % = 5905-5) EOS % (test code = 0.6 % 713-8) BASO % (test code 0.2 % = 706-2) GRAN MAT 5.93 10*3/uL 1.88-7.09 x10^3(ANC) (test code = 9606858090) IMM GRAN x10^3 0.04 10*3/uL 0-0.06 (test code = 6264068491) LYMPH x10^3 (test 1.63 10*3/uL 1.32-3.29 code = 731-0) MONO x10^3 (test 0.54 10*3/uL 0.33-0.92 code = 742-7) EOS x10^3 (test 0.05 10*3/uL 0.03-0.39 code = 711-2) BASO x10^3 (test <0.03 0.01-0.07 code = 704-7) [facility] [place], TXPOCT URINALYSIS W/O SPECIFIC [id number] 19:32:00 Test Item Value Reference Range Interpretation Comments POCT PH U (test code = 3254) N/A 5-8 POCT U LEUK EST (test code = N/A Negative - Negative 3263) POCT U NIT (test code = 3262) N/A Negative - Negative POCT U PROT (test code = 3259) Negative Negative - Negative POCT U GLU (test code = 3256) Negative Negative - Negative POCT U KETONE (test code = 3258) N/A Negative - Negative POCT U BLD (test code = 3257) N/A Negative - Negative [facility] [place], TXLAB ONLY PAP SMEAR-LIQUID [id number] 22:56:00 Test Item Value Reference Range Interpretation Comments Case Report (test code Gynecologic Cytology ? = [id number]) ?Case: [id number] ? Authorizing Provider: ?Melyssa Lopez MD ?Collected: ? 10/23/2019 1542 ?Ordering Location: ? ? [facility] ?Received: ?10/23/2019 2341 ? [facility] [place] ? First Screen: ?Goldie Huntley ? Specimen: ? ?Liquid Based Pap Preparation, CERVIX ? Clinical Information pt reports abnormal pap (test code = at age 18, none since 9890757561) Specimen Adequacy Satisfactory for (test code = 77390-4) Evaluation(Endocervical /Transformation Zone Component Present) Interpretation (test Negative for code = 98553-8) intraepithelial lesion or malignancy Comments (test code = o1rbvAEcHLUgc4ytHZRljQN 7603379621) uZzEwMzNcZnRuYmpcdWMxIH sferRdJPmog9PdR4EpEiKuZ FxhbnNpXGRlZmxhbmcxMDMz SMN9tqOhDZLqZAbjYBVvCUh uSc8wjLMlzPbrXkYiBVGpg0 lwkrOLYGziVdCvX064OWMyK Xbra7prp9XdEVVmjBUjs9K2 TKMYuknuvMa6s6epSnOgBvJ 6qCOpHOwiW3rcyfCtcCPcO3 IrjOEeqWx5lWoeT28qr7U5F cytI4opRPGnXBWuN3DgTM2i DMRoZwf6SGY7RLB8QRNbCTS dI3YuQS2xIYUblECyBTm4h3 vmtUrfMABeDQZ1m3saUEzyh qZ4JR8vap2dpDt8e8keqwCc TMWqSILoyWGCKUJeY9YkyMv nJi8soJl1cRcsBgebKDH7Br g6OW3jkj01qgx0tEgdQWLaq ivoXnN1ECfdMALeffyjFSe5 QWipQQYsePZ2GWDpwSJrQ6Z oIOArWC9jpva2ENU8XNkeLF KmVpB6EHMobTYvQOUmjWtjY Uopa129KBA7OeWrVP0bY8Lk q1J2hY7lcKIsDDYyyITvYuO iDWThdd1kzVSzHLeuf3VtB7 0peOH6KMrzr1zfPB8bCyI0e yLaCPwyz5lxhE6kKoY5HIjo DM4tli98SVKqAZI9st5igIN utKxdkeJfxHXaCZfmO0BgNT Wjo378HURgF8NwRWIpc2D4r wEyShJmOOCziGB8fjC7PKAa JKq7fETbpeD7ppFtuTAwZ4u dbN1iAYJnLX9mjtgxp6xxWJ jeYCjpRBApjHW3wqT6XFYtd PFvW1CtcQ3fSWCoHCxjIANz jvp7TiDmEq9bbNRfbQstZGj zYmtwYWdlXHBnbmNvbnRccG duZGVjXHBsYWluXHBsYWluX LDmRHGwDySvyJFaCGtjw3Ts nuNhnUudWMQfQYk1rsJngvu jnLu6nGCxiHzzCCYgnUecrJ 8zYbLjFgHvIFphIO3eUBWlC 0omrUOrHRVrLAVjY5acCrEi aB4byHiaYTmvRrMzKmSfVXr wgLQiaJzzRGAhzVrtuL4qXn PlUiXhCQnwHV6yQDZwJ2qnh XXvTMKeDAFyL8xpRgDbqJ2d aFxmMVxjZjJcZnMyMFxwYXJ eoVjrpI5cGzRfFgHoWUucLJ 3dGYDoL0mjjPZrDQGqCUCiE 4phLcFhhI9jcJxqWGkuPbDy ZnMyMFxsdHJjaFxwYXJccGF dAMxnx8ZrflJptEomEXVvPA O4JFB0BPxfhBLuUQKloAjoh 7mmY0TlxRZqKBXaTHviIIBi WEJoLvNvaUnbkX5hIqPgEaX cYvoyFP3vVVYbE4jnxVMuMT CtRBKaR3guIhDkhE0skZzgW lxjZjJcZnMyMlxsdHJjaFxw FKGvqSTqJCFuyePnd6FqUCM bPKC4RIcjFPuvuUUrNQMttQ cqu8deM4OucEBzTIWqXNzdD WTzPVMdIqVihIlqtU5dWyVq MeMlWAwoET9vDHDtE3bkaPC bAVLwMDHgW8smVcJuhK2jfY xmMVxjZjJcZnMxNFxsdHJja XPSYQPiy5JxJGWiKG8fVOKk kvdudQBbTVV7UBR3sL75WMW yve7eu1wkb2QfVFTgGAOVBf 2RDWVraPUwG8a9cYXWLE0cl QXeBSGfHGTgB8RaEyRVgqHz j7N3MTHagYNcUEENOMDnpXA eJ7a3uPkyIYvsTsw8AxAryH pzmP6zYbLzIoHsBGukJY6rA RKoH3yqdTIcSGIqAJVfQ6co NsVdwI6upRljJovgchF9NVW hcn19 LMP (test code = 3779219990) Educational Note (test d8ctjXXvBYJiy4bvPCYypHO code = 4637967985) uZzEwMzNcZnRuYmpcdWMxIH lybwLyPApan0ExR9UbLWZxD FxhbnNpXGRlZmxhbmcxMDMz HYC4scArAGNnXQlnCZReCFl iSt4ppEIhpKyiOgZcXBZmx9 lpyiFVxiysiHs4m9qmDEReY hB9pMUhWKvwX1znweUlmKGe SJRlSTo7nX96UOYtuB8zgRZ cNYveccFfDbO8YKntZBOyJs L0MYRxwOXpNXGxH4zqELAeA XJxX4YlJP9zNyckYkq0VVA6 IDtccmVkMFxncmVlbjBcYmx 0NUMlR185LRH7hXugj2btNU X1AXRlOXKnWzYcUi5niJDlI 672RGYiRPLMFIWrqYq5OZFd miHyapOxsFZSt210R059p0k dBCSbijFbiVhUehezf2ihN1 19XHBhcGVydzEyMjQwXHBhc GZykVP9AORyUW5umsbyEZgl BMvoMSMluhY8IMFrcDLvO9L fKXQuLT2zvopvBGT7GNlqQT WfSVI2ZpJdLWUxn8Otmnw3E eRxns0wav90LHQ4o4AfsJkz VXH2LZO1FsYgDa4rrPNsZWQ eXZ1nFtLspEJzXYAhta58mA npUZsdycPkmC2qHdKfLIWyh EIvJEAtBT1ddQQnXZUawK4j cmxjXHBnYnJkcmhlYWRccGd jxoQrQr4amJjkXTX9HEhfJ4 yjmM4xHeY9UKeyB0sgcG2bI Vt1EHyqdRD5WJDmeB0zMX8b vlrzt4bwKBfgIAvyQPEspnB 4ubO4RJFwcKBeK8OodZ1wUO RxEX9emahim4wmXYZ3HSpkJ RZjMLQ6CjGxUNAxc4Pdebm1 SxIds6QamITzNBiuC30mz32 0JCVutuLgY8glgNJliinpnH NgomdbPMivyjH6BKYrXKHfN WluXGYxXGZzMjJcbGFuZzEw MzNcaGljaFxmMVxkYmNoXGY lDItdF8ayHqScJ0ZjQZCtVo SepZXLLOO3mVObcSSlnOOau C5oqYClLMPtQPSin4EaBAxc TMQud5WsDLHatS4sXVYlf0B joBVcnDMmuFq0TXXjjjQzzB LbpH89wxKqYJ7eNNGwAQSzY LPiqcVnwDRwv1AqHxTCuOLp oSUlvCUrVPEyXI9dgD8jMJG zyfOrWEQ9aETmc3urWSJap5 KuAoidxIC4ZB0hVSLlzPZkC P2tC7T4bQJqGFUbHBTiWObu CR9rt3TbfNr4FLDmMLG7zLX rFbEmYsDpbAsyyySyPA8byS poLfAfkfVjXu2pgV49EYXkA T7xTQZrCAplbISsdrXdHPXb iO6nS4XhCZVtQ75tPCVhVGZ vaY2brR4tjzGmbjOisfNjp5 7hMT1nKARqdF3mqKdbdK6ye mUgdGhlIGVmZmVjdCBvZiBm MBaeURNuMSnquVa5XZZnQRR 6iDLzUeWwBJ45jjSdQFSzWY 74ZZSyp2TxFWRjXLRcGU3ra iOfTPM1hzKqu95jfOh3FWsy gPRomM7cYYykdYOlwAKnDqY geOYoDPxoNXBuSL9bHSBfHD 55IHVuZXhwbGFpbmVkIGNsa O9gP6XuBRQdJ32wAATiHEKi gV3ryU8fqruinfYeHCUezAT zcyBvZiBhbnkgUGFwIFRlc3 ZdfjUedCm9NtsstHCwvcklE VxmczIyXGxhbmcxMDMzXGhp U4uhOcPoGFDxfGfaCWjng0G oXGYxXGZzMjJccGFyfX0= Embedded Images (test code = 3883173998) [facility] [place], [place]<14 WEEKS US [id number] 03:55:03Limited USG for viability and location due to vaginal spotting in early : ?Single live IUP measured 8 1/7 weeks, consistent with LMP. ?Will date by LMP Melyssa Lopez MD ?10/24/2019 ?9:54 [facility]Un[facility] CenterH[facility]-THIN [id number] 00:55:00 Test Item Value Reference Range Interpretation Comments High Risk HPV (test Negative Negative code = 1524634698) MIKE (test code = MIKE) A positive result indicates the presence of viral messenger RNA (mRNA) from 14 high-risk types of human papillomavirus (HPV Genotype 16, 18, 31, 33, 35, 39, 45, 51, 52, 56, 58, 59, 66, 68). ?False-positive results may occur with this test when mRNA of low-risk HPV genotypes 26, 67, 70, and 82 is present. A negative result of this assay does not exclude the possibility of cytologic abnormalities or of future or underlying CIN2-3, or cancer. ?Sensitivity of this test may be affected by specimen collection methods, stage of infection, and the presence of interfering substances. ?Results should be interpreted in conjunction with other available laboratory and clinical data. Lab Interpretation Normal (test code = 58723-0) [facility] [place], [place] & CHLAMYDIA AMPLIFIED [id number] 18:49:00 Test Item Value Reference Range Interpretation Comments C. trachomatis Nucleic Acid (test Negative Negative code = 67396-9) N. gonorrhoeae Nucleic Acid (test Negative Negative code = 71550-4) Lab Interpretation (test code = Normal 20329-5) [facility] [place], [place] / [facility] - DRUG SCREEN [id number] 23:57:00 Test Item Value Reference Range Interpretation Comments BENZO U (test code = Negative Negative 3542156466) VANIA U (test code = Negative Negative 2141331878) AMPHET (test code = Negative Negative 5532104292) THC (test code = Negative Negative 1600216437) METHADONE (test code = Negative Negative 9085938259) Meth U (test code = Negative Negative 7352612359) OPIATES (test code = Negative Negative 7471878983) Cocaine Metabolite (test Negative Negative code = 7014429344) PROPOXY (test code = Negative Negative 4812848179) Tric U (test code = Negative Negative 4794608100) PCP (test code = Negative Negative 6449847162) OXYCOD (test code = Negative Negative 8066523178) MIKE (test code = MIKE) Urine Drug Cutoff Ranges Benzodiazepines: ? ? 150 ng/mLBarbiturates: ?200 ng/mLAmphetamine: ? 500 ng/mLCannabinoids: ?50 ?ng/mLMethadone: ? 200 ng/mLMethamphetamine: ? ? 500 ng/mL Opiates: ? 100 ng/mL or 2000 ng/mLCocaine: ? 150 ng/mLPropoxyphene: ?300 ng/mLTricyclics: ?300 ng/mLOxycodone: ? 100 ng/mLPCP: ? 25 ?ng/mL The results are to be used only for medical (i.e., treatment) purposes. Unconfirmed screening results must not be used for non-medical purposes (e.g., employment testing, legal testing). Lab Interpretation (test Normal code = 51288-0) [facility] [id number] 21:24:00 Test Item Value Reference Range Interpretation Comments POCT PREG (test code = 1605) Positive On board controls acceptable with C Yes Line (test code = 3574) POCT PREG LOT # (test code = 3575) POCT PREG TEST DATE (test code = 3576) [facility] URINALYSIS W/O SPECIFIC [id number] 21:24:00 Test Item Value Reference Range Interpretation Comments POCT PH U (test code = 9874) N/A 5-8 POCT U LEUK EST (test code = N/A Negative - Negative 3263) POCT U NIT (test code = 3262) N/A Negative - Negative POCT U PROT (test code = 3259) Negative Negative - Negative POCT U GLU (test code = 3256) Negative Negative - Negative POCT U KETONE (test code = 5938) N/A Negative - Negative POCT U BLD (test code = 3257) N/A Negative - Negative [facility] [place], [place]"
[2021-11-25 20:07] LABS: Absolute Lymphocytes (CBC) 2.3 K/uL (0.7-4.9); Hematocrit 41.4 % (36.0-45.0); Lymphocytes % 34.1 % (15.3-44.8); MPV 7.6 fL (7.6-11.3); RBC Red Blood Cell Count 4.82 M/uL (3.86-4.86)
[2021-11-25 20:16] LABS: Urine Blood 2+ (Negative); Urine Glucose Negative (Negative); Urine Protein 1+ (Negative); Urine Specific Gravity >=1.030 (1.005-1.030)
[2021-11-25] MEDS ORDERED: MORPHINE 4 MG/ML SYR ONE (20:19)
[2021-11-25] MEDS ORDERED: ONDANSETRON 4 MG/2 ML VIAL ONE (20:20)
--- NOTE | 2021-11-25 21:09 | RAD REPORT ---
EXAM DESCRIPTION: US - Abdomen Exam Limited - 11/25/2021 8:50 pm CLINICAL HISTORY: ABD PAIN COMPARISON: <Comparisons> FINDINGS: The gallbladder demonstrates multiple shadowing gallstones. No pericholecystic fluid or ga llbladder wall thickening. The common bile duct is normal measuring 4 mm. The liver demonstrates no findings of intrahepatic biliary dilatation. IMPRESSION: Cholelithiasis.
[2021-11-25 22:00] LABS: ALT/SGPT 36 U/L (12-78); AST/SGOT 13 U/L (15-37); Albumin 3.8 g/dL (3.4-5.0); Alkaline Phosphatase 87 U/L (45-117); BUN Blood Urea Nitrogen 10 mg/dL (7-18); Bicarbonate 28 mmol/L (21-32); Bilirubin Direct 0.2 mg/dL (0-0.2); Bilirubin Total 0.9 mg/dL (0.2-1.0); Glucose Level 112 mg/dL (74-106); Lipase 42 U/L (73-393); Potassium 3.5 mmol/L (3.5-5.1); Protein, Total 8.2 g/dL (6.4-8.2); Sodium Level 138 mmol/L (136-145)
--- NOTE | 2021-11-25 22:18 | EDPHYS ---
Physician Documentation [facility] Name: Keyonna James Age: 40 yrs Sex: Female : 1980 Arrival Date: 11/25/2021 Time: 19: Bed 7 Private MD: ED Physician Shay Henry HPI: 11/25 20:27 This 40 yrs old Black Female presents to ER via Ambulatory with complaints of abd pain. rn 20:27 The patient presents with abdominal pain in the right upper quadrant. Onset: The rn symptoms/episode began/occurred yesterday. The symptoms do not radiate. Associated signs and symptoms: Pertinent positives: nausea and vomiting, diarrhea, Pertinent negatives: dysuria, fever. The symptoms are described as crampy, stabbing. The symptoms are described as waxing/waning. Modifying factors: The symptoms are alleviated by nothing, the symptoms are aggravated by food, touching the area. Severity of pain: At its worst the pain was moderate in the emergency department the pain is unchanged. The patient has experienced similar episodes in the past. The patient has not recently seen a physician. 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 - Social history:: Smoking status: Patient denies any tobacco usage or history of. - Family history:: not pertinent. - Hospitalizations: : No recent hospitalization is reported. ROS: 20:27 Constitutional: Negative for fever, chills, and weight loss, Eyes: Negative for injury, rn pain, redness, and discharge, Neck: Negative for injury, pain, and swelling, Cardiovascular: Negative for chest pain, palpitations, and edema, Respiratory: Negative for shortness of breath, cough, wheezing, and pleuritic chest pain, Abdomen/GI: + epigastric and RUQ abd pain, + nausea/vomiting/diarrhea Back: Negative for injury and pain, : Negative for injury, bleeding, discharge, and swelling, MS/Extremity: Negative for injury and deformity, Skin: Negative for injury, rash, and discoloration, Neuro: Negative for headache, weakness, numbness, tingling, and seizure. Exam: 20:27 Constitutional: Overweight female, no acute distress. Head/Face: Normocephalic, rn atraumatic. Eyes: Periorbital areas with no swelling, redness, or edema. Cardiovascular: Regular rate and rhythm. No pulse deficits. Respiratory: No increased work of breathing, no retractions or nasal flaring. Abdomen/GI: Soft, mild RUQ and epigastric tenderness, no rebound, no masses Skin: Warm, dry MS/ Extremity: Pulses equal, no cyanosis. Neuro: Awake and alert, GCS 15 Vital Signs: 19:39 BP 153 / 98; Pulse 93; Resp 18 S; Temp 98.6(O); Pulse Ox 99% on R/A; Weight 111.13 kg as6 (R); Height 5 ft. 3 in. (160.02 cm) (R); Pain 8/10; 20:22 BP 144 / 87; Pulse 90; Resp 18 S; Pulse Ox 99% on R/A; as6 21:23 BP 146 / 86; Pulse 86; Resp 16; Pulse Ox 99% on R/A; st1 19:39 Body Mass Index 43.40 (111.13 kg, 160.02 cm) as6 MDM: 19:42 Patient medically screened. rn 22:15 Differential diagnosis: cholecystitis, Cholelithiasis, gastritis, gastroesophageal rn reflux disease, non-specific abd pain, pancreatitis. Data reviewed: vital signs, nurses notes, lab test result(s), radiologic studies, ultrasound, and as a result, I will discharge patient. Counseling: I had a detailed discussion with the patient and/or guardian regarding: the historical points, exam findings, and any diagnostic results supporting the discharge/admit diagnosis, lab results, radiology results, the need for outpatient follow up, to return to the emergency department if symptoms worsen or persist or if there are any questions or concerns that arise at home. Response to treatment: the patient's symptoms have markedly improved after treatment, and as a result, I will discharge patient. Special discussion: I discussed with the patient/guardian in detail that at this point there is no indication for admission to the hospital. It is understood, however, that if the symptoms persist or worsen the patient needs to return immediately for re-evaluation. Based on the history and exam findings, there is no indication for further emergent testing or inpatient evaluation. I discussed with the patient/guardian the need to see the general surgeon for further evaluation of the symptoms. ED course: U/S shows cholelithiasis, no signs of acute cholecystitis, normal cbc/lfts/lipase. Pain markedly improved. Will dc home with Dr. Thompson f/u, who she has seen before for this. Return precautions given and understood. . 11/25 19:51 Order name: Basic Metabolic Panel 11/25 19:51 Order name: CBC with Diff; Complete Time: 21:13 11/25 19:51 Order name: Hepatic Function; Complete Time: 22:14 11/25 19:51 Order name: Lipase; Complete Time: 22:14 11/25 19:52 Order name: Basic Metabolic Panel; Complete Time: 22:14 [facility] 11/25 20:15 Order name: Urine --Ancillary (enter results) [facility] 11/25 19:51 Order name: IV Saline Lock; Complete Time: 19:51 11/25 19:51 Order name: Labs collected and sent; Complete Time: 19:51 11/25 19:51 Order name: US Abdomen Limited; Complete Time: 21:13 11/25 19:51 Order name: Urine Dipstick-Ancillary (obtain specimen); Complete Time: 20:15 11/25 20:16 Order name: Urine --Ancillary [facility] 11/25 20:16 Order name: Urine Dipstick-Ancillary [facility] 11/25 19:51 Order name: Urine Test (obtain specimen); Complete Time: 20:15 rn Administered Medications: 20:21 Drug: morphine 4 mg Route: IVP; Site: right antecubital; as6 22:29 Follow up: Response: No adverse reaction; RASS: Alert and Calm (0) as6 20:21 Drug: Zofran (Ondansetron) 4 mg Route: IVP; Site: right antecubital; as6 22:29 Follow up: Response: No adverse reaction as6 Disposition Summary: 11/25/21 22:17 Discharge Ordered Location: Home rn Problem: an ongoing problem rn Symptoms: have improved rn Condition: Stable rn Diagnosis - Other cholelithiasis without obstruction rn Followup: rn - With: Nikita Thompson MD - When: As needed - Reason: Recheck today's complaints, Re-evaluation by your physician Discharge Instructions: - Discharge Summary Sheet rn - Cholelithiasis rn Forms: - Medication Reconciliation Form rn - Thank You Letter rn - Antibiotic rn intern - Prescription Opioid Use rn Prescriptions: - ondansetron 4 mg Oral tablet,disintegrating - take 1 tablet by ORAL route every 8 hours As needed; 15 tablet; Refills: 0, rn Product Selection Permitted - Tramadol 50 mg Oral Tablet - take 1 tablet by ORAL route every 8 hours as needed; 12 tablet; Refills: 0, rn Product Selection Permitted Signatures: Dispatcher [employer] EDShay Post MD MD rn Slawson, Ashby, RN RN as6
--- NOTE | 2021-11-25 22:18 | ER ---
Nurse's Notes [facility] Name: Keyonna James Age: 40 yrs Sex: Female : 1980 Arrival Date: 11/25/2021 Time: 19:23 Bed 7 Private MD: Diagnosis: Other cholelithiasis without obstruction Presentation: 11/25 19:39 Chief complaint: Patient states: "I think my gal bladder is acting up, I've had issues as6 with it in the past" pt is c/o epigastric pain radiating to RUQ, nausea, vomiting, diarrhea. Coronavirus screen: At this time, the client does not indicate any symptoms associated with coronavirus-19. Ebola Screen: No symptoms or risks identified at this time. Initial Sepsis Screen: Does the patient meet any 2 criteria? No. Patient's initial sepsis screen is negative. Does the patient have a suspected source of infection? No. Patient's initial sepsis screen is negative. Risk Assessment: Do you want to hurt yourself or someone else? Patient reports no desire to harm self or others. Onset of symptoms was November 24, 2021. 19:39 Method Of Arrival: Ambulatory as6 19:39 Acuity: JAVY 3 as6 Triage Assessment: 19:48 General: Appears uncomfortable, Behavior is calm, cooperative. Pain: Complains of pain as6 in abdomen. 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 - Social history:: Smoking status: Patient denies any tobacco usage or history of. - Family history:: not pertinent. - Hospitalizations: : No recent hospitalization is reported. Screenin:48 Abuse screen: Denies threats or abuse. Nutritional screening: No deficits noted. st1 Tuberculosis screening: No symptoms or risk factors identified. Fall Risk None identified. No fall in past 12 months (0 pts). No secondary diagnosis (0 pts). IV access (20 points). Ambulatory Aid- None/Bed Rest/Nurse Assist (0 pts). Gait- Normal/Bed Rest/Wheelchair (0 pts) Mental Status- Oriented to own ability (0 pts). Total Almaraz Fall Scale indicates No Risk (0-24 pts). Assessment: 19:49 General: Appears uncomfortable, Behavior is calm, cooperative. Pain: Complains of pain as6 in epigastric area Pain radiates to right upper quadrant. GI: Reports upper abdominal pain, diarrhea, nausea, vomiting. 21:22 Pain: Complains of pain in abdomen Pain currently is 4 out of 10 on a pain scale. level st1 that patient reports is acceptable is 2 out of 10 on a pain scale. Vital Signs: 19:39 BP 153 / 98; Pulse 93; Resp 18 S; Temp 98.6(O); Pulse Ox 99% on R/A; Weight 111.13 kg as6 (R); Height 5 ft. 3 in. (160.02 cm) (R); Pain 8/10; 20:22 BP 144 / 87; Pulse 90; Resp 18 S; Pulse Ox 99% on R/A; as6 21:23 BP 146 / 86; Pulse 86; Resp 16; Pulse Ox 99% on R/A; st1 19:39 Body Mass Index 43.40 (111.13 kg, 160.02 cm) as6 ED Course: 19:23 Patient arrived in ED. es 19:36 Joaquin Gale, WILD is Primary Nurse. as6 19:42 Shay Henry MD is Attending Physician. rn 19:47 Triage completed. as6 19:47 No provider procedures requiring assistance completed. Inserted saline lock: 20 gauge st1 in right antecubital area, using aseptic technique. 19:47 Patient has correct armband on for positive identification. Bed in low position. Call st1 light in reach. Side rails up X 1. Pulse ox on. NIBP on. Warm blanket given. Verbal reassurance given. 19:50 Arm band placed on. as6 20:21 Door closed. Lights dimmed. as6 20:28 Urine --Ancillary (enter results) Sent. st1 20:50 US Abdomen Limited In Process Unspecified. EDMS 22:16 Nikita Thompson MD is Referral Physician. rn 22:29 IV discontinued, intact, bleeding controlled, No redness/swelling at site. Pressure as6 dressing applied. Administered Medications: 20:21 Drug: morphine 4 mg Route: IVP; Site: right antecubital; as6 22:29 Follow up: Response: No adverse reaction; RASS: Alert and Calm (0) as6 20:21 Drug: Zofran (Ondansetron) 4 mg Route: IVP; Site: right antecubital; as6 22:29 Follow up: Response: No adverse reaction as6 Outcome: 22:17 Discharge ordered by . rn 22:29 Discharged to home ambulatory. as6 22:29 Condition: stable 22:29 Discharge instructions given to patient, Instructed on discharge instructions, follow up and referral plans. medication usage, Demonstrated understanding of instructions, follow-up care, medications, Prescriptions given X 2. 22:30 Patient left the ED. as6 Signatures: Dispatcher [employer] Cassandra Keen Roman, MD MD rn Slawson, Ashby, RN RN as6 Kasandra Blackwell RN RN st1
[2021-11-25 22:50] VITALS: O2SAT 99
[2021-11-25 22:51] VITALS: BP 146/86
[2021-11-25 22:53] VITALS: TEMP 98.6
[2021-11-25 23:09] LABS: Urine Specific Gravity/Preg >1.030 (1.005-1.030)
== END 2021-11-25 22:30 | disposition home or self-care (01) ==
LOC: ER 19:18
DX: K80.80 Other cholelithiasis without obstruction (principal)
CPT/HCPCS: 85025; 80048; 36415; 81025; 80076; 81003; 83690; 76705; 96375; 96374; 99284; J2405

== ENCOUNTER 2021-12-02 08:46 | Day surgery (SDC) | payer BC ==
[2021-11-30 13:08] LABS: Absolute Lymphocytes (CBC) 2.3 K/uL (0.7-4.9); Hematocrit 39.1 % (36.0-45.0); Lymphocytes % 34.5 % (15.3-44.8); MPV 7.5 fL (7.6-11.3); RBC Red Blood Cell Count 4.55 M/uL (3.86-4.86)
[2021-11-30 13:26] LABS: ALT/SGPT 52 U/L (12-78); AST/SGOT 18 U/L (15-37); Albumin 3.5 g/dL (3.4-5.0); Alkaline Phosphatase 85 U/L (45-117); Amylase 65 U/L (25-115); BUN Blood Urea Nitrogen 8 mg/dL (7-18); Bicarbonate 29 mmol/L (21-32); Bilirubin Direct 0.1 mg/dL (0-0.2); Bilirubin Total 0.4 mg/dL (0.2-1.0); Glucose Level 109 mg/dL (74-106); Lipase 58 U/L (73-393); Potassium 3.4 mmol/L (3.5-5.1); Protein, Total 7.5 g/dL (6.4-8.2); Sodium Level 140 mmol/L (136-145)
[2021-12-02] MEDS ORDERED: CEFOXITIN SODIUM 1 GM/VIAL ONE (09:06)
[2021-12-02] MEDS ORDERED: Ringers Lactate 1,000 ML IV ONE (09:06)
[2021-12-02] MEDS ORDERED: NA CHLORIDE 0.9% 50 ML ONE (09:06)
[2021-12-02 09:10] LABS: Specific Gravity 1.025 (1.005-1.030)
[2021-12-02] MEDS ORDERED: ROCURONIUM 50 MG/5 ML VIAL IV ONE (10:23)
[2021-12-02] MEDS ORDERED: LIDOCAINE 2% MPF 5 ML VIAL ONE (10:23)
[2021-12-02] MEDS ORDERED: MIDAZOLAM HCL 2 MG/2 ML INJ ONE (10:23)
[2021-12-02] MEDS ORDERED: propofoL 200 MG/20 ML VIAL IV ONE (10:23)
[2021-12-02] MEDS ORDERED: FENTANYL CITR 100 MCG/2 ML ONE (10:23)
[2021-12-02] MEDS ORDERED: SUCCINYLCHOLINE 20 MG/ML (10 ML) IV ONE (10:56)
[2021-12-02] MEDS ORDERED: dexAMETHasone 10 MG/ML VIAL ONE (11:08)
[2021-12-02] MEDS ORDERED: ONDANSETRON 4 MG/2 ML VIAL ONE (11:08)
[2021-12-02] MEDS ORDERED: NEOSTIGMINE 1 MG/ML -5 ML ONE (11:08)
--- NOTE | 2021-12-02 11:41 | P.BOP ---
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
[2021-12-02] MEDS ORDERED: GLYCOPYRROLATE 0.2 MG/ML SYR ONE (11:54)
[2021-12-02] MEDS: HYDROMORPHONE HCL 1 MG/ML INJ ONE ×6 (12:07→12:50)
[2021-12-02 14:06] VITALS: BP 153/87; TEMP 96.9; O2SAT 100
--- NOTE | 2021-12-02 22:49 | OP ---
Date of Procedure: 12/02/2021 Surgeon: Nikita Thompson MD Welder Gas Tungsten Arc: AXEL Ferris. Diagnoses: Symptomatic cholelithiasis, right upper quadrant abdominal pain, acute cholecystitis, mor bid obesity. Postoperative Diagnoses: Symptomatic cholelithiasis, right upper quadrant abdominal pain, acute chol ecystitis, morbid obesity. Procedure: Laparoscopic cholecystectomy. Anesthesia: General plus local. Indications: This is a case of a 40-year-old patient who comes to us with the above diagnoses. Full y explained the benefits, alternatives, and risks of laparoscopic possible open cholecystectomy, whic h include, but not limited to infection, bleeding, damage to adjacent structures, anesthesia complica tion, recurrence, LA, and even . She also understands this may not relieve the symptoms. She m ight need more than one surgical intervention. She understood, signed a consent. The patient is adv ised the importance of losing weight. Procedure In Detail: The patient was brought to the operating room and placed in supine position. A nesthesia was done without complication. Abdominal area was prepped and draped in a sterile fashion. Marcaine 0.5% was injected for local anesthetic followed by sharp incision of the skin in the infra umbilical region. Incision was carried down to the fascia, which was opened under direct vision. Pe ritoneum was encountered and opened under direct vision. Vicryl #1 was placed inside the fascia. Connelly sson trocar was carefully introduced. Pneumoperitoneum was obtained. I placed 3 more trocars, 5 mm each one of them in the epigastric and right upper quadrant under direct visualization. This allowed me to put a grasper in the fundus of the gallbladder, another grasper in the infundibulum, retractin g the gallbladder in the inferolateral fashion, exposing the triangle of Calot, obtaining critical vi ew. The cystic duct and cystic artery were clearly isolated free circumferentially and a connection between those and the gallbladder were clearly identified. I proceeded to ligate those by using at l east 3 clips proximal, 1 clip distal, ligation in middle. Same was done with the cystic artery. No bile leak, no bleeding. The gallbladder was removed from the liver using Bovie cauterizer and remove d from abdominal cavity using an EndoCatch through the umbilical incision. The area was inspected on ce again. The area was intact. Clips were intact. No bile leak. No bleeding. At that moment, I p roceeded to remove the trocars under direct vision. Deflated the pneumoperitoneum. Closed the fasci a with #1 Vicryl. Irrigated subcutaneous tissue, closed that with 3-0 chromic, and skin in a subcuti cular fashion with 3-0 chromic and Steri-Strips on top. Sponge count and instrument counts correct. The patient tolerated the procedure well. The patient was in her way to Recovery in stable conditio n. ARABELLA/KATARINA Voice ID: [id number] Report ID: [id number]
--- NOTE | 2021-12-03 09:21 | DS ---
Date of Discharge: 12/02/2021 Diagnoses: Acute cholecystitis, symptomatic cholelithiasis. Procedure: Laparoscopic cholecystectomy. Disposition: Home. Activity: As tolerated. No heavy lifting. Plan: Follow up in my office in 1 week. Call for appointment at [phone]. Keep the area dry for 48 hours, then may shower. Keep Steri-Strip intact. Medications: See orders. ARABELLA/KATARINA Voice ID: [id number] Report ID: [id number]
== END 2021-12-02 14:00 | disposition home or self-care (01) ==
LOC: OR 08:46
PROVIDERS: ATTEND Surgery
PROC: 0FT44ZZ Resection of Gallbladder, Percutaneous Endoscopic Approach (ICD-10-PCS; principal; 2021-12-02 10:45)
DX: K80.10 Calculus of gallbladder with chronic cholecystitis without obstruction (principal); E66.01 Morbid (severe) obesity due to excess calories; R10.11 Right upper quadrant pain; Z20.822 Contact with and (suspected) exposure to COVID-19
CPT/HCPCS: 85025; 80048; 36415; 82150; 81025; 80076; 88304; 83690; 47562; U0003; J2704; J0330; J2250; J3010; J1100; J1170 ×3; J2710; J7120; J0694; J2405

== ENCOUNTER 2023-03-01 13:54 | Emergency (ER) | payer OTHER ==
--- OUTSIDE RECORDS SUMMARY | 2023-03-01 14:04 | XMS REPORT | Continuity of Care Document ---
:1980 Author Organization [facility] t Address [address] [place] [address] Care Team Providers Name Role Phone PCP, PATIENT DOES NOT HAVE A Primary Care Physician UnavailCONSUELO Abraham Attending Clinician Unavailable Melyssa Lopez MD Attending Clinician Consuelo Truong PA-C Attending Clinician MELYSSA LOPEZ Attending Clinician Unavailable Nurse, [facility] Attending Clinician Unavailable Pob, [facility] Main Attending Clinician Unavailable Room, [facility] Attending Clinician Unavailable Doctor Unassigned, [place] Attending Clinician Unavailable Ultrasound, [facility] Attending Clinician Unavailable Cristhian Gallegos MD Attending Clinician 2, [facility] Attending Clinician Unavailable Visit, [facility] Nurse Attending Clinician Unavailable Shari Espinoza MD Attending Clinician Cruz Ruff MD Attending Clinician MELYSSA LOPEZ Admitting Clinician Unavailable Melyssa Lopez MD Admitting Clinician Payers Payer Name Policy Type Policy Number Effective Date Expiration Date S stacey [employer] [place] - [id number] 2019 OUT OF STATE 00:00:00 [facility] [id number] [address] [facility] MEDICAID 00:00:00 Problems Condition Condition Condition Status Onset Resolution Last Treating Co mments Source Name Details Category Date Date Treatment Clinician Date Liveborn Liveborn Disease Active Unive rs , of , of 8-14 [place] y of [place] , [place] [facility] by by delivery delivery 38 weeks 38 weeks Disease Active 2020-0 Unive rs gestation gestation 8-12 ity of of of 00:00: [place] 00 [facility] Status Status Disease Active 2020-0 Univers post post 8-12 ity of bilateral bilateral 00:00[place] salpingect salpingect 00 Me dical [facility] [place] GDM, class GDM, class Disease Active 2020-0 U nivers A2 A2 7-31 ity of 00:00: [address] GDM, class GDM, class Disease Active 2020-0 U nivers A1 A1 7-15 ity of 00:00: [address] Diet Diet Disease Active 2020-0 Univers controlled controlled 4-01 it y of gestationa gestationa 00:[place] diabetes l diabetes 00 Me dical mellitus mellitus [place] (GDM) in (GDM) in second second trimester trimester Chronic Chronic Disease Active 2020-0 Univers hypertensi hypertensi 2-20 it y of on on 00:00: [address] 12 weeks 12 weeks Disease Active 2020-0 Unive rs gestation gestation 2-20 ity of of of 00:00: [place] 00 [facility] 19 weeks 19 weeks Disease Active 2020-0 Unive rs gestation gestation 2-20 ity of of of 00:00: [place] 00 [facility] Supervisio Supervisio Disease Active 2020-0 U nivers n of n of 1-22 ity of high-risk high-risk 00:[place] 00 [facility] of elderly of elderly Br anch multigravi multigravi da da Antepartum Antepartum Disease Active 2020-0 U nivers multigravi multigravi 1-22 it y of da of da of 00:00: [place] advanced advanced 00 Medica l maternal maternal Branch age age Previous Previous Disease Active 2020-0 Unive rs 1-22 ity of section section 00:00: [address] Vaginal Vaginal Disease Active 2020-0 Univers spotting spotting 1-22 ity of 00:00: [address] Morbid Morbid Disease Active 2020-0 Univers obesity obesity 1-21 ity of with body with body 00:00[place] mass index mass index 00 Me dical of Branch 40.0-49.9 40.0-49.9 Obesity Obesity Disease Active Overview: Univ ers complicati complicati 7-14 ICD10 it y of ng ng 00:00: Diagnosis [place] , , 00 Term Me dical childbirth childbirth [place] Branch , or , or Utility puerperium puerperium , , antepartum antepartum Abnormal Abnormal Disease Active Unive rs maternal maternal 6-11 ity of glucose glucose 00:00: [place] tolerance, tolerance, 00 Me dical antepartum antepartum Br anch Allergies, Adverse Reactions, Alerts Allergy Allergy Status Severity Reaction(s) Onset Inactive Treating Comm ents Source Name Type Date Date Clinician NO KNOWN Drug Active Univers ALLERGIE Class ity of S [facility] Social History Social Habit Start Date Stop Date Quantity Comments Source ASSERTION 2019-09-05 [facility] 00:00:00 [facility] Exposure to Not sure [facility] SARS-CoV-2 [facility] [place] [facility] (event) Branch Alcohol intake 2020-05-15 2020-05-15 Current [facility] 00:00:00 00:00:00 non-drinker of [facility] alcohol [place] (finding) Tobacco use and 2020-05-15 2020-05-15 Never used Universit y of exposure 00:00:00 00:00:00 [facility] Sex [birth year] Universit y of 00:00:00 00:00:00 [facility] Smoking Status Start Date Stop Date Source Never smoker [facility] Medications Ordered Filled Start Stop Current Ordering Indication Dosage Frequency Signature Comments Components Source Medication Medication Date Date Medication? Clinician (SIG) Name Name ibuprofen Yes 600mg 600 mg, [facility] ers (IBU) 8-14 Oral, Q6H ity of tablet 600 11:00: ABX, First [place] mg 00 dose on Medical Fri Branch 05/16/20 at 0600, Until Discontinu ed, Routine docusate Yes [id number] 240mg Take 1 U nivers calcium 240 8-14 capsule by it y of mg capsule 00:00: mouth once [place] 00 daily as Medical needed for Branch Constipati on. ferrous 2019- Yes [id number] 325mg Take 1 Un [place] sulfate 325 8-14 tablet by ity of mg (65 mg 00:00: mouth 2 [place] iron) 00 (two) Medical tablet times Branch daily. ibuprofen 2020-0 Yes [id number] 600mg Take 1 Univers 600 mg 8-14 tablet by ity of tablet 00:00: mouth [place] 00 every 6 Medical (six) Branch hours as needed for Pain (scale 1-3) or Pain (scale 4-6) (Pain). Take with food or milk. acetaminoph 2020-0 Yes [id number] 650mg Take 2 Univers en 325 mg 8-14 tablets by ity of tablet 00:00: mouth [place] 00 every 6 Medical (six) Branch hours as needed for Pain (scale 1-3) or Pain (scale 4-6). 2020-0 Yes [id number] 1{tbl} Take 1 Univers vitamin 8-14 tablet by ity of w/FA tablet 00:00: mouth [place] 00 daily. Medical Branch docusate 2020-0 Yes [id number] 240mg Take 1 U nivers calcium 240 8-14 capsule by it y of mg capsule 00:00: mouth once [place] 00 daily as Medical needed for Branch Constipati on. ferrous 2020-0 Yes [id number] 325mg Take 1 Un [place] sulfate 325 8-14 tablet by ity of mg (65 mg 00:00: mouth 2 [place] iron) 00 (two) Medical tablet times Branch daily. ibuprofen 2020-0 Yes [id number] 600mg Take 1 Univers 600 mg 8-14 tablet by ity of tablet 00:00: mouth [place] 00 every 6 Medical (six) Branch hours as needed for Pain (scale 1-3) or Pain (scale 4-6) (Pain). Take with food or milk. acetaminoph 2020-0 Yes [id number] 650mg Take 2 Univers en 325 mg 8-14 tablets by ity of tablet 00:00: mouth [place] 00 every 6 Medical (six) Branch hours as needed for Pain (scale 1-3) or Pain (scale 4-6). 2020-0 Yes [id number] 1{tbl} Take 1 Univers vitamin 8-14 tablet by ity of w/FA tablet 00:00: mouth [place] 00 daily. Medical Branch docusate 2020-0 Yes [id number] 240mg Take 1 U nivers calcium 240 8-14 capsule by it y of mg capsule 00:00: mouth once [place] 00 daily as Medical needed for Branch Constipati on. ferrous 2020-0 Yes [id number] 325mg Take 1 Un [place] sulfate 325 8-14 tablet by ity of mg (65 mg 00:00: mouth 2 [place] iron) 00 (two) Medical tablet times Branch daily. ibuprofen 2020-0 Yes [id number] 600mg Take 1 Univers 600 mg 8-14 tablet by ity of tablet 00:00: mouth [place] 00 every 6 Medical (six) Branch hours as needed for Pain (scale 1-3) or Pain (scale 4-6) (Pain). Take with food or milk. acetaminoph 2020-0 Yes [id number] 650mg Take 2 Univers en 325 mg 8-14 tablets by ity of tablet 00:00: mouth [place] 00 every 6 Medical (six) Branch hours as needed for Pain (scale 1-3) or Pain (scale 4-6). 2020-0 Yes [id number] 1{tbl} Take 1 Univers vitamin 8-14 tablet by ity of w/FA tablet 00:00: mouth [place] 00 daily. Medical Branch docusate 2020-0 Yes [id number] 240mg Take 1 U nivers calcium 240 8-14 capsule by it y of mg capsule 00:00: mouth once [place] 00 daily as Medical needed for Branch Constipati on. ferrous 2020-0 Yes [id number] 325mg Take 1 Un [place] sulfate 325 8-14 tablet by ity of mg (65 mg 00:00: mouth 2 [place] iron) 00 (two) Medical tablet times Branch daily. ibuprofen 2020-0 Yes [id number] 600mg Take 1 Univers 600 mg 8-14 tablet by ity of tablet 00:00: mouth [place] 00 every 6 Medical (six) Branch hours as needed for Pain (scale 1-3) or Pain (scale 4-6) (Pain). Take with food or milk. acetaminoph 2020-0 Yes [id number] 650mg Take 2 Univers en 325 mg 8-14 tablets by ity of tablet 00:00: mouth [place] 00 every 6 Medical (six) Branch hours as needed for Pain (scale 1-3) or Pain (scale 4-6). 2020-0 Yes [id number] 1{tbl} Take 1 Univers vitamin 8-14 tablet by ity of w/FA tablet 00:00: mouth [place] 00 daily. Medical Branch docusate 2020-0 Yes [id number] 240mg Take 1 U nivers calcium 240 8-14 capsule by it y of mg capsule 00:00: mouth once [place] 00 daily as Medical needed for Branch Constipati on. ferrous 2020-0 Yes [id number] 325mg Take 1 Un [place] sulfate 325 8-14 tablet by ity of mg (65 mg 00:00: mouth 2 [place] iron) 00 (two) Medical tablet times Branch daily. ibuprofen 2020-0 Yes [id number] 600mg Take 1 Univers 600 mg 8-14 tablet by ity of tablet 00:00: mouth [place] 00 every 6 Medical (six) Branch hours as needed for Pain (scale 1-3) or Pain (scale 4-6) (Pain). Take with food or milk. acetaminoph 2020-0 Yes [id number] 650mg Take 2 Univers en 325 mg 8-14 tablets by ity of tablet 00:00: mouth [place] 00 every 6 Medical (six) Branch hours as needed for Pain (scale 1-3) or Pain (scale 4-6). 2020-0 Yes [id number] 1{tbl} Take 1 Univers vitamin 8-14 tablet by ity of w/FA tablet 00:00: mouth [place] 00 daily. Medical Branch docusate 2020-0 Yes [id number] 240mg Take 1 U nivers calcium 240 8-14 capsule by it y of mg capsule 00:00: mouth once [place] 00 daily as Medical needed for Branch Constipati on. ferrous 2020-0 Yes [id number] 325mg Take 1 Un [place] sulfate 325 8-14 tablet by ity of mg (65 mg 00:00: mouth 2 [place] iron) 00 (two) Medical tablet times Branch daily. ibuprofen 2020-0 Yes [id number] 600mg Take 1 Univers 600 mg 8-14 tablet by ity of tablet 00:00: mouth [place] 00 every 6 Medical (six) Branch hours as needed for Pain (scale 1-3) or Pain (scale 4-6) (Pain). Take with food or milk. acetaminoph 2020-0 Yes [id number] 650mg Take 2 Univers en 325 mg 8-14 tablets by ity of tablet 00:00: mouth [place] 00 every 6 Medical (six) Branch hours as needed for Pain (scale 1-3) or Pain (scale 4-6). 2020-0 Yes [id number] 1{tbl} Take 1 Univers vitamin 8-14 tablet by ity of w/FA tablet 00:00: mouth [place] 00 daily. Medical Branch docusate 2020-0 Yes [id number] 240mg Take 1 U nivers calcium 240 8-14 capsule by it y of mg capsule 00:00: mouth once [place] 00 daily as Medical needed for Branch Constipati on. ferrous 2020-0 Yes [id number] 325mg Take 1 Un [place] sulfate 325 8-14 tablet by ity of mg (65 mg 00:00: mouth 2 [place] iron) 00 (two) Medical tablet times Branch daily. ibuprofen 2020-0 Yes [id number] 600mg Take 1 Univers 600 mg 8-14 tablet by ity of tablet 00:00: mouth [place] 00 every 6 Medical (six) Branch hours as needed for Pain (scale 1-3) or Pain (scale 4-6) (Pain). Take with food or milk. acetaminoph 2020-0 Yes [id number] 650mg Take 2 Univers en 325 mg 8-14 tablets by ity of tablet 00:00: mouth [place] 00 every 6 Medical (six) Branch hours as needed for Pain (scale 1-3) or Pain (scale 4-6). 2020-0 Yes [id number] 1{tbl} Take 1 Univers vitamin 8-14 tablet by ity of w/FA tablet 00:00: mouth [place] 00 daily. Medical Branch docusate 2020-0 Yes [id number] 240mg Take 1 U nivers calcium 240 8-14 capsule by it y of mg capsule 00:00: mouth once [place] 00 daily as Medical needed for Branch Constipati on. ferrous 2020-0 Yes [id number] 325mg Take 1 Un [place] sulfate 325 8-14 tablet by ity of mg (65 mg 00:00: mouth 2 [place] iron) 00 (two) Medical tablet times Branch daily. ibuprofen 2020-0 Yes [id number] 600mg Take 1 Univers 600 mg 8-14 tablet by ity of tablet 00:00: mouth [place] 00 every 6 Medical (six) Branch hours as needed for Pain (scale 1-3) or Pain (scale 4-6) (Pain). Take with food or milk. acetaminoph 2020-0 Yes [id number] 650mg Take 2 Univers en 325 mg 8-14 tablets by ity of tablet 00:00: mouth [place] 00 every 6 Medical (six) Branch hours as needed for Pain (scale 1-3) or Pain (scale 4-6). 2020-0 Yes [id number] 1{tbl} Take 1 Univers vitamin 8-14 tablet by ity of w/FA tablet 00:00: mouth [place] 00 daily. Medical Branch docusate 2020-0 Yes [id number] 240mg Take 1 U nivers calcium 240 8-14 capsule by it y of mg capsule 00:00: mouth once [place] 00 daily as Medical needed for Branch Constipati on. ferrous 2020-0 Yes [id number] 325mg Take 1 Un [place] sulfate 325 8-14 tablet by ity of mg (65 mg 00:00: mouth 2 [place] iron) 00 (two) Medical tablet times Branch daily. ibuprofen 2020-0 Yes [id number] 600mg Take 1 Univers 600 mg 8-14 tablet by ity of tablet 00:00: mouth [place] 00 every 6 Medical (six) Branch hours as needed for Pain (scale 1-3) or Pain (scale 4-6) (Pain). Take with food or milk. acetaminoph 2020-0 Yes [id number] 650mg Take 2 Univers en 325 mg 8-14 tablets by ity of tablet 00:00: mouth [place] 00 every 6 Medical (six) Branch hours as needed for Pain (scale 1-3) or Pain (scale 4-6). 2020-0 Yes [id number] 1{tbl} Take 1 Univers vitamin 8-14 tablet by ity of w/FA tablet 00:00: mouth [place] 00 daily. Medical Branch docusate 2020-0 Yes [id number] 240mg Take 1 U nivers calcium 240 8-14 capsule by it y of mg capsule 00:00: mouth once [place] 00 daily as Medical needed for Branch Constipati on. ferrous 2020-0 Yes [id number] 325mg Take 1 Un [place] sulfate 325 8-14 tablet by ity of mg (65 mg 00:00: mouth 2 [place] iron) 00 (two) Medical tablet times Branch daily. ibuprofen 2020-0 Yes [id number] 600mg Take 1 Univers 600 mg 8-14 tablet by ity of tablet 00:00: mouth [place] 00 every 6 Medical (six) Branch hours as needed for Pain (scale 1-3) or Pain (scale 4-6) (Pain). Take with food or milk. acetaminoph 2020-0 Yes [id number] 650mg Take 2 Univers en 325 mg 8-14 tablets by ity of tablet 00:00: mouth [place] 00 every 6 Medical (six) Branch hours as needed for Pain (scale 1-3) or Pain (scale 4-6). 2020-0 Yes [id number] 1{tbl} Take 1 Univers vitamin 8-14 tablet by ity of w/FA tablet 00:00: mouth [place] 00 daily. Medical Branch HYDROcodone 2019- 2020- No [id number] 1{tbl} Take 1 U nivers -acetaminop 8-14 08-22 tablet by it y of hen 5-325 00:00: 04:59 mouth [place] mg tablet 00 :00 every 6 Medical (six) Branch hours as needed for Pain (scale 7-10) for up to 7 days. Indication s: acute pain HYDROcodone 2019- 2020- No [id number] 1{tbl} Take 1 U nivers -acetaminop 8-14 08-22 tablet by it y of hen 5-325 00:00: 04:59 mouth [place] mg tablet 00 :00 every 6 Medical (six) Branch hours as needed for Pain (scale 7-10) for up to 7 days. Indication s: acute pain gabapentin 2020- 2020- No [id number] 300mg Take 1 Univers 300 mg 8-14 08-20 capsule by ity of capsule 00:00: 04:59 mouth 3 [place] 00 :00 (three) Medical times Branch daily for 5 days. gabapentin 2019-0 2020- No [id number] 300mg Take 1 Univers 300 mg 8-14 08-20 capsule by ity of capsule 00:00: 04:59 mouth 3 [place] 00 :00 (three) Medical times Branch daily for 5 days. acetaminoph 2019-0 Yes 650mg 650 mg, Un [place] en 8-13 Oral, Q6H ity of (TYLENOL) 23:00: ABX, First [place] tablet 650 00 dose on Medica l mg Allie Branch 05/15/20 at 1800, Until Discontinu ed, Routine HYDROcodone 2019-0 Yes 1{tbl} 1 tablet, Univers -acetaminop 8-13 Oral, ity of hen (NORCO 18:26: Q6HPRN, [place] 5) 5-325 mg 32 Starting Medi hang tablet 1 [place]ie Branch tablet 05/15/20 at 1326, Until Discontinu ed, Routine, Pain (scale 7-10) ketorolac 2019-0 2020- No 30mg 30 mg, Unive rs (TORADOL) 05-15 Slow IV ity of injection 11:00: 05:05 Push, Q6H [place] 30 mg 00 :00 ABX, 4 Medical doses, Branch First dose on Tue05/15/20 at 0600, Last dose on Tue05/16/20 at 0000, Routine
faculty member approving Restricted medication : MELYSSA LOPEZ labetalol 2019-0 Yes 100mg 100 mg, Univ ers (NORMODYNE) 05-15 Oral, ity of tablet 100 01:00: Q12H, [place] mg 00 First dose Medical on Tue Branch 05/14/20 at 2000, Until Discontinu ed, Routine acetaminoph 2019-0 2020- No 1000mg 1,000 mg, Univers en ADULT 05-1412 IV ity of (OFIRMEV) 23:00: 23:09 Infusion, [place] injection 00 :00 Administer Medi hang 1,000 mg over 15 Branch Minutes, ONCE, 1 dose, Tue05/14/20 at 1800, Routine, PACU
Indicatio n: Perioperat [place] Patient gabapentin 2019-0 Yes 300mg 300 mg, Uni vers (NEURONTIN) 05-14 Oral, TID, it y of capsule 300 19:00: First dose [place] mg 00 on Tue Medical 05/14/20 at Branch 1400, Until Discontinu ed, Routine simethicone 2019-0 Yes 160mg 160 mg, Un [place] (GAS RELIEF 05-14 Oral, ity of (SIMETHICON 18:00: PC+HS, [place] E)) 00 First dose Medical chewable on Tue tablet 160 05/14/20 at mg 1300, Until Discontinu ed, Routine lactated 2019-0 Yes 1000mL at 75 Univer s ringers IV 8-12 mL/hr, ity of infusion 17:45: 1,000 mL, [place] 1,000 mL 00 IV Medical Infusion, Branch CONTINUOUS , Starting Tue05/14/20 at 1245, Until Discontinu ed, Routine, PACU rho(D) 2019-0 Yes 300ug 300 mcg, Univer s immune 8-12 Intramuscu ity of globulin 17:42: lar, ONCE, [place] as (RHOGAM) 25 For 1 Medical syringe 300 dose, Branch mcg Conditiona l, Routine diphenhydrA 2020-0 Yes 25mg 25 mg, Univ ers MINE 05-14 Oral, ity of (BENADRYL) 17:42: Q6HPRN, [place] tablet 25 12 Starting Medica l mg [facility] Branch 05/14/20 at 1242, Until Discontinu ed, Routine, Sleep, Itching ondansetron 2020-0 Yes 4mg 4 mg, Slow Univers (ZOFRAN 05-14 IV Push, ity of (PF)) 17:42: Q8HPRN, [place] injection 4 12 Starting Medi hang mg [facility] Branch 05/14/20 at 1242, Until Discontinu ed, Routine, Nausea and Vomiting (N/V) bisacodyL 2020-0 Yes 10mg 10 mg, Univer s (DULCOLAX) 05-14 Rectal, ity of suppository 17:42: QDAILYPRN, [place] 10 mg 12 Starting Medical [facility] Branch 05/14/20 at 1242, Until Discontinu ed, Routine, Constipati on docusate 2020-0 Yes 240mg 240 mg, Unive rs calcium 05-14 Oral, ity of (SURFAK) 17:42: QDAILYPRN, [place] capsule 240 12 Starting Medi hang mg [facility] Branch 05/14/20 at 1242, Until Discontinu ed, Routine, Constipati on magnesium 2020-0 Yes 30mL 30 mL, Univer s hydroxide 05-14 Oral, ity of (MILK OF 17:42: QDAILYPRN, [place] MAGNESIA) 12 Starting Medica l 400 mg/5 mL [facility] Branch suspension 05/14/20 at 30 mL 1242, Until Discontinu ed, Routine, Constipati on nalbuphine 2020-0 2020- No 5mg 5 mg, Unive rs (NUBAIN) 05-14 Intravenou ity of injection 5 17:41: 09:49 s, PRN, 1 [place] mg 44 :00 dose, Medical Starting Branch 05/14/20 at 1241, Until Discontinu ed, Routine, Itching, PACU ondansetron 2020-0 2020- No 4mg 4 mg, Slow Univers (ZOFRAN 05-14 IV Push, ity of (PF)) 17:41: 23:55 PRN, 1 [place] injection 4 44 :00 dose, Medical mg Starting Branch Tue05/14/20 at 1241, Until Discontinu ed, Routine, Nausea and Vomiting (N/V), PACU mupirocin 2020-0 Yes Intra-op Univ ers (BACTROBAN 05-14 ity of OINT) 2 % 16:54: [place] skin 00 Medical ointment [place] sodium 2020-0 Yes PRN, Univers chloride 05-14 Starting ity of 0.9 % 16:31: Wed [place] irrigation 00 05/14/20 at Med ical solution 1131, Branch Until Discontinu ed, Intra-op [id number] IV 2020-0 2020- No 1000mL at 125 Uni vers [...] dose, Branch mg/5 mL Starting solution 30 Wed mL 05/14/20 at 0845, Until Discontinu ed, Routine, Surgery glyBURIDE 2020-0 Yes [id number] 2.5mg Take 1 U nivers 2.5 mg 7-29 tablet by ity of tablet 00:00: mouth [place] 00 every Medical evening. Branch glyBURIDE 2020-0 Yes [id number] 2.5mg Take 1 U nivers 2.5 mg 7-29 tablet by ity of tablet 00:00: mouth [place] 00 every Medical evening. Branch glyBURIDE 2020-0 Yes [id number] 2.5mg Take 1 U nivers 2.5 mg 7-29 tablet by ity of tablet 00:00: mouth [place] 00 every Medical evening. [place] glyBURIDE 2020-0 Yes [id number] 2.5mg Take 1 U nivers 2.5 mg 7-29 tablet by ity of tablet 00:00: mouth [place] 00 every Medical evening. Branch glyBURIDE 2020-0 Yes [id number] 2.5mg Take 1 U nivers 2.5 mg 7-29 tablet by ity of tablet 00:00: mouth [place] 00 every Medical evening. Branch glyBURIDE 2020-0 Yes [id number] 2.5mg Take 1 U nivers 2.5 mg 7-29 tablet by ity of tablet 00:00: mouth [place] 00 every Medical evening. Branch glyBURIDE 2020-0 Yes [id number] 2.5mg Take 1 U nivers 2.5 mg 7-29 tablet by ity of tablet 00:00: mouth [place] 00 every Medical evening. Branch glyBURIDE 2020-0 Yes [id number] 2.5mg Take 1 U nivers 2.5 mg 7-29 tablet by ity of tablet 00:00: mouth [place] 00 every Medical evening. Branch glyBURIDE 2020-0 Yes [id number] 2.5mg Take 1 U nivers 2.5 mg 7-29 tablet by ity of tablet 00:00: mouth [place] 00 every Medical evening. [place] glyBURIDE 2020-0 Yes [id number] 2.5mg Take 1 U nivers 2.5 mg 7-29 tablet by ity of tablet 00:00: mouth [place] 00 every Medical evening. [place] glyBURIDE 2020-0 Yes [id number] 2.5mg Take 1 U nivers 2.5 mg 7-29 tablet by ity of tablet 00:00: mouth [place] 00 every Medical evening. [place] glyBURIDE 2020-0 Yes [id number] 2.5mg Take 1 U nivers 2.5 mg 7-29 tablet by ity of tablet 00:00: mouth [place] 00 every Medical evening. Branch glyBURIDE 2020-0 Yes [id number] 2.5mg Take 1 U nivers 2.5 mg 7-29 tablet by ity of tablet 00:00: mouth [place] 00 every Medical evening. [place] glyBURIDE 2020-0 2020- No [id number] 2.5mg Take 1 Univers 2.5 mg 7-29 08-14 tablet by ity of tablet 00:00: 00:00 mouth [place] 00 :00 every Medical evening. [place] Blood-Gluco 2020-0 Yes Patient to Univers se Meter 6-18 check ity of (BLOOD 00:00: blood [place] GLUCOSE 00 glucose 4 Medical MONITORING) times Branch Kit daily. blood sugar 2020-0 Yes Patient to Univers diagnostic 6-18 check ity of strip 00:00: blood [place] 00 glucose 4 Medical times Branch daily Lancets 2020-0 Yes Patient to Off & Away ers Misc 6-18 check ity of 00:00: [...] Branch daily Lancets 2020-0 Yes Patient to Off & Away ers Misc 6-18 check ity of 00:00: [...] Branch daily Lancets 2020-0 Yes Patient to Off & Away ers Misc 6-18 check ity of 00:00: [...] Branch daily Lancets 2020-0 Yes Patient to Off & Away ers Misc 6-18 check ity of 00:00: [...] Branch daily Lancets 2020-0 Yes Patient to [facility] & Away ers Misc 6-18 check ity of 00:00: [...] Branch daily Lancets 2020-0 Yes Patient to [facility] ers Misc 6-18 check ity of 00:00: [...] Branch daily Lancets 2020-0 Yes Patient to [facility] ers Misc 6-18 check ity of 00:00: [...] Branch daily Lancets 2020-0 Yes Patient to [facility] ers Misc 6-18 check ity of 00:00: [...] Branch daily Lancets 2020-0 Yes Patient to Off & Away ers Misc 6-18 check ity of 00:00: [...] Branch daily Lancets 2020-0 Yes Patient to [facility] & Away ers Misc 6-18 check ity of 00:00: [...] Branch daily Lancets 2020-0 Yes Patient to [facility] ers Misc 6-18 check ity of 00:00: [...] Branch daily Lancets 2020-0 Yes Patient to [facility] Misc 6-18 check ity of 00:00: blood [...] Branch daily Lancets 2020-0 Yes Patient to [facility] Misc 6-18 check ity of 00:00: blood [...] Branch daily Lancets 2020-0 Yes Patient to [facility] ers Misc 6-18 check ity of 00:00: [...] Branch daily Lancets 2020-0 Yes Patient to Off & Away ers Misc 6-18 check ity of 00:00: [...] Branch daily Lancets 2020-0 Yes Patient to Off & Away ers Misc 6-18 check ity of 00:00: [...] Branch daily Lancets 2020-0 Yes Patient to [facility] ers Misc 6-18 check ity of 00:00: [...] Branch daily Lancets 2020-0 Yes Patient to [facility] ers Misc 6-18 check ity of 00:00: blood [place] 00 glucose 4 Medical times Branch daily. Blood-Gluco 2020-0 Yes Patient to Univers se Meter 6-18 check ity of (BLOOD 00:00: blood [place] GLUCOSE 00 glucose 4 Medical MONITORING) times Branch Kit daily. blood sugar 2020-0 Yes Patient to [facility] 618 check ity of strip 00:00: blood [place] 00 glucose 4 Medical times Branch daily Lancets 2020-0 Yes Patient to [facility] ers Misc 6-18 check ity of 00:00: [...] Branch daily Lancets 2020-0 Yes Patient to [facility] ers Misc 6-18 check ity of 00:00: blood [place] 00 glucose 4 Medical times Branch daily. Blood-Gluco 2020-0 2020- No Patient to [facility] se Meter 6-18 05-16 check ity of (BLOOD 00:00: 00:00 blood [place] GLUCOSE 00 :00 glucose 4 Medical MONITORING) times Branch Kit daily. blood sugar 2020-0 2020- No Patient to [facility] diagnostic 6-18 05-16 check ity of strip 00:00: 00:00 blood [place] 00 :00 glucose 4 Medical times Branch daily Lancets 2020-0 2020- No Patient to [facility] vers Misc 6-18 05-16 check ity of 00:00: 00:00 blood [place] 00 :00 glucose 4 Medical times Branch daily. labetalol 2020-0 Yes [id number] 100mg Take 1 [facility] nivers 100 mg 5-28 tablet by ity of tablet 00:00: mouth [place] 00 every 12 Medical (twelve) Branch hours. labetalol 2020-0 Yes [id number] 100mg Take 1 [facility] nivers 100 mg 5-28 tablet by ity of tablet 00:00: mouth [place] 00 every 12 Medical (twelve) Branch hours. labetalol 2020-0 Yes [id number] 100mg Take 1 [facility] n[facility] 100 mg 5-28 tablet by ity of tablet 00:00: mouth [place] 00 every 12 Medical (twelve) Branch hours. labetalol 2020-0 Yes [id number] 100mg Take 1 [facility] n[facility] 100 mg 5-28 tablet by ity of tablet 00:00: mouth [place] 00 every 12 Medical (twelve) Branch hours. labetalol 2020-0 Yes [id number] 100mg Take 1 [facility] n[facility] 100 mg 5-28 tablet by ity of tablet 00:00: mouth [place] 00 every 12 Medical (twelve) Branch hours. labetalol 2020-0 Yes [id number] 100mg Take 1 [facility] nivers 100 mg 5-28 tablet by ity of tablet 00:00: mouth [place] 00 every 12 Medical (twelve) Branch hours. labetalol 2020-0 Yes [id number] 100mg Take 1 [facility] nivers 100 mg 5-28 tablet by ity of tablet 00:00: mouth [place] 00 every 12 Medical (twelve) Branch hours. labetalol 2020-0 Yes [id number] 100mg Take 1 [facility] n[facility] 100 mg 5-28 tablet by ity of tablet 00:00: mouth [place] 00 every 12 Medical (twelve) Branch hours. labetalol 2020-0 Yes [id number] 100mg Take 1 [facility] n[facility] 100 mg 5-28 tablet by ity of tablet 00:00: mouth [place] 00 every 12 Medical (twelve) Branch hours. labetalol 2020-0 Yes [id number] 100mg Take 1 [facility] n[facility] 100 mg 5-28 tablet by ity of tablet 00:00: mouth [place] 00 every 12 Medical (twelve) Branch hours. labetalol 2020-0 Yes [id number] 100mg Take 1 [facility] nivers 100 mg 5-28 tablet by ity of tablet 00:00: mouth [place] 00 every 12 Medical (twelve) Branch hours. labetalol 2020-0 Yes [id number] 100mg Take 1 [facility] n[facility] 100 mg 5-28 tablet by ity of tablet 00:00: mouth [place] 00 every 12 Medical (twelve) Branch hours. labetalol 2020-0 Yes [id number] 100mg Take 1 [facility] nivers 100 mg 5-28 tablet by ity of tablet 00:00: mouth [place] 00 every 12 Medical (twelve) Branch hours. labetalol 2020-0 Yes [id number] 100mg Take 1 [facility] n[facility] 100 mg 5-28 tablet by ity of tablet 00:00: mouth [place] 00 every 12 Medical (twelve) Branch hours. labetalol 2020-0 Yes [id number] 100mg Take 1 [facility] nivers 100 mg 5-28 tablet by ity of tablet 00:00: mouth [place] 00 every 12 Medical (twelve) Branch hours. labetalol 2020-0 Yes [id number] 100mg Take 1 [facility] 100 mg 5-28 tablet by ity of tablet 00:00: mouth [place] 00 every 12 Medical (twelve) Branch hours. labetalol 2020-0 Yes [id number] 100mg Take 1 [facility] 100 mg 5-28 tablet by ity of tablet 00:00: mouth [place] 00 every 12 Medical (twelve) Branch hours. labetalol 2020-0 Yes [id number] 100mg Take 1 [facility] 100 mg 5-28 tablet by ity of tablet 00:00: mouth [place] 00 every 12 Medical (twelve) Branch hours. labetalol 2020-0 Yes [id number] 100mg Take 1 [facility] nivers 100 mg 5-28 tablet by ity of tablet 00:00: mouth [place] 00 every 12 Medical (twelve) Branch hours. labetalol 2020-0 Yes [id number] 100mg Take 1 [facility] n[facility] 100 mg 5-28 tablet by ity of tablet 00:00: mouth [place] 00 every 12 Medical (twelve) Branch hours. labetalol 2020-0 Yes [id number] 100mg Take 1 [facility] n[facility] 100 mg 5-28 tablet by ity of tablet 00:00: mouth [place] 00 every 12 Medical (twelve) Branch hours. labetalol 2020-0 Yes [id number] 100mg Take 1 [facility] nivers 100 mg 5-28 tablet by ity of tablet 00:00: mouth [place] 00 every 12 Medical (twelve) Branch hours. labetalol 2020-0 Yes [id number] 100mg Take 1 [facility] n[facility] 100 mg 5-28 tablet by ity of tablet 00:00: mouth [place] 00 every 12 Medical (twelve) Branch hours. labetalol 2020-0 Yes [id number] 100mg Take 1 [facility] n[facility] 100 mg 5-28 tablet by ity of tablet 00:00: mouth [place] 00 every 12 Medical (twelve) Branch hours. labetalol 2020-0 Yes [id number] 100mg Take 1 [facility] n[facility] 100 mg 5-28 tablet by ity of tablet 00:00: mouth [place] 00 every 12 Medical (twelve) Branch hours. labetalol 2020-0 Yes [id number] 100mg Take 1 [facility] 100 mg 5-28 tablet by ity of tablet 00:00: mouth [place] 00 every 12 Medical (twelve) Branch hours. labetalol 2020-0 Yes [id number] 100mg Take 1 [facility] n[facility] 100 mg 5-28 tablet by ity of tablet 00:00: mouth [place] 00 every 12 Medical (twelve) Branch hours. labetalol 2020-0 Yes [id number] 100mg Take 1 [facility] 100 mg 5-28 tablet by ity of tablet 00:00: mouth [place] 00 every 12 Medical (twelve) Branch hours. labetalol 2020-0 Yes [id number] 100mg Take 1 [facility] 100 mg 5-28 tablet by ity of tablet 00:00: mouth [place] 00 every 12 Medical (twelve) Branch hours. labetalol 2020-0 Yes [id number] 100mg Take 1 [facility] n[facility] 100 mg 5-28 tablet by ity of tablet 00:00: mouth [place] 00 every 12 Medical (twelve) Branch hours. labetalol 2020-0 Yes [id number] 100mg Take 1 [facility] 100 mg 5-28 tablet by ity of tablet 00:00: mouth [place] 00 every 12 Medical (twelve) Branch hours. labetalol 2020-0 Yes [id number] 100mg Take 1 [facility] 100 mg 5-28 tablet by ity of tablet 00:00: mouth [place] 00 every 12 Medical (twelve) Branch hours. labetalol 2020-0 2020- No [id number] 100mg Take 1 [facility] 100 mg 5-28 08-14 tablet by ity of tablet 00:00: 00:00 mouth [place] 00 :00 every 12 Medical (twelve) Branch hours. labetalol 2020-0 Yes [id number] 100mg Take 1 [facility] n[facility] 100 mg 3-17 tablet by ity of tablet 00:00: mouth [place] 00 every 12 Medical (twelve) Branch hours. labetalol 2020-0 Yes [id number] 100mg Take 1 [facility] 100 mg 3-17 tablet by ity of tablet 00:00: mouth [place] 00 every 12 Medical (twelve) Branch hours. labetalol 2020-0 Yes [id number] 100mg Take 1 [facility] 100 mg 3-17 tablet by ity of tablet 00:00: mouth [place] 00 every 12 Medical (twelve) Branch hours. labetalol 2020-0 Yes [id number] 100mg Take 1 [facility] 100 mg 3-17 tablet by ity of tablet 00:00: mouth [place] 00 every 12 Medical (twelve) Branch hours. labetalol 2020-0 Yes [id number] 100mg Take 1 [facility] 100 mg 3-17 tablet by ity of tablet 00:00: mouth [place] 00 every 12 Medical (twelve) Branch hours. labetalol 2020-0 Yes [id number] 100mg Take 1 [facility] 100 mg 3-17 tablet by ity of tablet 00:00: mouth [place] 00 every 12 Medical (twelve) Branch hours. labetalol 2020-0 Yes [id number] 100mg Take 1 [facility] 100 mg 3-17 tablet by ity of tablet 00:00: mouth [place] 00 every 12 Medical (twelve) Branch hours. labetalol 2020-0 Yes [id number] 100mg Take 1 [facility] 100 mg 3-17 tablet by ity of tablet 00:00: mouth [place] 00 every 12 Medical (twelve) Branch hours. labetalol 2020-0 Yes [id number] 100mg Take 1 [facility] 100 mg 3-17 tablet by ity of tablet 00:00: mouth [place] 00 every 12 Medical (twelve) Branch hours. labetalol 2020-0 2020- No [id number] 100mg Take 1 [facility] 100 mg 3-17 05-28 tablet by ity of tablet 00:00: 00:00 mouth [place] 00 :00 every 12 Medical (twelve) Branch hours. Alcohol 2020-0 Yes [id number] Apply to U nivers Swabs 3-02 area(s) 4 ity of (ALCOHOL 00:00: (four) [place] PREP PADS) 00 times Medical PadM daily. Branch Blood-Gluco 2020-0 Yes [id number] Check BS [facility] se Meter 3-02 QID ity of Kit 00:00: [place] 00 Medical Branch Lancets 2020-0 Yes [id number] Check BS U nivers Misc 3-02 QID ity of 00:00: [place] 00 Medical Branch blood sugar 2020-0 Yes [id number] Check BS [facility] diagnostic 3-02 QID ity of (BLOOD 00:00: [place] GLUCOSE 00 Medical TEST) strip Branch Alcohol 2020-0 Yes [id number] Apply to U nivers Swabs 3-02 area(s) 4 ity of (ALCOHOL 00:00: (four) [place] PREP PADS) 00 times Medical PadM daily. Branch Blood-Gluco 2020-0 Yes [id number] Check BS [facility] se Meter 3-02 QID ity of Kit 00:00: [place] 00 Medical Branch Lancets 2020-0 Yes [id number] Check BS U nivers Misc 3-02 QID ity of 00:00: [place] 00 Medical Branch blood sugar 2020-0 Yes [id number] Check BS [facility] diagnostic 3-02 QID ity of (BLOOD 00:00: [place] GLUCOSE 00 Medical TEST) strip Branch Alcohol 2020-0 Yes [id number] Apply to U nivers Swabs 3-02 area(s) 4 ity of (ALCOHOL 00:00: (four) [place] PREP PADS) 00 times Medical PadM daily. Branch Blood-Gluco 2020-0 Yes [id number] Check BS [facility] se Meter 3-02 QID ity of Kit 00:00: [place] 00 Medical Branch Lancets 2020-0 Yes [id number] Check BS U nivers Misc 3-02 QID ity of 00:00: [place] 00 Medical Branch blood sugar 2020-0 Yes [id number] Check BS [facility] diagnostic 3-02 QID ity of (BLOOD 00:00: [place] GLUCOSE 00 Medical TEST) strip Branch Alcohol 2020-0 Yes [id number] Apply to U nivers Swabs 3-02 area(s) 4 ity of (ALCOHOL 00:00: (four) [place] PREP PADS) 00 times Medical PadM daily. Branch Blood-Gluco 2020-0 Yes [id number] Check BS [facility] se Meter 3-02 QID ity of Kit 00:00: [place] 00 Medical Branch Lancets 2020-0 Yes [id number] Check BS U nivers Misc 3-02 QID ity of 00:00: [place] 00 Medical Branch blood sugar 2020-0 Yes [id number] Check BS [facility] diagnostic 3-02 QID ity of (BLOOD 00:00: [place] GLUCOSE 00 Medical TEST) strip Branch Alcohol 2020-0 Yes [id number] Apply to U nivers Swabs 3-02 area(s) 4 ity of (ALCOHOL 00:00: (four) [place] PREP PADS) 00 times Medical PadM daily. Branch Blood-Gluco 2020-0 Yes [id number] Check BS [facility] se Meter 3-02 QID ity of Kit 00:00: [place] 00 Medical Branch Lancets 2020-0 Yes [id number] Check BS U nivers Misc 3-02 QID ity of 00:00: [place] 00 Medical Branch blood sugar 2020-0 Yes [id number] Check BS [facility] diagnostic 3-02 QID ity of (BLOOD 00:00: [place] GLUCOSE 00 Medical TEST) strip Branch Alcohol 2020-0 Yes [id number] Apply to U nivers Swabs 3-02 area(s) 4 ity of (ALCOHOL 00:00: (four) [place] PREP PADS) 00 times Medical PadM daily. Branch Blood-Gluco 2020-0 Yes [id number] Check BS [facility] se Meter 3-02 QID ity of Kit 00:00: [place] 00 Medical Branch Lancets 2020-0 Yes [id number] Check BS U nivers Misc 3-02 QID ity of 00:00: [place] 00 Medical Branch blood sugar 2020-0 Yes [id number] Check BS [facility] diagnostic 3-02 QID ity of (BLOOD 00:00: [place] GLUCOSE 00 Medical TEST) strip Branch Alcohol 2020-0 Yes [id number] Apply to U nivers Swabs 3-02 area(s) 4 ity of (ALCOHOL 00:00: (four) [place] PREP PADS) 00 times Medical PadM daily. Branch Blood-Gluco 2020-0 Yes [id number] Check BS [facility] se Meter 3-02 QID ity of Kit 00:00: [place] 00 Medical Branch Lancets 2020-0 Yes [id number] Check BS U nivers Misc 3-02 QID ity of 00:00: [place] 00 Medical Branch blood sugar 2020-0 Yes [id number] Check BS [facility] diagnostic 3-02 QID ity of (BLOOD 00:00: [place] GLUCOSE 00 Medical TEST) strip Branch Alcohol 2020-0 Yes [id number] Apply to U nivers Swabs 3-02 area(s) 4 ity of (ALCOHOL 00:00: (four) [place] PREP PADS) 00 times Medical PadM daily. Branch Blood-Gluco 2020-0 Yes [id number] Check BS [facility] se Meter 3-02 QID ity of Kit 00:00: [place] 00 Medical Branch Lancets 2020-0 Yes [id number] Check BS U nivers Misc 3-02 QID ity of 00:00: [place] 00 Medical Branch blood sugar 2020-0 Yes [id number] Check BS [facility] diagnostic 3-02 QID ity of (BLOOD 00:00: [place] GLUCOSE 00 Medical TEST) strip Branch Alcohol 2020-0 Yes [id number] Apply to U nivers Swabs 3-02 area(s) 4 ity of (ALCOHOL 00:00: (four) [place] PREP PADS) 00 times Medical PadM daily. Branch Blood-Gluco 2020-0 Yes [id number] Check BS [facility] se Meter 3-02 QID ity of Kit 00:00: [place] 00 Medical Branch Lancets 2020-0 Yes [id number] Check BS U nivers Misc 3-02 QID ity of 00:00: [place] 00 Medical Branch blood sugar 2020-0 Yes [id number] Check BS [facility] diagnostic 3-02 QID ity of (BLOOD 00:00: [place] GLUCOSE 00 Medical TEST) strip Branch Alcohol 2020-0 Yes [id number] Apply to U nivers Swabs 3-02 area(s) 4 ity of (ALCOHOL 00:00: (four) [place] PREP PADS) 00 times Medical PadM daily. Branch Blood-Gluco 2020-0 Yes [id number] Check BS [facility] se Meter 3-02 QID ity of Kit 00:00: [place] 00 Medical Branch Lancets 2020-0 Yes [id number] Check BS U nivers Misc 3-02 QID ity of 00:00: [place] 00 Medical Branch blood sugar 2020-0 Yes [id number] Check BS [facility] diagnostic 3-02 QID ity of (BLOOD 00:00: [place] GLUCOSE 00 Medical TEST) strip Branch Alcohol 2020-0 Yes [id number] Apply to U nivers Swabs 3-02 area(s) 4 ity of (ALCOHOL 00:00: (four) [place] PREP PADS) 00 times Medical PadM daily. Branch Blood-Gluco 2020-0 Yes [id number] Check BS [facility] se Meter 3-02 QID ity of Kit 00:00: [place] 00 Medical Branch Lancets 2020-0 Yes [id number] Check BS U nivers Misc 3-02 QID ity of 00:00: [place] 00 Medical Branch blood sugar 2020-0 Yes [id number] Check BS [facility] diagnostic 3-02 QID ity of (BLOOD 00:00: [place] GLUCOSE 00 Medical TEST) strip Branch Alcohol 2020-0 Yes [id number] Apply to U nivers Swabs 3-02 area(s) 4 ity of (ALCOHOL 00:00: (four) [place] PREP PADS) 00 times Medical PadM daily. Branch Blood-Gluco 2020-0 Yes [id number] Check BS [facility] se Meter 3-02 QID ity of Kit 00:00: [place] 00 Medical Branch Lancets 2020-0 Yes [id number] Check BS U nivers Misc 3-02 QID ity of 00:00: [place] 00 Medical Branch blood sugar 2020-0 Yes [id number] Check BS [facility] diagnostic 3-02 QID ity of (BLOOD 00:00: [place] GLUCOSE 00 Medical TEST) strip Branch Alcohol 2020-0 Yes [id number] Apply to [facility] nivers Swabs 3-02 area(s) 4 ity of (ALCOHOL 00:00: (four) [place] PREP PADS) 00 times Medical PadM daily. Branch Blood-Gluco 2020-0 Yes [id number] Check BS [facility] se Meter 3-02 QID ity of Kit 00:00: [place] 00 Medical Branch Lancets 2020-0 Yes [id number] Check BS U nivers Misc 3-02 QID ity of 00:00: [place] 00 Medical Branch blood sugar 2020-0 Yes [id number] Check BS [facility] diagnostic 3-02 QID ity of (BLOOD 00:00: [place] GLUCOSE 00 Medical TEST) strip Branch Alcohol 2020-0 Yes [id number] Apply to U nivers Swabs 3-02 area(s) 4 ity of (ALCOHOL 00:00: (four) [place] PREP PADS) 00 times Medical PadM daily. Branch Blood-Gluco 2020-0 Yes [id number] Check BS [facility] se Meter 3-02 QID ity of Kit 00:00: [place] 00 Medical Branch Lancets 2020-0 Yes [id number] Check BS U nivers Misc 3-02 QID ity of 00:00: [place] 00 Medical Branch blood sugar 2020-0 Yes [id number] Check BS [facility] diagnostic 3-02 QID ity of (BLOOD 00:00: [place] GLUCOSE 00 Medical TEST) strip Branch Alcohol 2020-0 Yes [id number] Apply to [facility] nivers Swabs 3-02 area(s) 4 ity of (ALCOHOL 00:00: (four) [place] PREP PADS) 00 times Medical PadM daily. Branch Blood-Gluco 2020-0 Yes [id number] Check BS [facility] se Meter 3-02 QID ity of Kit 00:00: [place] 00 Medical Branch Lancets 2020-0 Yes [id number] Check BS U nivers Misc 3-02 QID ity of 00:00: [place] 00 Medical Branch blood sugar 2020-0 Yes [id number] Check BS [facility] diagnostic 3-02 QID ity of (BLOOD 00:00: [place] GLUCOSE 00 Medical TEST) strip Branch Alcohol 2020-0 Yes [id number] Apply to U nivers Swabs 3-02 area(s) 4 ity of (ALCOHOL 00:00: (four) [place] PREP PADS) 00 times Medical PadM daily. Branch Blood-Gluco 2020-0 Yes [id number] Check BS [facility] se Meter 3-02 QID ity of Kit 00:00: [place] 00 Medical Branch Lancets 2020-0 Yes [id number] Check BS U nivers Misc 3-02 QID ity of 00:00: [place] 00 Medical Branch blood sugar 2020-0 Yes [id number] Check BS [facility] diagnostic 3-02 QID ity of (BLOOD 00:00: [place] GLUCOSE 00 Medical TEST) strip Branch Alcohol 2020-0 Yes [id number] Apply to U nivers Swabs 3-02 area(s) 4 ity of (ALCOHOL 00:00: (four) [place] PREP PADS) 00 times Medical PadM daily. Branch Blood-Gluco 2020-0 Yes [id number] Check BS [facility] se Meter 3-02 QID ity of Kit 00:00: [place] 00 Medical Branch Lancets 2020-0 Yes [id number] Check BS [facility] nivers Misc 3-02 QID ity of 00:00: [place] 00 Medical Branch blood sugar 2020-0 Yes [id number] Check BS [facility] diagnostic 3-02 QID ity of (BLOOD 00:00: [place] GLUCOSE 00 Medical TEST) strip Branch Alcohol 2020-0 Yes [id number] Apply to U nivers Swabs 3-02 area(s) 4 ity of (ALCOHOL 00:00: (four) [place] PREP PADS) 00 times Medical PadM daily. Branch Alcohol 2020-0 Yes [id number] Apply to U nivers Swabs 3-02 area(s) 4 ity of (ALCOHOL 00:00: (four) [place] PREP PADS) 00 times Medical PadM daily. Branch Alcohol 2020-0 Yes [id number] Apply to U nivers Swabs 3-02 area(s) 4 ity of (ALCOHOL 00:00: (four) [place] PREP PADS) 00 times Medical PadM daily. Branch Alcohol 2020-0 Yes [id number] Apply to U nivers Swabs 3-02 area(s) 4 ity of (ALCOHOL 00:00: (four) [place] PREP PADS) 00 times Medical PadM daily. Branch Alcohol 2020-0 Yes [id number] Apply to [facility] nivers Swabs 3-02 area(s) 4 ity of (ALCOHOL 00:00: (four) [place] PREP PADS) 00 times Medical PadM daily. Branch Alcohol 2020-0 Yes [id number] Apply to U nivers Swabs 3-02 area(s) 4 ity of (ALCOHOL 00:00: (four) [place] PREP PADS) 00 times Medical PadM daily. Branch Alcohol 2020-0 Yes [id number] Apply to [facility] nivers Swabs 3-02 area(s) 4 ity of (ALCOHOL 00:00: (four) [place] PREP PADS) 00 times Medical PadM daily. Branch Alcohol 2020-0 Yes [id number] Apply to U nivers Swabs 3-02 area(s) 4 ity of (ALCOHOL 00:00: (four) [place] PREP PADS) 00 times Medical PadM daily. Branch Alcohol 2020-0 Yes [id number] Apply to U nivers Swabs 3-02 area(s) 4 ity of (ALCOHOL 00:00: (four) [place] PREP PADS) 00 times Medical PadM daily. Branch Alcohol 2020-0 Yes [id number] Apply to U nivers Swabs 3-02 area(s) 4 ity of (ALCOHOL 00:00: (four) [place] PREP PADS) 00 times Medical PadM daily. Branch Alcohol 2020-0 Yes [id number] Apply to [facility] nivers Swabs 3-02 area(s) 4 ity of (ALCOHOL 00:00: (four) [place] PREP PADS) 00 times Medical PadM daily. Branch Alcohol 2020-0 Yes [id number] Apply to [facility] nivers Swabs 3-02 area(s) 4 ity of (ALCOHOL 00:00: (four) [place] PREP PADS) 00 times Medical PadM daily. Branch Alcohol 2020-0 Yes [id number] Apply to [facility] nivers Swabs 3-02 area(s) 4 ity of (ALCOHOL 00:00: (four) [place] PREP PADS) 00 times Medical PadM daily. Branch Alcohol 2020-0 Yes [id number] Apply to [facility] nivers Swabs 3-02 area(s) 4 ity of (ALCOHOL 00:00: (four) [place] PREP PADS) 00 times Medical PadM daily. Branch Alcohol 2020-0 Yes [id number] Apply to [facility] nivers Swabs 3-02 area(s) 4 ity of (ALCOHOL 00:00: (four) [place] PREP PADS) 00 times Medical PadM daily. Branch Alcohol 2020-0 Yes [id number] Apply to [facility] nivers Swabs 3-02 area(s) 4 ity of (ALCOHOL 00:00: (four) [place] PREP PADS) 00 times Medical PadM daily. Branch Alcohol 2020-0 Yes [id number] Apply to [facility] nivers Swabs 3-02 area(s) 4 ity of (ALCOHOL 00:00: (four) [place] PREP PADS) 00 times Medical PadM daily. Branch Alcohol 2020-0 Yes [id number] Apply to U nivers Swabs 3-02 area(s) 4 ity of (ALCOHOL 00:00: (four) [place] PREP PADS) 00 times Medical PadM daily. Branch Alcohol 2020-0 Yes [id number] Apply to [facility] nivers Swabs 3-02 area(s) 4 ity of (ALCOHOL 00:00: (four) [place] PREP PADS) 00 times Medical PadM daily. Branch Alcohol 2020-0 Yes [id number] Apply to [facility] nivers Swabs 3-02 area(s) 4 ity of (ALCOHOL 00:00: (four) [place] PREP PADS) 00 times Medical PadM daily. Branch Alcohol 2020-0 Yes [id number] Apply to [facility] nivers Swabs 3-02 area(s) 4 ity of (ALCOHOL 00:00: (four) [place] PREP PADS) 00 times Medical PadM daily. Branch Alcohol 2020-0 Yes [id number] Apply to [facility] nivers Swabs 3-02 area(s) 4 ity of (ALCOHOL 00:00: (four) [place] PREP PADS) 00 times Medical PadM daily. [place] Alcohol 2020-0 Yes [id number] Apply to U nivers Swabs 3-02 area(s) 4 ity of (ALCOHOL 00:00: (four) [place] PREP PADS) 00 times Medical PadM daily. [place] Alcohol 2020-0 Yes [id number] Apply to [facility] nivers Swabs 3-02 area(s) 4 ity of (ALCOHOL 00:00: (four) [place] PREP PADS) 00 times Medical PadM daily. [place] Alcohol 2020-0 Yes [id number] Apply to [facility] nivers Swabs 3-02 area(s) 4 ity of (ALCOHOL 00:00: (four) [place] PREP PADS) 00 times Medical PadM daily. [place] Alcohol 2020-0 Yes [id number] Apply to U nivers Swabs 3-02 area(s) 4 ity of (ALCOHOL 00:00: (four) [place] PREP PADS) 00 times Medical PadM daily. [place] Alcohol 2020-0 Yes [id number] Apply to U nivers Swabs 3-02 area(s) 4 ity of (ALCOHOL 00:00: (four) [place] PREP PADS) 00 times Medical PadM daily. [place] Alcohol 2020-0 Yes [id number] Apply to U nivers Swabs 3-02 area(s) 4 ity of (ALCOHOL 00:00: (four) [place] PREP PADS) 00 times Medical PadM daily. [place] Alcohol 2020-0 2020- No [id number] Apply to [facility] Swabs 3-02 08-14 area(s) 4 ity of (ALCOHOL 00:00: 00:00 (four) [place] PREP PADS) 00 :00 times Medical PadM daily. [place] Blood-Gluco 0 2020- No [id number] Check BS [facility] se Meter 12-02 QID ity of Kit 00:00: 00:00 [place] 00 :00 [facility] Branch Lancets 2019-0 2020- No [id number] Check BS [facility] Misc 12-02 QID ity of 00:00: 00:00 [place] 00 :00 [facility] Branch blood sugar 2019-0 2020- No [id number] Check BS [facility] diagnostic 12-02 QID ity of (BLOOD 00:00: 00:00 [place] GLUCOSE 00 :00 Medical TEST) strip [place] aspirin 81 2020-0 Yes [id number] 81mg Take 1 [facility] mg EC 2-19 tablet by ity of tablet 00:00: mouth [place] 00 daily. Medical Branch aspirin 81 2020-0 Yes [id number] 81mg Take 1 [facility] mg EC 2-19 tablet by ity of tablet 00:00: mouth [place] 00 daily. Medical Branch aspirin 81 2020-0 Yes [id number] 81mg Take 1 [facility] mg EC 2-19 tablet by ity of tablet 00:00: mouth [place] 00 daily. Medical Branch aspirin 81 2020-0 Yes [id number] 81mg Take 1 [facility] mg EC 2-19 tablet by ity of tablet 00:00: mouth [place] 00 daily. Medical Branch aspirin 81 2020-0 Yes [id number] 81mg Take 1 [facility] mg EC 2-19 tablet by ity of tablet 00:00: mouth [place] 00 daily. Medical Branch aspirin 81 2020-0 Yes [id number] 81mg Take 1 [facility] mg EC 2-19 tablet by ity of tablet 00:00: mouth [place] 00 daily. Medical Branch aspirin 81 2020-0 Yes [id number] 81mg Take 1 [facility] mg EC 2-19 tablet by ity of tablet 00:00: mouth [place] 00 daily. Medical Branch aspirin 81 2020-0 Yes [id number] 81mg Take 1 [facility] mg EC 2-19 tablet by ity of tablet 00:00: mouth [place] 00 daily. Medical Branch aspirin 81 2020-0 Yes [id number] 81mg Take 1 [facility] mg EC 2-19 tablet by ity of tablet 00:00: mouth [place] 00 daily. Medical Branch aspirin 81 2020-0 Yes [id number] 81mg Take 1 [facility] mg EC 2-19 tablet by ity of tablet 00:00: mouth [place] 00 daily. Medical Branch aspirin 81 2020-0 Yes [id number] 81mg Take 1 [facility] mg EC 2-19 tablet by ity of tablet 00:00: mouth [place] 00 daily. Medical Branch aspirin 81 2020-0 Yes [id number] 81mg Take 1 [facility] mg EC 2-19 tablet by ity of tablet 00:00: mouth [place] 00 daily. Medical Branch aspirin 81 2020-0 Yes [id number] 81mg Take 1 [facility] mg EC 2-19 tablet by ity of tablet 00:00: mouth [place] 00 daily. Medical Branch aspirin 81 2020-0 Yes [id number] 81mg Take 1 [facility] mg EC 2-19 tablet by ity of tablet 00:00: mouth [place] 00 daily. Medical Branch aspirin 81 2020-0 Yes [id number] 81mg Take 1 [facility] mg EC 2-19 tablet by ity of tablet 00:00: mouth [place] 00 daily. Medical Branch aspirin 81 2020-0 Yes [id number] 81mg Take 1 [facility] mg EC 2-19 tablet by ity of tablet 00:00: mouth [place] 00 daily. Medical Branch aspirin 81 2020-0 Yes [id number] 81mg Take 1 [facility] mg EC 2-19 tablet by ity of tablet 00:00: mouth [place] 00 daily. Medical Branch aspirin 81 2020-0 Yes [id number] 81mg Take 1 [facility] mg EC 2-19 tablet by ity of tablet 00:00: mouth [place] 00 daily. Medical Branch aspirin 81 2020-0 Yes [id number] 81mg Take 1 [facility] mg EC 2-19 tablet by ity of tablet 00:00: mouth [place] 00 daily. Medical Branch aspirin 81 2020-0 Yes [id number] 81mg Take 1 [facility] mg EC 2-19 tablet by ity of tablet 00:00: mouth [place] 00 daily. Medical Branch aspirin 81 2020-0 Yes [id number] 81mg Take 1 [facility] mg EC 2-19 tablet by ity of tablet 00:00: mouth [place] 00 daily. Medical Branch aspirin 81 2020-0 Yes [id number] 81mg Take 1 [facility] mg EC 2-19 tablet by ity of tablet 00:00: mouth [place] 00 daily. Medical Branch aspirin 81 2020-0 Yes [id number] 81mg Take 1 [facility] mg EC 2-19 tablet by ity of tablet 00:00: mouth [place] 00 daily. Medical Branch aspirin 81 2020-0 Yes [id number] 81mg Take 1 [facility] mg EC 2-19 tablet by ity of tablet 00:00: mouth [place] 00 daily. Medical Branch aspirin 81 2020-0 Yes [id number] 81mg Take 1 [facility] mg EC 2-19 tablet by [facility] of tablet 00:00: mouth [place] 00 daily. [facility] aspirin 81 2020-0 Yes [id number] 81mg Take 1 [facility] mg EC 2-19 tablet by [facility] of tablet 00:00: mouth [place] 00 daily. [facility] aspirin 81 2020-0 Yes [id number] 81mg Take 1 [facility] mg EC 2-19 tablet by [facility] of tablet 00:00: mouth [place] 00 daily. [facility] aspirin 81 2020-0 Yes [id number] 81mg Take 1 [facility] mg EC 2-19 tablet by [facility] of tablet 00:00: mouth [place] 00 daily. [facility] aspirin 81 2020-0 Yes [id number] 81mg Take 1 [facility] mg EC 2-19 tablet by [facility] of tablet 00:00: mouth [place] 00 daily. [facility] aspirin 81 2020-0 Yes [id number] 81mg Take 1 [facility] mg EC 2-19 tablet by [facility] of tablet 00:00: mouth [place] 00 daily. [facility] aspirin 81 2020-0 Yes [id number] 81mg Take 1 [facility] mg EC 2-19 tablet by [facility] of tablet 00:00: mouth [place] 00 daily. [facility] aspirin 81 2020-0 Yes [id number] 81mg Take 1 [facility] mg EC 2-19 tablet by [facility] of tablet 00:00: mouth [place] 00 daily. [facility] aspirin 81 2020-0 Yes [id number] 81mg Take 1 [facility] mg EC 2-19 tablet by [facility] of tablet 00:00: mouth [place] 00 daily. [facility] aspirin 81 2020-0 Yes [id number] 81mg Take 1 [facility] mg EC 2-19 tablet by [facility] of tablet 00:00: mouth [place] 00 daily. [facility] aspirin 81 2020-0 Yes [id number] 81mg Take 1 [facility] mg EC 2-19 tablet by [facility] of tablet 00:00: mouth [place] 00 daily. [facility] aspirin 81 2020-0 Yes [id number] 81mg Take 1 [facility] mg EC 2-19 tablet by [facility] of tablet 00:00: mouth [place] 00 daily. [facility] aspirin 81 2020-0 Yes [id number] 81mg Take 1 [facility] mg EC 2-19 tablet by [facility] of tablet 00:00: mouth [place] 00 daily. [facility] aspirin 81 2020-0 Yes [id number] 81mg Take 1 [facility] mg EC 2-19 tablet by [facility] of tablet 00:00: mouth [place] 00 daily. [facility] aspirin 81 2020-0 Yes [id number] 81mg Take 1 [facility] mg EC 2-19 tablet by [facility] of tablet 00:00: mouth [place] 00 daily. [facility] aspirin 81 2020-0 Yes [id number] 81mg Take 1 [facility] mg EC 2-19 tablet by [facility] of tablet 00:00: mouth [place] 00 daily. [facility] aspirin 81 2020-0 Yes [id number] 81mg Take 1 [facility] mg EC 2-19 tablet by [facility] of tablet 00:00: mouth [place] 00 daily. [facility] aspirin 81 2020-0 Yes [id number] 81mg Take 1 [facility] mg EC 2-19 tablet by [facility] of tablet 00:00: mouth [place] 00 daily. [facility] aspirin 81 2020-0 Yes [id number] 81mg Take 1 [facility] mg EC 2-19 tablet by [facility] of tablet 00:00: mouth [place] 00 daily. [facility] aspirin 81 2020-0 Yes [id number] 81mg Take 1 [facility] mg EC 2-19 tablet by [facility] of tablet 00:00: mouth [place] 00 daily. [facility] aspirin 81 2020-0 Yes [id number] 81mg Take 1 [facility] mg EC 2-19 tablet by [facility] of tablet 00:00: mouth [place] 00 daily. [facility] aspirin 81 2020-0 Yes [id number] 81mg Take 1 [facility] mg EC 2-19 tablet by [facility] of tablet 00:00: mouth [place] 00 daily. [facility] aspirin 81 2020-0 Yes [id number] 81mg Take 1 [facility] mg EC 2-19 tablet by [facility] of tablet 00:00: mouth [place] 00 daily. [facility] aspirin 81 2020-0 Yes [id number] 81mg Take 1 [facility] mg EC 2-19 tablet by [facility] of tablet 00:00: mouth [place] 00 daily. [facility] aspirin 81 2020-0 Yes [id number] 81mg Take 1 [facility] mg EC 2-19 tablet by [facility] of tablet 00:00: mouth [place] 00 daily. [facility] aspirin 81 2020-0 Yes [id number] 81mg Take 1 [facility] mg EC 2-19 tablet by [facility] of tablet 00:00: mouth [place] 00 daily. [facility] aspirin 81 2020-0 Yes [id number] 81mg Take 1 [facility] mg EC 2-19 tablet by [facility] of tablet 00:00: mouth [place] 00 daily. [facility] aspirin 81 2020-0 Yes [id number] 81mg Take 1 [facility] mg EC 2-19 tablet by [facility] of tablet 00:00: mouth [place] 00 daily. [facility] aspirin 81 2020-0 Yes [id number] 81mg Take 1 [facility] mg EC 2-19 tablet by [facility] of tablet 00:00: mouth [place] 00 daily. [facility] aspirin 81 2020-0 Yes [id number] 81mg Take 1 [facility] mg EC 2-19 tablet by [facility] of tablet 00:00: mouth [place] 00 daily. [facility] aspirin 81 2020-0 Yes [id number] 81mg Take 1 [facility] mg EC 2-19 tablet by [facility] of tablet 00:00: mouth [place] 00 daily. [facility] aspirin 81 2020-0 Yes [id number] 81mg Take 1 [facility] mg EC 2-19 tablet by [facility] of tablet 00:00: mouth [place] 00 daily. [facility] aspirin 81 2020-0 Yes [id number] 81mg Take 1 [facility] mg EC 2-19 tablet by [facility] of tablet 00:00: mouth [place] 00 daily. [facility] aspirin 81 2020-0 Yes [id number] 81mg Take 1 [facility] mg EC 2-19 tablet by [facility] of tablet 00:00: mouth [place] 00 daily. [facility] aspirin 81 2020-0 Yes [id number] 81mg Take 1 [facility] mg EC 2-19 tablet by [facility] of tablet 00:00: mouth [place] 00 daily. [facility] aspirin 81 2020-0 Yes [id number] 81mg Take 1 [facility] mg EC 2-19 tablet by [facility] of tablet 00:00: mouth [place] 00 daily. [facility] aspirin 81 2020-0 Yes [id number] 81mg Take 1 [facility] mg EC 2-19 tablet by [facility] of tablet 00:00: mouth [place] 00 daily. [facility] aspirin 81 2020-0 Yes [id number] 81mg Take 1 [facility] mg EC 2-19 tablet by ity of tablet 00:00: mouth [place] 00 daily. [facility] aspirin 81 2020-0 Yes [id number] 81mg Take 1 [facility] mg EC 2-19 tablet by it[facility] of tablet 00:00: mouth [place] 00 daily. [facility] aspirin 81 2020-0 2020- No [id number] 81mg Take 1 [facility] mg EC 2-19 08-14 tablet by [facility] of tablet 00:00: 00:00 mouth [place] 00 :00 daily. [facility] PNV 2020-0 Yes [id number] 1{tbl} Take 1 [facility] rs 102-iron-fo 2-18 tablet by ity of late 00:00: mouth [place] 1-dss-dha 00 daily. Medical (VITAFOL Branch FE+, WITH DOCUSATE,) 90 mg iron-1 mg -50 mg-200 mg Cap PNV 2020-0 Yes [id number] 1{tbl} Take 1 Un[facility] rs 102-iron-fo 2-18 tablet by ity of late 00:00: mouth [place] 1-dss-dha 00 daily. Medical (VITAFOL Branch FE+, WITH DOCUSATE,) 90 mg iron-1 mg -50 mg-200 mg Cap PNV 2020-0 Yes [id number] 1{tbl} Take 1 Un[facility] rs 102-iron-fo 2-18 tablet by ity of late 00:00: mouth [place] 1-dss-dha 00 daily. Medical (VITAFOL Branch FE+, WITH DOCUSATE,) 90 mg iron-1 mg -50 mg-200 mg Cap PNV 2020-0 Yes [id number] 1{tbl} Take 1 [facility] rs 102-iron-fo 2-18 tablet by ity of late 00:00: mouth [place] 1-dss-dha 00 daily. Medical (VITAFOL Branch FE+, WITH DOCUSATE,) 90 mg iron-1 mg -50 mg-200 mg Cap PNV 2020-0 Yes [id number] 1{tbl} Take 1 [facility] rs 102-iron-fo 2-18 tablet by ity of late 00:00: mouth [place] 1-dss-dha 00 daily. Medical (VITAFOL Branch FE+, WITH DOCUSATE,) 90 mg iron-1 mg -50 mg-200 mg Cap PNV 2020-0 Yes [id number] 1{tbl} Take 1 [facility] rs 102-iron-fo 2-18 tablet by ity of late 00:00: mouth [place] [address]-dss-dha 00 daily. Medical (VITAFOL Branch FE+, WITH DOCUSATE,) 90 mg iron-1 mg -50 mg-200 mg Cap PNV 2020-0 Yes [id number] 1{tbl} Take 1 [facility]ive rs 102-iron-fo 2-18 tablet by ity of late 00:00: mouth [place] 1-dss-dha 00 daily. Medical (VITAFOL Branch FE+, WITH DOCUSATE,) 90 mg iron-1 mg -50 mg-200 mg Cap PNV 2020-0 Yes [id number] 1{tbl} Take 1 [facility]ive rs 102-iron-fo 2-18 tablet by ity of late 00:00: mouth [place] 1-dss-dha 00 daily. Medical (VITAFOL Branch FE+, WITH DOCUSATE,) 90 mg iron-1 mg -50 mg-200 mg Cap PNV 2020-0 Yes [id number] 1{tbl} Take 1 [facility]ive rs 102-iron-fo 2-18 tablet by ity of late 00:00: mouth [place] 1-dss-dha 00 daily. Medical (VITAFOL Branch FE+, WITH DOCUSATE,) 90 mg iron-1 mg -50 mg-200 mg Cap PNV 2020-0 Yes [id number] 1{tbl} Take 1 [facility]ive rs 102-iron-fo 2-18 tablet by ity of late 00:00: mouth [address] 00 daily. Medical (VITAFOL Branch FE+, WITH DOCUSATE,) 90 mg iron-1 mg -50 mg-200 mg Cap PNV 2020-0 Yes [id number] 1{tbl} Take 1 [facility]ive rs 102-iron-fo 2-18 tablet by ity of late 00:00: mouth [address] 00 daily. Medical (VITAFOL Branch FE+, WITH DOCUSATE,) 90 mg iron-1 mg -50 mg-200 mg Cap PNV 2020-0 Yes [id number] 1{tbl} Take 1 [facility]ive rs 102-iron-fo 2-18 tablet by ity of late 00:00: mouth [address] 00 daily. Medical (VITAFOL Branch FE+, WITH DOCUSATE,) 90 mg iron-1 mg -50 mg-200 mg Cap PNV 2020-0 Yes [id number] 1{tbl} Take 1 [facility]ive rs 102-iron-fo 2-18 tablet by ity of late 00:00: mouth [address] 00 daily. Medical (VITAFOL Branch FE+, WITH DOCUSATE,) 90 mg iron-1 mg -50 mg-200 mg Cap PNV 2020-0 Yes [id number] 1{tbl} Take 1 [facility]ive rs 102-iron-fo 2-18 tablet by ity of late 00:00: [address] 00 daily. Medical (VITAFOL Branch FE+, WITH DOCUSATE,) 90 mg iron-1 mg -50 mg-200 mg Cap PNV 2020-0 Yes [id number] 1{tbl} Take 1 [facility]ive rs 102-iron-fo 2-18 tablet by ity of late 00:00: mouth [address] 00 daily. Medical (VITAFOL Branch FE+, WITH DOCUSATE,) 90 mg iron-1 mg -50 mg-200 mg Cap PNV 2020-0 Yes [id number] 1{tbl} Take 1 [facility]ive rs 102-iron-fo 2-18 tablet by ity of late 00:00: mouth [place] 1-dss-dha 00 daily. Medical (VITAFOL Branch FE+, WITH DOCUSATE,) 90 mg iron-1 mg -50 mg-200 mg Cap PNV 2020-0 Yes [id number] 1{tbl} Take 1 [facility]ive rs 102-iron-fo 2-18 tablet by ity of late 00:00: mouth [place] 1-dss-dha 00 daily. Medical (VITAFOL Branch FE+, WITH DOCUSATE,) 90 mg iron-1 mg -50 mg-200 mg Cap PNV 2020-0 Yes [id number] 1{tbl} Take 1 [facility]ive rs 102-iron-fo 2-18 tablet by ity of late 00:00: mouth [place] 1-dss-dha 00 daily. Medical (VITAFOL Branch FE+, WITH DOCUSATE,) 90 mg iron-1 mg -50 mg-200 mg Cap PNV 2020-0 Yes [id number] 1{tbl} Take 1 [facility]ive rs 102-iron-fo 2-18 tablet by ity of late 00:00: mouth [place] 1-dss-dha 00 daily. Medical (VITAFOL Branch FE+, WITH DOCUSATE,) 90 mg iron-1 mg -50 mg-200 mg Cap PNV 2020-0 Yes [id number] 1{tbl} Take 1 [facility]ive rs 102-iron-fo 2-18 tablet by ity of late 00:00: mouth [place] 1-dss-dha 00 daily. Medical (VITAFOL Branch FE+, WITH DOCUSATE,) 90 mg iron-1 mg -50 mg-200 mg Cap PNV 2020-0 Yes [id number] 1{tbl} Take 1 [facility]ive rs 102-iron-fo 2-18 tablet by ity of late 00:00: mouth [place] 1-dss-dha 00 daily. Medical (VITAFOL Branch FE+, WITH DOCUSATE,) 90 mg iron-1 mg -50 mg-200 mg Cap PNV 2020-0 Yes [id number] 1{tbl} Take 1 [facility]ive rs 102-iron-fo 2-18 tablet by ity of late 00:00: mouth [place] 1-dss-dha 00 daily. Medical (VITAFOL Branch FE+, WITH DOCUSATE,) 90 mg iron-1 mg -50 mg-200 mg Cap PNV 2020-0 Yes [id number] 1{tbl} Take 1 [facility]ive rs 102-iron-fo 2-18 tablet by ity of late 00:00: mouth [place] 1-dss-dha 00 daily. Medical (VITAFOL Branch FE+, WITH DOCUSATE,) 90 mg iron-1 mg -50 mg-200 mg Cap PNV 2020-0 Yes [id number] 1{tbl} Take 1 [facility]ive rs 102-iron-fo 2-18 tablet by ity of late 00:00: mouth [place] 1-dss-dha 00 daily. Medical (VITAFOL Branch FE+, WITH DOCUSATE,) 90 mg iron-1 mg -50 mg-200 mg Cap PNV 2020-0 Yes [id number] 1{tbl} Take 1 [facility]ive rs 102-iron-fo 2-18 tablet by ity of late 00:00: mouth [place] 1-dss-dha 00 daily. Medical (VITAFOL Branch FE+, WITH DOCUSATE,) 90 mg iron-1 mg -50 mg-200 mg Cap PNV 2020-0 Yes [id number] 1{tbl} Take 1 [facility]ive rs 102-iron-fo 2-18 tablet by ity of late 00:00: mouth [place] [address]-dss-dha 00 daily. Medical (VITAFOL Branch FE+, WITH DOCUSATE,) 90 mg iron-1 mg -50 mg-200 mg Cap PNV 2020-0 Yes [id number] 1{tbl} Take 1 Unive rs 102-iron-fo 2-18 tablet by ity of late 00:00: mouth [place] 1-dss-dha 00 daily. Medical (VITAFOL Branch FE+, WITH DOCUSATE,) 90 mg iron-1 mg -50 mg-200 mg Cap PNV 2020-0 Yes [id number] 1{tbl} Take 1 Unive rs 102-iron-fo 2-18 tablet by ity of late 00:00: mouth [place] 1-dss-dha 00 daily. Medical (VITAFOL Branch FE+, WITH DOCUSATE,) 90 mg iron-1 mg -50 mg-200 mg Cap PNV 2020-0 Yes [id number] 1{tbl} Take 1 Unive rs 102-iron-fo 2-18 tablet by ity of late 00:00: mouth [place] 1-dss-dha 00 daily. Medical (VITAFOL Branch FE+, WITH DOCUSATE,) 90 mg iron-1 mg -50 mg-200 mg Cap PNV 2020-0 Yes [id number] 1{tbl} Take 1 [facility]ive rs 102-iron-fo 2-18 tablet by ity of late 00:00: mouth [address] 00 daily. Medical (VITAFOL Branch FE+, WITH DOCUSATE,) 90 mg iron-1 mg -50 mg-200 mg Cap PNV 2020-0 Yes [id number] 1{tbl} Take 1 Unive rs 102-iron-fo 2-18 tablet by ity of late 00:00: mouth [address] 00 daily. Medical (VITAFOL Branch FE+, WITH DOCUSATE,) 90 mg iron-1 mg -50 mg-200 mg Cap PNV 2020-0 Yes [id number] 1{tbl} Take 1 Unive rs 102-iron-fo 2-18 tablet by ity of late 00:00: mouth [address] 00 daily. Medical (VITAFOL Branch FE+, WITH DOCUSATE,) 90 mg iron-1 mg -50 mg-200 mg Cap PNV 2020-0 Yes [id number] 1{tbl} Take 1 Unive rs 102-iron-fo 2-18 tablet by ity of late 00:00: mouth [address] 00 daily. Medical (VITAFOL Branch FE+, WITH DOCUSATE,) 90 mg iron-1 mg -50 mg-200 mg Cap PNV 2020-0 Yes [id number] 1{tbl} Take 1 Unive rs 102-iron-fo 2-18 tablet by ity of late 00:00: [address] 00 daily. Medical (VITAFOL Branch FE+, WITH DOCUSATE,) 90 mg iron-1 mg -50 mg-200 mg Cap PNV 2020-0 Yes [id number] 1{tbl} Take 1 Unive rs 102-iron-fo 2-18 tablet by ity of late 00:00: mouth [address] 00 daily. Medical (VITAFOL Branch FE+, WITH DOCUSATE,) 90 mg iron-1 mg -50 mg-200 mg Cap PNV 2020-0 Yes [id number] 1{tbl} Take 1 Unive rs 102-iron-fo 2-18 tablet by ity of late 00:00: mouth [place] 1-dss-dha 00 daily. Medical (VITAFOL Branch FE+, WITH DOCUSATE,) 90 mg iron-1 mg -50 mg-200 mg Cap PNV 2020-0 Yes [id number] 1{tbl} Take 1 Unive rs 102-iron-fo 2-18 tablet by ity of late 00:00: mouth [place] 1-dss-dha 00 daily. Medical (VITAFOL Branch FE+, WITH DOCUSATE,) 90 mg iron-1 mg -50 mg-200 mg Cap PNV 2020-0 Yes [id number] 1{tbl} Take 1 [facility]ive rs 102-iron-fo 2-18 tablet by ity of late 00:00: mouth [place] 1-dss-dha 00 daily. Medical (VITAFOL Branch FE+, WITH DOCUSATE,) 90 mg iron-1 mg -50 mg-200 mg Cap PNV 2020-0 Yes [id number] 1{tbl} Take 1 Unive rs 102-iron-fo 2-18 tablet by ity of late 00:00: mouth [place] 1-dss-dha 00 daily. Medical (VITAFOL Branch FE+, WITH DOCUSATE,) 90 mg iron-1 mg -50 mg-200 mg Cap PNV 2020-0 Yes [id number] 1{tbl} Take 1 Unive rs 102-iron-fo 2-18 tablet by ity of late 00:00: mouth [place] 1-dss-dha 00 daily. Medical (VITAFOL Branch FE+, WITH DOCUSATE,) 90 mg iron-1 mg -50 mg-200 mg Cap PNV 2020-0 Yes [id number] 1{tbl} Take 1 Unive rs 102-iron-fo 2-18 tablet by ity of late 00:00: mouth [place] 1-dss-dha 00 daily. Medical (VITAFOL Branch FE+, WITH DOCUSATE,) 90 mg iron-1 mg -50 mg-200 mg Cap PNV 2020-0 Yes [id number] 1{tbl} Take 1 Unive rs 102-iron-fo 2-18 tablet by ity of late 00:00: mouth [place] 1-dss-dha 00 daily. Medical (VITAFOL Branch FE+, WITH DOCUSATE,) 90 mg iron-1 mg -50 mg-200 mg Cap PNV 2020-0 Yes [id number] 1{tbl} Take 1 Unive rs 102-iron-fo 2-18 tablet by ity of late 00:00: mouth [place] 1-dss-dha 00 daily. Medical (VITAFOL Branch FE+, WITH DOCUSATE,) 90 mg iron-1 mg -50 mg-200 mg Cap PNV 2020-0 Yes [id number] 1{tbl} Take 1 Unive rs 102-iron-fo 2-18 tablet by ity of late 00:00: mouth [place] 1-dss-dha 00 daily. Medical (VITAFOL Branch FE+, WITH DOCUSATE,) 90 mg iron-1 mg -50 mg-200 mg Cap PNV 2020-0 Yes [id number] 1{tbl} Take 1 Unive rs 102-iron-fo 2-18 tablet by ity of late 00:00: mouth [place] 1-dss-dha 00 daily. Medical (VITAFOL Branch FE+, WITH DOCUSATE,) 90 mg iron-1 mg -50 mg-200 mg Cap PNV 2020-0 Yes [id number] 1{tbl} Take 1 Unive rs 102-iron-fo 2-18 tablet by ity of late 00:00: mouth [place] [address]-dss-dha 00 daily. Medical (VITAFOL Branch FE+, WITH DOCUSATE,) 90 mg iron-1 mg -50 mg-200 mg Cap PNV 2020-0 Yes [id number] 1{tbl} Take 1 Unive rs 102-iron-fo 2-18 tablet by ity of late 00:00: mouth [place] 1-dss-dha 00 daily. Medical (VITAFOL Branch FE+, WITH DOCUSATE,) 90 mg iron-1 mg -50 mg-200 mg Cap PNV 2020-0 Yes [id number] 1{tbl} Take 1 Unive rs 102-iron-fo 2-18 tablet by ity of late 00:00: mouth [place] 1-dss-dha 00 daily. Medical (VITAFOL Branch FE+, WITH DOCUSATE,) 90 mg iron-1 mg -50 mg-200 mg Cap PNV 2020-0 Yes [id number] 1{tbl} Take 1 Unive rs 102-iron-fo 2-18 tablet by ity of late 00:00: mouth [place] 1-dss-dha 00 daily. Medical (VITAFOL Branch FE+, WITH DOCUSATE,) 90 mg iron-1 mg -50 mg-200 mg Cap PNV 2020-0 Yes [id number] 1{tbl} Take 1 Unive rs 102-iron-fo 2-18 tablet by ity of late 00:00: mouth [address] 00 daily. Medical (VITAFOL Branch FE+, WITH DOCUSATE,) 90 mg iron-1 mg -50 mg-200 mg Cap PNV 2020-0 Yes [id number] 1{tbl} Take 1 Unive rs 102-iron-fo 2-18 tablet by ity of late 00:00: mouth [address] 00 daily. Medical (VITAFOL Branch FE+, WITH DOCUSATE,) 90 mg iron-1 mg -50 mg-200 mg Cap PNV 2020-0 Yes [id number] 1{tbl} Take 1 Unive rs 102-iron-fo 2-18 tablet by ity of late 00:00: mouth [address] 00 daily. Medical (VITAFOL Branch FE+, WITH DOCUSATE,) 90 mg iron-1 mg -50 mg-200 mg Cap PNV 2020-0 Yes [id number] 1{tbl} Take 1 Unive rs 102-iron-fo 2-18 tablet by ity of late 00:00: mouth [address] 00 daily. Medical (VITAFOL Branch FE+, WITH DOCUSATE,) 90 mg iron-1 mg -50 mg-200 mg Cap PNV 2020-0 Yes [id number] 1{tbl} Take 1 Unive rs 102-iron-fo 2-18 tablet by ity of late 00:00: [address] 00 daily. Medical (VITAFOL Branch FE+, WITH DOCUSATE,) 90 mg iron-1 mg -50 mg-200 mg Cap PNV 2020-0 Yes [id number] 1{tbl} Take 1 Unive rs 102-iron-fo 2-18 tablet by ity of late 00:00: mouth [address] 00 daily. Medical (VITAFOL Branch FE+, WITH DOCUSATE,) 90 mg iron-1 mg -50 mg-200 mg Cap PNV 2020-0 Yes [id number] 1{tbl} Take 1 Unive rs 102-iron-fo 2-18 tablet by ity of late 00:00: mouth [place] 1-dss-dha 00 daily. Medical (VITAFOL Branch FE+, WITH DOCUSATE,) 90 mg iron-1 mg -50 mg-200 mg Cap PNV 2020-0 Yes [id number] 1{tbl} Take 1 Unive rs 102-iron-fo 2-18 tablet by ity of late 00:00: mouth [place] 1-dss-dha 00 daily. Medical (VITAFOL Branch FE+, WITH DOCUSATE,) 90 mg iron-1 mg -50 mg-200 mg Cap PNV 2020-0 Yes [id number] 1{tbl} Take 1 Unive rs 102-iron-fo 2-18 tablet by ity of late 00:00: mouth [place] 1-dss-dha 00 daily. Medical (VITAFOL Branch FE+, WITH DOCUSATE,) 90 mg iron-1 mg -50 mg-200 mg Cap PNV 2020-0 Yes [id number] 1{tbl} Take 1 Unive rs 102-iron-fo 2-18 tablet by ity of late 00:00: mouth [place] 1-dss-dha 00 daily. Medical (VITAFOL Branch FE+, WITH DOCUSATE,) 90 mg iron-1 mg -50 mg-200 mg Cap PNV 2020-0 2020- No [id number] 1{tbl} Take 1 Univ ers 102-iron-fo 2-18 08-14 tablet by it y of late 00:00: 00:00 mouth [place] 1-dss-dha 00 :00 daily. Medical (VITAFOL Branch [...] 00:00 daily. [place] as VITAMIN) 00 :00 [facility] Immunizations Ordered Filled Immunization Date Status Comments [facility] e Immunization Name Name TDAP (ADACEL) 2020-03-19 Completed [place] of VACCINE 00:00:00 [facility] TDAP (ADACEL) 2020-03-19 Completed [facility] VACCINE 00:00:00 [place] [facility] TDAP (ADACEL) 2020-03-19 Completed [facility] of VACCINE 00:00:00 [place] [facility] TDAP (ADACEL) 2020-03-19 Completed [facility] of VACCINE 00:00:00 [place] [facility] TDAP (ADACEL) 2020-03-19 Completed [facility] of VACCINE 00:00:00 [place] [facility] TDAP (ADACEL) 2020-03-19 Completed [facility] of VACCINE 00:00:00 [place] [facility] TDAP (ADACEL) 2020-03-19 Completed [facility] of VACCINE 00:00:00 [place] [facility] TDAP (ADACEL) 2020-03-19 Completed [facility] of VACCINE 00:00:00 [place] [facility] TDAP (ADACEL) 2020-03-19 Completed [facility] of VACCINE 00:00:00 [place] [facility] TDAP (ADACEL) 2020-03-19 Completed [facility] VACCINE 00:00:00 [facility] [place] [facility] TDAP (ADACEL) 2020-03-19 Completed [facility] of VACCINE 00:00:00 [facility] [place] [facility] TDAP (ADACEL) 2020-03-19 Completed [facility] of VACCINE 00:00:00 [facility] [place] [facility] TDAP (ADACEL) 2020-03-19 Completed [facility] of VACCINE 00:00:00 [facility] [place] [facility] TDAP (ADACEL) 2020-03-19 Completed [facility] of VACCINE 00:00:00 [place] [facility] TDAP (ADACEL) 2020-03-19 Completed [facility] of VACCINE 00:00:00 [facility] [place] [facility] TDAP (ADACEL) 2020-03-19 Completed [facility] of VACCINE 00:00:00 [facility] [place] [facility] TDAP (ADACEL) 2020-03-19 Completed [facility] of VACCINE 00:00:00 [place] [facility] TDAP (ADACEL) 2020-03-19 Completed [facility] of VACCINE 00:00:00 [place] [facility] TDAP (ADACEL) 2020-03-19 Completed [facility] of VACCINE 00:00:00 [place] [facility] TDAP (ADACEL) 2020-03-19 Completed [facility] of VACCINE 00:00:00 [place] [facility] TDAP (ADACEL) 2020-03-19 Completed [facility] of VACCINE 00:00:00 [place] [facility] TDAP (ADACEL) 2020-03-19 Completed [facility] VACCINE 00:00:00 [place] [facility] TDAP (ADACEL) 2020-03-19 Completed [facility] of VACCINE 00:00:00 [place] [facility] TDAP (ADACEL) 2020-03-19 Completed [facility] of VACCINE 00:00:00 [facility] [place] [facility] TDAP (ADACEL) 2020-03-19 Completed [facility] of VACCINE 00:00:00 [facility] [place] [facility] TDAP (ADACEL) 2020-03-19 Completed [facility] of VACCINE 00:00:00 [facility] [place] [facility] TDAP (ADACEL) 2020-03-19 Completed [facility] of VACCINE 00:00:00 [facility] [place] [facility] TDAP (ADACEL) 2020-03-19 Completed [facility] of VACCINE 00:00:00 [facility] [place] [facility] TDAP (ADACEL) 2020-03-19 Completed [facility] of VACCINE 00:00:00 [facility] [place] [facility] TDAP (ADACEL) 2020-03-19 Completed [facility] of VACCINE 00:00:00 [facility] [place] [facility] TDAP (ADACEL) 2020-03-19 Completed [facility] of VACCINE 00:00:00 [facility] [place] [facility] TDAP (ADACEL) 2020-03-19 Completed [facility] of VACCINE 00:00:00 [facility] [place] [facility] TDAP (ADACEL) 2020-03-19 Completed [facility] of VACCINE 00:00:00 [facility] [place] [facility] TDAP (ADACEL) 2020-03-19 Completed [facility] of VACCINE 00:00:00 [facility] [place] [facility] TDAP (ADACEL) 2020-03-19 Completed [facility] of VACCINE 00:00:00 [facility] [place] [facility] TDAP (ADACEL) 2020-03-19 Completed [facility] of VACCINE 00:00:00 [facility] [place] [facility] TDAP (ADACEL) 2020-03-19 Completed [facility] of VACCINE 00:00:00 [facility] TDAP (ADACEL) 2020-03-19 Completed [facility] of VACCINE 00:00:00 [facility] TDAP (ADACEL) 2020-03-19 Completed [facility] of VACCINE 00:00:00 [facility] Vital Signs Vital Name Observation Time Observation Value Comments Source Systolic blood 2020-06-11 16:39:00 148 mm[Hg] Univer sity of pressure [facility] Diastolic blood 2020-06-11 16:39:00 82 mm[Hg] Unive rsity of pressure [facility] Heart rate 2020-06-11 16:35:00 71 /min [facility] Body temperature 2020-06-11 16:35:00 36.83 [place] [facility] 2020-06-11 16:35:00 18 /min [facility] Body height 2020-06-11 16:35:00 160 cm [facility] [place] [facility] Body weight 2020-06-11 16:35:00 110.224 kg [facility] [place] [facility] BMI 2020-06-11 16:35:00 43.05 kg/m2 [facility] [place] [facility] Systolic blood 2020-05-21 16:01:00 139 mm[Hg] Univer sity of pressure [facility] Diastolic blood 2020-05-21 16:01:00 85 mm[Hg] Unive rsity of pressure [facility] Heart rate 2020-05-21 16:01:00 88 /min [facility] Body temperature 2020-05-21 15:44:00 36.78 [place] [facility] ers[facility] of [facility] Respiratory rate 2020-05-21 15:44:00 18 /min [facility] ersity of [facility] Body height 2020-05-21 15:44:00 161.3 cm [facility] Body weight 2020-05-21 15:44:00 117.482 kg [facility] BMI 2020-05-21 15:44:00 45.16 kg/m2 [facility] Systolic blood 2020-05-16 15:00:00 145 mm[Hg] [facility] [facility] Di[facility] blood 2020-05-16 15:00:00 78 mm[Hg] Unive rsity of pressure [facility] Heart rate 2020-05-16 15:00:00 102 /min [facility] Body temperature 2020-05-16 15:00:00 36.72 [place] [facility] Respiratory rate 2020-05-16 15:00:00 16 /min Univ [facility] Oxygen saturation in 2020-05-16 15:00:00 99 /min [facility] Arterial blood by [facility] Pulse oximetry Branch Body height 2020-05-14 14:19:00 161.5 cm [facility] Body weight 2020-05-14 14:19:00 125.646 kg [facility] BMI 2020-05-14 14:19:00 48.17 kg/m2 [facility] Systolic blood 2020-05-12 18:28:00 139 mm[Hg] Univer sity of pressure [facility] Diastolic blood 2020-05-12 18:28:00 87 mm[Hg] Unive rsity of pressure [facility] Heart rate 2020-05-12 18:28:00 114 /min [facility] Body temperature 2020-05-12 18:28:00 36.5 [place] [facility] Respiratory rate 2020-05-12 18:28:00 18 /min [facility] Body height 2020-05-12 18:28:00 160 cm [facility] Body weight 2020-05-12 18:28:00 128.368 kg [facility] BMI 2020-05-12 18:28:00 50.13 kg/m2 [facility] Systolic blood 2020-05-09 18:05:00 138 mm[Hg] Univer sity of pressure [facility] Diastolic blood 2020-05-09 18:05:00 80 mm[Hg] Unive rsity of pressure [facility] Heart rate 2020-05-09 18:00:00 101 /min [facility] Body temperature 2020-05-09 18:00:00 36.72 [place] [facility] Respiratory rate 2020-05-09 18:00:00 18 /min [facility] Body height 2020-05-09 18:00:00 160 cm [facility] Body weight 2020-05-09 18:00:00 125.465 kg [facility] BMI 2020-05-09 18:00:00 49.00 kg/m2 [facility] Systolic blood 2020-05-05 18:25:00 147 mm[Hg] Univer sity of [facility] Diastolic blood 2020-05-05 18:25:00 73 mm[Hg] Unive rsity of [facility] Heart rate 2020-05-05 18:25:00 97 /min [facility] Body temperature 2020-05-05 18:25:00 36.94 [place] [facility] Respiratory rate 2020-05-05 18:25:00 18 /min [facility] Body height 2020-05-05 18:25:00 160 cm [facility] Body weight 2020-05-05 18:25:00 128.096 kg [facility] BMI 2020-05-05 18:25:00 50.02 kg/m2 [facility] Systolic blood 2020-04-30 14:04:00 130 mm[Hg] Univer sity of [facility] Diastolic blood 2020-04-30 14:04:00 84 mm[Hg] Unive rsity of [facility] Heart rate 2020-04-30 14:01:00 105 /min [facility] Body temperature 2020-04-30 14:01:00 36.44 [place] [facility] Respiratory rate 2020-04-30 14:01:00 18 /min [facility] Body height 2020-04-30 14:01:00 160 cm [facility] Body weight 2020-04-30 14:01:00 124.921 kg [facility] BMI 2020-04-30 14:01:00 48.78 kg/m2 [facility] Systolic blood 2020-05-02 14:23:00 139 mm[Hg] Univer sity of [facility] Diastolic blood 2020-05-02 14:23:00 85 mm[Hg] Unive rsity of pressure [facility] Heart rate 2020-05-02 14:23:00 98 /min [facility] Body temperature 2020-05-02 14:23:00 36.78 [place] [facility] Respiratory rate 2020-05-02 14:23:00 18 /min [facility] Body weight 2020-05-02 14:23:00 126.1 kg [facility] BMI 2020-05-02 14:23:00 49.25 kg/m2 [facility] Systolic blood 2020-04-16 20:22:00 121 mm[Hg] Univer sity of [facility] Diastolic blood 2020-04-16 20:22:00 67 mm[Hg] Unive rsity of pressure [facility] Heart rate 2020-04-16 20:22:00 104 /min [facility] Body temperature 2020-04-16 20:22:00 36.94 [place] [facility] Respiratory rate 2020-04-16 20:22:00 18 /min [facility] Body height 2020-04-16 20:22:00 160 cm [facility] [place] [facility] Body weight 2020-04-16 20:22:00 124.286 kg [facility]i ty of [facility] BMI 2020-04-16 20:22:00 48.54 kg/m2 [facility] Heart rate 2020-04-14 17:00:00 102 /min [facility] Oxygen saturation in 2020-04-14 16:45:00 100 /min University of Arterial blood by [facility] Pulse oximetry Branch Systolic blood 2020-04-14 16:26:00 141 mm[Hg] Univer sity of pressure [facility] Diastolic blood 2020-04-14 16:26:00 79 mm[Hg] Unive rsity of pressure [facility] Body temperature 2020-04-14 16:26:00 36.89 [place] [facility] Respiratory rate 2020-04-14 16:26:00 18 /min [facility] Body height 2020-04-14 16:26:00 160 cm [facility] Body weight 2020-04-14 16:26:00 123.832 kg [facility] BMI 2020-04-14 16:26:00 48.36 kg/m2 [facility] Systolic blood 2020-04-14 14:46:00 133 mm[Hg] Univer sity of pressure [facility] Diastolic blood 2020-04-14 14:46:00 89 mm[Hg] Unive rsity of pressure [facility] Heart rate 2020-04-14 14:46:00 101 /min [facility] Body temperature 2020-04-14 14:46:00 36.83 [place] [facility] Respiratory rate 2020-04-14 14:46:00 18 /min Univ [facility] Body height 2020-04-14 14:46:00 160 cm [facility] Body weight 2020-04-14 14:46:00 123.832 kg [facility] BMI 2020-04-14 14:46:00 48.36 kg/m2 [facility] Systolic blood 2020-04-09 20:14:00 138 mm[Hg] Univer sity of pressure [facility] Diastolic blood 2020-04-09 20:14:00 83 mm[Hg] Unive rsity of [facility] Heart rate 2020-04-09 20:14:00 118 /min [facility] Body temperature 2020-04-09 20:14:00 36.67 [place] [facility] Respiratory rate 2020-04-09 20:14:00 18 /min [facility] Body height 2020-04-09 20:14:00 160 cm [facility] Body weight 2020-04-09 20:14:00 123.378 kg [facility] BMI 2020-04-09 20:14:00 48.18 kg/m2 [facility] Systolic blood 2020-04-07 14:08:00 136 mm[Hg] Univer sity of [facility] Diastolic blood 2020-04-07 14:08:00 84 mm[Hg] Unive rsity of [facility] Heart rate 2020-04-07 14:08:00 108 /min [facility] Body temperature 2020-04-07 14:08:00 36.5 [place] [facility] Respiratory rate 2020-04-07 14:08:00 18 /min [facility] Body height 2020-04-07 14:08:00 160 cm [facility] Body weight 2020-04-07 14:08:00 123.378 kg [facility] BMI 2020-04-07 14:08:00 48.18 kg/m2 [facility] Systolic blood 2020-03-19 21:20:00 133 mm[Hg] Univer sity of [facility] Diastolic blood 2020-03-19 21:20:00 79 mm[Hg] Unive rsity of [facility] Heart rate 2020-03-19 21:20:00 104 /min [facility] Body temperature 2020-03-19 21:20:00 37 [place] [facility] Respiratory rate 2020-03-19 21:20:00 18 /min [facility] Body height 2020-03-19 21:20:00 160 cm [facility] Body weight 2020-03-19 21:20:00 125.737 kg [facility] BMI 2020-03-19 21:20:00 49.10 kg/m2 [facility] Systolic blood 2019-12-18 14:03:00 159 mm[Hg] Univer sity of [facility] Diastolic blood 2019-12-18 14:03:00 94 mm[Hg] Unive rsity of [facility] Heart rate 2019-12-18 14:02:00 93 /min [facility] Body temperature 2019-12-18 14:02:00 36.72 [place] [facility] Respiratory rate 2019-12-18 14:02:00 18 /min [facility] Body height 2019-12-18 14:02:00 160 cm [facility] Body weight 2019-12-18 14:02:00 122.925 kg [facility] BMI 2019-12-18 14:02:00 48.01 kg/m2 [facility] Systolic blood 2019-11-20 19:40:00 149 mm[Hg] Univer sity of [facility] Diastolic blood 2019-11-20 19:40:00 96 mm[Hg] Unive rsity of [facility] Heart rate 2019-11-20 19:30:00 91 /min [facility] Body temperature 2019-11-20 19:30:00 36.39 [place] [facility] Respiratory rate 2019-11-20 19:30:00 18 /min [facility] Body height 2019-11-20 19:30:00 160 cm [facility] Body weight 2019-11-20 19:30:00 121.564 kg [facility] BMI 2019-11-20 19:30:00 47.47 kg/m2 [facility] Systolic blood 2019-10-23 21:05:00 140 mm[Hg] Univer sity of [facility] Diastolic blood 2019-10-23 21:05:00 87 mm[Hg] Unive rsity of [facility] Heart rate 2019-10-23 20:59:00 93 /min [facility] Body temperature 2019-10-23 20:59:00 36.89 [place] [facility] Respiratory rate 2019-10-23 20:59:00 18 /min [facility] Body height 2019-10-23 20:59:00 160 cm [facility] Body weight 2019-10-23 20:59:00 122.471 kg [facility] BMI 2019-10-23 20:59:00 47.83 kg/m2 [facility] Procedures Procedure Date / Time Performing Clinician Source Performed CBC WITH DIFF 2020-05-15 08:49:00 Melyssa Lopez [facility] VENOUS CORD GAS 2020-05-14 16:12:00 Luciano Elizabeth [facility] SECTION 2020-05-14 15:05:00 Melyssa Lopez [facility] TUBAL LIGATION 2020-05-14 15:05:00 [facility] (AUTOMATED[facility] 2020-05-14 14:05:00 Melyssa Lopez [facility] COVID-19 (ID NOW RAPID 2020-05-14 13:44:00 Melyssa Lopez [facility] TESTING) [facility] RHO (D) IMMUNE GLOBULIN 2020-05-13 20:12:00 John Formerly [facility] ASSIGNMENT OF BENEFITS 2020-05-12 19:19:25 Doctor Unassigned, [facility] Name [facility] NON-STRESS TEST 2020-05-12 19:05:26 Consuelo Truong [facility] NON-STRESS TEST 2020-05-09 19:02:46 Melyssa Lopez [facility] NON-STRESS TEST 2020-05-05 19:33:03 Consuelo Truong [facility] POCT URINALYSIS W/O 2020-05-05 00:00:00 Consuelo Truong [facility] SPECIFIC GRAVITY [facility] NON-STRESS TEST 2020-05-02 14:52:11 Melyssa Lopez [facility] DSU PRE-OP 2020-05-02 05:01:00 Doctor Unassigned, [facility] [place] [facility] >14 WEEKS US 2020-04-30 20:59:46 Consuelo Truong [facility] NON-STRESS TEST 2020-04-30 20:58:03 Consuelo Truong [facility] GC & CHLAMYDIA AMPLIFIED 2020-04-30 14:18:00 Consuelo Truong [facility] PATIENT QUESTIONNAIRE 2020-04-30 05:01:00 Doctor Unassigned, [facility] [place] [facility] POCT URINALYSIS W/O 2020-04-30 00:00:00 Consuelo Truong [facility] BIOPHYSICAL PROFILE 2020-04-16 21:24:19 Melyssa Lopez [facility] NON-STRESS TEST 2020-04-14 23:32:09 Melyssa Lopez [facility] US PELVIS LIMITED 2020-04-14 16:50:00 Melyssa Lopez [facility] ADC ONLY - FERN TEST 2020-04-14 16:38:00 Melyssa Lopez [facility] CONSENT/REFUSAL FOR 2020-04-14 15:58:43 Doctor Unalogan, [facility] DIAGNOSIS AND TREATMENT [facility] ASSIGNMENT OF BENEFITS 2020-04-14 15:57:48 Doctor [facility]alogan, [facility] [place] NON-STRESS TEST 2020-04-09 20:55:36 Melyssa Lopez [facility] POCT URINALYSIS W/O 2020-04-09 00:00:00 Melyssa Lopez [facility] NON-STRESS TEST 2020-04-07 15:28:14 Consuelo Truong [facility] SECOND AND THIRD 2020-04-07 13:23:00 Melyssa Lopez [facility] TRIMESTER ULTRASOUND Medical Bra [place] STERILIZATION CONSENT 2020-04-07 05:01:00 Doctor Unalogan, [facility] FORM [place] [facility] POCT GLUCOSE(AGE >30DAYS) 2020-04-07 00:00:00 Consuelo Truong Un [facility] POCT URINALYSIS W/O 2020-04-07 00:00:00 Vanaphan, Consuelo [facility] CBC WITH DIFFERENTIAL 2020-04-03 21:01:00 Melyssa Lopez [facility] POCT HEMOGLOBIN A1C TEST 2020-03-19 21:45:00 Melyssa Lopez [facility] POCT GLUCOSE(AGE >30DAYS) 2020-03-19 21:39:00 [facility]ALYS[facility] W/O 2020-03-19 21:23:00 Melyssa Lopez [facility] SPECIFIC [facility] TDAP (ADACEL) 2020-03-19 21:13:56 Melyssa Lopez [facility] [place] IMMUNIZATION [facility] INSURANCE CORRESPONDENCE 2020-02-28 05:01:00 Doctor Unassigned, [facility] [place] [facility] SECOND AND THIRD 2020-01-02 15:53:00 Melyssa Lopez [facility] TRIMESTER ULTRASOUND Medical [facility] SECOND AND THIRD 2020-01-02 15:45:00 Melyssa Lopez [facility] TRIMESTER ULTRASOUND Medical [facility] POCT URINALYSIS W/O 2019-12-18 00:00:00 Consuelo Truong [facility] 3 HR GLUCOSE TOLERANCE 2019-11-30 18:35:00 [facility] Tru[facility] 2 HR GLUCOSE TOLERANCE 2019-11-30 17:39:00 Consuelo Truong [facility] 1 HR GLUCOSE TOLERANCE 2019-11-30 16:36:00 Consuelo Truong [facility] GLUCOSE FASTING 2019-11-30 15:32:00 Consuelo Truong [place] [facility] GLUCOSE FASTING 2019-11-30 15:32:00 Feliberto [facility] GLUCOSE 1 HOUR POST 2019-11-21 16:30:00 Melyssa Lopez [facility] CBC WITH DIFFERENTIAL 2019-11-21 16:01:00 Melyssa Lopez [facility] COMP. METABOLIC PANEL 2019-11-21 16:01:00 Melyssa Lopez [facility] ([id number]) [facility] HB ABO GROUPING 2019-11-21 16:01:00 Melyssa Lopez [place] [facility] ASSIGNMENT OF BENEFITS 2019-11-21 14:51:24 Doctor Unassigned, Un [facility]ity [facility] POCT URINALYSIS W/O 2019-11-20 00:00:00 Melyssa Lopez Universi ty [facility] EXTERNAL PROVIDER RECORDS 2019-11-03 06:01:00 Doctor Unassigned, [facility] <14 WEEKS US 2019-10-25 03:52:05 Melyssa Lopez Unive rsity [facility] GC & CHLAMYDIA AMPLIFIED 2019-10-23 21:42:00 [facility] PAP SMEAR-LIQUID 2019-10-23 21:42:00 [facility] - DRUG SCREEN 2019-10-23 21:42:00 Melyssa Lopez [facility] HIGH RISK HPV-THIN PREP 2019-10-23 21:42:00 Melyssa Lopez [facility] PAP SMEAR-LIQUID BASED-CP 2019-10-23 21:42:00 [facility]ssa [facility] ASSIGNMENT OF BENEFITS 2019-10-23 20:38:47 Doctor [facility]assigned, [facility] 2019-10-23 00:00:00 [facility] POCT URINALYSIS W/O 2019-10-23 00:00:00 [facility] Encounters Start End Encounter Admission Attending Care Care Encounter Source Date/Time Date/Time Type Type Clinicians Facility Department ID 2021-07-31 Outpatient P KSMB LEONCIO [id number] Univers 06:20:58 ity of [facility] 2021-05-22 2021-05-22 Refill Melyssa Lopez [facility] [id number] Univers 00:00:00 00:00:00 Anatoly Hernandez [id number] i ty of [place] [id number] Luis A tovar Professio [phone] [place] [address] Branch [facility] 2020-12-10 2020-12-10 [facility] [id number] Univers 09:00:00 09:00:00 CONSUELO ity of [facility] 2020-07-20 2020-07-20 Refill Melyssa Lopez [facility] [id number] Univers 00:00:00 00:00:00 Anatoly Hernandez [id number] i [id number] [phone] Wi dical [address] 2020-07-10 2020-07-10 Telephone [facility] [id number] Univers 00:00:00 00:00:00 Consuelo [place] [id number] i ty [id number] [phone] [address] 2020-07-10 2020-07-10 Telephone [facility] 1..840.114 [id number] Univers 00:00:00 00:00:00 Consuelo Hernandez [id number] i ty [id number] [phone] Wi dical [address] 2020-06-18 2020-06-18 Outpatient R JOHNAIEN [facility] [id number] Univers 08:00:00 08:00:00 ity of [facility] 2020-06-18 2020-06-18 Telephone [facility] 1..840.114 [id number] Univers 00:00:00 00:00:00 Consuelo Hernandez [id number] i ty [id number] [phone] Wi dical nal [address] [place] [address] 2020-06-12 2020-06-12 Outpatient R [facility] [id number] Univers 09:30:00 09:30:00 ity of [facility] 2020-06-11 2020-06-11 Routine [facility] [id number] Univers 11:23:57 11:54:13 Consuelo Hernandez [id number] ity of [id number] [phone] Wi dical nal [address] [facility] 2020-06-11 2020-06-11 Outpatient R FELIBERTO [facility] [id number] Univers 11:30:00 11:30:00 CONSUELO ity [facility] 2020-06-01 2020-06-01 Refill Feliberto [facility] [id number] Univers 00:00:00 00:00:00 Consuelo Hernandez [id number] i ty [id number] [phone] Wi dical nal [address] [facility] 2020-05-21 2020-05-21 Nurse Nurse, [facility] [id number] Univers 10:42:25 11:02:56 Visit John Melyssavenkatesh Hernandez [id number] [place]y [id number] [phone] Wi dical nal [address] [place] [address] 2020-05-21 2020-05-21 Outpatient R JOHN MELYSSA [facility] [id number] Univers 10:30:00 10:30:00 ity of [facility] 2020-05-14 2020-05-16 [facility] [id number] Univers 08:22:00 15:18:00 Oral Hernandez [id number] ity [id number] [phone] [address] 2020-05-14 2020-05-14 Outpatient R JOHN [facility] TOBY [id number] Univers 10:30:00 10:30:00 ity of [facility] 2020-05-13 2020-05-13 Drafting Teacher Moy [facility] Main [facility] [id number] [id number] Univers 14:01:07 15:21:05 Visit Melyssa Lopez Anatoly Hernandez [id number] [place]y [id number] [phone] Me dical nal [address] [facility] 2020-05-12 2020-05-13 Routine Room, [facility] 1.2.840.1 [id number] Univers 13:15:48 14:16:43 Consuelo Truong [id number] ity of [id number] [phone] Wi dical nal [address] [facility] 2020-05-13 2020-05-13 Outpatient R MELYSSA LOPEZ [facility] [id number] Univers 14:00:00 14:00:00 ity of [facility] 2020-05-13 2020-05-13 Case [facility] [id number] Univers 00:00:00 00:00:00 Management Anatoly Hernandez [id number] ity [id number] [phone] [facility] [address] [facility] 2020-05-12 2020-05-12 Outpatient R FELIBERTO [facility] [id number] Univers 13:00:00 13:00:00 CONSUELO ity [facility] 2020-05-12 2020-05-12 Orders Doctor CURTIS [id number] Univers 00:00:00 00:00:00 Only Unassigned, HOMER [id number] ity of [place] [facility] [id number] Miko as [phone] [address] 2020-05-09 2020-05-09 Routine Room, [facility] 1.2.840.1 [id number] Univers 12:58:24 13:56:20 Melyssa Lopez [id number] ity of [id number] [phone] [facility] [address] [facility] 2020-05-09 2020-05-09 Outpatient R JOHN [facility] [id number] Univers 13:00:00 13:00:00 ity of [facility] 2020-05-06 2020-05-06 Drafting Teacher Ultrasound, [facility] 1.2 .840.114 [id number] Univers 15:10:45 15:40:45 Visit Cristhian Gallegos TELEGRAPH AND TELETYPE OPERATOR [id number] 0 ity of [facility] [id number] Miko as MATERNAL [phone] [facility] ical & CHILD [address] [place] [address] 2020-05-06 2020-05-06 Outpatient P [facility] [id number] Univers 15:15:00 15:15:00 ity of [facility] 2020-05-05 2020-05-05 Routine Room, [facility] 1.2.840.1 [id number] Univers 13:00:53 14:08:30 Melyssa Lopez [id number] ity [id number] [phone] [address] 2020-05-05 2020-05-05 Outpatient R [facility] [id number] Univers 13:00:00 13:00:00 ity of [facility] 2020-04-30 2020-05-02 Routine Room, [facility] 1.2.840.1 [id number] Univers 08:53:48 09:57:20 Melyssa Lopez [id number] ity of [id number] [phone] [address] 2020-05-02 2020-05-02 Routine Room, [facility] 1.2.840.1 [id number] Univers 08:50:07 09:51:44 Lopez Melyssa Hernandez [id number] ity of [id number] [phone] [address] 2020-05-02 2020-05-02 Outpatient R [facility] [id number] Univers 08:00:00 08:00:00 ity of [facility] 2020-04-30 2020-04-30 [facility] [id number] Univers 10:30:00 10:30:00 CONSUELO ity of [facility] 2020-04-30 2020-04-30 Drafting Teacher 2, Adc Lab [facility] 1.2.840.114 [id number] Univers 10:14:23 10:29:23 Visit Melyssa Lopez Anatoly Hernandez [id number] ity of [id number] [phone] Wi dical nal [address] [facility] 2020-04-30 2020-04-30 Outpatient R [facility] [id number] Univers 09:00:00 09:00:00 ity of [facility] 2020-04-28 2020-04-28 Telephone Melyssa Lopze [facility] 1.2.840.114 [id number] Univers 00:00:00 00:00:00 Anatoly Hernandez 350.1.13.10 [place] [phone] Wi dical nal [address] [facility] 2020-04-18 2020-04-18 Outpatient R [facility] [id number] Univers 09:00:00 09:00:00 ity of [facility] 2020-04-16 2020-04-16 Routine Room, [facility] Nst [facility] 1.2.840.1 14 [id number] Univers 15:03:44 16:17:27 Melyssa Lopez Anatoly Hernandez 350.1.13.10 ity [place] [phone] Wi dical nal [address] [facility] 2020-04-16 2020-04-16 Outpatient R [facility] [id number] Univers 15:00:00 15:00:00 ity of [facility] 2020-04-16 2020-04-16 Outpatient R [facility] [id number] Univers 11:00:00 11:00:00 ity of [facility] 2020-04-14 2020-04-14 Hospital Melyssa Lopez [facility] 1.2.840.114 [id number] Univers 10:55:00 12:55:00 Encounter Anatoly Hernandez 350.1.13.10 [place] [phone] [facility] [address] [place] 2020-04-14 2020-04-14 Routine Room, [facility] 1.2.840.1 14 [id number] Univers 09:08:45 10:35:40 Consuelo Truong 350.1.13.10 ity [place] [phone] Wi dical nal [address] [facility] 2020-04-14 2020-04-14 Outpatient R JOHN MELYSSA [facility] [id number] Univers 10:30:00 10:30:00 ity of [facility] 2020-04-09 2020-04-09 Nurse Visit, [facility] Nurse [facility] 1.2.840.1 14 [id number] Univers 15:50:02 16:12:41 Visit John Melyssa Anatoly Hernandez 350.1.13.10 ity of [place] Espinoza 4.2.7.2.686 [place] Professio [phone] Wi dical nal [address] [facility] 2020-04-09 2020-04-09 Routine Room, [facility] 1.2.840.1 14 [id number] Univers 14:55:34 15:42:50 Melyssa Lopez Anatoly Hernandez 350.1.13.10 ity [place] [phone] Wi dical nal [address] [facility] 2020-04-09 2020-04-09 Outpatient R [facility] [id number] Univers 08:00:00 08:00:00 ity of [facility] 2020-04-07 2020-04-07 Routine Room, [facility] 1.2.840.1 14 [id number] Univers 08:51:52 10:30:48 Cruz Ruff 350.1.13.10 ity of Visit Consuelo [place] 4.2.7.2.686 [place] Professio [phone] Wi dical nal [address] [facility] 2020-04-07 2020-04-07 Outpatient R [facility] [id number] Univers 09:00:00 09:00:00 ity of [facility] 2020-04-07 2020-04-07 Drafting Teacher Ultrasound, [facility] [place] 1.2 .840.114 [id number] Univers 08:06:34 08:32:02 Visit Speedy Cruz F TELEGRAPH AND TELETYPE OPERATOR 350.1.13.10 ity of [facility] 4.2.7.2.686 Miko as MATERNAL [phone] Med ical & CHILD [address] [place] [address] 2020-04-07 2020-04-07 Orders Doctor CURTIS 1.2.840.114 [id number] Univers 00:00:00 00:00:00 Only Unassigned, HOMER 350.1.13.10 ity of [place] [facility] 4.2.7.2.686 Miko as [phone] [address] 2020-04-03 2020-04-03 Drafting Teacher 2, Adc Lab [facility] 1.2.840.114 [id number] Univers 15:50:56 16:30:33 Visit Melyssa Lopez [place] 350.1.13.10 ity of [place] [phone] Wi dical nal [address] [facility] 2020-04-03 2020-04-03 Outpatient R FELIBERTO, [facility] [id number] Univers 16:30:00 16:30:00 CONSUELO ity [facility] 2020-04-03 2020-04-03 Case Melyssa Lopez [facility] 1.2.972.268 [id number] Univers 00:00:00 00:00:00 Management Cam [place] 350.1.13.10 ity of [place] [phone] Wi dical nal [address] [facility] 2020-03-20 2020-03-20 Case Melyssa Lopez [facility] 1.2.035.742 [id number] Univers 00:00:00 00:00:00 Management Cam [place] 350.1.13.10 ity of [place] [phone] Wi dical nal [address] [facility] 2020-03-19 2020-03-19 Routine Melyssa Lopez [facility] 1.2.719.529 [id number] Univers 16:04:00 17:11:07 Cam [place] 350.1.13.10 ity of [place] [phone] [address] 2020-03-19 2020-03-19 Outpatient R LOPEZ MELYSSA [facility] [id number] Univers 16:00:00 16:00:00 ity of [facility] 2020-03-10 2020-03-10 Telephone John Melyssa [facility] 1.2.840.114 [id number] Univers 00:00:00 00:00:00 Cam Mary 350.1.13.10 i ty of [place] [phone] [address] 2020-02-28 2020-02-28 Telephone Feliberto [facility] 1.2.840.114 [id number] Univers 00:00:00 00:00:00 Consuelo Hernandez 350.1.13.10 i ty of [place] [phone] [address] 2020-02-28 2020-02-28 Orders Doctor CURTIS 1.2.840.114 [id number] Univers 00:00:00 00:00:00 Only Unassigned, HOMER 350.1.13.10 ity of [place] [facility] 4.2.7.2.686 Miko as [phone] [address] 2020-01-17 2020-01-17 Telemedici [facility] 1.2.840.114 [id number] Univers 14:45:00 15:00:00 ne Visit Consuelo Hernandez 350.1.13.10 it[place] of [place] [phone] [address] 2020-01-17 2020-01-17 Outpatient R FELIBERTO [facility] [id number] Univers 14:45:00 14:45:00 CONSUELO harden [facility] 2020-01-16 2020-01-16 Outpatient R FELIBERTO [facility] [id number] Univers 11:00:00 11:00:00 CONSUELO harden of [facility] 2020-01-15 2020-01-15 Telephone Melyssa Lopez [facility] 1.2.840.114 [id number] Univers 00:00:00 00:00:00 Anatoly Hernandez 350.1.13.10 i ty [place] [phone] [address] 2020-01-02 2020-01-07 Drafting Teacher Tiffany, Ch[facility] 1.2 .840.114 [id number] Univers 09:37:16 10:35:35 Visit Melyssa Lopez TELEGRAPH AND TELETYPE OPERATOR 350.1.13.10 ity of [place] 4.2.7.2.686 [place]iko as MATERNAL [phone] Med ical & CHILD [address] [place] [address] 2020-01-02 2020-01-02 Outpatient R AI LOPEZEN [facility] [id number] Univers 16:00:00 16:00:00 ity [facility] 2020-01-02 2020-01-02 Telemedici Melyssa Lopez [facility] 1.2.840.114 [id number] Univers 09:32:02 09:47:02 ne Visit Anatoly Hernandez 350.1.13.10 it[place] of [place] [phone] [address] 2019-12-18 2019-12-18 Routine Feliberto [facility] 1.2.998.854 [id number] Univers 08:50:36 14:03:18 Consuelo Hernandez 350.1.13.10 ity of [place] [phone] [address] 2019-12-18 2019-12-18 Drafting Teacher Moy Enamorado Lab Main [facility] 1.2.8 40.114 [id number] Univers 09:57:49 10:12:49 Visit Consuelo Truong 350.1.13.10 ity of [place] [phone] [facility] [address] [facility] 2019-12-18 2019-12-18 Outpatient R FELIBERTO [facility] [id number] [facility] 08:45:00 08:45:00 CONSUELO harden [facility] 2019 2019 Patient Doctor CURTIS 1.2.840.114 [id number] Univers 00:00:00 00:00:00 Secure Msg Unassigned, HOMER 350.1.13.10 [facility] 4.2.7.2.686 [place] as [phone] [address] 2019-12-07 2019-12-07 Telephone [facility] 1.2.840.114 [id number] Univers 00:00:00 00:00:00 Consuelo Hernandez 350.1.13.10 i ty of [place] [phone] Wi dical nal [address] [facility] 2019-12-07 2019-12-07 Refill [facility] 1.2.713.100 [id number] Univers 00:00:00 00:00:00 Consuelo Hernandez 350.1.13.10 i ty of [place] [phone] Wi dical nal [address] [facility] 2019-12-03 2019-12-03 Case [facility] 1.2.243.522 [id number] Univers 00:00:00 00:00:00 Management Consuelo Hernandez 350.1.13.10 ity of [place] [phone] Wi dical nal [address] [facility] 2019-11-30 2019-11-30 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, Moy Lab Main [facility] 1.2.8 40.114 [id number] Univers 09:00:16 09:15:16 Visit Consuelo Truong 350.1.13.10 ity of [place] [phone] Wi dical nal [address] [facility] 2019-11-30 2019-11-30 Outpatient R FELIBERTO [facility] [id number] Univers 09:15:00 09:15:00 CONSUELO harden [facility] 2019-11-29 2019-11-29 Telephone Melyssa Lopez [facility] 1.2.840.114 [id number] Univers 00:00:00 00:00:00 Anatoly [place] 350.1.13.10 i ty of [place] [phone] [facility] [address] [facility] 2019-11-29 2019-11-29 Telephone Melyssa Lopez [facility] 1.2.840.114 [id number] Univers 00:00:00 00:00:00 Cam [place] 350.1.13.10 i ty of [place]2.[place] [phone] [address] 2019-11-28 2019-11-28 Telephone Melyssa Lopez [facility] 1.2.840.114 [id number] Univers 00:00:00 00:00:00 Anatoly [place] 350.1.13.10 i ty of [place] [phone] [facility] [address] [facility] 2019-11-27 2019-11-27 Patient Doctor [facility] 1.2.091.746 [id number] Univers 00:00:00 00:00:00 Secure Msg Unassigned, [facility] 350.1.13.10 ity of [place] [facility] 4.2.7.2.[place] [phone] [address] 2019-11-26 2019-11-26 Drafting Teacher Moy Enamorado Lab Main [facility] 1.2.8 40.114 [id number] Univers 08:59:02 09:14:02 Visit Melyssa Lopez Anatoly Hernandez 350.1.13.10 ity of [place].2.[place] [phone] [facility] [address] [facility] 2019-11-26 2019-11-26 Outpatient R AI LOPEZEN [facility] [id number] Univers 08:30:00 08:30:00 ity of [facility] 2019-11-22 2019-11-22 Telephone Feliberto [facility] 1.2.840.114 [id number] Univers 00:00:00 00:00:00 Consuelo [place] 350.1.13.10 i ty [place] [phone] Wi dical nal [address] [facility] 2019-11-22 2019-11-22 Case Feliberto [facility] 1.2.736.029 [id number] Univers 00:00:00 00:00:00 Management Consueloprincess Morenoton 350.1.13.10 ity of [place].2.[place] [phone] Wi dicsd nal [address] [facility] 2019-11-21 2019-11-21 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, 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 Lab Main [place] 1.2.8 40.114 [id number] Univers 08:53:23 11:28:02 Visit Melyssa Lopez 350.1.13.10 ity of [place].2.[place] [phone] Wi dical nal [address] [facility] 2019-11-21 2019-11-21 Orders Doctor CURTIS 1.2.840.114 [id number] Univers 00:00:00 00:00:00 Only Unassigned, HOMER 350.1.13.10 ity of [place] [facility] 4.2.7.2.686 Miko as [phone] [address] 2019-11-20 2019-11-20 Routine Melyssa Lopez [place] 1.2.958.147 [id number] Univers 13:13:37 14:20:40 Anatoly Hernandez 350.1.13.10 ity of [place] [phone] Wi dical nal [address] [facility] 2019-11-03 2019-11-03 Orders Doctor CURTIS 1.2.840.114 [id number] Univers 00:00:00 00:00:00 Only Unassigned, HOMER 350.1.13.10 ity of [place] [facility] 4.2.7.2.686 Miko as [phone] [address] 2019-10-30 2019-10-30 Case Feliberto [facility] 1.2.412.641 [id number] Univers 00:00:00 00:00:00 Management Consuelo Hernandez 350.1.13.10 ity of [place] [phone] [address] 2019-10-25 2019-10-25 Telephone Melyssa Lopez [facility] 1.2.840.114 [id number] Univers 00:00:00 00:00:00 [place] 350.1.13.10 i ty of [place] [phone] [address] 2019-10-23 2019-10-23 Initial Melyssa Lopez [facility] 1.2.298.690 [id number] Univers 14:42:54 15:53:56 Anatoly Hernandez 350.1.13.10 ity of Visit [place].2.[place] [phone] [address] 2019-10-23 2019-10-23 Orders Doctor CURTIS 1.2.840.114 [id number] Univers 00:00:00 00:00:00 Only Unassigned, HOMER 350.1.13.10 ity of [place] [facility] 4.2.7.2.686 Miko as [phone] [address] 2019-10-16 2019-10-16 Telephone Melyssa Lopez [facility] 1.2.840.114 [id number] Univers 00:00:00 00:00:00 Anatoly Hernandez 350.1.13.10 i ty of [place]2.[place] [phone] [address] Results Test Description Test Time Test Comments Results Result Comments Source CBC with Differential 2020-05-15 11:48:00 Test Item Value Reference Range Interpretation Comme nts WBC (test code = 6690-2) See_Comment H [A utomated message] The system which ge nerated this result transmit maria e reference range: 4.30 - 1 1.10 10*3/?L. The reference r cipriano was not used to interpr et this result as normal/abnor mal. RBC (test code = 789-8) See_Comment [Au tomated message] The system which ge nerated this result transmit maria e reference range: 3.93 - 5 .25 10*6/?L. The reference r cipriano was not used to interpr et this result as normal/abnor mal. HGB (test code = 718-7) 11.3 g/dL 11.6-15 L HCT (test code = 4544-3) 35.2 % 35.7-45.2 L MCV (test code = 787-2) 86.7 fL 80.6-95.5 MCH (test code = 785-6) 27.8 pg 25.9-32.8 MCHC (test code = 786-4) 32.1 g/dL 31.6-35.1 RDW-SD (test code = 31908-2) 46.5 fL 39-49.9 RDW-CV (test code = 788-0) 14.6 % 12-15.5 PLT (test code = 777-3) See_Comment [Au tomated message] The system which [employer] nerated this result transmit maria e reference range: 166 - 35 8 10*3/?L. The reference range was not used to interpret th is result as normal/abnormal . MPV (test code = 54127-0) 11.0 fL 9.5-12.9 NRBC/100 WBC (test code = See_Comment [ Automated message] The 0614063282) system which [employer] nerated this result transmit maria e reference range: 0.0 - 10 .0 /100 WBCs. The reference r cipriano was not used to interpr et this result as normal/abnor mal. NRBC x10^3 (test code = <0.01 See_Comment [Au tomated message] The 8881428450) system which [employer] nerated this result transmit maria e reference range: 10*3/?L. The reference range was not u sed to interpret this result as normal/abnormal . GRAN MAT (NEUT) % (test code 77.6 % = 770-8) IMM GRAN % (test code = 0.70 % 8709663010) LYMPH % (test code = 736-9) 10.4 % MONO % (test code = 5905-5) 10.4 % EOS % (test code = 713-8) 0.6 % BASO % (test code = 706-2) 0.3 % GRAN MAT x10^3(ANC) (test 12.08 10*3/uL 1.88-7.09 H code = 6361910302) IMM GRAN x10^3 (test code = 0.11 10*3/uL 0-0.06 H 7786318541) LYMPH x10^3 (test code = 1.61 10*3/uL 1.32-3.29 731-0) MONO x10^3 (test code = 1.61 10*3/uL 0.33-0.92 H 742-7) EOS x10^3 (test code = 0.09 10*3/uL 0.03-0.39 711-2) BASO x10^3 (test code = 0.04 10*3/uL 0.01-0.07 704-7) GIANT PLATELETS (test code = Present See_Comment A [Automated message] The 5908-9) system which ge nerated this result transmit maria e reference range: (none). The reference range was not u sed to interpret this result as normal/abnormal . Lab Interpretation (test Abnormal code = 59292-3) [facility] IMMUNE [id number] 18:49:43 Test Item Value Reference Range Interpretation Comments RHIG CANDIDATE? No- see comment Patient i s not a (test code = candidate for R hIg- 5055) Patient is Rh Positive.Perfor med at [facility] Laboratory Services - [facility] Blood [address] [place], [place] [address]Toll Free: [phone] A No. [id number] [facility] CampusArterial Cord [id number] 16:26:00 Test Item Value Reference Range Interpretation Comments BASE EXCESS, CORD (test mEq/L code = 7861633701) AC PH, CORD (BEAKER) 7.18-7.38 L (test code = 9326689901) PC02, CORD (test code = See_Comment H [Au tomated message] 7430825038) The system [employer] generated this result transmitted ref erence range: 32 - 66 mmHg. The reference r cipriano was not used to interpret this result as normal/abnor mal. PO2, CORD (test code = Unabl e to read 3231235933) BICARBONATE, CORD (test See_Comment [Au tomated message] code = 2130840785) The syste m which generated this result transmitted ref erence range: 17 - 27 mEq/L. The reference r cipriano was not used to interpret this result as normal/abnor mal. Lab Interpretation (test Abnormal code = 26390-5) [facility] [id number] 16:25:00 Test Item Value Reference Range Interpretation Comments VENOUS BASE EXCESS, CORD mEq/L (test code = 3202889026) VENOUS PH, CORD (test 7.25-7.45 code = 5297922972) VENOUS PC02, CORD (test See_Comment H [Au tomated message] code = 9861560260) The syste m which generated this result transmitted ref erence range: 27 - 49 mmHg. The reference r cipriano was not used to interpret this result as normal/abnor mal. VENOUS PO2, CORD (test See_Comment [Aut omated message] code = 2730534826) The syste m which generated this result transmitted ref erence range: 17 - 41 mmHg. The reference r cipriano was not used to interpret this result as normal/abnor mal. VENOUS BICARBONATE, CORD See_Comment [A utomated message] (test code = 4080386000) The system which generated this result transmitted ref erence range: 12 - 29 mEq/L. The reference r cipriano was not used to interpret this result as normal/abnor mal. Lab Interpretation (test Abnormal code = 34002-6) [facility]COVID[facility] (ID NOW RAPID TESTING)2020-05-14 14:34:00 Test Item Value Reference Range Interpretation Comments SARS-CoV-2 Rapid ID NOW Not Detected Not Detected (test code = 59539-8) MIKE (test code = MIKE) ID NOW COVID-19 Assay is an isothermal nucleic acid amplification test intended for the qualitative detection of nucleic acid from SARS-CoV-2 viral RNA in nasopharyngeal (FUEL SYSTEM MAINTENANCE SUPERVISOR) specimens. It is used under Emergency Use [...] indicated. Lab Interpretation Normal (test code = 17785-1) [facility]PO[facility] GLUCOSE (AUTOMATED)2020-05-14 14:12:00 Test Item Value Reference Range Interpretation Comments POCT GLU (test code = 7514066329) 96 mg/dL 70-110 Lab Interpretation (test code = Normal 76526-0) [facility] NON-STRESS [id number] 19:06:12 Reactive and reassuring NST [facility]UnN[facility] NON-STRESS [id number] 19:06:12Reactive and reassuring NST Irregular contractionsUnNemaha [facility] Hospital NON-STRESS TEST 2020-05-09 19:03:19Reactive and reassuringToco with irritability Melyssa Lopez MD ?05/09/2020 ?2:03 PMUnNemaha County Hospital NON-STRESS TEST 2020-05-05 19:33:42Reactive and reassuring NSTUnColumbus Community Hospital POCT URINALYSIS W/O SPECIFIC [id number] 18:41:00 Test Item Value Reference Range Interpretation [...] Negative Lab Interpretation (test code = Normal 35208-6) [facility] NON-STRESS [id number] 14:53:01 Reactive and reassuring [place] with irritability Melyssa Lopez MD ?05/02/2020 ?9:52 AMUnColumbus Community HospitalGC & CHLAMYDIA AMPLIFIED [id number] 17:16:00 Test Item Value Reference Range Interpretation Comments C. trachomatis Nucleic Acid (test Negative Negative code = 06166-7) N. gonorrhoeae Nucleic Acid (test Negative Negative code = 35731-6) Lab Interpretation (test code = Normal 13831-8) [facility]>14 WEEKS US [id number] 21:00:21Cephalic presentationUnColumbus Community Hospital>14 WEEKS US [id number] 21:00:21Cephalic presentationUnColumbus Community Hospital>14 WEEKS US [id number] 21:00:21Cephalic presentationUnColumbus Community HospitalFETAL NON-STRESS [id number] 20:59:35Reactive and reassuring NSTUnColumbus Community HospitalFETAL NON- STRESS [id number] 20:59:35Reactive and reassuring NSTUnColumbus Community HospitalFETAL NON-STRESS [id number] 20:59:35Reactive and reassuring NSTUnColumbus Community HospitalPOCT URINALYSIS W/O SPECIFIC GRAVITY 2020-04-30 14:15:00 Test [...] Negative Lab Interpretation (test code = Normal 57796-2) [facility]PO[facility]INALYSIS W/O SPECIFIC [id number] 14:15:00 Test Item Value Reference Range Interpretation [...] Negative Lab Interpretation (test code = Normal 68285-7) [facility] CampusPO[facility] URINALYSIS W/O SPECIFIC [id number] 14:15:00 Test Item Value Reference Range Interpretation [...] Negative Lab Interpretation (test code = Normal 48605-8) [facility] CampusFETAL NON-STRESS [id number] 23:57:59 Reactive and reassuringToco quiescent Melyssa Lopez MD ?04/18/2020 ?6:57 PM [facility] CampusBIOPHYSICAL PROFILE WITH NON-STRESS TEST 2020-04-16 21:25:34NST: ?Baseline 150s, moderate variability, spontaneous decel down to 100s x 40 secondsToco: ?Quiescent BPP performed, score 8/8. Melyssa Lopez MD ?04/16/2020 ?4:25 PMUnColumbus Community HospitalUS PELVIS LIMITED 2020-04-14 17:50:25Limited view of the gravid uterus with normal amniotic fluid. RL: 1105 Patient name: ALPHONSE LYONALEXUS: 1980 39 years EXAMINATION: US PELVIS LIMITED Ordering Physician: MELYSSA LOPEZ CLINICAL HISTORY:Amniotic fluid index COMPARISON:None TECHNIQUE:Grayscale and Doppler images of the gravid uterus performed. FINDINGS:Normal amnioticfluid identified at approximately 11 cm. An intrauterinegestation is partially visualized. This was not a dedicated anatomicsurvey. [facility], Radiant Results Inft User - 04/14/2020 12:51 PM CDTPatient name: ALPHONSE LYONDOB: 1980 39 years EXAMINATION: US PELVIS LIMITEDOrdering Physician: MLEYSSA LOPEZ CLINICAL HISTORY:Amniotic fluid indexCOMPARISON:NoneTECHNIQUE:Grayscale and Doppler images ofthe gravid uterus performed.FINDINGS:Normal amniotic fluid identified at approximately 11 cm. An intrauterinegestation is partially visualized. This was not a dedicated anatomicsurvey.IMPRESSIONLimitedview of the gravid uterus with normal amniotic fluid.RL: 1105 [facility] ONLY - FERN [id number] 17:27:00 Test Item Value Reference Range Interpretation Comments Fern Test (test code = 7916816836) Negative [facility] NON-STRESS [id number] 20:56:33 Reactive and reassuringToco quiescent Melyssa Lopez MD ?04/09/2020 ?3:56 PM [facility] URINALYSIS W/O SPECIFIC [id number] 20:15:00 Test Item Value Reference Range Interpretation [...] Negative Lab Interpretation (test code = Abnormal 83511-8) [facility] [id number] 15:28:50 Reactive and reassuring [facility]Un[facility]SE 2020-04-07 15:17:00 Test Item Value Reference Range Interpretation Comments POCT Glu (age>30days) (test code = 150 mg/dL 70-110 A 3342) Lab Interpretation (test code = Abnormal 07513-7) [facility] URINALYSIS W/O SPECIFIC [id number] 14:17:00 Test Item Value Reference Range Interpretation [...] code = 3257) N/A Negative - Negative [facility] CampusCB WITH [id number] 21:10:00 Test Item Value Reference Range Interpretation Comments WBC (test code = See_Comment [Automated 6890-2) message] The sy stem which generated this result transmitted reference range : 4.30 - 11.10 10*3/?L. The reference range was not used to interpret this result as normal/abnormal . RBC (test code = See_Comment L [Automated 629-8) message] The sy stem which generated this [...] RDW-SD (test code = 45.7 fL 39-49.9 02374-7) RDW-CV (test code = 14.1 % 12-15.5 788-0) PLT (test code = See_Comment [Automated 777-3) message] The sy stem which generated this result transmitted reference range : 166 - 358 10*3/ ?L. The reference r cipriano was not used to interpret this result as normal/abnormal . MPV (test code = 9.7 fL 9.5-12.9 09105-6) NRBC/100 WBC (test See_Comment [Automat ed code = [id number]) message] The system which generated this result transmitted reference range : 0.0 - 10.0 /100 WBCs. The refer ence range was not u sed to interpret th is result as normal/abnormal . NRBC x10^3 (test code <0.01 See_Comment [Auto mated = [id number]) message] The s ystem which generated this result transmitted reference range : 10*3/?L. The reference range was not used to interpret this result as normal/abnormal . GRAN MAT (NEUT) % 66.2 % (test code = 770-8) IMM GRAN % (test code 1.20 % = 1793471651) LYMPH % (test code = 19.5 % 736-9) MONO % (test code = 12.2 % 5905-5) EOS % (test code = 0.7 % 713-8) BASO % (test code = 0.2 % 706-2) GRAN MAT x10^3(ANC) 6.32 10*3/uL 1.88-7.09 (test code = 4454493204) IMM GRAN x10^3 (test 0.11 10*3/uL 0-0.06 H code = 7221362225) LYMPH x10^3 (test code 1.86 10*3/uL 1.32-3.29 = 731-0) MONO x10^3 (test code 1.16 10*3/uL 0.33-0.92 H = 742-7) EOS x10^3 (test code = 0.07 10*3/uL 0.03-0.39 711-2) BASO x10^3 (test code <0.03 0.01-0.07 = 704-7) Lab Interpretation Abnormal (test code = 59255-5) [facility] HEMOGLOBIN A1C [id number] 21:45:00 Test Item Value Reference Range Interpretation Comments POCT HBA1C (test code = 4548-4) 6.4 % 4-6 A Lab Interpretation (test code = Abnormal 63679-3) [facility] [id number] 21:39:00 Test Item Value Reference Range Interpretation Comments POCT Glu (age>30days) (test code = 96 mg/dL 70-110 3342) [facility] URINALYSIS W/O SPECIFIC [id number] 21:23:00 Test Item Value Reference Range Interpretation [...] code = 3257) n/a Negative - Negative [facility] URINALYSIS W/O SPECIFIC [id number] 14:37:00 Test Item Value Reference Range Interpretation [...] Negative Lab Interpretation (test code = Normal 87481-7) [facility] URINALYSIS W/O SPECIFIC [id number] 14:37:00 Test Item Value Reference Range Interpretation [...] Negative Lab Interpretation (test code = Normal 93987-9) [place] [address] HR GLUCOSE TOLERANCE [id number] 19:20:00 Test Item Value Reference Range Interpretation Comments GLUC 3 HR (test code = 8718015813) 144 mg/dL 70-110 H Lab Interpretation (test code = Abnormal 88129-9) [facility] HR GLUCOSE TOLERANCE [id number] 18:07:00 Test Item Value Reference Range Interpretation Comments GLUC 2 HR (test code = 3106686427) 198 mg/dL 70-120 H Lab Interpretation (test code = Abnormal 00664-1) [facility] HR GLUCOSE TOLERANCE [id number] 17:13:00 Test Item Value Reference Range Interpretation Comments GLUC 1 HR (test code = 2704127030) 206 mg/dL 120-170 H Lab Interpretation (test code = Abnormal 93668-2) [facility] [id number] 16:46:00 Test Item Value Reference Range Interpretation Comments GLU FASTNG (test code = 0629247158) 111 mg/dL 70-110 H Lab Interpretation (test code = Abnormal 53893-2) [facility], BLOOD [id number] 17:39:20 Test Item Value Reference Range Interpretation Comments ABO & RH (test code O Positive Performe d at [facility] = 20) Laboratory Serv [facility] [place], [place] [address]Toll Free: [phone] A No. [id number] IAT (test code = Negative Performed a t [facility] 1185) Laboratory Serv [facility] [place], [place] [address]Toll Free: [phone] A No. [id number] [facility] H[facility] [id number] 17:18:00 Test Item Value Reference Range Interpretation Comments GLUC 1 HR (test code = 3621470070) 186 mg/dL 120-170 H Lab Interpretation (test code = Abnormal 19649-1) [facility] H[facility] [id number] 17:18:00 Test Item Value Reference Range Interpretation Comments GLUC 1 HR (test code = 2220513670) 186 mg/dL 120-170 H Lab Interpretation (test code = Abnormal 33642-4) [facility]. METABOLIC PANEL (79417)2019-11-21 17:17:00 Test Item Value Reference Range Interpretation Comments NA (test code = 134 mmol/L 135-145 L 7447420501) K (test code = 3.8 mmol/L 3.5-5 3967215029) CL (test code = 100 mmol/L 98-108 8801797401) CO2 TOTAL (test code = 24 mmol/L 23-31 0009270963) AGAP (test code = 2-16 1384000537) BUN (test code = 5 mg/dL 7-23 L 6632978967) GLUCOSE (test code = 188 mg/dL 70-110 H 0137992167) CREATININE (test code = 0.45 mg/dL 0.5-1.04 L 1351672845) TOTAL BILI (test code = 0.5 mg/dL 0.1-1.2 7460751040) CALCIUM (test code = 9.2 mg/dL 8.6-10.6 9701812640) T PROTEIN (test code = 6.7 g/dL 6.3-8.2 5717382712) ALBUMIN (test code = 3.9 g/dL 3.5-5 8301152865) ALK PHOS (test code = 50 U/L 34-122 4737701912) ALTv (test code = 13 U/L 5-35 1742-6) AST(SGOT) (test code = 16 U/L 13-40 8911149954) eGFR Calculation mL/min/1.73m2 (Non-) (test code = 3659756764) eGFR Calculation mL/min/1.73m2 () (test code = 9743661874) MIKE (test code = MIKE) Association of [...] tests). Lab Interpretation Abnormal (test code = 74868-1) [facility]. METABOLIC PANEL (33301)2019-11-21 17:17:00 Test Item Value Reference Range Interpretation Comments NA (test code = 134 mmol/L 135-145 L 5717953967) K (test code = 3.8 mmol/L 3.5-5 4095501702) CL (test code = 100 mmol/L 98-108 6691712799) CO2 TOTAL (test code = 24 mmol/L 23-31 9911847686) AGAP (test code = 2-16 5870390294) BUN (test code = 5 mg/dL 7-23 L 6266352153) GLUCOSE (test code = 188 mg/dL 70-110 H 2109828968) CREATININE (test code = 0.45 mg/dL 0.5-1.04 L 0798733526) TOTAL BILI (test code = 0.5 mg/dL 0.1-1.0 2253475159) CALCIUM (test code = 9.2 mg/dL 8.6-10.6 2778388327) T PROTEIN (test code = 6.7 g/dL 6.3-8.2 7669150842) ALBUMIN (test code = 3.9 g/dL 3.5-5 3871778449) ALK PHOS (test code = 50 U/L 34-122 2927510821) ALTv (test code = 13 U/L 5-35 1742-6) AST(SGOT) (test code = 16 U/L 13-40 9567593678) eGFR Calculation mL/min/1.73m2 (Non-) (test code = 4709902527) eGFR Calculation mL/min/1.73m2 () (test code = 2694497479) MIKE (test code = MIKE) Association of [...] tests). Lab Interpretation Abnormal (test code = 15854-9) [facility] WITH [id number] 16:42:00 Test Item Value Reference Range Interpretation Comments WBC (test code = See_Comment [Automated message] 6690-2) The system [employer] generated this result transmitted ref erence range: 4.30 - 1 1.10 10*3/?L. The re ference range was not u sed to interpret this result as normal/abnor mal. RBC (test code = See_Comment [Automated message] 789-8) The system [employer] generated this result transmitted ref erence range: [...] RDW-SD (test code 47.0 fL 39-49.9 = 01547-8) RDW-CV (test code 14.4 % 12-15.5 = 788-0) PLT (test code = See_Comment [Automated message] 777-3) The system [employer] generated this result transmitted ref erence range: 166 - 35 8 10*3/?L. The re ference range was not u sed to interpret this result as normal/abnor mal. MPV (test code = 10.0 fL 9.5-12.9 78827-4) NRBC/100 WBC (test See_Comment [Automat ed message] code = 7648731040) The syste m which generated this result transmitted ref erence range: 0.0 - 10 .0 /100 WBCs. The refer ence range was not u sed to interpret this result as normal/abnor mal. NRBC x10^3 (test <0.01 See_Comment [Automated message] code = 8672439823) The syste m which generated this result transmitted ref erence range: 10*3/?L. The reference range was not used to interpr et this result as normal/abnormal . GRAN MAT (NEUT) % 72.2 % (test code = 770-8) IMM GRAN % (test 0.50 % code = 7391508225) LYMPH % (test code 19.9 % = 736-9) MONO % (test code 6.6 % = 5905-5) EOS % (test code = 0.6 % 713-8) BASO % (test code 0.2 % = 706-2) GRAN MAT 5.93 10*3/uL 1.88-7.09 x10^3(ANC) (test code = 3819487336) IMM GRAN x10^3 0.04 10*3/uL 0-0.06 (test code = 2019404744) LYMPH x10^3 (test 1.63 10*3/uL 1.32-3.29 code = 731-0) MONO x10^3 (test 0.54 10*3/uL 0.33-0.92 code = 742-7) EOS x10^3 (test 0.05 10*3/uL 0.03-0.39 code = 711-2) BASO x10^3 (test <0.03 0.01-0.07 code = 704-7) [facility] WITH [id number] 16:42:00 Test Item Value Reference Range Interpretation Comments WBC (test code = See_Comment [Automated message] 6790-2) The system [employer] generated this result transmitted ref erence range: 4.30 - 1 1.10 10*3/?L. The re ference range was not u sed to interpret this result as normal/abnor mal. RBC (test code = See_Comment [Automated message] 789-8) The system [employer] generated this result transmitted ref erence range: [...] RDW-SD (test code 47.0 fL 39-49.9 = 66479-9) RDW-CV (test code 14.4 % 12-15.5 = 788-0) PLT (test code = See_Comment [Automated message] 777-3) The system whic h generated this result transmitted ref erence range: 166 - 35 8 10*3/?L. The re ference range was not u sed to interpret this result as normal/abnor mal. MPV (test code = 10.0 fL 9.5-12.9 35597-0) NRBC/100 WBC (test See_Comment [Automat ed message] code = 9635008094) The syste m which generated this result transmitted ref erence range: 0.0 - 10 .0 /100 WBCs. The refer ence range was not u sed to interpret this result as normal/abnor mal. NRBC x10^3 (test <0.01 See_Comment [Automated message] code = 7507709190) The syste m which generated this result transmitted ref erence range: 10*3/?L. The reference range was not used to interpr et this result as normal/abnormal . GRAN MAT (NEUT) % 72.2 % (test code = 770-8) IMM GRAN % (test 0.50 % code = 6243812152) LYMPH % (test code 19.9 % = 736-9) MONO % (test code 6.6 % = 5905-5) EOS % (test code = 0.6 % 713-8) BASO % (test code 0.2 % = 706-2) GRAN MAT 5.93 10*3/uL 1.88-7.09 x10^3(ANC) (test code = 1130398413) IMM GRAN x10^3 0.04 10*3/uL 0-0.06 (test code = 2796167985) LYMPH x10^3 (test 1.63 10*3/uL 1.32-3.29 code = 731-0) MONO x10^3 (test 0.54 10*3/uL 0.33-0.92 code = 742-7) EOS x10^3 (test 0.05 10*3/uL 0.03-0.39 code = 711-2) BASO x10^3 (test <0.03 0.01-0.07 code = 704-7) [facility] WITH [id number] 16:42:00 Test Item Value Reference Range Interpretation Comments WBC (test code = See_Comment [Automated message] 6690-2) The system [employer] generated this result transmitted ref erence range: 4.30 - 1 1.10 10*3/?L. The re ference range was not u sed to interpret this result as normal/abnor mal. RBC (test code = See_Comment [Automated message] 369-8) The system [employer] generated this result transmitted ref erence range: [...] RDW-SD (test code 47.0 fL 39-49.9 = 18962-5) RDW-CV (test code 14.4 % 12-15.5 = 788-0) PLT (test code = See_Comment [Automated message] 777-3) The system [employer] generated this result transmitted ref erence range: 166 - 35 8 10*3/?L. The re ference range was not u sed to interpret this result as normal/abnor mal. MPV (test code = 10.0 fL 9.5-12.9 25900-2) NRBC/100 WBC (test See_Comment [Automat ed message] code = 3289121554) The syste m which generated this result transmitted ref erence range: 0.0 - 10 .0 /100 WBCs. The refer ence range was not u sed to interpret this result as normal/abnor mal. NRBC x10^3 (test <0.01 See_Comment [Automated message] code = 1104855619) The syste m which generated this result transmitted ref erence range: 10*3/?L. The reference range was not used to interpr et this result as normal/abnormal . GRAN MAT (NEUT) % 72.2 % (test code = 770-8) IMM GRAN % (test 0.50 % code = 2569005440) LYMPH % (test code 19.9 % = 736-9) MONO % (test code 6.6 % = 5905-5) EOS % (test code = 0.6 % 713-8) BASO % (test code 0.2 % = 706-2) GRAN MAT 5.93 10*3/uL 1.88-7.09 x10^3(ANC) (test code = 6661300820) IMM GRAN x10^3 0.04 10*3/uL 0-0.06 (test code = 5656945937) LYMPH x10^3 (test 1.63 10*3/uL 1.32-3.29 code = 731-0) MONO x10^3 (test 0.54 10*3/uL 0.33-0.92 code = 742-7) EOS x10^3 (test 0.05 10*3/uL 0.03-0.39 code = 711-2) BASO x10^3 (test <0.03 0.01-0.07 code = 704-7) [facility] [id number] 19:32:00 Test Item Value Reference Range Interpretation [...] code = 3257) N/A Negative - Negative [facility]LIQUID [id number] 22:56:00 Test Item Value Reference Range Interpretation Comments Case Report (test code Gynecologic Cytology ? = 9094520488) ?Case: [id number] ? Authorizing Provider: ?Melyssa Lopez MD ?Collected: ? 10/23/2019 1542 ?Ordering Location: ? ? [facility] ?Received: ?10/23/2019 2341 ? [facility] ? First Screen: ?Goldie Huntley ? Specimen: ? ?Liquid Based Pap Preparation, CERVIX ? Clinical Information pt reports abnormal pap (test code = at age 18, none since 8255608814) Specimen Adequacy Satisfactory for (test code = 93974-3) Evaluation(Endocervical /Transformation Zone Component Present) Interpretation (test Negative for code = 91121-4) intraepithelial lesion or malignancy Comments (test code = i2sliGHuVMUkc7elYNWsrZD 0198121473) uZzEwMzNcZnRuYmpcdWMxIH wkquKsWBnbu3McL7FqGgKqN FxhbnNpXGRlZmxhbmcxMDMz LUH7soHaMIQkNGxdJPGnRUs eNl9etYHkwSduHoOsVOBsn1 ofizEGSXedMwNiP753IBUrY Pdne9qbo1AqSJDarGFbx5Y0 GXIUugzxvAw5t6ozOtCnTsI 7iMEhEPieH5mfypLfzBZgR7 RgcIBlyHq8kRepJ69wy7E3W fulP0rrQNPtQYAdA0DxGR7t DUMcOmv6YMA0GXB2AHCwXTD gW7DaVM4rBLUtvTAeBJa6a0 ubgJhrWTRiIYO3i5jgHIvju hJ1RS2itm8byTp7r7izdaIj RXPeZFZqqENUKVDuW8LwfOt mAd9swUs9cQeuWaxaXHD5Fs w8VW8arx69mrz0wNbcGXVzb skvSbW7WDbxEIBkaaykEXt7 DKmbVYDtxZV9RSUfhZLfA0K iZVNzIS9fwbo2OKI7WJgbLS JbWtS9IZHlmNHpJOFbeJzvI Jgrr186RLH1ZsInMF6zQ7Fl d4G4dU4xmGGvBFQtxRCcUtF yZRVrtq6owQSaCQrqx8QuN2 5ooTX2UEaab7guZT8uAnM4i tTgEDdty1uvvI7qHmE7OErm HG9eqf98FLDwUSZ1tb6maPI hrKqvwgLouKEjMPwnZ2TdCB Awm179HDBhY6OpEPLiy9M3z zFfDbWwSVGmjUQ8xhC7VPAv PHd9tHQnjsO0aiSxlTLeT2e dvC7sSLVvEF1eqjaqp9tsVG mlRSclGSOdeDM7gvL4CDSnh NLfK9NlvH8zCSVzXRthJBLc zye1KgVgOj4vlRHrbWybEAh zYmtwYWdlXHBnbmNvbnRccG duZGVjXHBsYWluXHBsYWluX AFmCLJlXdRerBNyUHhnr3Oc dyRwcKpuEVVfGHo7onKgfww jcCz1fRFtoFktRPZojDuyxW 6tBdVsGiDtHIxkWJ5eOYCnY 2fvcDClGNTpBRKjQ9acYdMx fC3iuSqmHHnjFoHuIyIaNSy aoOKkrPmrYABbzIoddU0kQf BpSoDuGVrrZP0kPNQzA4wen XIoLNPbLWWfH0eoHkWvyS0h aFxmMVxjZjJcZnMyMFxwYXJ ihXrhaD2wBnElAqSnEDjbLL 2wZTPcN4pmhLHhTQLsIBJmK 6ifTnAbtO3rxHqsSZbhYnBc ZnMyMFxsdHJjaFxwYXJccGF tLVpyz4NzwsOyjGoyJHLuFL W2SSY4WHcteWNiZPDkwExyy 0kaD3UmfKYxSXDrCAjrNZHy HXIfCiFghPythH1uEnQwGoJ vRodyWB0pQNGfU6oiyMBiJJ RcOBNwP1deAvFiiC5gpYkaQ lxjZjJcZnMyMlxsdHJjaFxw IGZtzZQaKUJffeSgs3QtWJD sWSR9GKiuNQtfnMNxIQJwaM nsv1jtX5LdeUYfYGAzRWvaD YGvTPJqIeOzmIdftQ9aKyYm SvRaEUitRU5eKGEqZ9jvrQA oHHPfZLQyS6yuCiRagT0ncF xmMVxjZjJcZnMxNFxsdHJja OPAOSDgj9WeCWCeRN5xMCAd zftkkCSqFFT5UTB5dP03CAY pwm3wj6wvd4LlXCOvAGCBGd 1MPYVrzPOxP2u4qFCEFT9ld HKgCRLnCIRtB0WgMwBGdbSc b0J5WNLjaBQcOICZKCRgiYQ fU8q5kTgfIJeiScm8RgVokW ilxE4jNuTiQgNkLWgqGT1qZ JYjD2fpqZOlEQRrCAXtL9xw FbRmoA1ahIxpLnidxrX4GKD hcn19 LMP (test code = 6462173000) Educational Note (test y6qqeGTlLOYku3hzOSEgpKZ code = 0647070679) uZzEwMzNcZnRuYmpcdWMxIH lgamXeXXjkf7DpR4DlPNPyI FxhbnNpXGRlZmxhbmcxMDMz YLW8kiHgSTMtKQfeEMYhTRe rGu1gjZHveFbxXjZdEIMsp1 zaehAFpbxqeYh9f2guEKNpD jF9aTCyCLkwE4jyzuKpsYIl SHHkPQa1oU62IVCuyX4eaKN hGEpuptVzMqD6OAhrUHUzDx P1LYAuoVKkVHQfJ4qqIQVcD BQnH6EhQI0zNsyhQvj6DFG6 IDtccmVkMFxncmVlbjBcYmx 8TLUjI443CUR9qPexz8ocCJ Z2JYBaYFLhNjDyJc9fyEMkE 734UNTaFAKOMPAlyEt7XNLp slMftyRixIKOg555B229a3o vLHZdhdHebLfYzzqkk2alI1 19XHBhcGVydzEyMjQwXHBhc XSukKO0MJNgNQ4kwqcuTXhm WVjdHJZfisK1QGBlhQCnZ6S tEMAgTB8sbsulPMQ7XInvKT IxVDZ0HsJnUAPtt1Pfvgp5C qHtcs5tqg86SUG0e6MmyWdz ARC4BIS8ByPaTt7gwRCdJXI dKF8bYqPkpNZhULKzgd29eF jqANzxmgHhuR4eXpAbOVNyg YFsDNMdEB0mqPYbEFNkbK2l cmxjXHBnYnJkcmhlYWRccGd fgkUoNk5xcQxlDES8VGpsV9 gpxB0kMjK4NUwhM3gcqG6vL Gb1JNrihTU1YMFaxB5sPV4n vhhoe3krSVfnPUwzBODbjmG 9bwX6OQVvsASwC2CwmD8wXU CvKC1pplovm9zmCEK8FPcsC QToBZB1CdNvCMUsj3Rlvji4 UwEwh1GyrZMqQZbyK74ea32 8POCyocOgT6mdjBUokskngV VzhryxSOsruhR1LBFfSDLaH WluXGYxXGZzMjJcbGFuZzEw MzNcaGljaFxmMVxkYmNoXGY pUVuqS8yjRbRjG0HhFJFqVk ZjtGHAFFX0tKDtgETddJHsh P2kvRZgMRUrJBVhk1KyFFpq LHCqk2NrGKCijY6eHWZfc2F esCXvbCUjwVg8REJclfEjbL QimH75hgQeWL1gJRWqVBBnX ZNawlQbzJBda2EvTjWUxKYo kVEahWYpEJBiYF7baJ7oTNB ydeSsLXB5gCVau7msYHErc7 XpIzhhaHP8ZS4cWOLehUObZ U0cT1J0kBAkNOMsKXXwPDbl CX9kv8RbwDf5ENOyJXN2fWE oJfLgSbNnqVbqloVaMS9tdD cnNsXzlnRoRv6vpC19CGScW R7yKLNxZEaxhZCwzoHkZJJs oL9bG3NeKGOsD92lLPYfQMV qaK6ujM3oduUfomEopjCil5 9cMR4cSCGidN1zdTsqfT6le mUgdGhlIGVmZmVjdCBvZiBm BYolSUJnMSzrhQy1CXKrZFF 4zXMqOnAjMW77hpLzBFCiSF 50CZTax8FnNLKyMBTsHZ4kj uKnZOP5fkHau60ujGn3LSzx xJKunK0tYCasoIRfxEVdQfW qcFOqGCjdRZQfTC2yTUAaRK 55IHVuZXhwbGFpbmVkIGNsa W6lB2GhYJLhK24fSBSeZUXu pS6ftI9xotdpboDuLKLxyTX zcyBvZiBhbnkgUGFwIFRlc3 RnkiSrwRf9JnkstVZhujrzB VxmczIyXGxhbmcxMDMzXGhp A8exVjHfHKYotMxkFTvon4W oXGYxXGZzMjJccGFyfX0= Embedded Images (test code = 9945472525) [facility]<14 WEEKS US [id number] 03:55:03Limited USG for viability and location due to vaginal spotting in early : ?Single live IUP measured 8 1/7 weeks, consistent with LMP. ?Will date by LMP Melyssa Lopez MD ?10/24/2019 ?9:54 [facility] [id number] 00:55:00 Test Item Value Reference Range Interpretation Comments High Risk HPV (test Negative Negative code = 1990374962) MIKE (test code = MIKE) A positive [...] data. Lab Interpretation Normal (test code = 50899-2) [facility] & CHLAMYDIA AMPLIFIED [id number] 18:49:00 Test Item Value Reference Range Interpretation Comments C. trachomatis Nucleic Acid (test Negative Negative code = 43911-6) N. gonorrhoeae Nucleic Acid (test Negative Negative code = 71337-9) Lab Interpretation (test code = Normal 64722-0) [facility] / [facility] - DRUG SCREEN [id number] 23:57:00 Test Item Value Reference Range Interpretation Comments BENZO U (test code = Negative Negative 5274006862) VANIA U (test code = Negative Negative 7782725822) AMPHET (test code = Negative Negative 1925846379) THC (test code = Negative Negative 3648264181) METHADONE (test code = Negative Negative 9936730301) Meth U (test code = Negative Negative 2131476031) OPIATES (test code = Negative Negative 7492778698) Cocaine Metabolite (test Negative Negative code = 2718098362) PROPOXY (test code = Negative Negative 6571546407) Tric U (test code = Negative Negative 9198739710) PCP (test code = Negative Negative 4449148589) OXYCOD (test code = Negative Negative 3017353776) MIKE (test code = MIKE) Urine Drug [...] testing). Lab Interpretation (test Normal code = 59516-4) [facility] [id number] 21:24:00 Test Item Value Reference Range Interpretation Comments POCT PREG (test code = 1605) Positive On board controls acceptable with C Yes Line (test code = 3574) POCT PREG LOT # (test code = 3575) POCT PREG TEST DATE (test code = 3576) [facility] URINALYSIS W/O SPECIFIC [id number] 21:24:00 Test Item Value Reference Range Interpretation [...] code = 3257) N/A Negative - Negative [facility]"
== END 2023-03-01 14:50 | disposition left against medical advice (07) ==
LOC: ER 13:54
DX: Z02.9 Encounter for administrative examinations, unspecified (principal)

== ENCOUNTER 2023-03-16 20:11 | Emergency (ER) | payer OTHER ==
--- OUTSIDE RECORDS SUMMARY | 2023-03-16 20:19 | XMS REPORT | Continuity of Care Document ---
:1980 Author Organization [facility] t Address [address] [facility] [address] [place] [address] Care Team Providers Name Role Phone PCP, PATIENT DOES NOT HAVE A Primary Care Physician Unavaila CONSUELO Gibson Attending Clinician Unavailable GABBIE THOMPSON Attending Clinician Unavailable Gabbie Thompson DO Attending Clinician Melyssa Lopez MD Attending Clinician Consuelo Truong PA-C Attending Clinician MELYSSA LOPEZ Attending Clinician Unavailable Nurse, [facility] Attending Clinician Unavailable Pob, [facility] Lab Main Attending Clinician Unavailable Room, [facility] Attending Clinician Unavailable Doctor Unassigned, [place] Attending Clinician Unavailable Ultrasound, [facility] Attending Clinician Unavailable Cristhian Gallegos MD Attending Clinician 2, [facility] Attending Clinician Unavailable Visit, [facility] Nurse Attending Clinician Unavailable Alexis FONSECA, Shari Attending Clinician Cruz Ruff MD Attending Clinician MELYSSA LOPEZ Admitting Clinician Unavailable Melyssa Lopez MD Admitting Clinician Payers Payer Name Policy Type Policy Number Effective Date Expiration Date S ource [facility] - [id number] 2019 OUT OF STATE 00:00:00 [facility] [id number] 2020 [facility] MEDICAID 00:00:00 [facility] [id number] 2022 00:00:00 Problems Condition Condition Condition Status Onset Resolution Last Treating Co mments Source Name Details Category Date Date Treatment Clinician Date Liveborn Liveborn Disease Active 2020-0 Unive rs infant, of , of 8-14 it y of hig[place] , , 00 Me dical born in born in [facility] hospital by by delivery delivery 38 weeks 38 weeks Disease Active 2020-0 Unive rs gestation gestation 8-12 ity of of of 00:00: [place] [facility] Status Status Disease Active 2020-0 Univers post post 8-12 ity of bilateral bilateral 00:00: Luis A tovar salpingect salpingect 00 Me dical sarah [facility] GDM, class GDM, class Disease Active 2020-0 U nivers A2 A2 7-31 ity of 00:00: [address] GDM, class GDM, class Disease Active 2020-0 U nivers A1 A1 7-15 ity of 00:00: [address] Diet Diet Disease Active 2020-0 Univers controlled controlled 4-01 it y of gestationa gestationa 00:[place] diabetes l diabetes 00 Me dical mellitus mellitus Branch (GDM) in (GDM) in second second trimester trimester Chronic Chronic Disease Active 2020-0 Univers hypertensi hypertensi 2-20 it y of on on 00:00: [address] 12 weeks 12 weeks Disease Active 2020-0 Unive rs gestation gestation 2-20 ity of of of 00:00: [place] [facility] 19 weeks 19 weeks Disease Active 2020-0 Unive rs gestation gestation 2-20 ity of of of 00:00: [place] [facility] Supervisio Supervisio Disease Active 2020-0 U nivers n of n of 1-22 ity of high-risk high-risk 00:00: [place] [facility] of elderly of elderly Br anch multigravi multigravi da da Antepartum Antepartum Disease Active 2020-0 U nivers multigravi multigravi 1-22 it y of da of da of 00:00: [place] advanced advanced 00 Medica l maternal maternal Branch age age Previous Previous Disease Active 2020-0 Unive rs 1-22 ity of section section 00:00: [address] Vaginal Vaginal Disease Active 2020-0 Univers spotting spotting 1-22 ity of 00:00: [place] 00 Medical Branch Morbid Morbid Disease Active Univers obesity obesity 1-21 ity of with body with body 00:00[place] mass index mass index 00 Me dical of of Branch 40.0-49.9 40.0-49.9 Morbid Morbid Disease Active Univers obesity obesity 1-21 ity of with body with body 00:00[place] mass index mass index 00 Me dical of of Branch 40.0-49.9 40.0-49.9 Obesity Obesity Disease Active Overview: Univ ers complicati complicati 7-14 ICD10 it y of ng ng 00:00: Diagnosis [place] , , 00 Term Me dical childbirth childbirth 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 , or , or Utility puerperium [...] Active Univers ALLERGIE Class ity of S [facility] Social History Social Habit Start Date Stop Date Quantity Comments Source ASSERTION 2019-09-05 University 00:00:00 [facility] Exposure to 2023-02-19 2023-03-01 Not sure [facility] SARS-CoV-2 00:00:00 15:10:00 [facility] (event) [place] Alcohol intake 2023-03-01 2023-03-01 Current [facility] 00:00:00 00:00:00 non-drinker of [facility] alcohol (finding) [place] Tobacco use and 2015-03-11 2015-03-11 Smokeless tobacco Un iversity of exposure 00:00:00 00:00:00 non-user [facility] Sex Ass[birth year] At [birth year] Universit y of 00:00:00 00:00:00 [facility] Smoking Status Start Date Stop Date Source Never smoked tobacco [facility] Medications Ordered Filled Start Stop Current Ordering Indication Dosage Frequency Signature Comments Components Source Medication Medication Date Date Medication? Clinician (SIG) Name Name ferrous 2022- Yes [id number] 325mg Take 1 U nivers sulfate 5-30 06-30 tablet by ity of (IRON, 00:00: 04:59 mouth in [place] FERROUS 00 :00 the Medical SULFATE,) morning Branch 325 mg (65 and 1 mg iron) tablet in tablet the evening. Do all this for 30 days. medroxyPROG 2022-0 202- Yes [id number] 10mg Take 1 Univers ESTERone 5-30 06-05 tablet by ity o f (PROVERA) 00:00: 04:59 mouth in [place] 10 mg 00 :00 the Medical tablet morning Branch and 1 tablet at noon and 1 tablet in the evening. Do all this for 5 days. ibuprofen 2019-0 Yes 600mg 600 mg, Univ ers (IBU) 8-14 Oral, Q6H ity of tablet 600 11:00: ABX, First [place] mg 00 dose on Medical Fri Branch 05/16/20 at 0600, Until Discontinu ed, Routine docusate 2019-0 Yes [id number] 240mg Take 1 U nivers calcium 240 8-14 capsule by it y of mg capsule 00:00: mouth once [place] 00 daily as Medical needed for Branch Constipati on. ferrous 2019-0 Yes [id number] 325mg Take 1 Un [place] sulfate 325 8-14 tablet by ity of mg (65 mg 00:00: mouth 2 [place] iron) 00 (two) Medical tablet times Branch daily. ibuprofen 2019-0 Yes [id number] 600mg Take 1 Univers 600 mg 8-14 tablet by ity of tablet 00:00: mouth [place] 00 every 6 Medical (six) Branch hours as needed for Pain (scale 1-3) or Pain (scale 4-6) (Pain). Take with food or milk. acetaminoph 2019-0 Yes [id number] 650mg Take 2 Univers en 325 mg 8-14 tablets by ity of tablet 00:00: mouth [place] 00 every 6 Medical (six) Branch hours as needed for Pain (scale 1-3) or Pain (scale 4-6). 2020-0 Yes [id number] 1{tbl} Take 1 Univers vitamin 8-14 tablet by ity of w/FA tablet 00:00: mouth [place] 00 daily. Medical Branch docusate 2020-0 Yes [id number] 240mg Take 1 U nivers calcium 240 8-14 capsule by it y of mg capsule 00:00: mouth once [place] 00 daily as Medical needed for Branch Constipati on. ferrous 2020-0 Yes [id number] 325mg Take 1 Un [place] sulfate 325 8-14 tablet by ity of mg (65 mg 00:00: mouth 2 [place] iron) 00 (two) Medical tablet times Branch daily. ibuprofen 2020-0 Yes [id number] 600mg Take 1 Univers 600 mg 8-14 tablet by ity of tablet 00:00: mouth [place] 00 every 6 Medical (six) Branch hours as needed for Pain (scale 1-3) or Pain (scale 4-6) (Pain). Take with food or milk. acetaminoph 2020-0 Yes [id number] 650mg Take 2 Univers en 325 mg 8-14 tablets by ity of tablet 00:00: mouth [place] 00 every 6 Medical (six) Branch hours as needed for Pain (scale 1-3) or Pain (scale 4-6). 2020-0 Yes [id number] 1{tbl} Take 1 Univers vitamin 8-14 tablet by ity of w/FA tablet 00:00: mouth [place] 00 daily. Medical Branch docusate 2020-0 Yes [id number] 240mg Take 1 U nivers calcium 240 8-14 capsule by it y of mg capsule 00:00: mouth once [place] 00 daily as Medical needed for Branch Constipati on. ferrous 2020-0 Yes [id number] 325mg Take 1 Un [place] sulfate 325 8-14 tablet by ity of mg (65 mg 00:00: mouth 2 [place] iron) 00 (two) Medical tablet times Branch daily. ibuprofen 2020-0 Yes [id number] 600mg Take 1 Univers 600 mg 8-14 tablet by ity of tablet 00:00: mouth [place] 00 every 6 Medical (six) Branch hours as needed for Pain (scale 1-3) or Pain (scale 4-6) (Pain). Take with food or milk. 2020-0 Yes [id number] 1{tbl} Take 1 Univers vitamin 8-14 tablet by ity of w/FA tablet 00:00: mouth [place] 00 daily. Medical Branch docusate 2020-0 Yes [id number] 240mg Take 1 U nivers calcium 240 8-14 capsule by it y of mg capsule 00:00: mouth once [place] 00 daily as Medical needed for Branch Constipati on. acetaminoph 2020-0 Yes [id number] 650mg Take 2 Univers en 325 mg 8-14 tablets by ity of tablet 00:00: mouth [place] 00 every 6 Medical (six) Branch hours as needed for Pain (scale 1-3) or Pain (scale 4-6). 2020-0 Yes [id number] 1{tbl} Take 1 Univers vitamin 8-14 tablet by ity of w/FA tablet 00:00: mouth [place] 00 daily. Medical Branch docusate 2020-0 Yes [id number] 240mg Take 1 U nivers calcium 240 8-14 capsule by it y of mg capsule 00:00: mouth once [place] 00 daily as Medical needed for Branch Constipati on. ferrous 2020-0 Yes [id number] 325mg Take 1 Un [place] sulfate 325 8-14 tablet by ity of mg (65 mg 00:00: mouth 2 [place] iron) 00 (two) Medical tablet times Branch daily. ibuprofen 2020-0 Yes [id number] 600mg Take 1 Univers 600 mg 8-14 tablet by ity of tablet 00:00: mouth [place] 00 every 6 Medical (six) Branch hours as needed for Pain (scale 1-3) or Pain (scale 4-6) (Pain). Take with food or milk. acetaminoph 2020-0 Yes [id number] 650mg Take 2 Univers en 325 mg 8-14 tablets by ity of tablet 00:00: mouth [place] 00 every 6 Medical (six) Branch hours as needed for Pain (scale 1-3) or Pain (scale 4-6). 2020-0 Yes [id number] 1{tbl} Take 1 Univers vitamin 8-14 tablet by ity of w/FA tablet 00:00: mouth [place] 00 daily. Medical Branch docusate 2020-0 Yes [id number] 240mg Take 1 U nivers calcium 240 8-14 capsule by it y of mg capsule 00:00: mouth once [place] 00 daily as Medical needed for Branch Constipati on. ferrous 2020-0 Yes [id number] 325mg Take 1 Un [place] sulfate 325 8-14 tablet by ity of mg (65 mg 00:00: mouth 2 [place] iron) 00 (two) Medical tablet times Branch daily. ibuprofen 2020-0 Yes [id number] 600mg Take 1 Univers 600 mg 8-14 tablet by ity of tablet 00:00: mouth [place] 00 every 6 Medical (six) Branch hours as needed for Pain (scale 1-3) or Pain (scale 4-6) (Pain). Take with food or milk. acetaminoph 2020-0 Yes [id number] 650mg Take 2 Univers en 325 mg 8-14 tablets by ity of tablet 00:00: mouth [place] 00 every 6 Medical (six) Branch hours as needed for Pain (scale 1-3) or Pain (scale 4-6). 2020-0 Yes [id number] 1{tbl} Take 1 Univers vitamin 8-14 tablet by ity of w/FA tablet 00:00: mouth [place] 00 daily. Medical Branch docusate 2020-0 Yes [id number] 240mg Take 1 U nivers calcium 240 8-14 capsule by it y of mg capsule 00:00: mouth once [place] 00 daily as Medical needed for Branch Constipati on. ferrous 2020-0 Yes [id number] 325mg Take 1 Un [place] sulfate 325 8-14 tablet by ity of mg (65 mg 00:00: mouth 2 [place] iron) 00 (two) Medical tablet times Branch daily. ibuprofen 2020-0 Yes [id number] 600mg Take 1 Univers 600 mg 8-14 tablet by ity of tablet 00:00: mouth [place] 00 every 6 Medical (six) Branch hours as needed for Pain (scale 1-3) or Pain (scale 4-6) (Pain). Take with food or milk. acetaminoph 2020-0 Yes [id number] 650mg Take 2 Univers en 325 mg 8-14 tablets by ity of tablet 00:00: mouth [place] 00 every 6 Medical (six) Branch hours as needed for Pain (scale 1-3) or Pain (scale 4-6). 2020-0 Yes [id number] 1{tbl} Take 1 Univers vitamin 8-14 tablet by ity of w/FA tablet 00:00: mouth [place] 00 daily. Medical Branch docusate 2020-0 Yes [id number] 240mg Take 1 U nivers calcium 240 8-14 capsule by it y of mg capsule 00:00: mouth once [place] 00 daily as Medical needed for Branch Constipati on. ferrous 2020-0 Yes [id number] 325mg Take 1 Un [place] sulfate 325 8-14 tablet by ity of mg (65 mg 00:00: mouth 2 [place] iron) 00 (two) Medical tablet times Branch daily. ibuprofen 2020-0 Yes [id number] 600mg Take 1 Univers 600 mg 8-14 tablet by ity of tablet 00:00: mouth [place] 00 every 6 Medical (six) Branch hours as needed for Pain (scale 1-3) or Pain (scale 4-6) (Pain). Take with food or milk. acetaminoph 2020-0 Yes [id number] 650mg Take 2 Univers en 325 mg 8-14 tablets by ity of tablet 00:00: mouth [place] 00 every 6 Medical (six) Branch hours as needed for Pain (scale 1-3) or Pain (scale 4-6). 2020-0 Yes [id number] 1{tbl} Take 1 Univers vitamin 8-14 tablet by ity of w/FA tablet 00:00: mouth [place] 00 daily. Medical Branch docusate 2020-0 Yes [id number] 240mg Take 1 U nivers calcium 240 8-14 capsule by it y of mg capsule 00:00: mouth once [place] 00 daily as Medical needed for Branch Constipati on. ferrous 2020-0 Yes [id number] 325mg Take 1 Un [place] sulfate 325 8-14 tablet by ity of mg (65 mg 00:00: mouth 2 [place] iron) 00 (two) Medical tablet times Branch daily. ibuprofen 2020-0 Yes [id number] 600mg Take 1 Univers 600 mg 8-14 tablet by ity of tablet 00:00: mouth [place] 00 every 6 Medical (six) Branch hours as needed for Pain (scale 1-3) or Pain (scale 4-6) (Pain). Take with food or milk. acetaminoph 2020-0 Yes [id number] 650mg Take 2 Univers en 325 mg 8-14 tablets by ity of tablet 00:00: mouth [place] 00 every 6 Medical (six) Branch hours as needed for Pain (scale 1-3) or Pain (scale 4-6). 2020-0 Yes [id number] 1{tbl} Take 1 Univers vitamin 8-14 tablet by ity of w/FA tablet 00:00: mouth [place] 00 daily. Medical Branch docusate 2020-0 Yes [id number] 240mg Take 1 U nivers calcium 240 8-14 capsule by it y of mg capsule 00:00: mouth once [place] 00 daily as Medical needed for Branch Constipati on. ferrous 2020-0 Yes [id number] 325mg Take 1 Un [place] sulfate 325 8-14 tablet by ity of mg (65 mg 00:00: mouth 2 [place] iron) 00 (two) Medical tablet times Branch daily. ibuprofen 2020-0 Yes [id number] 600mg Take 1 Univers 600 mg 8-14 tablet by ity of tablet 00:00: mouth [place] 00 every 6 Medical (six) Branch hours as needed for Pain (scale 1-3) or Pain (scale 4-6) (Pain). Take with food or milk. acetaminoph 2020-0 Yes [id number] 650mg Take 2 Univers en 325 mg 8-14 tablets by ity of tablet 00:00: mouth [place] 00 every 6 Medical (six) Branch hours as needed for Pain (scale 1-3) or Pain (scale 4-6). 2020-0 Yes [id number] 1{tbl} Take 1 Univers vitamin 8-14 tablet by ity of w/FA tablet 00:00: mouth [place] 00 daily. Medical Branch docusate 2020-0 Yes [id number] 240mg Take 1 U nivers calcium 240 8-14 capsule by it y of mg capsule 00:00: mouth once [place] 00 daily as Medical needed for Branch Constipati on. ferrous 2020-0 Yes [id number] 325mg Take 1 Un [place] sulfate 325 8-14 tablet by ity of mg (65 mg 00:00: mouth 2 [place] iron) 00 (two) Medical tablet times Branch daily. ibuprofen 2020-0 Yes [id number] 600mg Take 1 Univers 600 mg 8-14 tablet by ity of tablet 00:00: mouth [place] 00 every 6 Medical (six) Branch hours as needed for Pain (scale 1-3) or Pain (scale 4-6) (Pain). Take with food or milk. acetaminoph 2020-0 Yes [id number] 650mg Take 2 Univers en 325 mg 8-14 tablets by ity of tablet 00:00: mouth [place] 00 every 6 Medical (six) Branch hours as needed for Pain (scale 1-3) or Pain (scale 4-6). 2020-0 Yes [id number] 1{tbl} Take 1 Univers vitamin 8-14 tablet by ity of w/FA tablet 00:00: mouth [place] 00 daily. Medical Branch acetaminoph 2020-0 3- No [id number] 650mg Take 2 Univers en 325 mg 8-14 05-30 tablets by ity of tablet 00:00: 00:00 mouth [place] 00 :00 every 6 Medical (six) Branch hours as needed for Pain (scale 1-3) or Pain (scale 4-6). ferrous 2019-2022- No [id number] 325mg Take 1 U nivers sulfate 325 8- 05-30 tablet by it y of mg (65 mg 00:00: 00:00 mouth 2 [place] iron) 00 :00 (two) Medical tablet times Branch daily. ibuprofen 2022- No [id number] 600mg Take 1 Univers 600 mg 8- 05-30 tablet by ity of tablet 00:00: 00:00 mouth [place] 00 :00 every 6 Medical (six) Branch hours as needed for Pain (scale 1-3) or Pain (scale 4-6) (Pain). Take with food or milk. HYDROcodone 2019- No [id number] 1{tbl} Take 1 U nivers -acetaminop 8-14 08-22 tablet by it y of hen 5-325 00:00: 04:59 mouth [place] mg tablet 00 :00 every 6 Medical (six) Branch hours as needed for Pain (scale 7-10) for up to 7 days. Indication s: acute pain HYDROcodone 2019- No [id number] 1{tbl} Take 1 U nivers -acetaminop 8-14 08-22 tablet by it y of hen 5-325 00:00: 04:59 mouth [place] mg tablet 00 :00 every 6 Medical (six) Branch hours as needed for Pain (scale 7-10) for up to 7 days. Indication s: acute pain gabapentin 2019-2019- No [id number] 300mg Take 1 Univers 300 mg 8-14 08-20 capsule by ity of capsule 00:00: 04:59 mouth 3 [place] 00 :00 (three) Medical times Branch daily for 5 days. gabapentin 2019-2019- No [id number] 300mg Take 1 Univers 300 mg 8-14 08-20 capsule by ity of capsule 00:00: 04:59 mouth 3 [place] 00 :00 (three) Medical times Branch daily for 5 days. acetaminoph Yes 650mg 650 mg, Un [place] 8-13 Oral, Q6H ity of (TYLENOL) 23:00: ABX, First [place] tablet 650 00 dose on Medica l mg Allie Branch 05/15/20 at 1800, Until Discontinu ed, Routine HYDROcodone 2019-0 Yes 1{tbl} 1 tablet, Univers -acetaminop 05-15 Oral, ity of hen (NORCO 18:26: Q6HPRN, [place] 5) 5-325 mg 32 Starting Medi hang tablet 1 Tue Branch tablet 05/15/20 at 1326, Until Discontinu ed, Routine, Pain (scale 7-10) ketorolac 2019-0 2020- No 30mg 30 mg, Unive rs (TORADOL) 05-1514 Slow IV ity of injection 11:00: 05:05 Push, Q6H [place] 30 mg 00 :00 ABX, 4 Medical doses, Branch First dose on Tue05/15/20 at 0600, Last dose on Tue05/16/20 at 0000, Routine
city council member approving Restricted medication : MELYSSA LOPEZ CAM labetalol 2019-0 Yes 100mg 100 mg, [...] over 15 Branch Minutes, ONCE, 1 dose, [facility] 05/14/20 at 1800, Routine, PACU
Indicatio n: [...] IV Medical Infusion, Branch CONTINUOUS , Starting 05/14/20 at 1245, Until Discontinu ed, Routine, PACU rho(D) 2020-0 Yes 300ug 300 mcg, Univer s immune 8-12 Intramuscu ity of globulin 17:42: lar, ONCE, [place] (RHOGAM) 25 For 1 Medical syringe 300 dose, Branch mcg Conditiona l, Routine diphenhydrA 2020-0 Yes 25mg 25 mg, Univ ers MINE 8-12 Oral, ity of (BENADRYL) 17:42: Q6HPRN, [place] tablet 25 12 Starting Medica l mg Wed Branch 05/14/20 at 1242, Until Discontinu ed, Routine, Sleep, Itching ondansetron 2020-0 Yes 4mg 4 mg, Slow Univers (ZOFRAN 812 IV Push, ity of (PF)) 17:42: Q8HPRN, [place] injection 4 12 Starting Medi hang mg Wed Branch 05/14/20 at 1242, Until Discontinu ed, Routine, Nausea and Vomiting (N/V) bisacodyL 2020-0 Yes 10mg 10 mg, Univer s (DULCOLAX) 8-12 Rectal, ity of suppository 17:42: QDAILYPRN, [place] 10 mg 12 Starting Medical Wed Branch 05/14/20 at 1242, Until Discontinu ed, Routine, Constipati on docusate 2020-0 Yes 240mg 240 mg, Unive rs calcium 8-12 Oral, ity of (SURFAK) 17:42: QDAILYPRN, [place] capsule 240 12 Starting Medi hang mg Wed Branch 05/14/20 at 1242, Until Discontinu ed, Routine, Constipati on magnesium 2020-0 Yes 30mL 30 mL, Univer s hydroxide 8-12 Oral, ity of (MILK OF 17:42: QDAILYPRN, [place] MAGNESIA) 12 Starting Medica l 400 mg/5 mL Wed Branch suspension 05/14/20 at 30 mL 1242, Until Discontinu ed, Routine, Constipati on nalbuphine 2019-0 2019- No 5mg 5 mg, Unive rs (NUBAIN) 05-14 Intravenou ity of injection 5 17:41: 09:49 s, PRN, 1 [place] mg 44 :00 dose, Medical Starting Branch Tue05/14/20 at 1241, Until Discontinu ed, Routine, Itching, [...] [place] skin 00 Medical ointment Branch sodium 2019-0 Yes PRN, Univers chloride 05-14 Starting ity [...] 0900, Until Tue05/14/20 at 1242, Routine sodium 2019-0 2020- No 30mL 30 mL, Univers citrate-cit 05-14 Oral, ity of kevin acid 13:45: 15:14 PRE-PROCED [place] (BICITRA) 26 :00 URE ONCE, Medic al [id number] 1 dose, Branch mg/5 mL Starting solution 30 Tue mL 05/14/20 at 0845, Until Discontinu ed, Routine, Surgery glyBURIDE 2020-0 Yes [id number] 2.5mg Take 1 U nivers 2.5 mg 7-29 tablet by ity of tablet 00:00: mouth [place] 00 every Medical evening. Branch glyBURIDE 2020-0 Yes [id number] 2.5mg Take 1 U nivers 2.5 mg 7-29 tablet by ity of tablet 00:00: mouth [place] 00 every Medical evening. Branch glyBURIDE 2020-0 Yes [id number] 2.5mg Take 1 U nivers 2.5 mg 7-29 tablet by ity of tablet 00:00: mouth [place] 00 every Medical evening. Branch glyBURIDE 2020-0 Yes [id number] 2.5mg Take 1 U nivers 2.5 mg 7-29 tablet by ity of tablet 00:00: mouth [place] 00 every Medical evening. Branch glyBURIDE 2020-0 Yes [id number] 2.5mg Take 1 U nivers 2.5 mg 7-29 tablet by ity of tablet 00:00: mouth [place] 00 every Medical evening. Branch glyBURIDE 2020-0 Yes [id number] 2.5mg Take 1 U nivers 2.5 mg 7-29 tablet by ity of tablet 00:00: mouth [place] 00 every Medical evening. Branch glyBURIDE 2020-0 Yes [id number] 2.5mg Take 1 U nivers 2.5 mg 7-29 tablet by ity of tablet 00:00: mouth [place] 00 every Medical evening. Branch glyBURIDE 2020-0 Yes [id number] 2.5mg Take 1 U nivers 2.5 mg 7-29 tablet by ity of tablet 00:00: mouth [place] 00 every Medical evening. Branch glyBURIDE 2020-0 Yes [id number] 2.5mg Take 1 U nivers 2.5 mg 7-29 tablet by ity of tablet 00:00: mouth [place] 00 every Medical evening. Branch glyBURIDE 2020-0 Yes [id number] 2.5mg Take 1 U nivers 2.5 mg 7-29 tablet by ity of tablet 00:00: mouth [place] 00 every Medical evening. Branch glyBURIDE 2020-0 Yes [id number] 2.5mg Take 1 U nivers 2.5 mg 7-29 tablet by ity of tablet 00:00: mouth [place] 00 every Medical evening. Branch glyBURIDE 2020-0 Yes [id number] 2.5mg Take 1 U nivers 2.5 mg 7-29 tablet by ity of tablet 00:00: mouth [place] 00 every Medical evening. Branch glyBURIDE 2020-0 Yes [id number] 2.5mg Take 1 U nivers 2.5 mg 7-29 tablet by ity of tablet 00:00: mouth [place] 00 every Medical evening. Branch glyBURIDE 2020-0 2020- No [id number] 2.5mg Take 1 Univers 2.5 mg 7-29 [...] Branch daily Lancets 2020-0 Yes Patient to Pay with a Tweet Misc 6-18 check ity of 00:00: blood [place] 00 glucose 4 Medical times Branch daily. Blood-Gluco 2020-0 Yes Patient to EDUS se Meter 6-18 check ity of (BLOOD 00:00: blood [place] GLUCOSE 00 glucose 4 Medical MONITORING) times Branch Kit daily. blood sugar 2020-0 Yes Patient to EDUS diagnostic 6-18 check ity of strip 00:00: blood [place] 00 glucose 4 Medical times Branch daily Lancets 2020-0 Yes Patient to Pay with a Tweet Misc 6-18 check ity of 00:00: blood [place] 00 glucose 4 Medical times Branch daily. Blood-Gluco 2020-0 Yes Patient to EDUS se Meter 6-18 check ity of (BLOOD 00:00: blood [place] GLUCOSE 00 glucose 4 Medical MONITORING) times Branch Kit daily. blood sugar 2020-0 Yes Patient to EDUS diagnostic 6-18 check ity of strip 00:00: blood [place] 00 glucose 4 Medical times Branch daily Lancets 2020-0 Yes Patient to Pay with a Tweet Misc 6-18 check ity of 00:00: blood [place] 00 glucose 4 Medical times Branch daily. Blood-Gluco 2020-0 Yes Patient to EDUS se Meter 6-18 check ity of (BLOOD 00:00: blood [place] GLUCOSE 00 glucose 4 Medical MONITORING) times Branch Kit daily. blood sugar 2020-0 Yes Patient to EDUS diagnostic 6-18 check ity of strip 00:00: blood [place] 00 glucose 4 Medical times Branch daily Lancets 2020-0 Yes Patient to Pay with a Tweet Misc 6-18 check ity of 00:00: blood [place] 00 glucose 4 Medical times Branch daily. Blood-Gluco 2020-0 Yes Patient to EDUS se Meter 6-18 check ity of (BLOOD 00:00: blood [place] GLUCOSE 00 glucose 4 Medical MONITORING) times Branch Kit daily. blood sugar 2020-0 Yes Patient to Univers diagnostic 6-18 check ity of strip 00:00: blood [place] 00 glucose 4 Medical times Branch daily Lancets 2020-0 Yes Patient to [facility] ers Misc 6-18 check ity [...] Branch daily Lancets 2020-0 Yes Patient to [facility] ers Misc 6-18 check ity [...] Branch daily Lancets 2020-0 Yes Patient to [facility] ers Misc 6-18 check ity of 00:00: blood [place] 00 glucose 4 Medical times Branch daily. Blood-Gluco 2020-[address] [facility] se Meter 6-18 check ity of (BLOOD 00:00: blood [place] GLUCOSE 00 glucose 4 Medical MONITORING) times Branch Kit daily. blood sugar 2020-0 Yes Patient to Univers diagnostic 6-18 check ity of strip 00:00: blood [place] 00 glucose 4 Medical times Branch daily Lancets 2020-0 Yes Patient to [facility] ers Misc 6-18 check ity of 00:00: blood [place] 00 glucose 4 Medical times Branch daily. Blood-Gluco 2020-[address] [facility] se Meter 6-18 check ity of (BLOOD 00:00: blood [place] GLUCOSE 00 glucose 4 Medical MONITORING) times Branch Kit daily. blood sugar 2020-0 Yes Patient to [facility] diagnostic 6-18 check ity of strip 00:00: blood [place] 00 glucose 4 Medical times Branch daily Lancets 2020-0 Yes Patient to [facility] ers Misc 6-18 check ity [...] Branch daily Lancets 2020-0 Yes Patient to [facility] ers Misc 6-18 check ity of 00:00: [...] Branch daily Lancets 2020-0 Yes Patient to [facility] ers Misc 6-18 check ity [...] Branch daily Lancets 2020-0 Yes Patient to [facility] ers Misc 6-18 check ity of 00:00: [...] Branch daily Lancets 2020-0 Yes Patient to [facility] [employer] Misc 6-18 check ity of 00:00: blood [...] Branch daily Lancets 2020-0 Yes Patient to [employer] Misc 6-18 check ity of 00:00: blood [...] Branch daily Lancets 2020-0 Yes Patient to [facility] ers Misc 6-18 check ity [...] Branch daily Lancets 2020-0 Yes Patient to [facility] ers Misc 6-18 check ity [...] Branch daily Lancets 2020-0 Yes Patient to [facility] ers Misc 6-18 check ity of 00:00: [...] Branch daily Lancets 2020-0 Yes Patient to [facility] ers Misc 6-18 check ity of 00:00: [...] Branch daily Lancets 2020-0 Yes Patient to [facility] ers Misc 6-18 check ity of 00:00: [...] Branch daily Lancets 2020-0 Yes Patient to [facility] ers Misc 6-18 check ity of 00:00: [...] Branch daily Lancets 2020-0 Yes Patient to [facility] ers Misc 6-18 check ity of 00:00: [...] Branch daily Lancets 2020-0 Yes Patient to [facility] ers Misc 6-18 check ity of 00:00: blood [place] 00 glucose 4 Medical times Branch daily. Blood-Gluco 2020-0 Yes Patient to [facility] se Meter 6-18 check ity of (BLOOD 00:00: blood [place] GLUCOSE 00 glucose 4 Medical MONITORING) times Branch Kit daily. blood sugar 2020-0 Yes Patient to [facility] diagnostic 6-18 check ity of strip 00:00: blood [place] 00 glucose 4 Medical times Branch daily Lancets 2020-0 Yes Patient to [facility] ers Misc 6-18 check ity of 00:00: blood [place] 00 glucose 4 Medical times Branch daily. Blood-Gluco 2020-0 2020- No Patient to [facility] se Meter 6-18 08-14 check ity of (BLOOD 00:00: 00:00 blood [place] GLUCOSE 00 :00 glucose 4 Medical MONITORING) times Branch Kit daily. blood sugar 2020-0 2020- No Patient to [facility] diagnostic 03-20 check ity of strip 00:00: 00:00 blood [place] 00 :00 glucose 4 Medical times Branch daily Lancets 2019-0 2020- No Patient to [facility] vers Misc 03-20 check ity of 00:00: 00:00 blood [place] 00 :00 glucose 4 Medical times Branch daily. labetalol 2020-0 Yes [id number] 100mg Take 1 [facility] n[facility] 100 mg 5-28 tablet by ity of tablet 00:00: mouth [place] 00 every 12 Medical (twelve) Branch hours. labetalol 2020-0 Yes [id number] 100mg Take 1 [facility] nivers 100 mg 5-28 tablet by ity of tablet 00:00: mouth [place] 00 every 12 Medical (twelve) Branch hours. labetalol 2020-0 Yes [id number] 100mg Take 1 [facility] n[facility] 100 mg 5-28 tablet by ity of tablet 00:00: mouth [place] 00 every 12 Medical (twelve) Branch hours. labetalol 2020-0 Yes [id number] 100mg Take 1 [facility] n[facility] 100 mg 5-28 tablet by ity of tablet 00:00: mouth [place] 00 every 12 Medical (twelve) Branch hours. labetalol 2020-0 Yes [id number] 100mg Take 1 [facility] 100 mg 5-28 tablet by ity of tablet 00:00: mouth [place] 00 every 12 Medical (twelve) Branch hours. labetalol 2020-0 Yes [id number] 100mg Take 1 [facility] n[facility] 100 mg 5-28 tablet by ity of tablet 00:00: mouth [place] 00 every 12 Medical (twelve) Branch hours. labetalol 2020-0 Yes [id number] 100mg Take 1 [facility] 100 mg 5-28 tablet by ity of tablet 00:00: mouth [place] 00 every 12 Medical (twelve) Branch hours. labetalol 2020-0 Yes [id number] 100mg Take 1 [facility] 100 mg 5-28 tablet by ity of tablet 00:00: mouth [place] 00 every 12 Medical (twelve) Branch hours. labetalol 2020-0 Yes [id number] 100mg Take 1 [facility] n[facility] 100 mg 5-28 tablet by ity of tablet 00:00: mouth [place] 00 every 12 Medical (twelve) Branch hours. labetalol 2020-0 Yes [id number] 100mg Take 1 [facility] n[facility] 100 mg 5-28 tablet by ity of tablet 00:00: mouth [place] 00 every 12 Medical (twelve) Branch hours. labetalol 2020-0 Yes [id number] 100mg Take 1 [facility] nivers 100 mg 5-28 tablet by ity of tablet 00:00: mouth [place] 00 every 12 Medical (twelve) Branch hours. labetalol 2020-0 Yes [id number] 100mg Take 1 [facility] 100 mg 5-28 tablet by ity of tablet 00:00: mouth [place] 00 every 12 Medical (twelve) Branch hours. labetalol 2020-0 Yes [id number] 100mg Take 1 [facility] nivers 100 mg 5-28 tablet by ity of tablet 00:00: mouth [place] 00 every 12 Medical (twelve) Branch hours. labetalol 2020-0 Yes [id number] 100mg Take 1 [facility] n[facility] 100 mg 5-28 tablet by ity of tablet 00:00: mouth [place] 00 every 12 Medical (twelve) Branch hours. labetalol 2020-0 Yes [id number] 100mg Take 1 [facility] 100 mg 5-28 tablet by ity of tablet 00:00: mouth [place] 00 every 12 Medical (twelve) Branch hours. labetalol 2020-0 Yes [id number] 100mg Take 1 [facility] 100 mg 5-28 tablet by ity of tablet 00:00: mouth [place] 00 every 12 Medical (twelve) Branch hours. labetalol 2020-0 Yes [id number] 100mg Take 1 [facility] 100 mg 5-28 tablet by ity of tablet 00:00: mouth [place] 00 every 12 Medical (twelve) Branch hours. labetalol 2020-0 Yes [id number] 100mg Take 1 [facility] 100 mg 5-28 tablet by ity of tablet 00:00: mouth [place] 00 every 12 Medical (twelve) Branch hours. labetalol 2020-0 Yes [id number] 100mg Take 1 [facility] 100 mg 5-28 tablet by ity of tablet 00:00: mouth [place] 00 every 12 Medical (twelve) Branch hours. labetalol 2020-0 Yes [id number] 100mg Take 1 [facility] 100 mg 5-28 tablet by ity of tablet 00:00: mouth [place] 00 every 12 Medical (twelve) Branch hours. labetalol 2020-0 Yes [id number] 100mg Take 1 [facility] 100 mg 5-28 tablet by ity of tablet 00:00: mouth [place] 00 every 12 Medical (twelve) Branch hours. labetalol 2020-0 Yes [id number] 100mg Take 1 [facility] 100 mg 5-28 tablet by ity of tablet 00:00: mouth [place] 00 every 12 Medical (twelve) Branch hours. labetalol 2020-0 Yes [id number] 100mg Take 1 [facility] 100 mg 5-28 tablet by ity of tablet 00:00: mouth [place] 00 every 12 Medical (twelve) Branch hours. labetalol 2020-0 Yes [id number] 100mg Take 1 [facility] 100 mg 5-28 tablet by ity of tablet 00:00: mouth [place] 00 every 12 Medical (twelve) Branch hours. labetalol 2020-0 Yes [id number] 100mg Take 1 [facility] 100 mg 5-28 tablet by ity of tablet 00:00: mouth [place] 00 every 12 Medical (twelve) Branch hours. labetalol 2020-0 Yes [id number] 100mg Take 1 [facility] 100 mg 5-28 tablet by ity of tablet 00:00: mouth [place] 00 every 12 Medical (twelve) Branch hours. labetalol 2020-0 Yes [id number] 100mg Take 1 [facility] 100 mg 5-28 tablet by ity of tablet 00:00: mouth [place] 00 every 12 Medical (twelve) Branch hours. labetalol 2020-0 Yes [id number] 100mg Take 1 [facility] 100 mg 5-28 tablet by ity of tablet 00:00: mouth [place] 00 every 12 Medical (twelve) Branch hours. labetalol 2020-0 Yes [id number] 100mg Take 1 [facility] 100 mg 5-28 tablet by ity of tablet 00:00: mouth [place] 00 every 12 Medical (twelve) Branch hours. labetalol 2020-0 Yes [id number] 100mg Take 1 [facility] 100 mg 5-28 tablet by ity of tablet 00:00: mouth [place] 00 every 12 Medical (twelve) Branch hours. labetalol 2020-0 Yes [id number] 100mg Take 1 [facility] 100 mg 5-28 tablet by ity of tablet 00:00: mouth [place] 00 every 12 Medical (twelve) Branch hours. labetalol 2020-0 Yes [id number] 100mg Take 1 [facility] 100 mg 5-28 tablet by ity of tablet 00:00: mouth [place] 00 every 12 Medical (twelve) Branch hours. labetalol 2020-0 2020- No [id number] 100mg Take 1 [facility] 100 mg 5-28 08-14 tablet by ity of tablet 00:00: 00:00 mouth [place] 00 :00 every 12 Medical (twelve) Branch hours. labetalol 2020-0 Yes [id number] 100mg Take 1 [facility] 100 mg 3-17 tablet by ity of tablet 00:00: mouth [place] 00 every 12 Medical (twelve) Branch hours. labetalol 2020-0 Yes [id number] 100mg Take 1 [facility] 100 mg 3-17 tablet by ity of tablet 00:00: mouth [place] 00 every 12 Medical (twelve) Branch hours. labetalol 2020-0 Yes [id number] 100mg Take 1 [facility] 100 mg 3-17 tablet by ity of tablet 00:00: mouth [place] 00 every 12 Medical (twelve) Branch hours. labetalol 2020-0 Yes [id number] 100mg Take 1 [facility] 100 mg 3-17 tablet by ity of tablet 00:00: mouth [place] 00 every 12 Medical (twelve) Branch hours. labetalol 2020-0 Yes [id number] 100mg Take 1 [facility] 100 mg 3-17 tablet by ity of tablet 00:00: mouth [place] 00 every 12 Medical (twelve) Branch hours. labetalol 2020-0 Yes [id number] 100mg Take 1 [facility] 100 mg 3-17 tablet by ity of tablet 00:00: mouth [place] 00 every 12 Medical (twelve) Branch hours. labetalol 2020-0 Yes [id number] 100mg Take 1 [facility] 100 mg 3-17 tablet by ity of tablet 00:00: mouth [place] 00 every 12 Medical (twelve) Branch hours. labetalol 2020-0 Yes [id number] 100mg Take 1 [facility] 100 mg 3-17 tablet by ity of tablet 00:00: mouth [place] 00 every 12 Medical (twelve) Branch hours. labetalol 2020-0 Yes [id number] 100mg Take 1 [facility] 100 mg 3-17 tablet by ity of tablet 00:00: mouth [place] 00 every 12 Medical (twelve) Branch hours. labetalol 2020-0 2020- No [id number] 100mg Take 1 [facility] 100 mg 3-17 05-28 tablet by ity of tablet 00:00: 00:00 mouth [place] 00 :00 every 12 Medical (twelve) Branch hours. Alcohol 2020-0 Yes [id number] Apply to [facility] Swabs 3-02 area(s) 4 ity of (ALCOHOL 00:00: (four) [place] PREP PADS) 00 times Medical PadM daily. Branch Blood-Gluco 2020-0 Yes [id number] Check BS [facility] se Meter 3-02 QID ity of Kit 00:00: [place] 00 Medical Branch Lancets 2020-0 Yes [id number] Check BS [facility] nivers Misc 3-02 QID ity of 00:00: [place] 00 Medical Branch blood sugar 2020-0 Yes [id number] Check BS [facility] diagnostic 3-02 QID ity of (BLOOD 00:00: [place] GLUCOSE 00 Medical TEST) strip Branch Alcohol 2020-0 Yes [id number] Apply to [facility] Swabs 3-02 area(s) 4 ity of (ALCOHOL 00:00: (four) [place] PREP PADS) 00 times Medical PadM daily. Branch Blood-Gluco 2020-0 Yes [id number] Check BS [facility] se Meter 3-02 QID ity of Kit 00:00: [place] 00 Medical Branch Lancets 2020-0 Yes [id number] Check BS U nivers Misc 3-02 QID ity of 00:00: [place] 00 Medical Branch blood sugar 2020-0 Yes [id number] Check BS [facility] diagnostic 3-02 QID ity of (BLOOD 00:00: [place] GLUCOSE 00 Medical TEST) strip Branch Alcohol 2020-0 Yes [id number] Apply to [facility] Swabs 3-02 area(s) 4 ity of (ALCOHOL 00:00: (four) [place] PREP PADS) 00 times Medical PadM daily. Branch Blood-Gluco 2020-0 Yes [id number] Check BS [facility] se Meter 3-02 QID ity of Kit 00:00: [place] 00 Medical Branch Lancets 2020-0 Yes [id number] Check BS U nivers Misc 3-02 QID ity of 00:00: [place] 00 Medical Branch blood sugar 2020-0 Yes [id number] Check BS [facility] diagnostic 3-02 QID ity of (BLOOD 00:00: [place] GLUCOSE 00 Medical TEST) strip Branch Alcohol 2020-0 Yes [id number] Apply to [facility] n[facility] Swabs 3-02 area(s) 4 ity of (ALCOHOL 00:00: (four) [place] PREP PADS) 00 times Medical PadM daily. Branch Blood-Gluco 2020-0 Yes [id number] Check BS [facility] se Meter 3-02 QID ity of Kit 00:00: [place] 00 Medical Branch Lancets 2020-0 Yes [id number] Check BS U nivers Misc 3-02 QID ity of 00:00: [place] 00 Medical Branch blood sugar 2020-0 Yes [id number] Check BS [facility] diagnostic 3-02 QID ity of (BLOOD 00:00: [place] GLUCOSE 00 Medical TEST) strip Branch Alcohol 2020-0 Yes [id number] Apply to [facility] n[facility] Swabs 3-02 area(s) 4 ity of (ALCOHOL 00:00: (four) [place] PREP PADS) 00 times Medical PadM daily. Branch Blood-Gluco 2020-0 Yes [id number] Check BS [facility] se Meter 3-02 QID ity of Kit 00:00: [place] 00 Medical Branch Lancets 2020-0 Yes [id number] Check BS U nivers Misc 3-02 QID ity of 00:00: [place] 00 Medical Branch blood sugar 2020-0 Yes [id number] Check BS [facility] diagnostic 3-02 QID ity of (BLOOD 00:00: [place] GLUCOSE 00 Medical TEST) strip Branch Alcohol 2020-0 Yes [id number] Apply to [facility] nivers Swabs 3-02 area(s) 4 ity of (ALCOHOL 00:00: (four) [place] PREP PADS) 00 times Medical PadM daily. Branch Blood-Gluco 2020-0 Yes [id number] Check BS [facility] se Meter 3-02 QID ity of Kit 00:00: [place] 00 Medical Branch Lancets 2020-0 Yes [id number] Check BS U nivers Misc 3-02 QID ity of 00:00: [place] 00 Medical Branch blood sugar 2020-0 Yes [id number] Check BS [facility] diagnostic 3-02 QID ity of (BLOOD 00:00: [place] GLUCOSE 00 Medical TEST) strip Branch Alcohol 2020-0 Yes [id number] Apply to [facility] nivers Swabs 3-02 area(s) 4 ity of (ALCOHOL 00:00: (four) [place] PREP PADS) 00 times Medical PadM daily. Branch Blood-Gluco 2020-0 Yes [id number] Check BS [facility] se Meter 3-02 QID ity of Kit 00:00: [place] 00 Medical Branch Lancets 2020-0 Yes [id number] Check BS U nivers Misc 3-02 QID ity of 00:00: [place] 00 Medical Branch blood sugar 2020-0 Yes [id number] Check BS [facility] diagnostic 3-02 QID ity of (BLOOD 00:00: [place] GLUCOSE 00 Medical TEST) strip Branch Alcohol 2020-0 Yes [id number] Apply to [facility] n[facility] Swabs 3-02 area(s) 4 ity of (ALCOHOL 00:00: (four) [place] PREP PADS) 00 times Medical PadM daily. Branch Blood-Gluco 2020-0 Yes [id number] Check BS [facility] se Meter 3-02 QID ity of Kit 00:00: [place] 00 Medical Branch Lancets 2020-0 Yes [id number] Check BS U nivers Misc 3-02 QID ity of 00:00: [place] 00 Medical Branch blood sugar 2020-0 Yes [id number] Check BS [facility] diagnostic 3-02 QID ity of (BLOOD 00:00: [place] GLUCOSE 00 Medical TEST) strip Branch Alcohol 2020-0 Yes [id number] Apply to [facility] n[facility] Swabs 3-02 area(s) 4 ity of (ALCOHOL 00:00: (four) [place] PREP PADS) 00 times Medical PadM daily. Branch Blood-Gluco 2020-0 Yes [id number] Check BS [facility] se Meter 3-02 QID ity of Kit 00:00: [place] 00 Medical Branch Lancets 2020-0 Yes [id number] Check BS U nivers Misc 3-02 QID ity of 00:00: [place] 00 Medical Branch blood sugar 2020-0 Yes [id number] Check BS [facility] diagnostic 3-02 QID ity of (BLOOD 00:00: [place] GLUCOSE 00 Medical TEST) strip Branch Alcohol 2020-0 Yes [id number] Apply to [facility] n[facility] Swabs 3-02 area(s) 4 ity of (ALCOHOL 00:00: (four) [place] PREP PADS) 00 times Medical PadM daily. Branch Blood-Gluco 2020-0 Yes [id number] Check BS [facility] se Meter 3-02 QID ity of Kit 00:00: [place] 00 Medical Branch Lancets 2020-0 Yes [id number] Check BS [facility] nivers Misc 3-02 QID ity of 00:00: [place] 00 Medical Branch blood sugar 2020-0 Yes [id number] Check BS [facility] diagnostic 3-02 QID ity of (BLOOD 00:00: [place] GLUCOSE 00 Medical TEST) strip Branch Alcohol 2020-0 Yes [id number] Apply to [facility] n[facility] Swabs 3-02 area(s) 4 ity of (ALCOHOL 00:00: (four) [place] PREP PADS) 00 times Medical PadM daily. Branch Blood-Gluco 2020-0 Yes [id number] Check BS [facility] se Meter 3-02 QID ity of Kit 00:00: [place] 00 Medical Branch Lancets 2020-0 Yes [id number] Check BS [facility] nivers Misc 3-02 QID ity of 00:00: [place] 00 Medical Branch blood sugar 2020-0 Yes [id number] Check BS [facility] diagnostic 3-02 QID ity of (BLOOD 00:00: [place] GLUCOSE 00 Medical TEST) strip Branch Alcohol 2020-0 Yes [id number] Apply to [facility] n[facility] Swabs 3-02 area(s) 4 ity of (ALCOHOL 00:00: (four) [place] PREP PADS) 00 times Medical PadM daily. Branch Blood-Gluco 2020-0 Yes [id number] Check BS [facility] se Meter 3-02 QID ity of Kit 00:00: [place] 00 Medical Branch Lancets 2020-0 Yes [id number] Check BS [facility] n[facility] Misc 3-02 QID ity of 00:00: [place] 00 Medical Branch blood sugar 2020-0 Yes [id number] Check BS [facility] diagnostic 3-02 QID ity of (BLOOD 00:00: [place] GLUCOSE 00 Medical TEST) strip Branch Alcohol 2020-0 Yes [id number] Apply to [facility] Swabs 3-02 area(s) 4 ity of (ALCOHOL 00:00: (four) [place] PREP PADS) 00 times Medical PadM daily. Branch Blood-Gluco 2020-0 Yes [id number] Check BS [facility] se Meter 3-02 QID ity of Kit 00:00: [place] 00 Medical Branch Lancets 2020-0 Yes [id number] Check BS [facility] nivers Misc 3-02 QID ity of 00:00: [place] 00 Medical Branch blood sugar 2020-0 Yes [id number] Check BS [facility] diagnostic 3-02 QID ity of (BLOOD 00:00: [place] GLUCOSE 00 Medical TEST) strip Branch Alcohol 2020-0 Yes [id number] Apply to [facility] n[facility] Swabs 3-02 area(s) 4 ity of (ALCOHOL 00:00: (four) [place] PREP PADS) 00 times Medical PadM daily. Branch Blood-Gluco 2020-0 Yes [id number] Check BS [facility] se Meter 3-02 QID ity of Kit 00:00: [place] 00 Medical Branch Lancets 2020-0 Yes [id number] Check BS [facility] n[facility] Misc 3-02 QID ity of 00:00: [place] 00 Medical Branch blood sugar 2020-0 Yes [id number] Check BS [facility] diagnostic 3-02 QID ity of (BLOOD 00:00: [place] GLUCOSE 00 Medical TEST) strip Branch Alcohol 2020-0 Yes [id number] Apply to [facility] n[facility] Swabs 3-02 area(s) 4 ity of (ALCOHOL 00:00: (four) [place] PREP PADS) 00 times Medical PadM daily. Branch Blood-Gluco 2020-0 Yes [id number] Check BS [facility] se Meter 3-02 QID ity of Kit 00:00: [place] 00 Medical Branch Lancets 2020-0 Yes [id number] Check BS [facility] nivers Misc 3-02 QID ity of 00:00: [place] 00 Medical Branch blood sugar 2020-0 Yes [id number] Check BS [facility] diagnostic 3-02 QID ity of (BLOOD 00:00: [place] GLUCOSE 00 Medical TEST) strip Branch Alcohol 2020-0 Yes [id number] Apply to [facility] n[facility] Swabs 3-02 area(s) 4 ity of (ALCOHOL 00:00: (four) [place] PREP PADS) 00 times Medical PadM daily. Branch Blood-Gluco 2020-0 Yes [id number] Check BS [facility] se Meter 3-02 QID ity of Kit 00:00: [place] 00 Medical Branch Lancets 2020-0 Yes [id number] Check BS [facility] nivers Misc 3-02 QID ity of 00:00: [place] 00 Medical Branch blood sugar 2020-0 Yes [id number] Check BS [facility] diagnostic 3-02 QID ity of (BLOOD 00:00: [place] GLUCOSE 00 Medical TEST) strip Branch Alcohol 2020-0 Yes [id number] Apply to [facility] n[facility] Swabs 3-02 area(s) 4 ity of (ALCOHOL 00:00: (four) [place] PREP PADS) 00 times Medical PadM daily. Branch Blood-Gluco 2020-0 Yes [id number] Check BS [facility] se Meter 3-02 QID ity of Kit 00:00: [place] 00 Medical Branch Lancets 2020-0 Yes [id number] Check BS [facility] n[facility] Misc 3-02 QID ity of 00:00: [place] 00 Medical Branch blood sugar 2020-0 Yes [id number] Check BS [facility] diagnostic 3-02 QID ity of (BLOOD 00:00: [place] GLUCOSE 00 Medical TEST) strip Branch Alcohol 2020-0 Yes [id number] Apply to [facility] Swabs 3-02 area(s) 4 ity of (ALCOHOL 00:00: (four) [place] PREP PADS) 00 times Medical PadM daily. Branch Alcohol 2020-0 Yes [id number] Apply to [facility] Swabs 3-02 area(s) 4 ity of (ALCOHOL 00:00: (four) [place] PREP PADS) 00 times Medical PadM daily. Branch Alcohol 2020-0 Yes [id number] Apply to [facility] n[facility] Swabs 3-02 area(s) 4 ity of (ALCOHOL 00:00: (four) [place] PREP PADS) 00 times Medical PadM daily. Branch Alcohol 2020-0 Yes [id number] Apply to [facility] Swabs 3-02 area(s) 4 ity of (ALCOHOL 00:00: (four) [place] PREP PADS) 00 times Medical PadM daily. Branch Alcohol 2020-0 Yes [id number] Apply to [facility] Swabs 3-02 area(s) 4 ity of (ALCOHOL 00:00: (four) [place] PREP PADS) 00 times Medical PadM daily. Branch Alcohol 2020-0 Yes [id number] Apply to [facility] n[facility] Swabs 3-02 area(s) 4 ity of (ALCOHOL 00:00: (four) [place] PREP PADS) 00 times Medical PadM daily. Branch Alcohol 2020-0 Yes [id number] Apply to [facility] n[facility] Swabs 3-02 area(s) 4 ity of (ALCOHOL 00:00: (four) [place] PREP PADS) 00 times Medical PadM daily. Branch Alcohol 2020-0 Yes [id number] Apply to [facility] n[facility] Swabs 3-02 area(s) 4 ity of (ALCOHOL 00:00: (four) [place] PREP PADS) 00 times Medical PadM daily. Branch Alcohol 2020-0 Yes [id number] Apply to [facility] n[facility] Swabs 3-02 area(s) 4 ity of (ALCOHOL 00:00: (four) [place] PREP PADS) 00 times Medical PadM daily. Branch Alcohol 2020-0 Yes [id number] Apply to [facility] n[facility] Swabs 3-02 area(s) 4 ity of (ALCOHOL 00:00: (four) [place] PREP PADS) 00 times Medical PadM daily. Branch Alcohol 2020-0 Yes [id number] Apply to [facility] n[facility] Swabs 3-02 area(s) 4 ity of (ALCOHOL 00:00: (four) [place] PREP PADS) 00 times Medical PadM daily. Branch Alcohol 2020-0 Yes [id number] Apply to [facility] n[facility] Swabs 3-02 area(s) 4 ity of (ALCOHOL 00:00: (four) [place] PREP PADS) 00 times Medical PadM daily. Branch Alcohol 2020-0 Yes [id number] Apply to [facility] n[facility] Swabs 3-02 area(s) 4 ity of (ALCOHOL 00:00: (four) [place] PREP PADS) 00 times Medical PadM daily. Branch Alcohol 2020-0 Yes [id number] Apply to [facility] n[facility] Swabs 3-02 area(s) 4 ity of (ALCOHOL 00:00: (four) [place] PREP PADS) 00 times Medical PadM daily. Branch Alcohol 2020-0 Yes [id number] Apply to [facility] nivers Swabs 3-02 area(s) 4 ity of (ALCOHOL 00:00: (four) [place] PREP PADS) 00 times Medical PadM daily. Branch Alcohol 2020-0 Yes [id number] Apply to [facility] n[facility] Swabs 3-02 area(s) 4 ity of (ALCOHOL 00:00: (four) [place] PREP PADS) 00 times Medical PadM daily. Branch Alcohol 2020-0 Yes [id number] Apply to [facility] n[facility] Swabs 3-02 area(s) 4 ity of (ALCOHOL 00:00: (four) [place] PREP PADS) 00 times Medical PadM daily. Branch Alcohol 2020-0 Yes [id number] Apply to [facility] n[facility] Swabs 3-02 area(s) 4 ity of (ALCOHOL 00:00: (four) [place] PREP PADS) 00 times Medical PadM daily. Branch Alcohol 2020-0 Yes [id number] Apply to [facility] n[facility] Swabs 3-02 area(s) 4 ity of (ALCOHOL 00:00: (four) [place] PREP PADS) 00 times Medical PadM daily. Branch Alcohol 2020-0 Yes [id number] Apply to [facility] n[facility] Swabs 3-02 area(s) 4 ity of (ALCOHOL 00:00: (four) [place] PREP PADS) 00 times Medical PadM daily. Branch Alcohol 2020-0 Yes [id number] Apply to [facility] n[facility] Swabs 3-02 area(s) 4 ity of (ALCOHOL 00:00: (four) [place] PREP PADS) 00 times Medical PadM daily. Branch Alcohol 2020-0 Yes [id number] Apply to [facility] n[facility] Swabs 3-02 area(s) 4 ity of (ALCOHOL 00:00: (four) [place] PREP PADS) 00 times Medical PadM daily. Branch Alcohol 2020-0 Yes [id number] Apply to [facility] n[facility] Swabs 3-02 area(s) 4 ity of (ALCOHOL 00:00: (four) [place] PREP PADS) 00 times Medical PadM daily. Branch Alcohol 2020-0 Yes [id number] Apply to [facility] nivers Swabs 3-02 area(s) 4 ity of (ALCOHOL 00:00: (four) [place] PREP PADS) 00 times Medical PadM daily. [place] Alcohol 2020-0 Yes [id number] Apply to [facility] nivers Swabs 3-02 area(s) 4 ity of (ALCOHOL 00:00: (four) [place] PREP PADS) 00 times Medical PadM daily. [place] Alcohol 2020-0 Yes [id number] Apply to [facility] nivers Swabs 3-02 area(s) 4 ity of (ALCOHOL 00:00: (four) [place] PREP PADS) 00 times Medical PadM daily. [place] Alcohol 2020-0 Yes [id number] Apply to [facility] nivers Swabs 3-02 area(s) 4 ity of (ALCOHOL 00:00: (four) [place] PREP PADS) 00 times Medical PadM daily. [place] Alcohol 2020-0 Yes [id number] Apply to [facility] nivers Swabs 3-02 area(s) 4 ity of (ALCOHOL 00:00: (four) [place] PREP PADS) 00 times Medical PadM daily. [place] Alcohol 2020-0 2020- No [id number] Apply to [facility] Swabs 3-02 08-14 area(s) 4 ity of (ALCOHOL 00:00: 00:00 (four) [place] PREP PADS) 00 :00 times Medical PadM daily. [place] Blood-Gluco 2019-0 2020- No [id number] Check BS [facility] se Meter 3-02 06-18 QID ity of Kit 00:00: 00:00 [place] 00 :00 Medical Branch Lancets 2019-0 2020- No [id number] Check BS [facility] Misc 3-02 06-18 QID ity of 00:00: 00:00 [place] 00 :00 Medical Branch blood sugar 2020-0 2020- No [id number] Check BS [facility] diagnostic 12-02 QID ity of (BLOOD 00:00: 00:00 [place] GLUCOSE 00 :00 Medical TEST) strip Branch aspirin 81 2020-0 Yes [id number] 81mg Take 1 [facility] mg EC 2-19 tablet by ity of tablet 00:00: mouth [place] 00 daily. Medical Branch aspirin 81 2020-0 Yes [id number] 81mg Take 1 [facility] mg EC 2-19 tablet by ity of tablet 00:00: mouth [place] 00 daily. Medical Branch aspirin 81 2020-0 Yes [id number] 81mg Take 1 [facility] mg EC 2-19 tablet by ity of tablet 00:00: mouth [place] 00 daily. Medical Branch aspirin 81 2020-0 Yes [id number] 81mg Take 1 [facility] mg EC 2-19 tablet by ity of tablet 00:00: mouth [place] 00 daily. Medical Branch aspirin 81 2020-0 Yes [id number] 81mg Take 1 [facility] mg EC 2-19 tablet by ity of tablet 00:00: mouth [place] 00 daily. Medical Branch aspirin 81 2020-0 Yes [id number] 81mg Take 1 [facility] mg EC 2-19 tablet by ity of tablet 00:00: mouth [place] 00 daily. Medical Branch aspirin 81 2020-0 Yes [id number] 81mg Take 1 [facility] mg EC 2-19 tablet by ity of tablet 00:00: mouth [place] 00 daily. Medical Branch aspirin 81 2020-0 Yes [id number] 81mg Take 1 [facility] mg EC 2-19 tablet by ity of tablet 00:00: mouth [place] 00 daily. Medical Branch aspirin 81 2020-0 Yes [id number] 81mg Take 1 [facility] mg EC 2-19 tablet by ity of tablet 00:00: mouth [place] 00 daily. Medical Branch aspirin 81 2020-0 Yes [id number] 81mg Take 1 [facility] mg EC 2-19 tablet by ity of tablet 00:00: mouth [place] 00 daily. Medical Branch aspirin 81 2020-0 Yes [id number] 81mg Take 1 [facility] mg EC 2-19 tablet by ity of tablet 00:00: mouth [place] 00 daily. Medical Branch aspirin 81 2020-0 Yes [id number] 81mg Take 1 [facility] mg EC 2-19 tablet by ity of tablet 00:00: mouth [place] 00 daily. Medical Branch aspirin 81 2020-0 Yes [id number] 81mg Take 1 [facility] mg EC 2-19 tablet by [facility] tablet 00:00: mouth [place] 00 daily. [facility] aspirin 81 2020-0 Yes [id number] 81mg Take 1 [facility] mg EC 2-19 tablet by [facility] of tablet 00:00: mouth [place] 00 daily. [facility] aspirin 81 2020-0 Yes [id number] 81mg Take 1 [facility] mg EC 2-19 tablet by [facility] of tablet 00:00: mouth [place] 00 daily. [facility] aspirin 81 2020-0 Yes [id number] 81mg Take 1 [facility] mg EC 2-19 tablet by [facility] of tablet 00:00: mouth [place] 00 daily. [facility] aspirin 81 2020-0 Yes [id number] 81mg Take 1 [facility] mg EC 2-19 tablet by [facility] of tablet 00:00: mouth [place] 00 daily. [facility] aspirin 81 2020-0 Yes [id number] 81mg Take 1 [facility] mg EC 2-19 tablet by [facility] of tablet 00:00: mouth [place] 00 daily. [facility] aspirin 81 2020-0 Yes [id number] 81mg Take 1 [facility] mg EC 2-19 tablet by [facility] of tablet 00:00: mouth [place] 00 daily. [facility] aspirin 81 2020-0 Yes [id number] 81mg Take 1 [facility] mg EC 2-19 tablet by [facility] of tablet 00:00: mouth [place] 00 daily. [facility] aspirin 81 2020-0 Yes [id number] 81mg Take 1 [facility] mg EC 2-19 tablet by [facility] of tablet 00:00: mouth [place] 00 daily. [facility] aspirin 81 2020-0 Yes [id number] 81mg Take 1 [facility] mg EC 2-19 tablet by [facility] of tablet 00:00: mouth [place] 00 daily. [facility] aspirin 81 2020-0 Yes [id number] 81mg Take 1 [facility] mg EC 2-19 tablet by [facility] of tablet 00:00: mouth [place] 00 daily. [facility] aspirin 81 2020-0 Yes [id number] 81mg Take 1 [facility] mg EC 2-19 tablet by [facility] of tablet 00:00: mouth [place] 00 daily. [facility] aspirin 81 2020-0 Yes [id number] 81mg Take 1 [facility] mg EC 2-19 tablet by [facility] of tablet 00:00: mouth [place] 00 daily. [facility] aspirin 81 2020-0 Yes [id number] 81mg Take 1 [facility] mg EC 2-19 tablet by [facility] of tablet 00:00: mouth [place] 00 daily. [facility] aspirin 81 2020-0 Yes [id number] 81mg Take 1 [facility] mg EC 2-19 tablet by [facility] of tablet 00:00: mouth [place] 00 daily. [facility] aspirin 81 2020-0 Yes [id number] 81mg Take 1 [facility] mg EC 2-19 tablet by [facility] of tablet 00:00: mouth [place] 00 daily. [facility] aspirin 81 2020-0 Yes [id number] 81mg Take 1 [facility] mg EC 2-19 tablet by [facility] of tablet 00:00: mouth [place] 00 daily. [facility] aspirin 81 2020-0 Yes [id number] 81mg Take 1 [facility] mg EC 2-19 tablet by [facility] of tablet 00:00: mouth [place] 00 daily. [facility] aspirin 81 2020-0 Yes [id number] 81mg Take 1 [facility] mg EC 2-19 tablet by [facility] of tablet 00:00: mouth [place] 00 daily. [facility] aspirin 81 2020-0 Yes [id number] 81mg Take 1 [facility] mg EC 2-19 tablet by [facility] of tablet 00:00: mouth [place] 00 daily. [facility] aspirin 81 2020-0 Yes [id number] 81mg Take 1 [facility] mg EC 2-19 tablet by [facility] of tablet 00:00: mouth [place] 00 daily. [facility] aspirin 81 2020-0 Yes [id number] 81mg Take 1 [facility] mg EC 2-19 tablet by [facility] of tablet 00:00: mouth [place] 00 daily. [facility] aspirin 81 2020-0 Yes [id number] 81mg Take 1 [facility] mg EC 2-19 tablet by [facility] of tablet 00:00: mouth [place] 00 daily. [facility] aspirin 81 2020-0 Yes [id number] 81mg Take 1 [facility] mg EC 2-19 tablet by [facility] of tablet 00:00: mouth [place] 00 daily. [facility] aspirin 81 2020-0 Yes [id number] 81mg Take 1 [facility] mg EC 2-19 tablet by [facility] of tablet 00:00: mouth [place] 00 daily. [facility] aspirin 81 2020-0 Yes [id number] 81mg Take 1 [facility] mg EC 2-19 tablet by [facility] of tablet 00:00: mouth [place] 00 daily. [facility] aspirin 81 2020-0 Yes [id number] 81mg Take 1 [facility] mg EC 2-19 tablet by [facility] of tablet 00:00: mouth [place] 00 daily. [facility] aspirin 81 2020-0 Yes [id number] 81mg Take 1 [facility] mg EC 2-19 tablet by [facility] of tablet 00:00: mouth [place] 00 daily. [facility] aspirin 81 2020-0 Yes [id number] 81mg Take 1 [facility] mg EC 2-19 tablet by [facility] of tablet 00:00: mouth [place] 00 daily. [facility] aspirin 81 2020-0 Yes [id number] 81mg Take 1 [facility] mg EC 2-19 tablet by [facility] of tablet 00:00: mouth [place] 00 daily. [facility] aspirin 81 2020-0 Yes [id number] 81mg Take 1 [facility] mg EC 2-19 tablet by [facility] of tablet 00:00: mouth [place] 00 daily. [facility] aspirin 81 2020-0 Yes [id number] 81mg Take 1 [facility] mg EC 2-19 tablet by [facility] of tablet 00:00: mouth [place] 00 daily. [facility] aspirin 81 2020-0 Yes [id number] 81mg Take 1 [facility] mg EC 2-19 tablet by [facility] of tablet 00:00: mouth [place] 00 daily. [facility] aspirin 81 2020-0 Yes [id number] 81mg Take 1 [facility] mg EC 2-19 tablet by [facility] of tablet 00:00: mouth [place] 00 daily. [facility] aspirin 81 2020-0 Yes [id number] 81mg Take 1 [facility] mg EC 2-19 tablet by [facility] of tablet 00:00: mouth [place] 00 daily. [facility] aspirin 81 2020-0 Yes [id number] 81mg Take 1 [facility] mg EC 2-19 tablet by [facility] of tablet 00:00: mouth [place] 00 daily. [facility] aspirin 81 2020-0 Yes [id number] 81mg Take 1 [facility] mg EC 2-19 tablet by [facility] of tablet 00:00: mouth [place] 00 daily. [facility] aspirin 81 2020-0 Yes [id number] 81mg Take 1 [facility] mg EC 2-19 tablet by [facility] of tablet 00:00: mouth [place] 00 daily. [facility] aspirin 81 2020-0 Yes [id number] 81mg Take 1 [facility] mg EC 2-19 tablet by [facility] of tablet 00:00: mouth [place] 00 daily. [facility] aspirin 81 2020-0 Yes [id number] 81mg Take 1 [facility] mg EC 2-19 tablet by [facility] of tablet 00:00: mouth [place] 00 daily. [facility] aspirin 81 2020-0 Yes [id number] 81mg Take 1 [facility] mg EC 2-19 tablet by [facility] of tablet 00:00: mouth [place] 00 daily. [facility] aspirin 81 2020-0 Yes [id number] 81mg Take 1 [facility] mg EC 2-19 tablet by [facility] of tablet 00:00: mouth [place] 00 daily. [facility] aspirin 81 2020-0 Yes [id number] 81mg Take 1 [facility] mg EC 2-19 tablet by [facility] of tablet 00:00: mouth [place] 00 daily. [facility] aspirin 81 2020-0 Yes [id number] 81mg Take 1 [facility] mg EC 2-19 tablet by [facility] of tablet 00:00: mouth [place] 00 daily. [facility] aspirin 81 2020-0 Yes [id number] 81mg Take 1 [facility] mg EC 2-19 tablet by [facility] of tablet 00:00: mouth [place] 00 daily. [facility] aspirin 81 2020-0 Yes [id number] 81mg Take 1 [facility] mg EC 2-19 tablet by [facility] of tablet 00:00: mouth [place] 00 daily. [facility] aspirin 81 2020-0 Yes [id number] 81mg Take 1 [facility] mg EC 2-19 tablet by [facility] of tablet 00:00: mouth [place] 00 daily. [facility] aspirin 81 2020-0 Yes [id number] 81mg Take 1 [facility] mg EC 2-19 tablet by [facility] of tablet 00:00: mouth [place] 00 daily. [facility] aspirin 81 2020-0 Yes [id number] 81mg Take 1 [facility] mg EC 2-19 tablet by [facility] of tablet 00:00: mouth [place] 00 daily. [facility] aspirin 81 2020-0 Yes [id number] 81mg Take 1 [facility] mg EC 2-19 tablet by [facility] of tablet 00:00: mouth [place] 00 daily. [facility] aspirin 81 2020-0 Yes [id number] 81mg Take 1 [facility] mg EC 2-19 tablet by [facility] of tablet 00:00: mouth [place] 00 daily. [facility] aspirin 81 2020-0 2020- No [id number] 81mg Take 1 [facility] mg EC 2-19 08-14 tablet by [facility] of tablet 00:00: 00:00 mouth [place] 00 :00 daily. [facility] PNV 2020-0 Yes [id number] 1{tbl} Take 1 [facility] rs 102-iron-fo 2-18 tablet by ity of late 00:00: mouth [place] 1-dss-dha 00 daily. Medical (VITAFOL Branch FE+, WITH DOCUSATE,) 90 mg iron-1 mg -50 mg-200 mg Cap PNV 2020-0 Yes [id number] 1{tbl} Take 1 [facility] rs 102-iron-fo 2-18 tablet by ity of late 00:00: mouth [place] 1-dss-dha 00 daily. Medical (VITAFOL Branch FE+, WITH DOCUSATE,) 90 mg iron-1 mg -50 mg-200 mg Cap PNV 2020-0 Yes [id number] 1{tbl} Take 1 [facility] rs 102-iron-fo 2-18 tablet by ity of late 00:00: mouth [place] 1-dss-dha 00 daily. Medical (VITAFOL Branch FE+, WITH DOCUSATE,) 90 mg iron-1 mg -50 mg-200 mg Cap PNV 2020-0 Yes [id number] 1{tbl} Take 1 [facility] rs 102-iron-fo 2-18 tablet by ity of late 00:00: mouth [place] [address]-dss-dha 00 daily. Medical (VITAFOL Branch FE+, WITH DOCUSATE,) 90 mg iron-1 mg -50 mg-200 mg Cap PNV 2020-0 Yes [id number] 1{tbl} Take 1 [facility] rs 102-iron-fo 2-18 tablet by ity of late 00:00: mouth [place] [address]-dss-dha 00 daily. Medical (VITAFOL Branch FE+, WITH DOCUSATE,) 90 mg iron-1 mg -50 mg-200 mg Cap PNV 2020-0 Yes [id number] 1{tbl} Take 1 [facility] rs 102-iron-fo 2-18 tablet by ity of late 00:00: mouth [place] 1-dss-dha 00 daily. Medical (VITAFOL Branch FE+, WITH DOCUSATE,) 90 mg iron-1 mg -50 mg-200 mg Cap PNV 2020-0 Yes [id number] 1{tbl} Take 1 [facility] rs 102-iron-fo 2-18 tablet by ity of late 00:00: mouth [place] 1-dss-dha 00 daily. Medical (VITAFOL Branch FE+, WITH DOCUSATE,) 90 mg iron-1 mg -50 mg-200 mg Cap PNV 2020-0 Yes [id number] 1{tbl} Take 1 [facility] rs 102-iron-fo 2-18 tablet by ity of late 00:00: mouth [place] 1-dss-dha 00 daily. Medical (VITAFOL Branch FE+, WITH DOCUSATE,) 90 mg iron-1 mg -50 mg-200 mg Cap PNV 2020-0 Yes [id number] 1{tbl} Take 1 [facility] rs 102-iron-fo 2-18 tablet by ity of late 00:00: mouth [place] 1-dss-dha 00 daily. Medical (VITAFOL Branch FE+, WITH DOCUSATE,) 90 mg iron-1 mg -50 mg-200 mg Cap PNV 2020-0 Yes [id number] 1{tbl} Take 1 [facility] rs 102-iron-fo 2-18 tablet by ity of late 00:00: mouth [place] 1-dss-dha 00 daily. Medical (VITAFOL Branch FE+, WITH DOCUSATE,) 90 mg iron-1 mg -50 mg-200 mg Cap PNV 2020-0 Yes [id number] 1{tbl} Take 1 [facility] rs 102-iron-fo 2-18 tablet by ity of late 00:00: mouth [place] 1-dss-dha 00 daily. Medical (VITAFOL Branch FE+, WITH DOCUSATE,) 90 mg iron-1 mg -50 mg-200 mg Cap PNV 2020-0 Yes [id number] 1{tbl} Take 1 [facility] rs 102-iron-fo 2-18 tablet by ity of late 00:00: mouth [place] 1-dss-dha 00 daily. Medical (VITAFOL Branch FE+, WITH DOCUSATE,) 90 mg iron-1 mg -50 mg-200 mg Cap PNV 2020-0 Yes [id number] 1{tbl} Take 1 [facility] rs 102-iron-fo 2-18 tablet by ity of late 00:00: mouth [place] 1-dss-dha 00 daily. Medical (VITAFOL Branch FE+, WITH DOCUSATE,) 90 mg iron-1 mg -50 mg-200 mg Cap PNV 2020-0 Yes [id number] 1{tbl} Take 1 [facility] rs 102-iron-fo 2-18 tablet by ity of late 00:00: mouth [place] 1-dss-dha 00 daily. Medical (VITAFOL Branch FE+, WITH DOCUSATE,) 90 mg iron-1 mg -50 mg-200 mg Cap PNV 2020-0 Yes [id number] 1{tbl} Take 1 [facility] rs 102-iron-fo 2-18 tablet by ity of late 00:00: mouth [place] 1-dss-dha 00 daily. Medical (VITAFOL Branch FE+, WITH DOCUSATE,) 90 mg iron-1 mg -50 mg-200 mg Cap PNV 2020-0 Yes [id number] 1{tbl} Take 1 [facility] rs 102-iron-fo 2-18 tablet by ity of late 00:00: mouth [place] 1-dss-dha 00 daily. Medical (VITAFOL Branch FE+, WITH DOCUSATE,) 90 mg iron-1 mg -50 mg-200 mg Cap PNV 2020-0 Yes [id number] 1{tbl} Take 1 [facility] rs 102-iron-fo 2-18 tablet by ity of late 00:00: mouth [place] 1-dss-dha 00 daily. Medical (VITAFOL Branch FE+, WITH DOCUSATE,) 90 mg iron-1 mg -50 mg-200 mg Cap PNV 2020-0 Yes [id number] 1{tbl} Take 1 [facility] rs 102-iron-fo 2-18 tablet by ity of late 00:00: mouth [place] [address]-dss-dha 00 daily. Medical (VITAFOL Branch FE+, WITH DOCUSATE,) 90 mg iron-1 mg -50 mg-200 mg Cap PNV 2020-0 Yes [id number] 1{tbl} Take 1 [facility] rs 102-iron-fo 2-18 tablet by ity of late 00:00: mouth [place] [address]-dss-dha 00 daily. Medical (VITAFOL Branch FE+, WITH DOCUSATE,) 90 mg iron-1 mg -50 mg-200 mg Cap PNV 2020-0 Yes [id number] 1{tbl} Take 1 [facility] rs 102-iron-fo 2-18 tablet by ity of late 00:00: mouth [place] 1-dss-dha 00 daily. Medical (VITAFOL Branch FE+, WITH DOCUSATE,) 90 mg iron-1 mg -50 mg-200 mg Cap PNV 2020-0 Yes [id number] 1{tbl} Take 1 [facility] rs 102-iron-fo 2-18 tablet by ity of late 00:00: mouth [place] 1-dss-dha 00 daily. Medical (VITAFOL Branch FE+, WITH DOCUSATE,) 90 mg iron-1 mg -50 mg-200 mg Cap PNV 2020-0 Yes [id number] 1{tbl} Take 1 [facility] rs 102-iron-fo 2-18 tablet by ity of late 00:00: mouth [place] 1-dss-dha 00 daily. Medical (VITAFOL Branch FE+, WITH DOCUSATE,) 90 mg iron-1 mg -50 mg-200 mg Cap PNV 2020-0 Yes [id number] 1{tbl} Take 1 [facility]ive rs 102-iron-fo 2-18 tablet by ity of late 00:00: mouth [place] 1-dss-dha 00 daily. Medical (VITAFOL Branch FE+, WITH DOCUSATE,) 90 mg iron-1 mg -50 mg-200 mg Cap PNV 2020-0 Yes [id number] 1{tbl} Take 1 [facility] rs 102-iron-fo 2-18 tablet by ity of late 00:00: mouth [place] [address]-dss-dha 00 daily. Medical (VITAFOL Branch FE+, WITH DOCUSATE,) 90 mg iron-1 mg -50 mg-200 mg Cap PNV 2020-0 Yes [id number] 1{tbl} Take 1 [facility] rs 102-iron-fo 2-18 tablet by ity of late 00:00: mouth [place] [address]-dss-dha 00 daily. Medical (VITAFOL Branch FE+, WITH DOCUSATE,) 90 mg iron-1 mg -50 mg-200 mg Cap PNV 2020-0 Yes [id number] 1{tbl} Take 1 [facility]ive rs 102-iron-fo 2-18 tablet by ity of late 00:00: mouth [place] 1-dss-dha 00 daily. Medical (VITAFOL Branch FE+, WITH DOCUSATE,) 90 mg iron-1 mg -50 mg-200 mg Cap PNV 2020-0 Yes [id number] 1{tbl} Take 1 [facility]ive rs 102-iron-fo 2-18 tablet by ity of late 00:00: mouth [place] 1-dss-dha 00 daily. Medical (VITAFOL Branch FE+, WITH DOCUSATE,) 90 mg iron-1 mg -50 mg-200 mg Cap PNV 2020-0 Yes [id number] 1{tbl} Take 1 [facility]ive rs 102-iron-fo 2-18 tablet by ity of late 00:00: mouth [place] 1-dss-dha 00 daily. Medical (VITAFOL Branch FE+, WITH DOCUSATE,) 90 mg iron-1 mg -50 mg-200 mg Cap PNV 2020-0 Yes [id number] 1{tbl} Take 1 [facility] rs 102-iron-fo 2-18 tablet by ity of late 00:00: mouth [place] 1-dss-dha 00 daily. Medical (VITAFOL Branch FE+, WITH DOCUSATE,) 90 mg iron-1 mg -50 mg-200 mg Cap PNV 2020-0 Yes [id number] 1{tbl} Take 1 [facility]ive rs 102-iron-fo 2-18 tablet by ity of late 00:00: mouth [place] 1-dss-dha 00 daily. Medical (VITAFOL Branch FE+, WITH DOCUSATE,) 90 mg iron-1 mg -50 mg-200 mg Cap PNV 2020-0 Yes [id number] 1{tbl} Take 1 [facility] rs 102-iron-fo 2-18 tablet by ity of late 00:00: mouth [place] 1-dss-dha 00 daily. Medical (VITAFOL Branch FE+, WITH DOCUSATE,) 90 mg iron-1 mg -50 mg-200 mg Cap PNV 2020-0 Yes [id number] 1{tbl} Take 1 [facility]ive rs 102-iron-fo 2-18 tablet by ity of late 00:00: mouth [place] 1-dss-dha 00 daily. Medical (VITAFOL Branch FE+, WITH DOCUSATE,) 90 mg iron-1 mg -50 mg-200 mg Cap PNV 2020-0 Yes [id number] 1{tbl} Take 1 [facility]ive rs 102-iron-fo 2-18 tablet by ity of late 00:00: mouth [place] 1-dss-dha 00 daily. Medical (VITAFOL Branch FE+, WITH DOCUSATE,) 90 mg iron-1 mg -50 mg-200 mg Cap PNV 2020-0 Yes [id number] 1{tbl} Take 1 [facility]ive rs 102-iron-fo 2-18 tablet by ity of late 00:00: mouth [place] 1-dss-dha 00 daily. Medical (VITAFOL Branch FE+, WITH DOCUSATE,) 90 mg iron-1 mg -50 mg-200 mg Cap PNV 2020-0 Yes [id number] 1{tbl} Take 1 [facility]ive rs 102-iron-fo 2-18 tablet by ity of late 00:00: mouth [place] 1-dss-dha 00 daily. Medical (VITAFOL Branch FE+, WITH DOCUSATE,) 90 mg iron-1 mg -50 mg-200 mg Cap PNV 2020-0 Yes [id number] 1{tbl} Take 1 [facility]ive rs 102-iron-fo 2-18 tablet by ity of late 00:00: mouth [place] 1-dss-dha 00 daily. Medical (VITAFOL Branch FE+, WITH DOCUSATE,) 90 mg iron-1 mg -50 mg-200 mg Cap PNV 2020-0 Yes [id number] 1{tbl} Take 1 [facility]ive rs 102-iron-fo 2-18 tablet by ity of late 00:00: mouth [place] 1-dss-dha 00 daily. Medical (VITAFOL Branch FE+, WITH DOCUSATE,) 90 mg iron-1 mg -50 mg-200 mg Cap PNV 2020-0 Yes [id number] 1{tbl} Take 1 [facility]ive rs 102-iron-fo 2-18 tablet by ity of late 00:00: mouth [place] [address]-dss-dha 00 daily. Medical (VITAFOL Branch FE+, WITH DOCUSATE,) 90 mg iron-1 mg -50 mg-200 mg Cap PNV 2020-0 Yes [id number] 1{tbl} Take 1 [facility]ive rs 102-iron-fo 2-18 tablet by ity of late 00:00: mouth [place] [address]-dss-dha 00 daily. Medical (VITAFOL Branch FE+, WITH DOCUSATE,) 90 mg iron-1 mg -50 mg-200 mg Cap PNV 2020-0 Yes [id number] 1{tbl} Take 1 Unive rs 102-iron-fo 2-18 tablet by ity of late 00:00: mouth [place] 1-dss-dha 00 daily. Medical (VITAFOL Branch FE+, WITH DOCUSATE,) 90 mg iron-1 mg -50 mg-200 mg Cap PNV 2020-0 Yes [id number] 1{tbl} Take 1 Unive rs 102-iron-fo 2-18 tablet by ity of late 00:00: mouth [place] 1-dss-dha 00 daily. Medical (VITAFOL Branch FE+, WITH DOCUSATE,) 90 mg iron-1 mg -50 mg-200 mg Cap PNV 2020-0 Yes [id number] 1{tbl} Take 1 [facility]ive rs 102-iron-fo 2-18 tablet by ity of late 00:00: mouth [place] 1-dss-dha 00 daily. Medical (VITAFOL Branch FE+, WITH DOCUSATE,) 90 mg iron-1 mg -50 mg-200 mg Cap PNV 2020-0 Yes [id number] 1{tbl} Take 1 [facility]ive rs 102-iron-fo 2-18 tablet by ity of late 00:00: mouth [place] 1-dss-dha 00 daily. Medical (VITAFOL Branch FE+, WITH DOCUSATE,) 90 mg iron-1 mg -50 mg-200 mg Cap PNV 2020-0 Yes [id number] 1{tbl} Take 1 Unive rs 102-iron-fo 2-18 tablet by ity of late 00:00: mouth [place] [address]-dss-dha 00 daily. Medical (VITAFOL Branch FE+, WITH DOCUSATE,) 90 mg iron-1 mg -50 mg-200 mg Cap PNV 2020-0 Yes [id number] 1{tbl} Take 1 Unive rs 102-iron-fo 2-18 tablet by ity of late 00:00: mouth [place] [address]-dss-dha 00 daily. Medical (VITAFOL Branch FE+, WITH DOCUSATE,) 90 mg iron-1 mg -50 mg-200 mg Cap PNV 2020-0 Yes [id number] 1{tbl} Take 1 Unive rs 102-iron-fo 2-18 tablet by ity of late 00:00: mouth [place] 1-dss-dha 00 daily. Medical (VITAFOL Branch FE+, WITH DOCUSATE,) 90 mg iron-1 mg -50 mg-200 mg Cap PNV 2020-0 Yes [id number] 1{tbl} Take 1 Unive rs 102-iron-fo 2-18 tablet by ity of late 00:00: mouth [place] 1-dss-dha 00 daily. Medical (VITAFOL Branch FE+, WITH DOCUSATE,) 90 mg iron-1 mg -50 mg-200 mg Cap PNV 2020-0 Yes [id number] 1{tbl} Take 1 Unive rs 102-iron-fo 2-18 tablet by ity of late 00:00: mouth [place] 1-dss-dha 00 daily. Medical (VITAFOL Branch FE+, WITH DOCUSATE,) 90 mg iron-1 mg -50 mg-200 mg Cap PNV 2020-0 Yes [id number] 1{tbl} Take 1 Unive rs 102-iron-fo 2-18 tablet by ity of late 00:00: mouth [place] 1-dss-dha 00 daily. Medical (VITAFOL Branch FE+, WITH DOCUSATE,) 90 mg iron-1 mg -50 mg-200 mg Cap PNV 2020-0 Yes [id number] 1{tbl} Take 1 Unive rs 102-iron-fo 2-18 tablet by ity of late 00:00: mouth [place] 1-dss-dha 00 daily. Medical (VITAFOL Branch FE+, WITH DOCUSATE,) 90 mg iron-1 mg -50 mg-200 mg Cap PNV 2020-0 Yes [id number] 1{tbl} Take 1 Unive rs 102-iron-fo 2-18 tablet by ity of late 00:00: mouth [place] 1-dss-dha 00 daily. Medical (VITAFOL Branch FE+, WITH DOCUSATE,) 90 mg iron-1 mg -50 mg-200 mg Cap PNV 2020-0 Yes [id number] 1{tbl} Take 1 Unive rs 102-iron-fo 2-18 tablet by ity of late 00:00: mouth [place] 1-dss-dha 00 daily. Medical (VITAFOL Branch FE+, WITH DOCUSATE,) 90 mg iron-1 mg -50 mg-200 mg Cap PNV 2020-0 Yes [id number] 1{tbl} Take 1 Unive rs 102-iron-fo 2-18 tablet by ity of late 00:00: mouth [place] 1-dss-dha 00 daily. Medical (VITAFOL Branch FE+, WITH DOCUSATE,) 90 mg iron-1 mg -50 mg-200 mg Cap PNV 2020-0 Yes [id number] 1{tbl} Take 1 Unive rs 102-iron-fo 2-18 tablet by ity of late 00:00: mouth [place] 1-dss-dha 00 daily. Medical (VITAFOL Branch FE+, WITH DOCUSATE,) 90 mg iron-1 mg -50 mg-200 mg Cap PNV 2020-0 Yes [id number] 1{tbl} Take 1 Unive rs 102-iron-fo 2-18 tablet by ity of late 00:00: mouth [place] [address]-dss-dha 00 daily. Medical (VITAFOL Branch FE+, WITH DOCUSATE,) 90 mg iron-1 mg -50 mg-200 mg Cap PNV 2020-0 Yes [id number] 1{tbl} Take 1 Unive rs 102-iron-fo 2-18 tablet by ity of late 00:00: mouth [place] [address]-dss-dha 00 daily. Medical (VITAFOL Branch FE+, WITH DOCUSATE,) 90 mg iron-1 mg -50 mg-200 mg Cap PNV 2020-0 Yes [id number] 1{tbl} Take 1 Unive rs 102-iron-fo 2-18 tablet by ity of late 00:00: mouth [place] [address]-dss-dha 00 daily. Medical (VITAFOL Branch FE+, WITH DOCUSATE,) 90 mg iron-1 mg -50 mg-200 mg Cap PNV 2020-0 Yes [id number] 1{tbl} Take 1 Unive rs 102-iron-fo 2-18 tablet by ity of late 00:00: mouth [place] [address]-dss-dha 00 daily. Medical (VITAFOL Branch FE+, WITH DOCUSATE,) 90 mg iron-1 mg -50 mg-200 mg Cap PNV 2020-0 Yes [id number] 1{tbl} Take 1 Unive rs 102-iron-fo 2-18 tablet by ity of late 00:00: mouth [address] 00 daily. Medical (VITAFOL Branch FE+, WITH DOCUSATE,) 90 mg iron-1 mg -50 mg-200 mg Cap PNV 2020-0 2020- No [id number] 1{tbl} Take 1 Univ ers 102-iron-fo 2-18 08-14 tablet by it y of late 00:00: 00:00 mouth [place] [address]-dss-dha 00 :00 daily. Medical (VITAFOL Branch FE+, WITH DOCUSATE,) 90 mg iron-1 mg -50 mg-200 mg Cap 2015-0 Yes 1{tbl} Take 1 Tab U nivers [...] No 1{tbl} Take 1 Tab [facility] multivitami 6-06 04-20 by mouth ity of n ( 00:00: 00:00 daily. [place] as VITAMIN) 00 :00 Medical tablet Branch Immunizations Ordered Filled Immunization Date Status Comments [facility] e Immunization Name Name TDAP (ADACEL) 2020-03-19 Completed [facility] of VACCINE 00:00:00 [facility] Branch TDAP (ADACEL) 2020-03-19 Completed [facility] of VACCINE 00:00:00 [facility] Branch TDAP (ADACEL) 2020-03-19 Completed [facility] of VACCINE 00:00:00 [facility] Branch TDAP (ADACEL) 2020-03-19 Completed [facility] of VACCINE 00:00:00 [facility] Branch TDAP (ADACEL) 2020-03-19 Completed [facility] of VACCINE 00:00:00 [facility] Branch TDAP (ADACEL) 2020-03-19 Completed [facility] of VACCINE 00:00:00 [facility] Branch TDAP (ADACEL) 2020-03-19 Completed [facility] of VACCINE 00:00:00 [facility] Branch TDAP (ADACEL) 2020-03-19 Completed [facility] of VACCINE 00:00:00 [facility] Branch TDAP (ADACEL) 2020-03-19 Completed [facility] of VACCINE 00:00:00 [facility] Branch TDAP (ADACEL) 2020-03-19 Completed [facility] of VACCINE 00:00:00 [facility] Branch TDAP (ADACEL) 2020-03-19 Completed [facility] of VACCINE 00:00:00 [facility] Branch TDAP (ADACEL) 2020-03-19 Completed [facility] of VACCINE 00:00:00 [facility] Branch TDAP (ADACEL) 2020-03-19 Completed [facility] of VACCINE 00:00:00 [facility] Branch TDAP (ADACEL) 2020-03-19 Completed [facility] of VACCINE 00:00:00 [facility] Branch TDAP (ADACEL) 2020-03-19 Completed [facility] of VACCINE 00:00:00 [facility] Branch TDAP (ADACEL) 2020-03-19 Completed [facility] of VACCINE 00:00:00 [facility] Branch TDAP (ADACEL) 2020-03-19 Completed [facility] of VACCINE 00:00:00 [facility] Branch TDAP (ADACEL) 2020-03-19 Completed [facility] of VACCINE 00:00:00 [facility] Branch TDAP (ADACEL) 2020-03-19 Completed [facility] of VACCINE 00:00:00 [facility] Branch TDAP (ADACEL) 2020-03-19 Completed [facility] of VACCINE 00:00:00 [facility] Branch TDAP (ADACEL) 2020-03-19 Completed [facility] of VACCINE 00:00:00 [facility] Branch TDAP (ADACEL) 2020-03-19 Completed [facility] of VACCINE 00:00:00 [facility] Branch TDAP (ADACEL) 2020-03-19 Completed [facility] of VACCINE 00:00:00 [facility] Branch TDAP (ADACEL) 2020-03-19 Completed [facility] of VACCINE 00:00:00 [facility] Branch TDAP (ADACEL) 2020-03-19 Completed [facility] of VACCINE 00:00:00 [facility] Branch TDAP (ADACEL) 2020-03-19 Completed [facility] of VACCINE 00:00:00 [facility] Branch TDAP (ADACEL) 2020-03-19 Completed [facility] of VACCINE 00:00:00 [facility] Branch TDAP (ADACEL) 2020-03-19 Completed [facility] of VACCINE 00:00:00 [facility] TDAP (ADACEL) 2020-03-19 Completed University of VACCINE 00:00:00 [facility] Branch TDAP (ADACEL) 2020-03-19 Completed [facility] of VACCINE 00:00:00 [facility] Branch TDAP (ADACEL) 2020-03-19 Completed [facility] of VACCINE 00:00:00 [facility] Branch TDAP (ADACEL) 2020-03-19 Completed University of VACCINE 00:00:00 [facility] TDAP (ADACEL) 2020-03-19 Completed University of VACCINE 00:00:00 [facility] TDAP (ADACEL) 2020-03-19 Completed University of VACCINE 00:00:00 [facility] Branch TDAP (ADACEL) 2020-03-19 Completed [facility] of VACCINE 00:00:00 [facility] Branch TDAP (ADACEL) 2020-03-19 Completed University of VACCINE 00:00:00 [facility] Branch TDAP (ADACEL) 2020-03-19 Completed [facility] of VACCINE 00:00:00 [facility] Branch TDAP (ADACEL) 2020-03-19 Completed [facility] of VACCINE 00:00:00 [facility] Branch TDAP (ADACEL) 2020-03-19 Completed University of VACCINE 00:00:00 [facility] Branch TDAP (ADACEL) 2020-03-19 Completed [facility] of VACCINE 00:00:00 [facility] Vital Signs Vital Name Observation Time Observation Value Comments Source Systolic blood 2023-03-01 21:26:00 153 mm[Hg] Univer sity of pressure [facility] Diastolic blood 2023-03-01 21:26:00 87 mm[Hg] Unive rsity of pressure [facility] Heart rate 2023-03-01 21:26:00 88 /min Universi ty of [facility] Respiratory rate 2023-03-01 21:26:00 20 /min Univ ersity of [facility] Oxygen saturation in 2023-03-01 21:26:00 100 /min [facility] Arterial blood by [facility] Pulse oximetry Branch Body temperature 2023-03-01 20:11:00 37 Ashanti [facility] ersity of [facility] Body height 2023-03-01 20:11:00 160 cm Universi ty of [facility] Body weight 2023-03-01 20:11:00 130.137 kg Universi ty of [facility] BMI 2023-03-01 20:11:00 50.82 kg/m2 Universi ty of [facility] Systolic blood 2020-06-11 16:39:00 148 mm[Hg] Univer sity of pressure [facility] Diastolic blood 2020-06-11 16:39:00 82 mm[Hg] Unive rsity of pressure [facility] Heart rate 2020-06-11 16:35:00 71 /min Universi ty of [facility] Body temperature 2020-06-11 16:35:00 36.83 Ashanti Univ ersity of [facility] Respiratory rate 2020-06-11 16:35:00 18 /min Univ ersity of [facility] Body height 2020-06-11 16:35:00 160 cm [facility] [place] [facility] [place] Body weight 2020-06-11 16:35:00 110.224 kg [facility]i ty [facility] BMI 2020-06-11 16:35:00 43.05 kg/m2 Universi ty of [facility] Systolic blood 2020-05-21 16:01:00 139 mm[Hg] Univer sity of pressure [facility] Diastolic blood 2020-05-21 16:01:00 85 mm[Hg] Unive rsity of pressure [facility] Heart rate 2020-05-21 16:01:00 88 /min Universi ty of [facility] Body temperature 2020-05-21 15:44:00 36.78 Ashanti Univ ersity of [facility] Respiratory rate 2020-05-21 15:44:00 18 /min Univ ersity of [facility] Body height 2020-05-21 15:44:00 161.3 cm Universi ty of [facility] Body weight 2020-05-21 15:44:00 117.482 kg Universi ty of [facility] BMI 2020-05-21 15:44:00 45.16 kg/m2 Universi ty of [facility] Systolic blood 2020-05-16 15:00:00 145 mm[Hg] Univer sity of pressure [facility] Diastolic blood 2020-05-16 15:00:00 78 mm[Hg] Unive rsity of pressure [facility] Heart rate 2020-05-16 15:00:00 102 /min Universi ty of [facility] Body temperature 2020-05-16 15:00:00 36.72 Ashanti Univ ersity of [facility] Respiratory rate 2020-05-16 15:00:00 16 /min Univ ersity of [facility] Oxygen saturation in 2020-05-16 15:00:00 99 /min University of Arterial blood by [facility] Pulse oximetry Branch Body height 2020-05-14 14:19:00 161.5 cm Universi ty of [facility] Body weight 2020-05-14 14:19:00 125.646 kg Universi ty of [facility] BMI 2020-05-14 14:19:00 48.17 kg/m2 Universi ty of [facility] Systolic blood 2020-05-12 18:28:00 139 mm[Hg] Univer sity of pressure [facility] Diastolic blood 2020-05-12 18:28:00 87 mm[Hg] Unive rsity of pressure [facility] Heart rate 2020-05-12 18:28:00 114 /min Universi ty of [facility] Body temperature 2020-05-12 18:28:00 36.5 Ashanti Univ ersity of [facility] Respiratory rate 2020-05-12 18:28:00 18 /min Univ ersity of [facility] Body height 2020-05-12 18:28:00 160 cm Universi ty of [facility] Body weight 2020-05-12 18:28:00 128.368 kg Universi ty of [facility] BMI 2020-05-12 18:28:00 50.13 kg/m2 [facility] ty of [facility] Systolic blood 2020-05-09 18:05:00 138 mm[Hg] Univer sity of pressure [facility] Diastolic blood 2020-05-09 18:05:00 80 mm[Hg] Unive rsity of pressure [facility] Heart rate 2020-05-09 18:00:00 101 /min [facility]i ty [facility] Body temperature 2020-05-09 18:00:00 36.72 Ashanti Univ ersity of [facility] Respiratory rate 2020-05-09 18:00:00 18 /min Univ ersity of [facility] Body height 2020-05-09 18:00:00 160 cm [facility]i [facility] Body weight 2020-05-09 18:00:00 125.465 kg [facility] BMI 2020-05-09 18:00:00 49.00 kg/m2 [facility] Systolic blood 2020-05-05 18:25:00 147 mm[Hg] Univer sity of pressure [facility] Diastolic blood 2020-05-05 18:25:00 73 mm[Hg] Unive rsity of pressure [facility] Heart rate 2020-05-05 18:25:00 97 /min [facility]i [facility] Body temperature 2020-05-05 18:25:00 36.94 Ashanti Univ ersity of [facility] Respiratory rate 2020-05-05 18:25:00 18 /min Univ ersity of [facility] Body height 2020-05-05 18:25:00 160 cm [facility]i [facility] Body weight 2020-05-05 18:25:00 128.096 kg [facility] BMI 2020-05-05 18:25:00 50.02 kg/m2 [facility] Systolic blood 2020-04-30 14:04:00 130 mm[Hg] Univer sity of pressure [facility] Diastolic blood 2020-04-30 14:04:00 84 mm[Hg] Unive rsity of pressure [facility] Heart rate 2020-04-30 14:01:00 105 /min [facility]i [facility] of [facility] Body temperature 2020-04-30 14:01:00 36.44 Ashanti Univ ersity of [facility] Respiratory rate 2020-04-30 14:01:00 18 /min Univ ersity of [facility] Body height 2020-04-30 14:01:00 160 cm [facility] Body weight 2020-04-30 14:01:00 124.921 kg [facility] BMI 2020-04-30 14:01:00 48.78 kg/m2 Universi ty of [facility] Systolic blood 2020-05-02 14:23:00 139 mm[Hg] Univer sity of pressure [facility] Diastolic blood 2020-05-02 14:23:00 85 mm[Hg] Unive rsity of pressure [facility] Heart rate 2020-05-02 14:23:00 98 /min Universi ty of [facility] Body temperature 2020-05-02 14:23:00 36.78 Ashanti Univ ersity of [facility] Respiratory rate 2020-05-02 14:23:00 18 /min Univ ersity of [facility] Body weight 2020-05-02 14:23:00 126.1 kg Universi ty of [facility] BMI 2020-05-02 14:23:00 49.25 kg/m2 Universi ty of [facility] Systolic blood 2020-04-16 20:22:00 121 mm[Hg] Univer sity of pressure [facility] Diastolic blood 2020-04-16 20:22:00 67 mm[Hg] Unive rsity of pressure [facility] Heart rate 2020-04-16 20:22:00 104 /min [facility]i ty of [facility] Body temperature 2020-04-16 20:22:00 36.94 Ashanti Univ ersity of [facility] Respiratory rate 2020-04-16 20:22:00 18 /min Univ ersity of [facility] Body height 2020-04-16 20:22:00 160 cm [facility]i ty of [facility] Body weight 2020-04-16 20:22:00 124.286 kg [facility]i ty of [facility] BMI 2020-04-16 20:22:00 48.54 kg/m2 [facility]i ty of [facility] Heart rate 2020-04-14 17:00:00 102 /min Universi ty of [facility] Oxygen saturation in 2020-04-14 16:45:00 100 /min University Arterial blood by [facility] Pulse oximetry Branch Systolic blood 2020-04-14 16:26:00 141 mm[Hg] Univer sity of pressure [facility] Diastolic blood 2020-04-14 16:26:00 79 mm[Hg] Unive rsity of pressure [facility] Body temperature 2020-04-14 16:26:00 36.89 Ashanti Univ ersity of [facility] Respiratory rate 2020-04-14 16:26:00 18 /min Univ ersity of [facility] Body height 2020-04-14 16:26:00 160 cm [facility]i ty [facility] Body weight 2020-04-14 16:26:00 123.832 kg [facility] BMI 2020-04-14 16:26:00 48.36 kg/m2 [facility] Systolic blood 2020-04-14 14:46:00 133 mm[Hg] Univer sity of pressure [facility] Diastolic blood 2020-04-14 14:46:00 89 mm[Hg] Unive rsity of pressure [facility] Heart rate 2020-04-14 14:46:00 101 /min [facility]i ty [facility] Body temperature 2020-04-14 14:46:00 36.83 Ashanti Univ [facility]ity [facility] Respiratory rate 2020-04-14 14:46:00 18 /min Univ ersity of [facility] Body height 2020-04-14 14:46:00 160 cm [facility] Body weight 2020-04-14 14:46:00 123.832 kg [facility] BMI 2020-04-14 14:46:00 48.36 kg/m2 [facility] Systolic blood 2020-04-09 20:14:00 138 mm[Hg] Univer sity of pressure [facility] Diastolic blood 2020-04-09 20:14:00 83 mm[Hg] Unive rsity of pressure [facility] Heart rate 2020-04-09 20:14:00 118 /min [facility]i ty [facility] Body temperature 2020-04-09 20:14:00 36.67 Ashanti Univ ersity of [facility] Respiratory rate 2020-04-09 20:14:00 18 /min Univ ersity of [facility] Body height 2020-04-09 20:14:00 160 cm [facility] Body weight 2020-04-09 20:14:00 123.378 kg [facility] BMI 2020-04-09 20:14:00 48.18 kg/m2 [facility] Systolic blood 2020-04-07 14:08:00 136 mm[Hg] Univer sity of pressure [facility] Diastolic blood 2020-04-07 14:08:00 84 mm[Hg] Unive rsity of pressure [facility] Heart rate 2020-04-07 14:08:00 108 /min [facility]i ty [facility] Body temperature 2020-04-07 14:08:00 36.5 Ashanti Univ ersity of [facility] Respiratory rate 2020-04-07 14:08:00 18 /min Univ ersity of [facility] Body height 2020-04-07 14:08:00 160 cm [facility]i [facility] Body weight 2020-04-07 14:08:00 123.378 kg [facility] BMI 2020-04-07 14:08:00 48.18 kg/m2 [facility] Systolic blood 2020-03-19 21:20:00 133 mm[Hg] Univer sity of pressure [facility] Diastolic blood 2020-03-19 21:20:00 79 mm[Hg] Unive rsity of pressure [facility] Heart rate 2020-03-19 21:20:00 104 /min [facility]i ty [facility] Body temperature 2020-03-19 21:20:00 37 Ashanti Univ ersity of [facility] Respiratory rate 2020-03-19 21:20:00 18 /min Univ ersity of [facility] Body height 2020-03-19 21:20:00 160 cm [facility]i ty [facility] Body weight 2020-03-19 21:20:00 125.737 kg [facility] BMI 2020-03-19 21:20:00 49.10 kg/m2 [facility] Systolic blood 2019-12-18 14:03:00 159 mm[Hg] Univer sity of pressure [facility] Diastolic blood 2019-12-18 14:03:00 94 mm[Hg] Unive rsity of pressure [facility] Heart rate 2019-12-18 14:02:00 93 /min [facility]i ty of [facility] Body temperature 2019-12-18 14:02:00 36.72 Ashanti Univ ersity of [facility] Respiratory rate 2019-12-18 14:02:00 18 /min Univ ersity of [facility] Body height 2019-12-18 14:02:00 160 cm Universi ty of [facility] Body weight 2019-12-18 14:02:00 122.925 kg Universi ty of [facility] BMI 2019-12-18 14:02:00 48.01 kg/m2 Universi ty of [facility] Systolic blood 2019-11-20 19:40:00 149 mm[Hg] Univer sity of pressure [facility] Diastolic blood 2019-11-20 19:40:00 96 mm[Hg] Unive rsity of pressure [facility] Heart rate 2019-11-20 19:30:00 91 /min Universi ty of [facility] Body temperature 2019-11-20 19:30:00 36.39 Ashanti Univ ersity of [facility] Respiratory rate 2019-11-20 19:30:00 18 /min Univ ersity of [facility] Body height 2019-11-20 19:30:00 160 cm Universi ty of [facility] Body weight 2019-11-20 19:30:00 121.564 kg Universi ty of [facility] BMI 2019-11-20 19:30:00 47.47 kg/m2 Universi ty of [facility] Systolic blood 2019-10-23 21:05:00 140 mm[Hg] Univer sity of pressure [facility] Diastolic blood 2019-10-23 21:05:00 87 mm[Hg] Unive rsity of pressure [facility] Heart rate 2019-10-23 20:59:00 93 /min Universi ty of [facility] Body temperature 2019-10-23 20:59:00 36.89 Ashanti Univ ersity of [facility] Respiratory rate 2019-10-23 20:59:00 18 /min Univ ersity of [facility] Body height 2019-10-23 20:59:00 160 cm Universi ty of [facility] Body weight 2019-10-23 20:59:00 122.471 kg Universi ty of [facility] BMI 2019-10-23 20:59:00 47.83 kg/m2 [facility]i ty of [facility] Procedures Procedure Date / Time Performing Clinician Source Performed POCT TEST 2023-03-01 20:27:00 [facility] METABOLIC PANEL 2023-03-01 20:26:00 Gabbie Thompson [facility] ([id number]) Medical Branch CBC WITH DIFF 2023-03-01 20:26:00 Gabbie Thompson [facility] HB ABO GROUPING 2023-03-01 20:26:00 Gabbie Thompson [facility] CONSENT/REFUSAL FOR 2023-03-01 20:02:24 Doctor Unassigned, [facility] DIAGNOSIS AND TREATMENT [facility] [place] CBC WITH DIFF 2020-05-15 08:49:00 Atul [facility] VENOUS CORD GAS 2020-05-14 16:12:00 Luciano [facility] SECTION 2020-05-14 15:05:[facility] 2020-05-14 15:05:00 Atlu [facility] POCT GLUCOSE (AUTOMATED) 2020-05-14 14:05:00 Melyssa Lopez [facility] COVID-19 (ID NOW RAPID 2020-05-14 13:44:00 Melyssa Lopez [facility] TESTING) [facility] RHO (D) IMMUNE GLOBULIN 2020-05-13 20:12:00 Atul [facility] ASSIGNMENT OF BENEFITS 2020-05-12 19:19:25 Doctor Unassigned, [facility] Name [facility] NON-STRESS TEST 2020-05-12 19:05:26 Consuelo Truong [facility] NON-STRESS TEST 2020-05-09 19:02:46 Melyssa Lopez [facility] NON-STRESS TEST 2020-05-05 19:33:03 Consuelo Truong [facility] POCT URINALYSIS W/O 2020-05-05 00:00:00 Consuelo Truong [facility] SPECIFIC GRAVITY [facility] Branch NON-STRESS TEST 2020-05-02 14:52:11 Melyssa Lopez [facility] DSU PRE-OP 2020-05-02 05:01:00 Doctor Unasstova, [facility] [place] >14 WEEKS US 2020-04-30 20:59:46 [facility] 2020-04-30 20:58:03 Consuelo Truong [facility] GC & CHLAMYDIA AMPLIFIED 2020-04-30 14:18:00 Consuelo Truong [facility] PATIENT QUESTIONNAIRE 2020-04-30 05:01:00 Doctor Unassigned, Uni [facility] Name Medical [place] POCT URINALYSIS W/O 2020-04-30 00:00:00 Consuelo Truong [facility] BIOPHYSICAL PROFILE 2020-04-16 21:24:19 Melyssa Lopez [facility] NON-STRESS TEST 2020-04-14 23:32:09 Melyssa Lopez [facility] US PELVIS LIMITED 2020-04-14 16:50:00 Melyssa Lopez [facility] ADC ONLY - FERN TEST 2020-04-14 16:38:00 Melyssa Lopez [facility] CONSENT/REFUSAL FOR 2020-04-14 15:58:43 Doctor Unalogan, [facility] DIAGNOSIS AND TREATMENT [facility] [place] ASSIGNMENT OF BENEFITS 2020-04-14 15:57:48 Doctor Unalogan, [facility] Medical [place] NON-STRESS TEST 2020-04-09 20:55:36 Melyssa Lopez [facility] POCT URINALYSIS W/O 2020-04-09 00:00:00 Melyssa Lopez [facility] NON-STRESS TEST 2020-04-07 15:28:14 Consuelo Truong [facility] SECOND AND THIRD 2020-04-07 13:23:00 Melyssa Lopez [facility] TRIMESTER ULTRASOUND Medical [place] STERILIZATION CONSENT 2020-04-07 05:01:00 Doctor Unalogan, [facility] FORM [facility] [place] POCT GLUCOSE(AGE >30DAYS) 2020-04-07 00:00:00 Consuelo Truong Un [facility] POCT URINALYSIS W/O 2020-04-07 00:00:00 Consuelo Truong [facility] CBC WITH DIFFERENTIAL 2020-04-03 21:01:00 Melyssa Lopez [facility] POCT HEMOGLOBIN A1C TEST 2020-03-19 21:45:00 Melyssa Lopez [facility] POCT GLUCOSE(AGE >30DAYS) 2020-03-19 21:39:00 [facility] POCT URINALYSIS W/O 2020-03-19 21:23:00 Melyssa Lopez [facility] SPECIFIC GRAVITY [facility] TDAP (ADACEL) 2020-03-19 21:13:56 Melyssa Lopez [facility] [place] IMMUNIZATION [facility] INSURANCE CORRESPONDENCE 2020-02-28 05:01:00 Doctor Unassigned, [facility] [place] [facility] SECOND AND THIRD 2020-01-02 15:53:00 Melyssa Lopez [facility] TRIMESTER ULTRASOUND Medical [facility] SECOND AND THIRD 2020-01-02 15:45:00 Melyssa Lopez [facility] ULTRASOUND Medical [facility] POCT URINALYSIS W/O 2019-12-18 00:00:00 Consuelo Truong [facility] SPECIFIC [facility] 3 HR GLUCOSE TOLERANCE 2019-11-30 18:35:00 [facility] 2 HR GLUCOSE TOLERANCE 2019-11-30 17:39:00 [facility] 1 HR GLUCOSE TOLERANCE 2019-11-30 16:36:00 Consuelo Truong [facility] GLUCOSE FASTING 2019-11-30 15:32:00 Consuelo Truong [facility] GLUCOSE FASTING 2019-11-30 15:32:00 Feliberto [facility] GLUCOSE 1 HOUR POST 2019-11-21 16:30:00 Melyssa Lopez [facility] CBC WITH DIFFERENTIAL 2019-11-21 16:01:00 Melyssa Lopez [facility] COMP. METABOLIC PANEL 2019-11-21 16:01:00 Melyssa Lopez [facility] ([id number]) [facility] HB ABO GROUPING 2019-11-21 16:01:00 Melyssa Lopez [facility] ASSIGNMENT OF BENEFITS 2019-11-21 14:51:24 Doctor Unassigned, Un iversity of [facility] Name Medical [place] POCT URINALYSIS W/O 2019-11-20 00:00:[address] [facility] EXTERNAL PROVIDER RECORDS 2019-11-03 06:01:00 Doctor Unassigned, [facility] <14 WEEKS US 2019-10-25 03:52:05 [facility]ssa [facility] & CHLAMYDIA AMPLIFIED 2019-10-23 21:42:00 [facility]elyssa Lopez [facility] ONLY PAP SMEAR-LIQUID 2019-10-23 21:42:00 [facility]ssa [facility]ze [facility] [place] ADC / LCC - DRUG SCREEN 2019-10-23 21:42:00 Melyssa Lopez [facility] HIGH RISK HPV-THIN PREP 2019-10-23 21:42:00 Melyssa Lopez [facility] PAP SMEAR-LIQUID BASED-CP 2019-10-23 21:42:00 [facility]ssa [facility] ASSIGNMENT OF BENEFITS 2019-10-23 20:38:47 [facility]igned, [facility] 2019-10-23 00:00:[address] [facility] POCT URINALYSIS W/O 2019-10-23 00:00:00 Melyssa Lopez [facility] Encounters Start End Encounter Admission Attending Care Care Encounter Source Date/Time Date/Time Type Type Clinicians Facility Department ID 2021-07-31 Outpatient P [facility] LEONCIO [id number] Univers [facility] 2023-03-30 2023-03-30 Outpatient R FELIBERTO [facility] [id number] Univers 08:30:00 08:30:00 CONSUELO harden [facility] 2023-03-01 2023-03-01 Emergency X DONNA WISHALA ERT [id number] Univers 15:12:00 16:39:00 GABBIE harden [facility] 2023-03-01 2023-03-01 Emergency [facility] [id number] Univers 15:12:00 16:39:00 Gabbie BOSS [id number] ity [facility] [id number] [id number] [address] 2021-05-22 2021-05-22 Melyssa Lerma [facility] [id number] Univers 00:00:00 00:00:00 Anatoly Boss [id number] i [id number] [id number] [address] 2020-12-10 2020-12-10 [facility] [id number] Univers 09:00:00 09:00:00 CONSUELO itguadalupe [facility] 2020-07-20 2020-07-20 Refnahun Lopez Melyssa [facility] [id number] Univers 00:00:00 00:00:00 Anatoly Boss [id number] i [id number] [phone] [address] 2020-07-10 2020-07-10 Telephone [facility] [id number] Univers 00:00:00 00:00:00 Consuelo Boss [id number] i [id number] [phone] [address] 2020-07-10 2020-07-10 [facility] [id number] Univers 00:00:00 00:00:00 Consuelo Boss [id number] i [id number] [phone] [address] 2020-06-18 2020-06-18 Outpatient R MELYSSA LOPEZ [facility] [id number] Univers 08:00:00 08:00:00 ity [facility] 2020-06-18 2020-06-18 Telephone [facility] [id number] Univers 00:00:00 00:00:00 Consuelo Boss [id number] [id number] [id number] [address] 2020-06-12 2020-06-12 Outpatient R [facility] [id number] Univers 09:30:00 09:30:00 ity of [facility] 2020-06-11 2020-06-11 Routine [facility] [id number] Univers 11:23:57 11:54:13 Consuelo Boss [id number] ity of [id number] [phone] [address] 2020-06-11 2020-06-11 [facility] [id number] Univers 11:30:00 11:30:00 CONSUELO ity [facility] 2020-06-01 2020-06-01 Refill [facility] [id number] Univers 00:00:00 00:00:00 Consuelo Boss [id number] i [id number] [phone] [address] 2020-05-21 2020-05-21 Nurse Nurse, [facility] [id number] Univers 10:42:25 11:02:56 Visit Melyssa Lopez [id number] [id number] [id number] [address] 2020-05-21 2020-05-21 Outpatient R MELYSSA LOPEZ [facility] [id number] Univers 10:30:00 10:30:00 ity [facility] 2020-05-14 2020-05-16 [facility] Melyssa Lopez [facility] [id number] Univers 08:22:00 15:18:00 Oral Boss [id number] [id number] [id number] [facility] 083 [place] 2020-05-14 2020-05-14 Outpatient R MELYSSA LOPEZ [facility] TOBY [id number] Univers 10:30:00 10:30:00 ity of [facility] 2020-05-13 2020-05-13 Seam Hammerer Kelsea, [facility] Main [facility] [id number] Univers 14:01:07 15:21:05 Visit Melyssa Lopez [id number] [id number] [phone] Mo dical nal 353 [facility] 2020-05-12 2020-05-13 Routine Room, [facility] [id number] Univers 13:15:48 14:16:43 Consuelo Truong [id number] ity of [id number] [phone] Mo dical nal 134 [facility] 2020-05-13 2020-05-13 Outpatient R MELYSSA LOPEZ [facility] [id number] Univers 14:00:00 14:00:00 ity of [facility] 2020-05-13 2020-05-13 Case eMlyssa Lopez [facility] 1.2.964.201 [id number] Univers 00:00:00 00:00:00 Management Anatoly Boss 350.1.13.10 [place] [phone] Mo dical nal 134 [facility] 2020-05-12 2020-05-12 Outpatient R FELIBERTO [facility] [id number] Univers 13:00:00 13:00:00 CONSUELO ity of [facility] 2020-05-12 2020-05-12 Orders Doctor ACEVEDO 1.2.840.114 [id number] Univers 00:00:00 00:00:00 Only Unassigned, HOMER 350.1.13.10 [place] [facility] 4.2.7.2.686 Miko as [phone] [address] 2020-05-09 2020-05-09 Routine Room, [facility] 1.2.840.1 14 [id number] Univers 12:58:24 13:56:20 Melyssa Lopez [place] 350.1.13.10 [place] [phone] Mo dical nal [address] [place] [address] 2020-05-09 2020-05-09 Outpatient R MELYSSA LOPEZ [facility] [id number] Univers 13:00:00 13:00:00 ity of [facility] 2020-05-06 2020-05-06 Seam Hammerer [facility] 1.2 .840.114 [id number] Univers 15:10:45 15:40:45 Visit Cristhian Gallegos KIER BOILER 350.1.13.1 0 ity of REGIONAL 4.2.7.2.686 Miko as MATERNAL [phone] [facility] ical & CHILD [address] [place] [address] 2020-05-06 2020-05-06 Outpatient P [facility] [id number] Univers 15:15:00 15:15:00 ity of [facility] 2020-05-05 2020-05-05 Routine Room, [facility] 1.2.840.1 14 [id number] Univers 13:00:53 14:08:30 Melyssa Lopez [place] 350.1.13.10 [place] [phone] Mo dical nal [address] [place] [address] 2020-05-05 2020-05-05 Outpatient R [facility] [id number] Univers 13:00:00 13:00:00 ity of [facility] 2020-04-30 2020-05-02 Routine Room, [facility] 1.2.840.1 14 [id number] Univers 08:53:48 09:57:20 Melyssa Lopez [place] 350.1.13.10 [place] [phone] Mo dical nal [address] [place] [address] 2020-05-02 2020-05-02 Routine Room, [facility] 1.2.840.1 14 [id number] Univers 08:50:07 09:51:44 Melyssa Lopez [place] 350.1.13.10 [place] [phone] Mo dical nal 134 [facility] 2020-05-02 2020-05-02 Outpatient R [facility] [id number] Univers 08:00:00 08:00:00 ity of [facility] 2020-04-30 2020-04-30 Outpatient R FELIBERTO, [facility] [id number] Univers 10:30:00 10:30:00 CONSUELO ity [facility] 2020-04-30 2020-04-30 Seam Hammerer 2, [facility] 1.2.840.114 [id number] Univers 10:14:23 10:29:23 Visit Liat Lopezvenkatesh Morenoton 350.1.13.10 [place] of [place] [phone] Mo dical nal 353 [facility] 2020-04-30 2020-04-30 Outpatient R [facility] [id number] Univers 09:00:00 09:00:00 ity of [facility] 2020-04-28 2020-04-28 Telephone Melyssa Lopez [facility] 1.2.840.114 [id number] Univers 00:00:00 00:00:00 Anatoly Boss 350.1.13.10 i [place] [phone] Mo dical nal 134 [facility] 2020-04-18 2020-04-18 Outpatient R [facility] [id number] Univers 09:00:00 09:00:00 ity [facility] 2020-04-16 2020-04-16 Routine Room, [facility] 1.2.840.1 14 [id number] Univers 15:03:44 16:17:27 Melyssa Lopez Anatoly [place] 350.1.13.10 it[place] [phone] Mo dical nal 134 [facility] 2020-04-16 2020-04-16 Outpatient R [facility] [id number] Univers 15:00:00 15:00:00 ity of [facility] 2020-04-16 2020-04-16 Outpatient R [facility] [id number] Univers 11:00:00 11:00:00 ity of [facility] 2020-04-14 2020-04-14 Hospital Melyssa Lopez [facility] 1.2.840.114 [id number] Univers 10:55:00 12:55:00 Encounter Anatoly Boss 350.1.13.10 [place] [phone] [facility] 083 [place] 2020-04-14 2020-04-14 Routine Room, [facility] 1.2.840.1 14 [id number] Univers 09:08:45 10:35:40 Consuelo Truong 350.1.13.10 ity [place] [phone] Mo dical nal 134 [facility] 2020-04-14 2020-04-14 Outpatient R MELYSSA LOPEZ [facility] [id number] Univers 10:30:00 10:30:00 ity of [facility] 2020-04-09 2020-04-09 Nurse Visit, [facility] Nurse [facility] 1.2.840.1 14 [id number] Univers 15:50:02 16:12:41 Visit Melyssa Lopez Anatoly Boss 350.1.13.10 ity of [place] 4.2.7.2.686 [place] Professio [phone] Mo dical nal 059 [facility] 2020-04-09 2020-04-09 Routine Room, [facility] 1.2.840.1 14 [id number] Univers 14:55:34 15:42:50 Melyssa Lopez [place] 350.1.13.10 ity [place] [phone] Mo dical nal 134 [facility] 2020-04-09 2020-04-09 Outpatient R [facility] [id number] Univers 08:00:00 08:00:00 ity of [facility] 2020-04-07 2020-04-07 Routine Room, [facility] 1.2.840.1 14 [id number] Univers 08:51:52 10:30:48 [place] Mary 350.1.13.10 ity of Visit Abrahamkeysha Consueloprincess [place] 4.2.7.2.686 [place] Professio [phone] Me dical nal 134 [facility] 2020-04-07 2020-04-07 Outpatient R [facility] [id number] Univers 09:00:00 09:00:00 ity of [facility] 2020-04-07 2020-04-07 Seam Hammerer [facility]trasound, [facility] 1.2 .840.114 [id number] Univers 08:06:34 08:32:02 Visit Cruz Ruff KIER BOILER 350.1.13.10 ity of [facility] 4.2.7.2.686 Miko as MATERNAL [phone] Med ical & CHILD [address] [place] [address] 2020-04-07 2020-04-07 Orders Doctor CURTIS 1.2.840.114 [id number] Univers 00:00:00 00:00:00 Only Unassigned, HOMER 350.1.13.10 [place] [facility] 4.2.7.2.686 Miko as [phone] [address] 2020-04-03 2020-04-03 Seam Hammerer 2, [facility] Lab [facility] 1.2.840.114 [id number] Univers 15:50:56 16:30:33 Visit Melyssa Lopez 350.1.13.10 [place] [phone] Me dical nal 353 [facility] 2020-04-03 2020-04-03 Outpatient R FELIBERTO [facility] [id number] Univers 16:30:00 16:30:00 CONSUELO ity of [facility] 2020-04-03 2020-04-03 Case Melyssa Lopez [facility] 1.2.993.391 [id number] Univers 00:00:00 00:00:00 Management Cam [place] 350.1.13.10 [place] [phone] [address] 2020-03-20 2020-03-20 Case Melyssa Lopez [facility] 1.2.644.920 [id number] Univers 00:00:00 00:00:00 Management Cam [place] 350.1.13.10 [place] [phone] [address] 2020-03-19 2020-03-19 [facility] 1.2.937.034 [id number] Univers 16:04:00 17:11:07 Anatoly Boss 350.1.13.10 ity [place] [phone] [address] 2020-03-19 2020-03-19 Outpatient R MELYSSA LOPEZ [facility] [id number] Univers 16:00:00 16:00:00 ity of [facility] 2020-03-10 2020-03-10 Telephone Atul [facility] 1.2.840.114 [id number] Univers 00:00:00 00:00:00 Anatoly Boss 350.1.13.10 i [place] [phone] [address] 2020-02-28 2020-02-28 Telephone Feliberto [facility] 1.2.840.114 [id number] Univers 00:00:00 00:00:00 Consuelo Boss 350.1.13.10 i ty [place] [phone] [address] 2020-02-28 2020-02-28 Orders Doctor CURTIS 1.2.840.114 [id number] Univers 00:00:00 00:00:00 Only Unassigned, HOMER 350.1.13.10 [place] [facility] 4.2.7.2.686 Miko as [phone] [address] 2020-01-17 2020-01-17 Telemedici Feliberto [facility] 1.2.840.114 [id number] Univers 14:45:00 15:00:00 ne Visit Consuelo Boss 350.1.13.10 ity [facility] [place] [phone] Mo dic[address] 2020-01-17 2020-01-17 Outpatient R FELIBERTO [facility] [id number] Univers 14:45:00 14:45:00 [facility] 2020-01-16 2020-01-16 Outpatient R FELIBERTO [facility] [id number] Univers 11:00:00 11:00:00 [facility] 2020-01-15 2020-01-15 Telephone Melyssa Lopez [facility] 1.2.840.114 [id number] Univers 00:00:00 00:00:00 Anatoly Boss 350.1.13.10 i ty [facility] [place] [phone] [address] 2020-01-02 2020-01-07 Seam Hammerer Ultrasound, [facility] 1. .840.114 [id number] Univers 09:37:16 10:35:35 Visit Melyssa Lopez KIER BOILER 350.1.13.10 ity [facility] 4.2.7.2.686 Miko as MATERNAL [phone] Med ical & CHILD [address] [place] [address] 2020-01-02 2020-01-02 Outpatient R MELYSSA LOPEZ [facility] [id number] Univers 16:00:00 16:00:00 ity [facility] 2020-01-02 2020-01-02 Telemedici Melyssa Lopez [facility] 1..840.114 7 [id number] Univers 09:32:02 09:47:02 ne Visit Anatoly Boss 350.1.13.10 ity [facility] [place] [phone] Mo dic[address] 2019-12-18 2019-12-18 Routine Feliberto WISHALA 1.2.189.644 [id number] Univers 08:50:36 14:03:18 Consuelo Boss 350.1.13.10 ity [place] [phone] Mo dical nal 134 [facility] 2019-12-18 2019-12-18 Seam Hammerer Kelsea, Adc Lab Main [facility] 1.2.8 40.114 [id number] Univers 09:57:49 10:12:49 Visit Consuelo Truong 350.1.13.10 it[place] of [place] [phone] [facility] 353 [facility] 2019-12-18 2019-12-18 Outpatient R FELIBERTO [facility] [id number] [facility] 08:45:00 08:45:00 CONSUELO ity [facility] 2019 2019 Patient Doctor CURTIS 1.2.840.114 [id number] Univers 00:00:00 00:00:00 Secure Msg Unassigned, HOMER 350.1.13.10 [place] [facility] 4.2.7.2.686 [place]iko as [phone] [address] 2019-12-07 2019-12-07 [facility] 1.2.840.114 [id number] Univers 00:00:00 00:00:00 Consuelo Boss 350.1.13.10 i ty [place] [phone] Mo dical [facility] 134 [facility] 2019-12-07 2019-12-07 Refill [facility] 1.2.773.807 [id number] Univers 00:00:00 00:00:00 Consuelo Boss 350.1.13.10 i [place] [phone] Mo dical [facility] 134 [facility] 2019-12-03 2019-12-03 Case [facility] 1.2.234.769 [id number] Univers 00:00:00 00:00:00 Management Consuelo Boss 350.1.13.10 it[place] of [place] [phone] Mo dical nal 134 [facility] 2019-11-30 2019-11-30 Seam Hammerer Moy [place] Lab Main [facility] 1.2.8 40.114 [id number] Univers 09:00:16 09:15:16 Visit Consuelo Truong 350.1.13.10 it[place] of [place] [phone] Mo dical nal 353 [facility] 2019-11-30 2019-11-30 Outpatient R FELIBERTO [facility] [id number] Univers 09:15:00 09:15:00 CONSUELO ity [facility] 2019-11-29 2019-11-29 [facility] 1.2.840.114 [id number] Univers 00:00:00 00:00:00 Cam Mary 350.1.13.10 i ty [place] [phone] Mo dical nal [address] [place] [address] 2019-11-29 2019-11-29 Telephone Melyssa Lopez [facility] 1.2.840.114 [id number] Univers 00:00:00 00:00:00 Cam [place] 350.1.13.10 i ty [place] [phone] Mo dical nal 134 [facility] 2019-11-28 2019-11-28 Telephone Melyssa Lopez [facility] 1.2.840.114 [id number] Univers 00:00:00 00:00:00 Cam [place] 350.1.13.10 i ty [place] [phone] Mo dical nal 134 [facility] 2019-11-27 2019-11-27 Patient Doctor [facility] 1.2.080.628 [id number] Univers 00:00:00 00:00:00 Secure Msg Unassigned, Y [facility]ALTH 350.1.13.10 [place] [facility] 4.2.7.2.[place] [phone] [address] 2019-11-26 2019-11-26 Seam Hammerer Kelsea, Adc Lab Main [facility] 1.2.8 40.114 [id number] Univers 08:59:02 09:14:02 Visit Melyssa Lopez 350.1.13.10 it[place] of [place].2.[place] [phone] Mo dical nal 353 [facility] 2019-11-26 2019-11-26 Outpatient R MELYSSA LOPEZ [facility] [id number] Univers 08:30:00 08:30:00 ity of [facility] 2019-11-22 2019-11-22 [facility]phone [facility] 1.2.840.114 [id number] Univers 00:00:00 00:00:00 Consuelo Boss 350.1.13.10 i ty [place] [phone] Mo dical nal 134 [facility] 2019-11-22 2019-11-22 Case [facility] 1.2.429.609 [id number] Univers 00:00:00 00:00:00 Management Consuelo Boss 350.1.13.10 ity of [place] [phone] Mo dical [facility] 134 [facility] 2019-11-21 2019-11-21 Seam Hammerer Kelsea, Adc Lab Main [facility] 1.2.8 40.114 [id number] Univers 08:53:23 11:28:02 Visit Melyssa Lopez 350.1.13.10 it[place] of [place] [phone] Mo dical nal 353 [facility] 2019-11-21 2019-11-21 Orders Doctor CURTIS 1.2.840.114 [id number] Univers 00:00:00 00:00:00 Only Unassigned, HOMER 350.1.13.10 [place] [facility] 4.2.7.2.686 Miko as [phone] [address] 2019-11-20 2019-11-20 Routine Melyssa Lopez [facility] 1.2.563.398 [id number] Univers 13:13:37 14:20:40 Cam [place] 350.1.13.10 ity of [place] [phone] Mo dical nal [address] [place] [address] 2019-11-03 2019-11-03 Orders Doctor CURTIS 1.2.840.114 [id number] Univers 00:00:00 00:00:00 Only Unassigned, HOMER 350.1.13.10 [place] [facility] 4.2.7.2.686 Miko as [phone] [address] 2019-10-30 2019-10-30 Case Feliberto [facility] 1.2.982.180 [id number] Univers 00:00:00 00:00:00 Management Consuelo Boss 350.1.13.10 it[place] of [place] [phone] [facility] nal [address] [place] [address] 2019-10-25 2019-10-25 Telephone Melyssa Lopez WISHALA 1.2.840.114 [id number] Univers 00:00:00 00:00:00 Cam [place] 350.1.13.10 i ty [place] [phone] Mo dicca nal [address] [place] [address] 2019-10-23 2019-10-23 Initial Melyssa Lopez WISHALA 1.2.992.837 [id number] Univers 14:42:54 15:53:56 Cam [place] 350.1.13.10 ity of [place].2.[place] [phone] Mo dical nal [address] [place] [address] 2019-10-23 2019-10-23 Orders Doctor CURTIS 1.2.840.114 [id number] Univers 00:00:00 00:00:00 Only Unassigned, HOMER 350.1.13.10 [place] [facility]OSPITAL 4.2.7.2.686 Miko as [phone] [address] 2019-10-16 2019-10-16 Telephone Melyssa Lopez [facility] 1.2.840.114 [id number] Univers 00:00:00 00:00:00 Cam [place] 350.1.13.10 i ty of [place] 4.2.7.2.686 Luis A Vallecilloessio [phone] Mo dical nal [address] Results Test Description Test Time Test Comments Results Result Comments Source CBC WITH DIFF 2023-03-01 21:35:24 Test Item Value Reference Range Interpretation Comme nts WBC (test code = 6690-2) 9.76 See_Comment [A utomated message] The system which ge nerated this result transmit maria e reference range: 4.30 - 1 1.10 10*3/?L. The reference r cipriano was not used to interpr et this result as normal/abnor mal. RBC (test code = 789-8) 4.04 See_Comment [Au tomated message] The system which ge nerated this result transmit maria e reference range: 3.93 - 5 .25 10*6/?L. The reference r cipriano was not used to interpr et this result as normal/abnor mal. HGB (test code = 718-7) 10.6 g/dL 11.6-15.0 L HCT (test code = 4544-3) 33.3 % 35.7-45.2 L MCV (test code = 787-2) 82.4 fL 80.6-95.5 MCH (test code = 785-6) 26.2 pg 25.9-32.8 MCHC (test code = 786-4) 31.8 g/dL 31.6-35.1 RDW-SD (test code = 17980-5) 47.5 fL 39.0-49.9 RDW-CV (test code = 788-0) 15.7 % 12.0-15.5 H PLT (test code = 777-3) 418 See_Comment H [Au tomated message] The system which ge nerated this result transmit maria e reference range: 166 - 35 8 10*3/?L. The reference range was not used to interpret th is result as normal/abnormal . MPV (test code = 94191-6) 10.0 fL 9.5-12.9 NRBC/100 WBC (test code = 0.0 See_Comment [ Automated message] The 0703953050) system which ge nerated this result transmit maria e reference range: 0.0 - 10 .0 /100 WBCs. The reference r cipriano was not used to interpr et this result as normal/abnor mal. NRBC x10^3 (test code = See_Comment [Au tomated message] The 3497338159) system which ge nerated this result transmit maria e reference range: 10*3/?L. The reference range was not u sed to interpret this result as normal/abnormal . GRAN MAT (NEUT) % (test code 45.2 % = 770-8) IMM GRAN % (test code = 0.20 % 8414497733) LYMPH % (test code = 736-9) 42.9 % MONO % (test code = 5905-5) 10.2 % EOS % (test code = 713-8) 1.1 % BASO % (test code = 706-2) 0.4 % GRAN MAT x10^3(ANC) (test 4.40 10*3/uL 1.88-7.09 code = 2263942543) IMM GRAN x10^3 (test code = 0.00-0.06 7276494753) LYMPH x10^3 (test code = 4.19 10*3/uL 1.32-3.29 H 731-0) MONO x10^3 (test code = 1.00 10*3/uL 0.33-0.92 H 742-7) EOS x10^3 (test code = 0.11 10*3/uL 0.03-0.39 711-2) BASO x10^3 (test code = 0.04 10*3/uL 0.01-0.07 704-7) REACT LYMPHS (test code = Rare 2612357759) Lab Interpretation (test Abnormal code = 83572-8) [facility]2023-03-01 21:04:20 Test Item Value Reference Range Interpretation Comments NA (test code = 137 mmol/L 135-145 3821108723) K (test code = 3.9 mmol/L 3.5-5.0 4572981927) CL (test code = 103 mmol/L 98-108 5966993473) CO2 TOTAL (test code 26 mmol/L 23-31 = 0539271514) AGAP (test code = 8 2-16 1836480777) BUN (test code = 10 mg/dL 7-23 0910430458) GLUCOSE (test code = 88 mg/dL 70-110 6391992687) CREATININE (test code 0.57 mg/dL 0.50-1.04 = 6230741809) TOTAL BILI (test code 0.6 mg/dL 0.1-1.1 = 6547067398) CALCIUM (test code = 8.9 mg/dL 8.6-10.6 3485377406) T PROTEIN (test code 7.4 g/dL 6.3-8.2 = 7728023305) ALBUMIN (test code = 4.1 g/dL 3.5-5.0 6347712336) ALK PHOS (test code = 96 U/L 34-122 3875524203) ALTv (test code = 23 U/L 5-35 2-6) AST(SGOT) (test code 22 U/L 13-40 = 4354017632) eGFR (test code = 117.5 mL/min/1.73m2 8890789116) MIKE (test code = MIKE) Association of Glomerular Filtration Rate (GFR) and Staging of Kidney Disease* + + +- +| GFR (mL/min/1.73 m2) ?| With Kidney Damage ?| ?Without Kidney Damage+ ------+ ----+ ------+| ?>90 ?| ?Stage one ?| ? Normal ?+ -+ + -+| ?60-89 ?| ?Stage two ?| ? Decreased GFR ? + + +- +| ?30-59 ?| ?Stage three ?| ? Stage three ? + + +- +| ?15-29 ?| ?Stage four ? | ? Stage four ?+ -+ + -+| ?<15 (or dialysis) ? ?| ?Stage five ? | ? Stage five ?+ -+ + -+ *Each stage assumes the associated GFR level [...] or urine or abnormalities in imaging tests). [facility] - ONCE [id number] 20:43:00 Test Item Value Reference Range Interpretation Comments ABO & RH (test code = 20) O Positive IAT (test code = 1185) Negative [facility] [id number] 20:27:00 Test Item Value Reference Range Interpretation Comments POCT PREG (test code = 1605) Negative On board controls acceptable with Yes C Line (test code = 3574) POCT PREG LOT # (test code = 3576) [id number] POCT PREG TEST DATE (test 07/08/2024 code = 3576) Lab Interpretation (test code = Normal 35335-2) [facility] with [id number] 11:48:00 Test Item Value Reference Range Interpretation Comments WBC (test code = See_Comment H [Automated 4990-2) message] The system which generated this result transmit maria e reference range : 4.30 - 11.10 10*3/?L. The reference range was not used to interpret this result as normal/abnormal . RBC (test code = See_Comment [Automated 269-8) message] The system which generated this result [...] RDW-SD (test code = 46.5 fL 39-49.9 69626-2) RDW-CV (test code = 14.6 % 12-15.5 788-0) PLT (test code = See_Comment [Automated 777-3) message] The system which generated this result transmit maria e reference range : 166 - 358 10*3/ ?L. The reference range was not u sed to interpret th is result as normal/abnormal . MPV (test code = 11.0 fL 9.5-12.9 74254-5) NRBC/100 WBC (test See_Comment [Automat ed code = 3708775716) message] The system which generated this result transmit maria e reference range : 0.0 - 10.0 /100 WBCs. The reference range was not used to interpret this result as normal/abnormal . NRBC x10^3 (test code <0.01 See_Comment [Auto mated = 1826274110) message] The system which generated this result transmit maria e reference range : 10*3/?L. The reference range was not used to interpret this result as normal/abnormal . GRAN MAT (NEUT) % 77.6 % (test code = 770-8) IMM GRAN % (test code 0.70 % = 7885522695) LYMPH % (test code = 10.4 % 736-9) MONO % (test code = 10.4 % 5905-5) EOS % (test code = 0.6 % 713-8) BASO % (test code = 0.3 % 706-2) GRAN MAT x10^3(ANC) 12.08 10*3/uL 1.88-7.09 H (test code = 8377455741) IMM GRAN x10^3 (test 0.11 10*3/uL 0-0.06 H code = 9194793913) LYMPH x10^3 (test code 1.61 10*3/uL 1.32-3.29 [...] . Lab Interpretation Abnormal (test code = 12752-5) [facility] [id number] 18:49:43 Test Item Value Reference Range Interpretation Comments RHIG CANDIDATE? No- see comment Patient i s not a (test code = candidate for R hIg- 5055) Patient is Rh Positive.Perfor med at [facility] Laboratory Services - [facility] Blood [address] [place], [place] [id number] Free: [phone] A No. [id number] [facility]Ar[facility] Cord [id number] 16:26:00 Test Item Value Reference Range Interpretation Comments BASE EXCESS, CORD (test mEq/L code = 2187885152) AC PH, CORD (BEAKER) 7.18-7.38 L (test code = 2942882003) PC02, CORD (test code = See_Comment H [Au tomated message] [id number]) The system Bfly h generated this result transmitted ref erence range: 32 - 66 mmHg. The reference r cipriano was not used to interpret this result as normal/abnor mal. PO2, CORD (test code = Unabl e to read [id number]) BICARBONATE, CORD (test See_Comment [Au tomated message] code = 1178764010) The syste m which generated this result transmitted ref erence range: 17 - 27 mEq/L. The reference r cipriano was not used to interpret this result as normal/abnor mal. Lab Interpretation (test Abnormal code = 99883-4) [facility] [id number] 16:25:00 Test Item Value Reference Range Interpretation Comments VENOUS BASE EXCESS, CORD mEq/L (test code = 5775522082) VENOUS PH, CORD (test 7.25-7.45 code = 9236239299) VENOUS PC02, CORD (test See_Comment H [Au tomated message] code = 4923922644) The syste m which generated this result transmitted ref erence range: 27 - 49 mmHg. The reference r cipriano was not used to interpret this result as normal/abnor mal. VENOUS PO2, CORD (test See_Comment [Aut omated message] code = 8334940652) The syste m which generated this result transmitted ref erence range: 17 - 41 mmHg. The reference r cipriano was not used to interpret this result as normal/abnor mal. VENOUS BICARBONATE, CORD See_Comment [A utomated message] (test code = 7532010021) The system which generated this result transmitted ref erence range: 12 - 29 mEq/L. The reference r cipriano was not used to interpret this result as normal/abnor mal. Lab Interpretation (test Abnormal code = 75156-9) [facility]ID [facility])2020-05-14 14:34:00 Test Item Value Reference Range Interpretation Comments SARS-CoV-2 Rapid ID NOW Not Detected Not Detected (test code = 76017-9) MIKE (test code = MIKE) ID NOW COVID-19 Assay is an isothermal nucleic acid amplification test intended for the qualitative detection of nucleic acid from SARS-CoV-2 viral RNA in nasopharyngeal (FURNACE LINER) specimens. It is used under Emergency Use [...] indicated. Lab Interpretation Normal (test code = 71112-1) [facility]SE (AUTOMATED)2020-05-14 14:12:00 Test Item Value Reference Range Interpretation Comments POCT GLU (test code = 9715831869) 96 mg/dL 70-110 Lab Interpretation (test code = Normal 57965-8) [facility] NON-STRESS [id number] 19:06:12 Reactive and reassuring NST Irregular contractionsUnGreat [facility] NON-STRESS [id number] 19:06:12Reactive and reassuring NST Irregular contractionsUnGreat [facility] Regional Medical Center NON-STRESS TEST 2020-05-09 19:03:19Reactive and reassuringToco with irritability Melyssa Lopez MD ?05/09/2020 ?2:03 PMUnNorth [facility] Surgical Center HospitalFETAL NON-STRESS TEST 2020-05-05 19:33:42Reactive and reassuring NSTUnNorth Central Surgical Center Hospital POCT URINALYSIS W/O SPECIFIC [id number] 18:41:00 Test Item Value Reference Range Interpretation [...] Negative Lab Interpretation (test code = Normal 91862-1) [facility] NON-STRESS [id number] 14:53:01 Reactive and reassuring [place] with irritability Melyssa Lpoez MD ?05/02/2020 ?9:52 AMUnNorth Central Surgical Center HospitalGC & CHLAMYDIA AMPLIFIED [id number] 17:16:00 Test Item Value Reference Range Interpretation Comments C. trachomatis Nucleic Acid (test Negative Negative code = 66962-5) N. gonorrhoeae Nucleic Acid (test Negative Negative code = 35129-2) Lab Interpretation (test code = Normal 94664-2) [facility]>14 WEEKS US [id number] 21:00:21Cephalic presentationUnNorth Central Surgical Center Hospital>14 WEEKS US [id number] 21:00:21Cephalic presentationUnNorth Central Surgical Center Hospital>14 WEEKS US [id number] 21:00:21Cephalic presentationUnKearney [facility] Community HospitalTAL NON-STRESS [id number] 20:59:35Reactive and reassuring NSTUnGreat [facility] Medical Center NON- STRESS [id number] 20:59:35Reactive and reassuring NSTUnGreat Plains [facility] Medical Center NON-STRESS [id number] 20:59:35Reactive and reassuring NSTUnGreat [facility] Medical Center URINALYSIS W/O SPECIFIC GRAVITY 2020-04-30 14:15:00 Test [...] Negative Lab Interpretation (test code = Normal 47655-3) [facility] URINALYSIS W/O SPECIFIC [id number] 14:15:00 Test Item Value Reference Range Interpretation [...] Negative Lab Interpretation (test code = Normal 50771-6) [facility] URINALYSIS W/O SPECIFIC [id number] 14:15:00 Test Item Value Reference Range Interpretation [...] Negative Lab Interpretation (test code = Normal 40508-1) [facility] [id number] 23:57:59 Reactive and reassuringToco quiescent Melyssa Lopez MD ?04/18/2020 ?6:57 PM [facility] HospitalBIOPHYSICAL PROFILE WITH NON-STRESS TEST 2020-04-16 21:25:34NST: ?Baseline 150s, moderate variability, spontaneous decel down to 100s x 40 secondsToco: ?Quiescent BPP performed, score 8/8. Melyssa Lopez MD ?04/16/2020 ?4:25 PMUnNorth Central Surgical Center HospitalUS PELVIS LIMITED 2020-04-14 17:50:25Limited view of the gravid uterus with normal amniotic fluid. RL: 1105 Patient name: ALPHONSE VICTORIA: 1980 39 years EXAMINATION: US PELVIS LIMITED Ordering Physician: MELYSSA LOPEZ CLINICAL HISTORY:Amniotic fluid index COMPARISON:None TECHNIQUE:Grayscale and Doppler images of the gravid uterus performed. FINDINGS:Normal amnioticfluid identified at approximately 11 cm. An intrauterinegestation is partially visualized. This was not a dedicated anatomicsurvey. [facility], Radiant Results Inft User - 04/14/2020 12:51 PM CDTPatient name: ALPHONSE VICTORIA: 1980 39 years EXAMINATION: US PELVIS LIMITEDOrdering Physician: MELYSSA LOPEZ CLINICAL HISTORY:Amniotic fluid indexCOMPARISON:NoneTECHNIQUE:Grayscale and Doppler images ofthe gravid uterus performed.FINDINGS:Normal amniotic fluid identified at approximately 11 cm. An intrauterinegestation is partially visualized. This was not a dedicated anatomicsurvey.IMPRESSIONLimitedview of the gravid uterus with normal amniotic fluid.RL: 1105 [facility] ONLY - FERN [id number] 17:27:00 Test Item Value Reference Range Interpretation Comments Fern Test (test code = 1859958104) Negative [facility] NON-STRESS [id number] 20:56:33 Reactive and reassuringToco quiescent Melyssa Lopez MD ?04/09/2020 ?3:56 PM [facility] URINALYSIS W/O SPECIFIC [id number] 20:15:00 Test Item Value Reference Range Interpretation [...] Negative Lab Interpretation (test code = Abnormal 30023-6) [facility] NON-STRESS [id number] 15:28:50 Reactive and reassuring NSTUnGreat Plains Regional Medical Center GLUCOSE 2020-04-07 15:17:00 Test Item Value Reference Range Interpretation Comments POCT Glu (age>30days) (test code = 150 mg/dL 70-110 A 3342) Lab Interpretation (test code = Abnormal 09713-5) [facility] URINALYSIS W/O SPECIFIC [id number] 14:17:00 Test Item Value Reference Range Interpretation [...] code = 3257) N/A Negative - Negative [facility] WITH [id number] 21:10:00 Test Item Value Reference Range Interpretation Comments WBC (test code = See_Comment [Automated 4366-2) message] The sy stem which generated this [...] RDW-SD (test code = 45.7 fL 39-49.9 72878-9) RDW-CV (test code = 14.1 % 12-15.5 788-0) PLT (test code = See_Comment [Automated 777-3) message] The sy stem which generated this result transmitted reference range : 166 - 358 10*3/ ?L. The reference r cipriano was not used to interpret this result as normal/abnormal . MPV (test code = 9.7 fL 9.5-12.9 55343-2) NRBC/100 WBC (test See_Comment [Automat ed code = 5366888470) message] The system which generated this result transmitted reference range : 0.0 - 10.0 /100 WBCs. The refer ence range was not u sed to interpret th is result as normal/abnormal . NRBC x10^3 (test code <0.01 See_Comment [Auto mated = 3340652963) message] The s ystem which generated this result transmitted reference range : 10*3/?L. The reference range was not used to interpret this result as normal/abnormal . GRAN MAT (NEUT) % 66.2 % (test code = 770-8) IMM GRAN % (test code 1.20 % = 1031636440) LYMPH % (test code = 19.5 % 736-9) MONO % (test code = 12.2 % 5905-5) EOS % (test code = 0.7 % 713-8) BASO % (test code = 0.2 % 706-2) GRAN MAT x10^3(ANC) 6.32 10*3/uL 1.88-7.09 (test code = 7279139815) IMM GRAN x10^3 (test 0.11 10*3/uL 0-0.06 H code = 2156213904) LYMPH x10^3 (test code 1.86 10*3/uL 1.32-3.29 = 731-0) MONO x10^3 (test code 1.16 10*3/uL 0.33-0.92 H = 742-7) EOS x10^3 (test code = 0.07 10*3/uL 0.03-0.39 711-2) BASO x10^3 (test code <0.03 0.01-0.07 = 704-7) Lab Interpretation Abnormal (test code = 63034-3) [facility] HEMOGLOBIN A1C [id number] 21:45:00 Test Item Value Reference Range Interpretation Comments POCT HBA1C (test code = 4548-4) 6.4 % 4-6 A Lab Interpretation (test code = Abnormal 92358-8) [facility] [id number] 21:39:00 Test Item Value Reference Range Interpretation Comments POCT Glu (age>30days) (test code = 96 mg/dL 70-110 3342) [facility] URINALYSIS W/O SPECIFIC [id number] 21:23:00 Test Item Value Reference Range Interpretation [...] code = 3257) n/a Negative - Negative [facility] URINALYSIS W/O SPECIFIC [id number] 14:37:00 Test Item Value Reference Range Interpretation [...] Negative Lab Interpretation (test code = Normal 95036-9) [facility]PO[facility] W/O SPECIFIC [id number] 14:37:00 Test Item Value Reference Range Interpretation [...] Negative Lab Interpretation (test code = Normal 13353-0) [facility]3 HR GLUCOSE TOLERANCE [id number] 19:20:00 Test Item Value Reference Range Interpretation Comments GLUC 3 HR (test code = 9326580595) 144 mg/dL 70-110 H Lab Interpretation (test code = Abnormal 11124-9) [facility]2 HR GLUCOSE TOLERANCE [id number] 18:07:00 Test Item Value Reference Range Interpretation Comments GLUC 2 HR (test code = 7286935042) 198 mg/dL 70-120 H Lab Interpretation (test code = Abnormal 55602-6) [facility] GLUCOSE TOLERANCE [id number] 17:13:00 Test Item Value Reference Range Interpretation Comments GLUC 1 HR (test code = 4820479865) 206 mg/dL 120-170 H Lab Interpretation (test code = Abnormal 47879-1) [facility] HospitalGLUCOSE [id number] 16:46:00 Test Item Value Reference Range Interpretation Comments GLU FASTNG (test code = 5380738171) 111 mg/dL 70-110 H Lab Interpretation (test code = Abnormal 31231-9) [facility] HospitalPRENATAL WORKUP, BLOOD [id number] 17:39:20 Test Item Value Reference Range Interpretation Comments ABO & RH (test code O Positive Performe d at [facility] = 20) [facility] [address] [place], [place] [address]Toll Free: [phone] A No. [id number] IAT (test code = Negative Performed a t [facility] 1185) [facility] [address] [place], [place] [address]Toll Free: [phone] A No. [id number] [facility] 1 HOUR POST [id number] 17:18:00 Test Item Value Reference Range Interpretation Comments GLUC 1 HR (test code = 5837302110) 186 mg/dL 120-170 H Lab Interpretation (test code = Abnormal 37236-2) [facility]GL[facility] 1 HOUR POST [id number] 17:18:00 Test Item Value Reference Range Interpretation Comments GLUC 1 HR (test code = 5384960059) 186 mg/dL 120-170 H Lab Interpretation (test code = Abnormal 06380-1) [facility] HospitalCOMP. METABOLIC PANEL (81604)2019-11-21 17:17:00 Test Item Value Reference Range Interpretation Comments NA (test code = 134 mmol/L 135-145 L 7802672031) K (test code = 3.8 mmol/L 3.5-5 0835219492) CL (test code = 100 mmol/L 98-108 9850880464) CO2 TOTAL (test code = 24 mmol/L 23-31 1479407423) AGAP (test code = 2-16 4713147963) BUN (test code = 5 mg/dL 7-23 L 7859427206) GLUCOSE (test code = 188 mg/dL 70-110 H 8459464255) CREATININE (test code = 0.45 mg/dL 0.5-1.04 L 4494785176) TOTAL BILI (test code = 0.5 mg/dL 0.1-1.7 7959164986) CALCIUM (test code = 9.2 mg/dL 8.6-10.6 4558514928) T PROTEIN (test code = 6.7 g/dL 6.3-8.2 2608272367) ALBUMIN (test code = 3.9 g/dL 3.5-5 5700755160) ALK PHOS (test code = 50 U/L 34-122 6245551474) ALTv (test code = 13 U/L 5-35 1742-6) AST(SGOT) (test code = 16 U/L 13-40 7039365995) eGFR Calculation mL/min/1.73m2 (Non-) (test code = 8107947200) eGFR Calculation mL/min/1.73m2 () (test code = 0833216233) MIKE (test code = MIKE) Association of [...] tests). Lab Interpretation Abnormal (test code = 98348-7) [facility] METABOLIC PANEL (44628)2019-11-21 17:17:00 Test Item Value Reference Range Interpretation Comments NA (test code = 134 mmol/L 135-145 L 9297183256) K (test code = 3.8 mmol/L 3.5-5 1606873605) CL (test code = 100 mmol/L 98-108 2951563885) CO2 TOTAL (test code = 24 mmol/L 23-31 0116718235) AGAP (test code = 2-16 1913262886) BUN (test code = 5 mg/dL 7-23 L 6594145828) GLUCOSE (test code = 188 mg/dL 70-110 H 4540615342) CREATININE (test code = 0.45 mg/dL 0.5-1.04 L 8133683741) TOTAL BILI (test code = 0.5 mg/dL 0.1-1.1 1825925629) CALCIUM (test code = 9.2 mg/dL 8.6-10.6 9080946281) T PROTEIN (test code = 6.7 g/dL 6.3-8.2 6037337230) ALBUMIN (test code = 3.9 g/dL 3.5-5 8651775623) ALK PHOS (test code = 50 U/L 34-122 2878543673) ALTv (test code = 13 U/L 5-35 1742-6) AST(SGOT) (test code = 16 U/L 13-40 7867712446) eGFR Calculation mL/min/1.73m2 (Non-) (test code = 5689412780) eGFR Calculation mL/min/1.73m2 () (test code = 8228289618) MIKE (test code = MIKE) Association of [...] tests). Lab Interpretation Abnormal (test code = 71369-1) [facility] WITH [id number] 16:42:00 Test Item Value Reference Range Interpretation Comments WBC (test code = See_Comment [Automated message] 1232-2) The system [employer] generated this result transmitted ref erence range: 4.30 - 1 1.10 10*3/?L. The re ference range was not u sed to interpret this result as normal/abnor mal. RBC (test code = See_Comment [Automated message] 309-8) The system [employer] generated this result transmitted ref erence range: [...] RDW-SD (test code 47.0 fL 39-49.9 = 10865-8) RDW-CV (test code 14.4 % 12-15.5 = 788-0) PLT (test code = See_Comment [Automated message] 777-3) The system whic h generated this result transmitted ref erence range: 166 - 35 8 10*3/?L. The re ference range was not u sed to interpret this result as normal/abnor mal. MPV (test code = 10.0 fL 9.5-12.9 37999-9) NRBC/100 WBC (test See_Comment [Automat ed message] code = 0293621977) The syste m which generated this result transmitted ref erence range: 0.0 - 10 .0 /100 WBCs. The refer ence range was not u sed to interpret this result as normal/abnor mal. NRBC x10^3 (test <0.01 See_Comment [Automated message] code = 7691558333) The syste m which generated this result transmitted ref erence range: 10*3/?L. The reference range was not used to interpr et this result as normal/abnormal . GRAN MAT (NEUT) % 72.2 % (test code = 770-8) IMM GRAN % (test 0.50 % code = 3662219970) LYMPH % (test code 19.9 % = 736-9) MONO % (test code 6.6 % = 5905-5) EOS % (test code = 0.6 % 713-8) BASO % (test code 0.2 % = 706-2) GRAN MAT 5.93 10*3/uL 1.88-7.09 x10^3(ANC) (test code = 9902289553) IMM GRAN x10^3 0.04 10*3/uL 0-0.06 (test code = 2502849053) LYMPH x10^3 (test 1.63 10*3/uL 1.32-3.29 code = 731-0) MONO x10^3 (test 0.54 10*3/uL 0.33-0.92 code = 742-7) EOS x10^3 (test 0.05 10*3/uL 0.03-0.39 code = 711-2) BASO x10^3 (test <0.03 0.01-0.07 code = 704-7) [facility] WITH [id number] 16:42:00 Test Item Value Reference Range Interpretation Comments WBC (test code = See_Comment [Automated message] 6690-2) The system [employer] generated this result transmitted ref erence range: 4.30 - 1 1.10 10*3/?L. The re ference range was not u sed to interpret this result as normal/abnor mal. RBC (test code = See_Comment [Automated message] 789-8) The system [employer] generated this result transmitted ref erence range: [...] RDW-SD (test code 47.0 fL 39-49.9 = 10662-7) RDW-CV (test code 14.4 % 12-15.5 = 788-0) PLT (test code = See_Comment [Automated message] 777-3) The system [employer] generated this result transmitted ref erence range: 166 - 35 8 10*3/?L. The re ference range was not u sed to interpret this result as normal/abnor mal. MPV (test code = 10.0 fL 9.5-12.9 19208-2) NRBC/100 WBC (test See_Comment [Automat ed message] code = 8631385654) The syste [employer] which generated this result transmitted ref erence range: 0.0 - 10 .0 /100 WBCs. The refer ence range was not u sed to interpret this result as normal/abnor mal. NRBC x10^3 (test <0.01 See_Comment [Automated message] code = 2069146199) The syste m which generated this result transmitted ref erence range: 10*3/?L. The reference range was not used to interpr et this result as normal/abnormal . GRAN MAT (NEUT) % 72.2 % (test code = 770-8) IMM GRAN % (test 0.50 % code = 5738011379) LYMPH % (test code 19.9 % = 736-9) MONO % (test code 6.6 % = 5905-5) EOS % (test code = 0.6 % 713-8) BASO % (test code 0.2 % = 706-2) GRAN MAT 5.93 10*3/uL 1.88-7.09 x10^3(ANC) (test code = 2394700864) IMM GRAN x10^3 0.04 10*3/uL 0-0.06 (test code = 3905469517) LYMPH x10^3 (test 1.63 10*3/uL 1.32-3.29 code = 731-0) MONO x10^3 (test 0.54 10*3/uL 0.33-0.92 code = 742-7) EOS x10^3 (test 0.05 10*3/uL 0.03-0.39 code = 711-2) BASO x10^3 (test <0.03 0.01-0.07 code = 704-7) [facility] WITH [id number] 16:42:00 Test Item Value Reference Range Interpretation Comments WBC (test code = See_Comment [Automated message] 9890-2) The system [employer] generated this result transmitted ref erence range: 4.30 - 1 1.10 10*3/?L. The re ference range was not u sed to interpret this result as normal/abnor mal. RBC (test code = See_Comment [Automated message] 789-8) The system [employer] generated this result transmitted ref erence range: 3.93 - 5 .25 10*6/?L. The re ference range was not u sed to interpret this result as normal/abnor mal. HGB (test code = 12.7 g/dL 11.6-15 288-7) HCT (test code = 40.0 % 35.7-45.2 4544-3) MCV (test code = 89.9 fL 80.6-95.5 787-2) MCH (test code = 28.5 pg 25.9-32.8 785-6) MCHC (test code = 31.8 g/dL 31.6-35.1 786-4) RDW-SD (test code 47.0 fL 39-49.9 = 73700-1) RDW-CV (test code 14.4 % 12-15.5 = 788-0) PLT (test code = See_Comment [Automated message] 777-3) The system whic h generated this result transmitted ref erence range: 166 - 35 8 10*3/?L. The re ference range was not u sed to interpret this result as normal/abnor mal. MPV (test code = 10.0 fL 9.5-12.9 46310-4) NRBC/100 WBC (test See_Comment [Automat ed message] code = 6095892489) The syste m which generated this result transmitted ref erence range: 0.0 - 10 .0 /100 WBCs. The refer ence range was not u sed to interpret this result as normal/abnor mal. NRBC x10^3 (test <0.01 See_Comment [Automated message] code = 1099525019) The syste m which generated this result transmitted ref erence range: 10*3/?L. The reference range was not used to interpr et this result as normal/abnormal . GRAN MAT (NEUT) % 72.2 % (test code = 770-8) IMM GRAN % (test 0.50 % code = 2742823821) LYMPH % (test code 19.9 % = 736-9) MONO % (test code 6.6 % = 5905-5) EOS % (test code = 0.6 % 713-8) BASO % (test code 0.2 % = 706-2) GRAN MAT 5.93 10*3/uL 1.88-7.09 x10^3(ANC) (test code = 9334398340) IMM GRAN x10^3 0.04 10*3/uL 0-0.06 (test code = 4643606927) LYMPH x10^3 (test 1.63 10*3/uL 1.32-3.29 code = 731-0) MONO x10^3 (test 0.54 10*3/uL 0.33-0.92 code = 742-7) EOS x10^3 (test 0.05 10*3/uL 0.03-0.39 code = 711-2) BASO x10^3 (test <0.03 0.01-0.07 code = 704-7) [facility]/O SPECIFIC [id number] 19:32:00 Test Item Value Reference Range Interpretation [...] code = 3257) N/A Negative - Negative [facility] PAP SMEAR-LIQUID [id number] 22:56:00 Test Item Value Reference Range Interpretation Comments Case Report (test code Gynecologic Cytology ? = 1609648076) ?Case: [id number] ? Authorizing Provider: ?Melyssa Lopez MD ?Collected: ? 10/23/2019 1542 ?Ordering Location: ? ? [facility]'s ?Received: ?10/23/2019 2341 ? [facility] ? First Screen: ?Goldie Huntley ? Specimen: ? ?Liquid Based Pap Preparation, CERVIX ? Clinical Information pt reports abnormal pap (test code = at age 18, none since 5953095789) Specimen Adequacy Satisfactory for (test code = 37379-6) Evaluation(Endocervical /Transformation Zone Component Present) Interpretation (test Negative for code = ) intraepithelial lesion or malignancy Comments (test code = g8nszYLsZUPbr9pzYORayEZ 9422265890) uZzEwMzNcZnRuYmpcdWMxIH uoxeCbGXnjj6PaC5BwQoKnI FxhbnNpXGRlZmxhbmcxMDMz TLO9qhZcNRJbTYboEHXxKUo eAd7ckHGifWknYiAcFJQbz5 xnxrYOTVyxNpKmT931USKfV Ivor1rua5RxONKnuDEpm9P6 NWKRtehuzHd3k7hyTfSwTgF 0zSQtPSibY3waukYgsTWsT2 MghMMhdYl4vCciE61ha5J7A lbsD5iqBVMwETLpT8QmIS1h YAEeWeu2ITL1CVR0KCRbLHV xN4MwIY3eXIZdcLNcRBx2r9 zgqHmqURSaEVV9x0vcSNzum wO7RI6izd0puIl3t6hjptCa FPHkZIYtxOZMLHZjX6PlbMs wEr8cdYg2uKfjSrohCCP2El c2HL4nuy03fqe3nJstHUVoz yfkAzZ9ZMkbTJYitnizTDj8 YJycMHGgnVB0JVSkcYJjV6H tYRVvFB0uxzs3ZAE3THkrXS GjFdW5PRTylIKdGXMneFopH Kwod589XSP6VxIoRY5dA4Hf m9D0bW0jtQFfHHKevSNaNnB iHJGhje5gqCByPBxbt6RjB9 2bnTN4RRxip1ptDG4bQsD8l kXmPZijg7hyiX2uCxO3CVfx JY4aem43SFKnXEU4ig7cvZA jvXkijbCrtQPbIVamA3RmSU Emy384FTVwY2YjRDXou4Z4k nJqRcLqCBXnpEQ0aiC3QTVt LAq6fWFkaeX1ktJbeSQmM5t foR7mELTjHN1xyppyg2heCZ rzSVgyZRJrfDO3paC7MCTrh MVeW9OngL5yELWlOLeeAKDo qus2PeCsDb3gxZTjlCotUKo zYmtwYWdlXHBnbmNvbnRccG duZGVjXHBsYWluXHBsYWluX RUqGTQsJoQfiSXaCJptv1Bj qqUkdGotVBOyFQq3raHylqr peGk4jNMjrLnhBJWgjYfskO 8xBhOjMyKdRZssOA1iNPYpW 2hapGGlRPYrUKLrG0ciCtYk iR1cbDyjVLbpHfPxEzRhLSc npHVduTovMCClaCrxdU7pTn OuCmLrWXkxYQ1uCJZxS0qhz RPcMHMeDSVxR3nlCrPoxD6w aFxmMVxjZjJcZnMyMFxwYXJ nhKlxlA1nLqHmFnNyHBzsLV 8lTWXkB0mfqUKfUJSgXMAuL 0vsLyWwaR6kdYkwCNvfYxUg ZnMyMFxsdHJjaFxwYXJccGF zPAlst0VnznBneQwjDUDbDG R5OWY9FZupsQCgRYDduQiya 9jgG7TqaPEyNDPxXRhvBGMw FGRaOcZbfClpcV7wQzQhItM sXebzAW1hJRGgZ2gqtVFwSW RnGAHdI6cyFeMyfO4vlZlzX lxjZjJcZnMyMlxsdHJjaFxw TSQhtCPgJBWmhdNsx3GwBAC gYMO8TRqcFGmyhSVnCNDgzE dew5cbO6QtfTUkBMHmEOziY RKiKCTzNiPevCakwA7aXpAi CjXdZDkwEZ4jDINxI3fulWA vZULaNNTzV1hgPgXjlX3ynF xmMVxjZjJcZnMxNFxsdHJja SUHFVUuu5PxZLRmUU4rLEGu qvmirUZhDYR0ARC7tY98DSG qrs2ro8lbt1SyJCRfKKUSAd 2OYGNleRWsU9s5bDBGTC0uf VYtLFDpCNJuT6EsAxXDjqNf p4Q2QZTjtZEhFAEIBGBxuDK iH7y9sRjjIPvnDqa2ByQtgM sxuP9xLoDrNuFiZFajIU7tD PJeP5dnbCFeWGHgSXNxZ4yj OqGdfC7doEqfJjmeiqI8RWR hcn19 LMP (test code = 0536836375) Educational Note (test s7oavRPcPNXtn9cuMFXscVO code = 5857506777) uZzEwMzNcZnRuYmpcdWMxIH qyriYpCWaek3OtJ6FtGADdW FxhbnNpXGRlZmxhbmcxMDMz HBH8xeJxIVTgTJzuDTYpQSs dPv3azFLsyRgaPgRjALChr1 npefEWimoahAc5u1srAFVwE yN9fPYhMJelC3msuaVekHCk QRUsPCz7rH49YBLdnP5mmPV zEJlcmnRpImW8SDisYMOiKc J1MDNuvPGeEJJwZ1lwWQIeI DJdK8DeVY3qOopuWoj9LWT7 IDtccmVkMFxncmVlbjBcYmx 7CTUcZ498KPV1nAqdq7mmTF F5UUPyCATtGvOyLn0vnNRvY 147EFOcIAJRMIRptYf2ZEJa tfJsolKogVJKu870B902i6p bHSDkgaPknTiEfexre2hfE4 19XHBhcGVydzEyMjQwXHBhc WOlxXW4DDLbPM5ghqvnGPvy HTwuNJNsbjU6SQTzcVQkC1U yKWTuFN3rjbhcHYF0PZmrPC OhGJR8VuEmVRMrn6Qtgtg3Y qMnvo0eff14FCS4m2AelYsn HVI5MEK0XrZtUg6hoIXsHIJ vJF2oLiDzcJGlWYWtiw18lB kfEUjfwbNgwM7mCpSrFNCht YKtQKVuKQ7yuHBuUSKckC1o cmxjXHBnYnJkcmhlYWRccGd uckIrAm1vqRuuIMV4LCbnV1 qztJ8gOvU2BGshB2lrhI0rC Pz5NInriFF7VTJpkU6fCC9w ryxwd5gtCPdfSQhxVJBinqN 7prV4XTAjfTDsI6TjoZ4tFE ZmUR7roewox9wuMPO8SWgaV KIgELZ5KjViASHqr0Vivna3 OfFkf2UlsXBbZEomF79ip53 0NAAljpTeF3frsHPmhhhrfX KaqnpmSHndtpM0ZVWfNOQyH WluXGYxXGZzMjJcbGFuZzEw MzNcaGljaFxmMVxkYmNoXGY kHNbsT4ghBtZrC1ApKVNyQp LhzQWXBHG9iJKmrZCocRHsy Z8mhCOcIQDxGYHgu7LrLDth XZEup3OkDWWvyS1cQKNmy2D bnLMrlJGpeMk1BTMakfLqaF GrgK95raObTV5wRWUnSPHgN IAvvuNlbHHfq3LbKqJWdIYu gLOtyFJgJACmDY6nkL4sGLC wexMxKLX7kAFdg1jrLSWcr8 TrRmvrpTI4BL6zVTYbjDPvP O4gZ9F5ySQsWPBcFYDiZNkv HH8em3XtgNu8NZCzCXD2nPW xErZnLmMzuFcubiYpMO2wrN jyYkOhytXrJh9zkL99KZQiZ E4sDMSoLNjekVTlhqBiQSKq gP7rC6OlBUJmQ82qOGZaQAN tyA9xkT2hbiRpdzLfwpKly3 7sMR8lZNIlbB2khPgwdO6vr mUgdGhlIGVmZmVjdCBvZiBm GQrqTTIaTTmgaYn5CKOkAXS 0cGUlMbTlZI00xgLnDZKkWO 67QZDgv6RcPLBaLVOxYX7ff pWkWAW8byZgy15moOp3ZKlw nGQgdK8tIJnmzXErlCZtZkA xqTTjRChzCRSxUB9oXNNvAX 55IHVuZXhwbGFpbmVkIGNsa W0hG7HsIZAwY78vLWVqRUNi yQ2brX7aspwoupGvGHDpdSW zcyBvZiBhbnkgUGFwIFRlc3 GpvyYhcYq6AmdejWGvgsbnV VxmczIyXGxhbmcxMDMzXGhp Q1grZuGyZLKjpOwgKLhew6E oXGYxXGZzMjJccGFyfX0= Embedded Images (test code = [id number]) [facility]<14 WEEKS US [id number] 03:55:03Limited USG for viability and location due to vaginal spotting in early : ?Single live IUP measured 8 1/7 weeks, consistent with LMP. ?Will date by LMP Melyssa Lopez MD ?10/24/2019 ?9:54 [facility] HospitalH[facility] RISK HPV-THIN [id number] 00:55:00 Test Item Value Reference Range Interpretation Comments High Risk HPV (test Negative Negative code = 0824619686) MIKE (test code = MIKE) A positive [...] data. Lab Interpretation Normal (test code = 33512-0) [facility] [id number] 18:49:00 Test Item Value Reference Range Interpretation Comments C. trachomatis Nucleic Acid (test Negative Negative code = 61845-5) N. gonorrhoeae Nucleic Acid (test Negative Negative code = 49417-9) Lab Interpretation (test code = Normal 38889-2) [facility] S[facility]EN [id number] 23:57:00 Test Item Value Reference Range Interpretation Comments BENZO U (test code = Negative Negative 7766255148) VANIA U (test code = Negative Negative 3593368549) AMPHET (test code = Negative Negative 1967277201) THC (test code = Negative Negative 7557187345) METHADONE (test code = Negative Negative 7234678240) Meth U (test code = Negative Negative 7526362095) OPIATES (test code = Negative Negative 4871914061) Cocaine Metabolite (test Negative Negative code = 1943520150) PROPOXY (test code = Negative Negative 3731227806) Tric U (test code = Negative Negative 2058029362) PCP (test code = Negative Negative 9379355144) OXYCOD (test code = Negative Negative 0432632758) MIKE (test code = MIKE) Urine Drug [...] testing). Lab Interpretation (test Normal code = 12022-9) [facility] [id number] 21:24:00 Test Item Value Reference Range Interpretation Comments POCT PREG (test code = 1605) Positive On board controls acceptable with C Yes Line (test code = 3574) POCT PREG LOT # (test code = 3575) POCT PREG TEST DATE (test code = 3576) [facility] URINALYSIS W/O SPECIFIC [id number] 21:24:00 Test Item Value Reference Range Interpretation [...] code = 3257) N/A Negative - Negative [facility]"
[2023-03-16 21:29] LABS: Absolute Lymphocytes (CBC) 3.6 K/uL (0.7-4.9); Hematocrit 29.4 % (36.0-45.0); Lymphocytes % 28.2 % (15.3-44.8); MCV 81.9 fL (80-100); MPV 7.8 fL (7.6-11.3); RBC Red Blood Cell Count 3.59 M/uL (3.86-4.86)
[2023-03-16 21:44] LABS: Albumin 3.3 g/dL (3.4-5.0); Bilirubin Total 0.4 mg/dL (0.2-1.0); Potassium 3.8 mEq/L (3.5-5.1); Protein, Total 7.3 g/dL (6.4-8.2)
[2023-03-16 21:49] LABS: Protime INR 0.95
--- NOTE | 2023-03-16 22:12 | RAD REPORT ---
EXAM DESCRIPTION: US - Transvaginal Study Probe - 03/16/2023 9:50 pm CLINICAL HISTORY: bleeding, concern for fibroid COMPARISON: No comparisons TECHNIQUE: Sonographic grayscale and color flow images of the pelvis were obtained through transva ginal approach. FINDINGS: The uterus is normal in size, shape and echotexture. The uterus measures 9.2 centimeter in length. The endometrial stripe measures 8 mm, and demonstrates mild heterogeneity, however without suspicious focal lesion. Both ovaries were not visualized, likely obscured by gas. No significant pelvic ascites. IMPRESSION: No suspicious focal endometrial lesion. Nonvisualization of both ovaries which limits evaluation.
--- NOTE | 2023-03-16 22:25 | ER ---
Nurse's Notes [facility] Name: Keyonna James Age: 42 yrs Sex: Female : 1980 Arrival Date: 03/16/2023 Time: 20:11 Bed 10 Private MD: Diagnosis: Menorrhagia Presentation: 03/16 20:41 Chief complaint: Patient states: "I've had dark red vaginal bleeding with clots for 1 mb9 month now. The bleeding started 1 wk before my period. I've had stomach cramps that come and go as well". Coronavirus screen: Vaccine status: Patient reports receiving the 2nd dose of the covid vaccine. Ebola Screen: No symptoms or risks identified at this time. Initial Sepsis Screen: Does the patient meet any 2 criteria? No. Patient's initial sepsis screen is negative. Does the patient have a suspected source of infection? No. Patient's initial sepsis screen is negative. Risk Assessment: Do you want to hurt yourself or someone else? Patient reports no desire to harm self or others. Onset of symptoms was March 16, 2023. 20:41 Method Of Arrival: Ambulatory mb9 20:41 Acuity: JAVY 3 mb9 Triage Assessment: 20:43 General: Appears in no apparent distress. Behavior is calm, cooperative. Pain: Denies mb9 pain. Neuro: Urias Agitation-Sedation Scale (RASS): 0 - Alert and Calm Level of Consciousness is awake, alert, obeys commands, Oriented to person, place, time, situation, Appropriate for age. Respiratory: Airway is patent Respiratory effort is even, unlabored, Respiratory pattern is regular, symmetrical. GI: Reports cramping. : Reports vaginal bleeding that is with clots, moderate flow. Derm: Skin is pink, warm \\T\\ dry. Musculoskeletal: Range of motion: intact in all extremities. 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 - Social history:: Smoking status: Patient denies any tobacco usage or history of. - Family history:: not pertinent. Screenin:44 [facility] ED Fall Risk Assessment (Adult) History of falling in the last 3 months, mb9 including since admission No falls in past 3 months (0 pts) Confusion or Disorientation No (0 pts) Intoxicated or Sedated No (0 pts) Impaired Gait No (0 pts) Mobility Assist Device Used No (0 pt) Altered Elimination No (0 pt) Score/Fall Risk Level 0 - 2 = Low Risk Oriented to surroundings, Maintained a safe environment, Educated pt \\T\\ family on fall prevention, incl call for assistance when getting out of bed. Abuse screen: Denies threats or abuse. Nutritional screening: No deficits noted. Tuberculosis screening: No symptoms or risk factors identified. Assessment: 20:43 Reassessment: see triage assessment. mb9 21:33 Reassessment: pt taken to ultrasound via wheelchair. mb9 Vital Signs: 20:41 BP 182 / 103; Pulse 98; Resp 18; Temp 98.3; Pulse Ox 100% ; Weight 124.74 kg; Height 5 mb9 ft. 3 in. ; 21:34 BP 170 / 79; Pulse 74; Resp 18; Pulse Ox 100% on R/A; mb9 22:35 Pulse 79; Resp 16; Pulse Ox 99% on R/A; kd3 20:41 Body Mass Index 48.71 (124.74 kg, 160.02 cm) mb9 ED Course: 20:14 Patient arrived in ED. ja2 20:41 Kena Winston, RN is Primary Nurse. mb9 20:42 Triage completed. mb9 20:42 Arm band placed on. mb9 20:43 Placed in gown. Bed in low position. Call light in reach. Side rails up X 1. Client mb9 placed on continuous cardiac and pulse oximetry monitoring. NIBP monitoring applied. 20:46 Jose Alejandro Burnett MD is Attending Physician. rt 21:30 Inserted saline lock: 20 gauge in right antecubital area, using aseptic technique. oe Blood collected. 21:31 Ptt, Activated Sent. oe 21:31 PT-INR Sent. oe 21:31 Test, Serum Sent. oe 21:31 CMP Sent. oe 21:52 Transvaginal Study Probe In Process Unspecified. EDMS 22:36 No provider procedures requiring assistance completed. IV discontinued, intact, kd3 bleeding controlled, No redness/swelling at site. Pressure dressing applied. Administered Medications: No medications were administered Medication: 20:43 VIS not applicable for this client. mb9 Outcome: 22:24 Discharge ordered by . rt 22:36 Discharged to home ambulatory. kd3 22:36 Condition: stable 22:36 Discharge instructions given to patient, family, Instructed on discharge instructions, follow up and referral plans. medication usage, Demonstrated understanding of instructions, follow-up care, medications, Prescriptions given X 1. 22:37 Patient left the ED. kd3 Signatures: Dispatcher [employer] EDMS Romario Hui Jessica ja2 Doucette, Kyli, RN RN kd3 Kena Winston RN RN mb9 Jose Alejandro Burnett MD MD rt Corrections: (The following items were deleted from the chart) 21:34 21:33 Reassessment: ultrasound at bedside kati parikh
--- NOTE | 2023-03-16 22:25 | EDPHYS ---
Physician Documentation [facility] Name: Keyonna James Age: 42 yrs Sex: Female : 1980 Arrival Date: 03/16/2023 Time: 20:11 Bed 10 Private MD: ED Physician Jose Alejandro Burnett HPI: 03/16 22:27 This 42 yrs old Black Female presents to ER via Ambulatory with complaints of Vaginal rt Bleeding. 22:27 Patient presents to the ED with about 1 month of vaginal bleeding. This bleeding rt started about 1 week before her menses were scheduled to start. She reported having heavy bleeding, was prescribed somewhat in a prescription about 2 weeks ago that did slow up the bleeding significantly. When she ran out of that prescription, she states that the bleeding has returned. She denies any shortness of breath. Denies other acute complaints. Symptoms are moderate severity, no other aggravating alleviating factors.. 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 - Social history:: Smoking status: Patient denies any tobacco usage or history of. - Family history:: not pertinent. ROS: 22:27 Positive for vaginal bleeding, Negative for vaginal discharge. rt 22:27 Constitutional: Negative for fever, chills, and weight loss, Cardiovascular: Negative for chest pain, palpitations, and edema, Respiratory: Negative for shortness of breath, cough, wheezing, and pleuritic chest pain, Abdomen/GI: Negative for abdominal pain, nausea, vomiting, diarrhea, and constipation, Skin: Negative for injury, rash, and discoloration, Neuro: Negative for headache, weakness, numbness, tingling, and seizure, Psych: Negative for depression, anxiety, suicide ideation, homicidal ideation, and hallucinations. Exam: 22:27 Constitutional: This is a well developed, well nourished patient who is awake, alert, rt and in no acute distress. Head/Face: Normocephalic, atraumatic. Chest/axilla: Normal chest wall appearance and motion. Nontender with no deformity. No lesions are appreciated. Cardiovascular: Regular rate and rhythm with a normal S1 and S2. No gallops, murmurs, or rubs. Normal PMI, no JVD. No pulse deficits. Respiratory: Lungs have equal breath sounds bilaterally, clear to auscultation and percussion. No rales, rhonchi or wheezes noted. No increased work of breathing, no retractions or nasal flaring. Abdomen/GI: Soft, non-tender, with normal bowel sounds. No distension or tympany. No guarding or rebound. No evidence of tenderness throughout. Skin: Warm, dry with normal turgor. Normal color with no rashes, no lesions, and no evidence of cellulitis. MS/ Extremity: Pulses equal, no cyanosis. Neurovascular intact. Full, normal range of motion. Neuro: Awake and alert, GCS 15, oriented to person, place, time, and situation. Cranial nerves II-XII grossly intact. Motor strength 5/5 in all extremities. Sensory grossly intact. Cerebellar exam normal. Normal gait. Psych: Awake, alert, with orientation to person, place and time. Behavior, mood, and affect are within normal limits. Vital Signs: 20:41 BP 182 / 103; Pulse 98; Resp 18; Temp 98.3; Pulse Ox 100% ; Weight 124.74 kg; Height 5 mb9 ft. 3 in. ; 21:34 BP 170 / 79; Pulse 74; Resp 18; Pulse Ox 100% on R/A; mb9 22:35 Pulse 79; Resp 16; Pulse Ox 99% on R/A; kd3 20:41 Body Mass Index 48.71 (124.74 kg, 160.02 cm) mb9 MDM: 20:50 Patient medically screened. rt 22:27 Differential diagnosis: Uterine fibroids, , menorrhagia, thrombocytopenia, rt anemia. Data reviewed: vital signs, nurses notes, lab test result(s), radiologic studies. Test considered but Not performed: CT: Abdominal pain, benign abdominal exam, CT scan not indicated. Care significantly affected by the following chronic conditions: Hypertension. 03/16 21: Order name: CBC with Diff; Complete Time: 21:53 rt 03/16 21:02 Order name: CMP; Complete Time: 21:53 rt 03/16 21:02 Order name: Test, Serum; Complete Time: 21:53 rt 03/16 21:02 Order name: PT-INR; Complete Time: 21:53 rt 03/16 21:02 Order name: Ptt, Activated; Complete Time: 21:53 rt 03/16 21:24 Order name: Transvaginal Study Probe; Complete Time: 22:14 EDMS Administered Medications: No medications were administered Disposition Summary: 03/16/23 22:24 Discharge Ordered Location: Home rt Problem: new rt Symptoms: are unchanged rt Condition: Stable rt Diagnosis - Menorrhagia rt Followup: rt - With: Private Physician - When: 5 - 6 days - Reason: Discharge Instructions: - Discharge Summary Sheet rt - Menorrhagia rt Forms: - Medication Reconciliation Form rt - Thank You Letter rt - Antibiotic Education rt - Prescription Opioid Use rt Prescriptions: - Lysteda 650 mg Oral tablet - take 2 tablet by ORAL route every 8 hours for 5 days; 30 tablet; Refills: 0, rt Product Selection Permitted Signatures: Dispatcher [employer] Kena Leslie RN RN mb9 Jose Alejandro Burnett MD MD rt Corrections: (The following items were deleted from the chart) 21:24 21:02 Pelvis Complete+US.RAD.BRZ ordered. EDMS EDMS
[2023-03-16 23:04] VITALS: TEMP 98.3
[2023-03-16 23:06] VITALS: BP 170/79
[2023-03-16 23:07] VITALS: O2SAT 99
== END 2023-03-16 22:37 | disposition home or self-care (01) ==
LOC: ER 20:11
DX: N92.0 Excessive and frequent menstruation with regular cycle (principal)
CPT/HCPCS: 36415; 76830; 80053; 84703; 85025; 85610; 85730; 99284

== ENCOUNTER 2023-05-29 13:38 | Emergency (ER) | payer OTHER ==
--- OUTSIDE RECORDS SUMMARY | 2023-05-29 13:45 | XMS REPORT | Continuity of Care Document ---
:1980 Author Organization [facility] t Address [address] [facility] [address] [place] [id number] Care Team Providers Name Role Phone PCP, PATIENT DOES NOT HAVE A Primary Care Physician Unavaila ble [email or web address] Attending Clinician Unavailable CONSUELO DAO Attending Clinician Unavailable GABBIE THOMPSON Attending Clinician Unavailable Gabbie Thompson DO Attending Clinician Melyssa Lopez MD Attending Clinician Consuelo Dao PA-C Attending Clinician MELYSSA LOPEZ Attending Clinician Unavailable Nurse, [facility] Attending Clinician Unavailable Pob, [facility] Attending Clinician Unavailable Room, [facility] Attending Clinician Unavailable Doctor Unassigned, Bertha Attending Clinician Unavailable Ultrasound, [facility] Attending Clinician Unavailable Cristhian Gallegos MD Attending Clinician 2, [facility] Attending Clinician Unavailable Visit, [facility] Nurse Attending Clinician Unavailable Shari Espinoza MD Attending Clinician Cruz Ruff MD Attending Clinician MELYSSA LOPEZ Admitting Clinician Unavailable [email or web address] Admitting Clinician Unavailable Melyssa Lopez MD Admitting Clinician Payers Payer Name Policy Type Policy Number Effective Date Expiration Date S [facility] BC[facility] [id number] 2019 [facility] 00:00:00 COMMUNITY HEALTH [id number] 2020 CHOICE MEDICAID 00:00:00 [facility] [id number] 2022 00:00:00 JERMAN II [id number] 2022 00:00:00 Problems Condition Condition Condition Status Onset Resolution Last Treating Co mments Source Name Details Category Date Date Treatment Clinician Date Liveborn Liveborn Disease Active 2020-0 Unive rs , of , of 8-14 it y of higgins higgins 00:00: [place] , , 00 Me dical born in born in [facility] by by delivery delivery 38 weeks 38 weeks Disease Active 2020-0 Unive rs gestation gestation 8-12 ity of of of 00:00: [place] [facility] Status Status Disease Active 2020-0 Univers post post 8-12 ity of bilateral bilateral 00:00: Luis A s salpingect salpingect 00 Me dical sarah [facility] GDM, class GDM, class Disease Active 2020-0 U nivers A2 A2 7-31 ity of 00:00: [place] [facility] GDM, class GDM, class Disease Active 2020-0 U nivers A1 A1 7-15 ity of 00:00: [place] [facility] Diet Diet Disease Active 2020-0 Univers controlled controlled 4-01 it y of gestationa gestationa [place] diabetes l diabetes 00 Me dical mellitus mellitus [place] (GDM) in (GDM) in second second trimester trimester Chronic Chronic Disease Active 2020-0 Univers hypertensi hypertensi 2-20 it y of on on 00:00: [place] [facility] 12 weeks 12 weeks Disease Active 2020-0 Unive rs gestation gestation 2-20 ity of of of 00:00: [place] [facility] 19 weeks 19 weeks Disease Active 2020-0 Unive rs gestation gestation 2-20 ity of of of 00:00: [place] [facility] Supervisio Supervisio Disease Active 2020-0 U dionne n of n of 1-22 ity of high-risk high-risk 00:00: [place] [facility] of elderly of elderly Br anch multigravi multigravi da da Antepartum Antepartum Disease Active 2020-0 U nivers multigravi multigravi 1-22 it y of da of da of 00:00: [place] advanced advanced 00 Medica l maternal maternal Branch age age Previous Previous Disease Active Unive rs 1-22 ity of section section 00:00: [place] [facility] Vaginal Vaginal Disease Active Univers [...] , 00 Term Me dical childbirth childbirth [employer] Branch , or , or Utility puerperium puerperium , , antepartum antepartum Abnormal Abnormal Disease Active Unive rs maternal maternal 6-11 ity of glucose glucose 00:00: [place] tolerance, tolerance, 00 Me dical antepartum antepartum Br anch Allergies, Adverse Reactions, Alerts Allergy Allergy Status Severity Reaction(s) Onset Inactive Treating Comm ents Source Name Type Date Date Clinician NO KNOWN Drug Active Univers ALLERGIE Class ity of S [facility] Social History Social Habit Start Date Stop Date Quantity Comments Source ASSERTION 2019-09-05 [facility] 00:00:00 [facility] Exposure to 2023-02-19 2023-03-01 Not sure [facility] SARS-CoV-2 00:00:00 15:10:00 [facility] (event) Branch Alcohol intake 2023-03-01 2023-03-01 Current [facility] 00:00:00 00:00:00 non-drinker of [facility] alcohol (finding) Branch Tobacco use and 2015-03-11 2015-03-11 Smokeless tobacco Un iversity of exposure 00:00:00 00:00:00 non-user [facility] Sex Ass[birth year] At [birth year] Universit y of 00:00:00 00:00:00 [facility] Smoking Status Start Date Stop Date Source Never smoked tobacco [facility] [place] [place] Medications Ordered Filled Start Stop Current Ordering Indication Dosage Frequency Signature Comments Components Source Medication Medication Date Date Medication? Clinician (SIG) Name Name ferrous 2022- Yes [id number] 325mg Take 1 U nivers sulfate 5-30 06-30 tablet by ity of (IRON, 00:00: 04:59 mouth in [place] FERROUS 00 :00 the Medical SULFATE,) morning Branch 325 mg (65 and 1 mg iron) tablet in tablet the evening. Do all this for 30 days. medroxyPROG 2022- Yes [id number] 10mg Take 1 Univers ESTERone 5-30 06-05 tablet by ity o f (PROVERA) 00:00: 04:59 mouth in [place] 10 mg 00 :00 the Medical tablet morning Branch and 1 tablet at noon and 1 tablet in the evening. Do all this for 5 days. ibuprofen 0 Yes 600mg 600 mg, Univ ers (IBU) 8-14 Oral, Q6H ity of tablet 600 11:00: ABX, First [place] mg 00 dose on Medical Fri Branch 05/16/20 at 0600, Until Discontinu ed, Routine docusate 2019-0 Yes [id number] 240mg Take 1 U nivers calcium 240 8-14 capsule by it y of mg capsule 00:00: mouth once [place] 00 daily as Medical needed for Branch Constipati on. ferrous Yes [id number] 325mg Take 1 Un [place] sulfate 325 8-14 tablet by ity of mg (65 mg 00:00: mouth 2 [place] iron) 00 (two) Medical tablet times Branch daily. ibuprofen 2019-0 Yes [id number] 600mg Take 1 Univers 600 mg 8-14 tablet by ity of tablet 00:00: mouth [place] 00 every 6 Medical (six) Branch hours as needed for Pain (scale 1-3) or Pain (scale 4-6) (Pain). Take with food or milk. acetaminoph 2019-0 Yes [id number] 650mg Take 2 Univers en 325 mg 8-14 tablets by ity of tablet 00:00: mouth [place] 00 every 6 Medical (six) Branch hours as needed for Pain (scale 1-3) or Pain (scale 4-6). 2020-0 Yes [id number] 1{tbl} Take 1 Univers vitamin 8-14 tablet by ity of w/FA tablet 00:00: mouth [place] 00 daily. Medical Branch docusate 2020-0 Yes [id number] 240mg Take 1 U nivers calcium 240 8-14 capsule by it y of mg capsule 00:00: mouth once [place] 00 daily as Medical needed for Branch Constipati on. ferrous 2020-0 Yes [id number] 325mg Take 1 Un [place] sulfate 325 8-14 tablet by ity of mg (65 mg 00:00: mouth 2 [place] iron) 00 (two) Medical tablet times Branch daily. ibuprofen 2020-0 Yes [id number] 600mg Take 1 Univers 600 mg 8-14 tablet by ity of tablet 00:00: mouth [place] 00 every 6 Medical (six) Branch hours as needed for Pain (scale 1-3) or Pain (scale 4-6) (Pain). Take with food or milk. acetaminoph 2020-0 Yes [id number] 650mg Take 2 Univers en 325 mg 8-14 tablets by ity of tablet 00:00: mouth [place] 00 every 6 Medical (six) Branch hours as needed for Pain (scale 1-3) or Pain (scale 4-6). 2020-0 Yes [id number] 1{tbl} Take 1 Univers vitamin 8-14 tablet by ity of w/FA tablet 00:00: mouth [place] 00 daily. Medical Branch docusate 2020-0 Yes [id number] 240mg Take 1 U nivers calcium 240 8-14 capsule by it y of mg capsule 00:00: mouth once [place] 00 daily as Medical needed for Branch Constipati on. ferrous 2020-0 Yes [id number] 325mg Take 1 Un [place] sulfate 325 8-14 tablet by ity of mg (65 mg 00:00: mouth 2 [place] iron) 00 (two) Medical tablet times Branch daily. ibuprofen 2020-0 Yes [id number] 600mg Take 1 Univers 600 mg 8-14 tablet by ity of tablet 00:00: mouth [place] 00 every 6 Medical (six) Branch hours as needed for Pain (scale 1-3) or Pain (scale 4-6) (Pain). Take with food or milk. 2020-0 Yes [id number] 1{tbl} Take 1 Univers vitamin 8-14 tablet by ity of w/FA tablet 00:00: mouth [place] 00 daily. Medical Branch docusate 2020-0 Yes [id number] 240mg Take 1 U nivers calcium 240 8-14 capsule by it y of mg capsule 00:00: mouth once [place] 00 daily as Medical needed for Branch Constipati on. acetaminoph 2020-0 Yes [id number] 650mg Take 2 Univers en 325 mg 8-14 tablets by ity of tablet 00:00: mouth [place] 00 every 6 Medical (six) Branch hours as needed for Pain (scale 1-3) or Pain (scale 4-6). 2020-0 Yes [id number] 1{tbl} Take 1 Univers vitamin 8-14 tablet by ity of w/FA tablet 00:00: mouth [place] 00 daily. Medical Branch docusate 2020-0 Yes [id number] 240mg Take 1 U nivers calcium 240 8-14 capsule by it y of mg capsule 00:00: mouth once [place] 00 daily as Medical needed for Branch Constipati on. ferrous 2020-0 Yes [id number] 325mg Take 1 Un [place] sulfate 325 8-14 tablet by ity of mg (65 mg 00:00: mouth 2 [place] iron) 00 (two) Medical tablet times Branch daily. ibuprofen 2020-0 Yes [id number] 600mg Take 1 Univers 600 mg 8-14 tablet by ity of tablet 00:00: mouth [place] 00 every 6 Medical (six) Branch hours as needed for Pain (scale 1-3) or Pain (scale 4-6) (Pain). Take with food or milk. acetaminoph 2020-0 Yes [id number] 650mg Take 2 Univers en 325 mg 8-14 tablets by ity of tablet 00:00: mouth [place] 00 every 6 Medical (six) Branch hours as needed for Pain (scale 1-3) or Pain (scale 4-6). 2020-0 Yes [id number] 1{tbl} Take 1 Univers vitamin 8-14 tablet by ity of w/FA tablet 00:00: mouth [place] 00 daily. Medical Branch docusate 2020-0 Yes [id number] 240mg Take 1 U nivers calcium 240 8-14 capsule by it y of mg capsule 00:00: mouth once [place] 00 daily as Medical needed for Branch Constipati on. ferrous 2020-0 Yes [id number] 325mg Take 1 Un [place] sulfate 325 8-14 tablet by ity of mg (65 mg 00:00: mouth 2 [place] iron) 00 (two) Medical tablet times Branch daily. ibuprofen 2020-0 Yes [id number] 600mg Take 1 Univers 600 mg 8-14 tablet by ity of tablet 00:00: mouth [place] 00 every 6 Medical (six) Branch hours as needed for Pain (scale 1-3) or Pain (scale 4-6) (Pain). Take with food or milk. acetaminoph 2020-0 Yes [id number] 650mg Take 2 Univers en 325 mg 8-14 tablets by ity of tablet 00:00: mouth [place] 00 every 6 Medical (six) Branch hours as needed for Pain (scale 1-3) or Pain (scale 4-6). 2020-0 Yes [id number] 1{tbl} Take 1 Univers vitamin 8-14 tablet by ity of w/FA tablet 00:00: mouth [place] 00 daily. Medical Branch docusate 2020-0 Yes [id number] 240mg Take 1 U nivers calcium 240 8-14 capsule by it y of mg capsule 00:00: mouth once [place] 00 daily as Medical needed for Branch Constipati on. ferrous 2020-0 Yes [id number] 325mg Take 1 Un [place] sulfate 325 8-14 tablet by ity of mg (65 mg 00:00: mouth 2 [place] iron) 00 (two) Medical tablet times Branch daily. ibuprofen 2020-0 Yes [id number] 600mg Take 1 Univers 600 mg 8-14 tablet by ity of tablet 00:00: mouth [place] 00 every 6 Medical (six) Branch hours as needed for Pain (scale 1-3) or Pain (scale 4-6) (Pain). Take with food or milk. acetaminoph 2020-0 Yes [id number] 650mg Take 2 Univers en 325 mg 8-14 tablets by ity of tablet 00:00: mouth [place] 00 every 6 Medical (six) Branch hours as needed for Pain (scale 1-3) or Pain (scale 4-6). 2020-0 Yes [id number] 1{tbl} Take 1 Univers vitamin 8-14 tablet by ity of w/FA tablet 00:00: mouth [place] 00 daily. Medical Branch docusate 2020-0 Yes [id number] 240mg Take 1 U nivers calcium 240 8-14 capsule by it y of mg capsule 00:00: mouth once [place] 00 daily as Medical needed for Branch Constipati on. ferrous 2020-0 Yes [id number] 325mg Take 1 Un [place] sulfate 325 8-14 tablet by ity of mg (65 mg 00:00: mouth 2 [place] iron) 00 (two) Medical tablet times Branch daily. ibuprofen 2020-0 Yes [id number] 600mg Take 1 Univers 600 mg 8-14 tablet by ity of tablet 00:00: mouth [place] 00 every 6 Medical (six) Branch hours as needed for Pain (scale 1-3) or Pain (scale 4-6) (Pain). Take with food or milk. acetaminoph 2020-0 Yes [id number] 650mg Take 2 Univers en 325 mg 8-14 tablets by ity of tablet 00:00: mouth [place] 00 every 6 Medical (six) Branch hours as needed for Pain (scale 1-3) or Pain (scale 4-6). 2020-0 Yes [id number] 1{tbl} Take 1 Univers vitamin 8-14 tablet by ity of w/FA tablet 00:00: mouth [place] 00 daily. Medical Branch docusate 2020-0 Yes [id number] 240mg Take 1 U nivers calcium 240 8-14 capsule by it y of mg capsule 00:00: mouth once [place] 00 daily as Medical needed for Branch Constipati on. ferrous 2020-0 Yes [id number] 325mg Take 1 Un [place] sulfate 325 8-14 tablet by ity of mg (65 mg 00:00: mouth 2 [place] iron) 00 (two) Medical tablet times Branch daily. ibuprofen 2020-0 Yes [id number] 600mg Take 1 Univers 600 mg 8-14 tablet by ity of tablet 00:00: mouth [place] 00 every 6 Medical (six) Branch hours as needed for Pain (scale 1-3) or Pain (scale 4-6) (Pain). Take with food or milk. acetaminoph 2020-0 Yes [id number] 650mg Take 2 Univers en 325 mg 8-14 tablets by ity of tablet 00:00: mouth [place] 00 every 6 Medical (six) Branch hours as needed for Pain (scale 1-3) or Pain (scale 4-6). 2020-0 Yes [id number] 1{tbl} Take 1 Univers vitamin 8-14 tablet by ity of w/FA tablet 00:00: mouth [place] 00 daily. Medical Branch docusate 2020-0 Yes [id number] 240mg Take 1 U nivers calcium 240 8-14 capsule by it y of mg capsule 00:00: mouth once [place] 00 daily as Medical needed for Branch Constipati on. ferrous 2020-0 Yes [id number] 325mg Take 1 Un [place] sulfate 325 8-14 tablet by ity of mg (65 mg 00:00: mouth 2 [place] iron) 00 (two) Medical tablet times Branch daily. ibuprofen 2020-0 Yes [id number] 600mg Take 1 Univers 600 mg 8-14 tablet by ity of tablet 00:00: mouth [place] 00 every 6 Medical (six) Branch hours as needed for Pain (scale 1-3) or Pain (scale 4-6) (Pain). Take with food or milk. acetaminoph 2020-0 Yes [id number] 650mg Take 2 Univers en 325 mg 8-14 tablets by ity of tablet 00:00: mouth [place] 00 every 6 Medical (six) Branch hours as needed for Pain (scale 1-3) or Pain (scale 4-6). 2020-0 Yes [id number] 1{tbl} Take 1 Univers vitamin 8-14 tablet by ity of w/FA tablet 00:00: mouth [place] 00 daily. Medical Branch docusate 2020-0 Yes [id number] 240mg Take 1 U nivers calcium 240 8-14 capsule by it y of mg capsule 00:00: mouth once [place] 00 daily as Medical needed for Branch Constipati on. ferrous 2020-0 Yes [id number] 325mg Take 1 Un [place] sulfate 325 8-14 tablet by ity of mg (65 mg 00:00: mouth 2 [place] iron) 00 (two) Medical tablet times Branch daily. ibuprofen 2020-0 Yes [id number] 600mg Take 1 Univers 600 mg 8-14 tablet by ity of tablet 00:00: mouth [place] 00 every 6 Medical (six) Branch hours as needed for Pain (scale 1-3) or Pain (scale 4-6) (Pain). Take with food or milk. acetaminoph 2020-0 Yes [id number] 650mg Take 2 Univers en 325 mg 8-14 tablets by ity of tablet 00:00: mouth [place] 00 every 6 Medical (six) Branch hours as needed for Pain (scale 1-3) or Pain (scale 4-6). 2019- Yes [id number] 1{tbl} Take 1 Univers vitamin 8-14 tablet by ity of w/FA tablet 00:00: mouth [place] 00 daily. Medical Branch acetaminoph 2022- No [id number] 650mg Take 2 Univers en 325 mg 8-14 05-30 tablets by ity of tablet 00:00: 00:00 mouth [place] 00 :00 every 6 Medical (six) Branch hours as needed for Pain (scale 1-3) or Pain (scale 4-6). ferrous 2022- No [id number] 325mg Take 1 U nivers sulfate 325 8-14 05-30 tablet by it y of mg (65 mg 00:00: 00:00 mouth 2 [place] iron) 00 :00 (two) Medical tablet times Branch daily. ibuprofen 2022- No [id number] 600mg Take 1 Univers 600 mg 8-14 05-30 tablet by ity of tablet 00:00: [...] Indication s: acute pain gabapentin 2019-2019- No [id number] 300mg Take 1 Univers 300 mg 8-14 08-20 capsule by ity of capsule 00:00: 04:59 mouth 3 [place] 00 :00 (three) Medical times Branch daily for 5 days. gabapentin 2019- No [id number] 300mg Take 1 Univers 300 mg 8-14 08-20 capsule by ity of capsule 00:00: 04:59 mouth 3 [place] 00 :00 (three) Medical times Branch daily for 5 days. acetaminoph 2020-0 Yes 650mg 650 mg, Un [place] en 8- Oral, Q6H ity of (TYLENOL) 23:00: ABX, [...] Last dose on Tue05/16/20 at 0000, Routine
membership coordinator approving Restricted medication : LOPEZMELYSSA CAM labetalol 2019-0 Yes 100mg 100 mg, [...] over 15 Branch Minutes, ONCE, 1 dose, [facility] 05/14/20 at 1800, Routine, PACU
Indicatio n: Perioperat roberta Patient gabapentin 2020-0 Yes 300mg 300 mg, Uni vers (NEURONTIN) 05-14 Oral, TID, it y of capsule 300 19:00: First dose [place] mg 00 on Tue Medical 05/14/20 at Branch 1400, Until Discontinu ed, Routine simethicone 2020-0 Yes 160mg 160 mg, Un [place] (GAS RELIEF 8-12 Oral, ity of (SIMETHICON 18:00: PC+HS, [place] [...] Yes 25mg 25 mg, Univ ers MINE 8 Oral, ity of (BENADRYL) 17:42: Q6HPRN, [place] tablet 25 12 Starting Medica l mg [facility] Branch 05/14/20 at 1242, Until Discontinu ed, Routine, Sleep, Itching ondansetron 2020-0 Yes 4mg 4 mg, Slow Univers (ZOFRAN 8 IV Push, ity of (PF)) 17:42: Q8HPRN, [place] injection 4 12 Starting Medi hang mg [facility] 05/14/20 at 1242, Until Discontinu ed, Routine, Nausea and Vomiting (N/V) bisacodyL 2020-0 Yes 10mg 10 mg, Univer s (DULCOLAX) 8-12 Rectal, ity of suppository 17:42: QDAILYPRN, [place] 10 mg 12 Starting Medical [facility] Branch 05/14/20 at 1242, Until Discontinu ed, Routine, Constipati on docusate 2020-0 Yes 240mg 240 mg, Unive rs calcium 8-12 Oral, ity of (SURFAK) 17:42: QDAILYPRN, [place] capsule 240 12 Starting Medi hang mg [facility] Branch 05/14/20 at 1242, Until Discontinu ed, Routine, Constipati on magnesium 2020-0 Yes 30mL 30 mL, Univer s hydroxide 8-12 Oral, ity of (MILK OF 17:42: QDAILYPRN, [place] MAGNESIA) 12 Starting Medica l 400 mg/5 mL Wed Branch suspension 05/14/20 at 30 mL 1242, Until Discontinu ed, Routine, Constipati on nalbuphine 2019- No 5mg 5 mg, Unive rs (NUBAIN) 05-14 Intravenou ity of injection 5 17:41: 09:49 s, PRN, 1 [place] mg 44 :00 dose, Medical Starting Branch 05/14/20 at 1241, Until Discontinu ed, Routine, Itching, PACU ondansetron 2020- No 4mg 4 mg, Slow Univers (ZOFRAN 05-14 IV Push, ity of (PF)) 17:41: 23:55 PRN, 1 [place] injection 4 44 :00 dose, Medical mg Starting Branch 05/14/20 at 1241, Until Discontinu [...] 00 :26 CONTINUOUS Medical , Starting Branch 05/14/20 at 0900, Until 05/14/20 at 1242, Routine sodium 2020-0 2020- No 30mL 30 mL, Univers citrate-cit 05-14 Oral, ity of kevin acid 13:45: 15:14 PRE-PROCED [place] (BICITRA) 26 :00 URE ONCE, Medic al [id number] 1 dose, Branch mg/5 mL Starting solution 30 Wed mL 05/14/20 at 0845, Until Discontinu ed, Routine, Surgery glyBURIDE 2020-0 Yes [id number] 2.5mg Take 1 U nivers 2.5 mg 7-29 tablet by ity of tablet 00:00: mouth [place] 00 every Medical evening. Branch glyBURIDE 2020-0 Yes [id number] 2.5mg Take 1 U nivers 2.5 mg 7-29 tablet by ity of tablet 00:00: mouth [place] 00 every Medical evening. Branch glyBURIDE 2020-0 Yes [id number] 2.5mg Take 1 U nivers 2.5 mg 7-29 tablet by ity of tablet 00:00: mouth [place] 00 every Medical evening. Branch glyBURIDE 2020-0 Yes [id number] 2.5mg Take 1 U nivers 2.5 mg 7-29 tablet by ity of tablet 00:00: mouth [place] 00 every Medical evening. Branch glyBURIDE 2020-0 Yes [id number] 2.5mg Take 1 U nivers 2.5 mg 7-29 tablet by ity of tablet 00:00: mouth [place] 00 every Medical evening. Branch glyBURIDE 2020-0 Yes [id number] 2.5mg Take 1 U nivers 2.5 mg 7-29 tablet by ity of tablet 00:00: mouth [place] 00 every Medical evening. Branch glyBURIDE 2020-0 Yes [id number] 2.5mg Take 1 U nivers 2.5 mg 7-29 tablet by ity of tablet 00:00: mouth [place] 00 every Medical evening. Branch glyBURIDE 2020-0 Yes [id number] 2.5mg Take 1 U nivers 2.5 mg 7-29 tablet by ity of tablet 00:00: mouth [place] 00 every Medical evening. Branch glyBURIDE 2020-0 Yes [id number] 2.5mg Take 1 U nivers 2.5 mg 7-29 tablet by ity of tablet 00:00: mouth [place] 00 every Medical evening. Branch glyBURIDE 2020-0 Yes [id number] 2.5mg Take 1 U nivers 2.5 mg 7-29 tablet by ity of tablet 00:00: mouth [place] 00 every Medical evening. Branch glyBURIDE 2020-0 Yes [id number] 2.5mg Take 1 U nivers 2.5 mg 7-29 tablet by ity of tablet 00:00: mouth [place] 00 every Medical evening. Branch glyBURIDE 2020-0 Yes [id number] 2.5mg Take 1 U nivers 2.5 mg 7-29 tablet by ity of tablet 00:00: mouth [place] 00 every Medical evening. Branch glyBURIDE 2020-0 Yes [id number] 2.5mg Take 1 U nivers 2.5 mg 7-29 tablet by ity of tablet 00:00: mouth [place] 00 every Medical evening. Branch glyBURIDE 2020-0 2020- No [id number] 2.5mg Take 1 Univers 2.5 mg 7-29 [...] Branch daily Lancets 2020-0 Yes Patient to [facility] Misc 6-18 check ity of 00:00: [...] Branch daily Lancets 2020-0 Yes Patient to [facility] Misc 6-18 check ity of 00:00: [...] Branch daily Lancets 2020-0 Yes Patient to [facility] ers Misc 6-18 check ity of 00:00: [...] Branch daily Lancets 2020-0 Yes Patient to [facility] Misc 6-18 check ity of 00:00: [...] Branch daily Lancets 2020-0 Yes Patient to [facility] Misc 6-18 check ity of 00:00: [...] Branch daily Lancets 2020-0 Yes Patient to [facility] ers Misc 6-18 check ity of 00:00: [...] Branch daily Lancets 2020-0 Yes Patient to [facility] ers Misc 6-18 check ity of 00:00: [...] Branch daily Lancets 2020-0 Yes Patient to [facility] Misc 6-18 check ity of 00:00: [...] Branch daily Lancets 2020-0 Yes Patient to [facility] Misc 6-18 check ity of 00:00: [...] Branch daily Lancets 2020-0 Yes Patient to [facility] Misc 6-18 check ity of 00:00: [...] Branch daily Lancets 2020-0 Yes Patient to [facility] Misc 6-18 check ity of 00:00: [...] Branch daily Lancets 2020-0 Yes Patient to [facility] Misc 6-18 check ity of 00:00: [...] Branch daily Lancets 2020-0 Yes Patient to [facility] Misc 6-18 check ity of 00:00: [...] Branch daily Lancets 2020-0 Yes Patient to [facility] Misc 6-18 check ity of 00:00: [...] Branch daily Lancets 2020-0 Yes Patient to [facility] ers Misc 6-18 check ity of 00:00: [...] Branch daily Lancets 2020-0 Yes Patient to [facility] ers Misc 6-18 check ity of 00:00: [...] 2020-0 Yes Patient to Univ ers Misc 03-20 check ity of 00:00: blood [place] 00 glucose 4 Medical times Branch daily. Blood-Gluco 2019-0 2020- No Patient to Univers se Meter 03-20 check ity of (BLOOD 00:00: 00:00 blood [place] GLUCOSE 00 :00 glucose 4 Medical MONITORING) times Branch Kit daily. blood sugar 2019-0 2020- No Patient to Univers diagnostic 03-20 check ity of strip 00:00: 00:00 blood [place] 00 :00 glucose 4 Medical times Branch daily Lancets 2019-0 2020- No Patient to Uni vers Misc 03-20 check ity of 00:00: 00:00 blood [place] 00 :00 glucose 4 Medical times Branch daily. labetalol 2020-0 Yes [id number] 100mg Take 1 U nivers 100 mg 5-28 tablet by ity of tablet 00:00: mouth [place] 00 every 12 Medical (twelve) Branch hours. labetalol 2020-0 Yes [id number] 100mg Take 1 U nivers 100 mg 5-28 tablet by ity of tablet 00:00: mouth [place] 00 every 12 Medical (twelve) Branch hours. labetalol 2020-0 Yes [id number] 100mg Take 1 U nivers 100 mg 5-28 tablet by ity of tablet 00:00: mouth [place] 00 every 12 Medical (twelve) Branch hours. labetalol 2020-0 Yes [id number] 100mg Take 1 U nivers 100 mg 5-28 tablet by ity of tablet 00:00: mouth [place] 00 every 12 Medical (twelve) Branch hours. labetalol 2020-0 Yes [id number] 100mg Take 1 U nivers 100 mg 5-28 tablet by ity of tablet 00:00: mouth [place] 00 every 12 Medical (twelve) Branch hours. labetalol 2020-0 Yes [id number] 100mg Take 1 U nivers 100 mg 5-28 tablet by ity of tablet 00:00: mouth [place] 00 every 12 Medical (twelve) Branch hours. labetalol 2020-0 Yes [id number] 100mg Take 1 U nivers 100 mg 5-28 tablet by ity of tablet 00:00: mouth [place] 00 every 12 Medical (twelve) Branch hours. labetalol 2020-0 Yes [id number] 100mg Take 1 U nivers 100 mg 5-28 tablet by ity of tablet 00:00: mouth [place] 00 every 12 [facility] (twelve) Branch hours. labetalol 2020-0 Yes [id number] 100mg Take 1 [facility] 100 mg 5-28 tablet by [facility] of tablet 00:00: mouth [place] 00 every 12 Medical (twelve) Branch hours. labetalol 2020-0 Yes [id number] 100mg Take 1 [facility] 100 mg 5-28 tablet by [facility] of tablet 00:00: mouth [place] 00 every 12 Medical (twelve) Branch hours. labetalol 2020-0 Yes [id number] 100mg Take 1 [facility] 100 mg 5-28 tablet by [facility] of tablet 00:00: mouth [place] 00 every 12 Medical (twelve) Branch hours. labetalol 2020-0 Yes [id number] 100mg Take 1 [facility] 100 mg 5-28 tablet by [facility] of tablet 00:00: mouth [place] 00 every 12 Medical (twelve) Branch hours. labetalol 2020-0 Yes [id number] 100mg Take 1 [facility] 100 mg 5-28 tablet by [facility] of tablet 00:00: mouth [place] 00 every 12 Medical (twelve) Branch hours. labetalol 2020-0 Yes [id number] 100mg Take 1 [facility] 100 mg 5-28 tablet by [facility] tablet 00:00: mouth [place] 00 every 12 Medical (twelve) Branch hours. labetalol 2020-0 Yes [id number] 100mg Take 1 [facility] 100 mg 5-28 tablet by [facility] tablet 00:00: mouth [place] 00 every 12 Medical (twelve) Branch hours. labetalol 2020-0 Yes [id number] 100mg Take 1 [facility] 100 mg 5-28 tablet by [facility] tablet 00:00: mouth [place] 00 every 12 Medical (twelve) Branch hours. labetalol 2020-0 Yes [id number] 100mg Take 1 [facility] 100 mg 5-28 tablet by [facility] of tablet 00:00: mouth [place] 00 every 12 Medical (twelve) Branch hours. labetalol 2020-0 Yes [id number] 100mg Take 1 [facility] 100 mg 5-28 tablet by [facility] of tablet 00:00: mouth [place] 00 every 12 Medical (twelve) Branch hours. labetalol 2020-0 Yes [id number] 100mg Take 1 [facility] 100 mg 5-28 tablet by [facility] of tablet 00:00: mouth [place] 00 every 12 Medical (twelve) Branch hours. labetalol 2020-0 Yes [id number] 100mg Take 1 [facility] 100 mg 5-28 tablet by [facility] of tablet 00:00: mouth [place] 00 every 12 Medical (twelve) Branch hours. labetalol 2020-0 Yes [id number] 100mg Take 1 [facility] 100 mg 5-28 tablet by [facility] of tablet 00:00: mouth [place] 00 every 12 Medical (twelve) Branch hours. labetalol 2020-0 Yes [id number] 100mg Take 1 [facility] 100 mg 5-28 tablet by [facility] of tablet 00:00: mouth [place] 00 every 12 Medical (twelve) Branch hours. labetalol 2020-0 Yes [id number] 100mg Take 1 [facility] 100 mg 5-28 tablet by [facility] of tablet 00:00: mouth [place] 00 every 12 Medical (twelve) Branch hours. labetalol 2020-0 Yes [id number] 100mg Take 1 [facility] 100 mg 5-28 tablet by [facility] tablet 00:00: mouth [place] 00 every 12 Medical (twelve) Branch hours. labetalol 2020-0 Yes [id number] 100mg Take 1 [facility] 100 mg 5-28 tablet by [facility] tablet 00:00: mouth [place] 00 every 12 Medical (twelve) Branch hours. labetalol 2020-0 Yes [id number] 100mg Take 1 [facility] 100 mg 5-28 tablet by [facility] of tablet 00:00: mouth [place] 00 every 12 Medical (twelve) Branch hours. labetalol 2020-0 Yes [id number] 100mg Take 1 [facility] 100 mg 5-28 tablet by [facility] tablet 00:00: mouth [place] 00 every 12 Medical (twelve) Branch hours. labetalol 2020-0 Yes [id number] 100mg Take 1 [facility] 100 mg 5-28 tablet by [facility] of tablet 00:00: mouth [place] 00 every 12 Medical (twelve) Branch hours. labetalol 2020-0 Yes [id number] 100mg Take 1 [facility] 100 mg 5-28 tablet by [facility] of tablet 00:00: mouth [place] 00 every 12 Medical (twelve) Branch hours. labetalol 2020-0 Yes [id number] 100mg Take 1 [facility] 100 mg 5-28 tablet by [facility] of tablet 00:00: mouth [place] 00 every 12 Medical (twelve) Branch hours. labetalol 2020-0 Yes [id number] 100mg Take 1 [facility] 100 mg 5-28 tablet by [facility] of tablet 00:00: mouth [place] 00 every 12 Medical (twelve) Branch hours. labetalol 2020-0 Yes [id number] 100mg Take 1 [facility] 100 mg 5-28 tablet by [facility] tablet 00:00: mouth [place] 00 every 12 Medical (twelve) Branch hours. labetalol 2020-0 2020- No [id number] 100mg Take 1 [facility] 100 mg 5-28 08-14 tablet by [facility] of tablet 00:00: 00:00 mouth [place] 00 :00 every 12 Medical (twelve) Branch hours. labetalol 2020-0 Yes [id number] 100mg Take 1 [facility] 100 mg 3-17 tablet by [facility] tablet 00:00: mouth [place] 00 every 12 Medical (twelve) Branch hours. labetalol 2020-0 Yes [id number] 100mg Take 1 [facility] 100 mg 3-17 tablet by [facility] tablet 00:00: mouth [place] 00 every 12 Medical (twelve) Branch hours. labetalol 2020-0 Yes [id number] 100mg Take 1 [facility] 100 mg 3-17 tablet by [facility] tablet 00:00: mouth [place] 00 every 12 Medical (twelve) Branch hours. labetalol 2020-0 Yes [id number] 100mg Take 1 [facility] 100 mg 3-17 tablet by [facility] tablet 00:00: mouth [place] 00 every 12 Medical (twelve) Branch hours. labetalol 2020-0 Yes [id number] 100mg Take 1 [facility] 100 mg 3-17 tablet by [facility] of tablet 00:00: mouth [place] 00 every 12 Medical (twelve) Branch hours. labetalol 2020-0 Yes [id number] 100mg Take 1 [facility] 100 mg 3-17 tablet by [facility] of tablet 00:00: mouth [place] 00 every 12 Medical (twelve) Branch hours. labetalol 2020-0 Yes [id number] 100mg Take 1 [facility] 100 mg 3-17 tablet by [facility] of tablet 00:00: mouth [place] 00 every 12 Medical (twelve) Branch hours. labetalol 2020-0 Yes [id number] 100mg Take 1 [facility] 100 mg 3-17 tablet by [facility] of tablet 00:00: mouth [place] 00 every 12 Medical (twelve) Branch hours. labetalol 2020-0 Yes [id number] 100mg Take 1 [facility] 100 mg 3-17 tablet by [facility] of tablet 00:00: mouth [place] 00 every 12 Medical (twelve) Branch hours. labetalol 2020-0 2020- No [id number] 100mg Take 1 [facility] 100 mg 3-17 05-28 tablet by [facility] of tablet 00:00: 00:00 mouth [place] 00 :00 every 12 Medical (twelve) Branch hours. Alcohol 2020-0 Yes [id number] Apply to [facility] Swabs 3-02 area(s) 4 ity of (ALCOHOL 00:00: (four) [place] PREP PADS) 00 times Medical PadM daily. Branch Blood-Gluco 2020-0 Yes [id number] Check BS [facility] se Meter 3-02 QID ity of Kit 00:00: [place] 00 [facility] Lancets 2020-0 Yes [id number] Check BS [facility] Misc 3-02 QID ity of 00:00: [place] 00 Medical Branch blood sugar 2020-0 Yes [id number] Check BS [facility] diagnostic 3-02 QID ity of (BLOOD 00:00: [place] GLUCOSE 00 Medical TEST) strip Branch Alcohol 2020-0 Yes [id number] Apply to [facility] Swabs 3-02 area(s) 4 ity of (ALCOHOL 00:00: (four) [place] PREP PADS) 00 times Medical PadM daily. Branch Blood-Gluco 2020-0 Yes [id number] Check BS [facility] se Meter 3-02 QID ity of Kit 00:00: [place] 00 [facility] Lancets 2020-0 Yes [id number] Check BS [facility] Misc 3-02 QID ity of 00:00: [place] 00 [facility] blood sugar 2020-0 Yes [id number] Check BS [facility] diagnostic 3-02 QID ity of (BLOOD 00:00: [place] GLUCOSE 00 Medical TEST) strip Branch Alcohol 2020-0 Yes [id number] Apply to [facility] Swabs 3-02 area(s) 4 ity of (ALCOHOL 00:00: (four) [place] PREP PADS) 00 times Medical PadM daily. Branch Blood-Gluco 2020-0 Yes [id number] Check BS [facility] se Meter 3-02 QID ity of Kit 00:00: [place] 00 [facility] Lancets 2020-0 Yes [id number] Check BS [facility] Misc 3-02 QID ity of 00:00: [place] 00 Medical [facility] blood sugar 2020-0 Yes [id number] Check BS [facility] diagnostic 3-02 QID ity of (BLOOD 00:00: [place] GLUCOSE 00 Medical TEST) strip Branch Alcohol 2020-0 Yes [id number] Apply to [facility] Swabs 3-02 area(s) 4 ity of (ALCOHOL 00:00: (four) [place] PREP PADS) 00 times Medical PadM daily. Branch Blood-Gluco 2020-0 Yes [id number] Check BS [facility] se Meter 3-02 QID ity of Kit 00:00: [place] 00 [facility] Lancets 2020-0 Yes [id number] Check BS [facility] Misc 3-02 QID ity of 00:00: [place] 00 [facility] blood sugar 2020-0 Yes [id number] Check BS [facility] diagnostic 3-02 QID ity of (BLOOD 00:00: [place] GLUCOSE 00 Medical TEST) strip Branch Alcohol 2020-0 Yes [id number] Apply to [facility] Swabs 3-02 area(s) 4 ity of (ALCOHOL 00:00: (four) [place] PREP PADS) 00 times Medical PadM daily. Branch Blood-Gluco 2020-0 Yes [id number] Check BS [facility] se Meter 3-02 QID ity of Kit 00:00: [place] 00 [facility] Lancets 2020-0 Yes [id number] Check BS [facility] Misc 3-02 QID ity of 00:00: [place] 00 [facility] blood sugar 2020-0 Yes [id number] Check BS [facility] diagnostic 3-02 QID ity of (BLOOD 00:00: [place] GLUCOSE 00 Medical TEST) strip Branch Alcohol 2020-0 Yes [id number] Apply to [facility] Swabs 3-02 area(s) 4 ity of (ALCOHOL 00:00: (four) [place] PREP PADS) 00 times Medical PadM daily. Branch Blood-Gluco 2020-0 Yes [id number] Check BS [facility] se Meter 3-02 QID ity of Kit 00:00: [place] 00 [facility] Lancets 2020-0 Yes [id number] Check BS [facility] Misc 3-02 QID ity of 00:00: [place] 00 [facility] blood sugar 2020-0 Yes [id number] Check BS [facility] diagnostic 3-02 QID ity of (BLOOD 00:00: [place] GLUCOSE 00 Medical TEST) strip Branch Alcohol 2020-0 Yes [id number] Apply to [facility] Swabs 3-02 area(s) 4 ity of (ALCOHOL 00:00: (four) [place] PREP PADS) 00 times Medical PadM daily. Branch Blood-Gluco 2020-0 Yes [id number] Check BS [facility] se Meter 3-02 QID ity of Kit 00:00: [place] 00 [facility] Lancets 2020-0 Yes [id number] Check BS [facility] Misc 3-02 QID ity of 00:00: [place] 00 [facility] blood sugar 2020-0 Yes [id number] Check BS [facility] diagnostic 3-02 QID ity of (BLOOD 00:00: [place] GLUCOSE 00 Medical TEST) strip Branch Alcohol 2020-0 Yes [id number] Apply to [facility] Swabs 3-02 area(s) 4 ity of (ALCOHOL 00:00: (four) [place] PREP PADS) 00 times Medical PadM daily. Branch Blood-Gluco 2020-0 Yes [id number] Check BS [facility] se Meter 3-02 QID ity of Kit 00:00: [place] 00 [facility] Lancets 2020-0 Yes [id number] Check BS [facility] Misc 3-02 QID ity of 00:00: [place] 00 [facility] blood sugar 2020-0 Yes [id number] Check BS [facility] diagnostic 3-02 QID ity of (BLOOD 00:00: [place] GLUCOSE 00 Medical TEST) strip Branch Alcohol 2020-0 Yes [id number] Apply to [facility] Swabs 3-02 area(s) 4 ity of (ALCOHOL 00:00: (four) [place] PREP PADS) 00 times Medical PadM daily. Branch Blood-Gluco 2020-0 Yes [id number] Check BS [facility] se Meter 3-02 QID ity of Kit 00:00: [place] 00 [facility] Lancets 2020-0 Yes [id number] Check BS [facility] Misc 3-02 QID ity of 00:00: [place] 00 [facility] blood sugar 2020-0 Yes [id number] Check BS [facility] diagnostic 3-02 QID ity of (BLOOD 00:00: [place] GLUCOSE 00 Medical TEST) strip Branch Alcohol 2020-0 Yes [id number] Apply to [facility] Swabs 3-02 area(s) 4 ity of (ALCOHOL 00:00: (four) [place] PREP PADS) 00 times Medical PadM daily. Branch Blood-Gluco 2020-0 Yes [id number] Check BS [facility] se Meter 3-02 QID ity of Kit 00:00: [place] 00 [facility] Lancets 2020-0 Yes [id number] Check BS [facility] Misc 3-02 QID ity of 00:00: [place] 00 Medical Branch blood sugar 2020-0 Yes [id number] Check BS [facility] diagnostic 3-02 QID ity of (BLOOD 00:00: [place] GLUCOSE 00 Medical TEST) strip Branch Alcohol 2020-0 Yes [id number] Apply to [facility] Swabs 3-02 area(s) 4 ity of (ALCOHOL 00:00: (four) [place] PREP PADS) 00 times Medical PadM daily. Branch Blood-Gluco 2020-0 Yes [id number] Check BS [facility] se Meter 3-02 QID ity of Kit 00:00: [place] 00 [facility] Lancets 2020-0 Yes [id number] Check BS [facility] Misc 3-02 QID ity of 00:00: [place] 00 Medical Branch blood sugar 2020-0 Yes [id number] Check BS [facility] diagnostic 3-02 QID ity of (BLOOD 00:00: [place] GLUCOSE 00 Medical TEST) strip Branch Alcohol 2020-0 Yes [id number] Apply to [facility] Swabs 3-02 area(s) 4 ity of (ALCOHOL 00:00: (four) [place] PREP PADS) 00 times Medical PadM daily. Branch Blood-Gluco 2020-0 Yes [id number] Check BS [facility] se Meter 3-02 QID ity of Kit 00:00: [place] 00 [facility] Lancets 2020-0 Yes [id number] Check BS [facility] Misc 3-02 QID ity of 00:00: [place] 00 Medical Branch blood sugar 2020-0 Yes [id number] Check BS [facility] diagnostic 3-02 QID ity of (BLOOD 00:00: [place] GLUCOSE 00 Medical TEST) strip Branch Alcohol 2020-0 Yes [id number] Apply to [facility] Swabs 3-02 area(s) 4 ity of (ALCOHOL 00:00: (four) [place] PREP PADS) 00 times Medical PadM daily. Branch Blood-Gluco 2020-0 Yes [id number] Check BS [facility] se Meter 3-02 QID ity of Kit 00:00: [place] 00 [facility] Lancets 2020-0 Yes [id number] Check BS [facility] Misc 3-02 QID ity of 00:00: [place] 00 [facility] Branch blood sugar 2020-0 Yes [id number] Check BS [facility] diagnostic 3-02 QID ity of (BLOOD 00:00: [place] GLUCOSE 00 Medical TEST) strip Branch Alcohol 2020-0 Yes [id number] Apply to [facility] Swabs 3-02 area(s) 4 ity of (ALCOHOL 00:00: (four) [place] PREP PADS) 00 times Medical PadM daily. Branch Blood-Gluco 2020-0 Yes [id number] Check BS [facility] se Meter 3-02 QID ity of Kit 00:00: [place] 00 [facility] Lancets 2020-0 Yes [id number] Check BS [facility] Misc 3-02 QID ity of 00:00: [place] 00 [facility] blood sugar 2020-0 Yes [id number] Check BS [facility] diagnostic 3-02 QID ity of (BLOOD 00:00: [place] GLUCOSE 00 Medical TEST) strip Branch Alcohol 2020-0 Yes [id number] Apply to [facility] Swabs 3-02 area(s) 4 ity of (ALCOHOL 00:00: (four) [place] PREP PADS) 00 times Medical PadM daily. Branch Blood-Gluco 2020-0 Yes [id number] Check BS [facility] se Meter 3-02 QID ity of Kit 00:00: [place] 00 [facility] Lancets 2020-0 Yes [id number] Check BS [facility] Misc 3-02 QID ity of 00:00: [place] 00 Medical Branch blood sugar 2020-0 Yes [id number] Check BS [facility] diagnostic 3-02 QID ity of (BLOOD 00:00: [place] GLUCOSE 00 Medical TEST) strip Branch Alcohol 2020-0 Yes [id number] Apply to [facility] Swabs 3-02 area(s) 4 ity of (ALCOHOL 00:00: (four) [place] PREP PADS) 00 times Medical PadM daily. Branch Blood-Gluco 2020-0 Yes [id number] Check BS [facility] se Meter 3-02 QID ity of Kit 00:00: [place] 00 Medical [facility] Lancets 2020-0 Yes [id number] Check BS [facility] Misc 3-02 QID ity of 00:00: [place] 00 Medical [facility] blood sugar 2020-0 Yes [id number] Check BS [facility] diagnostic 3-02 QID ity of (BLOOD 00:00: [place] GLUCOSE 00 Medical TEST) strip Branch Alcohol 2020-0 Yes [id number] Apply to [facility] Swabs 3-02 area(s) 4 ity of (ALCOHOL 00:00: (four) [place] PREP PADS) 00 times Medical PadM daily. Branch Blood-Gluco 2020-0 Yes [id number] Check BS [facility] se Meter 3-02 QID ity of Kit 00:00: [place] 00 Medical [facility] Lancets 2020-0 Yes [id number] Check BS [facility] Misc 3-02 QID ity of 00:00: [place] 00 Medical Branch blood sugar 2020-0 Yes [id number] Check BS [facility] diagnostic 3-02 QID ity of (BLOOD 00:00: [place] GLUCOSE 00 Medical TEST) strip Branch Alcohol 2020-0 Yes [id number] Apply to [facility] Swabs 3-02 area(s) 4 ity of (ALCOHOL 00:00: (four) [place] PREP PADS) 00 times Medical PadM daily. Branch Alcohol 2020-0 Yes [id number] Apply to [facility] Swabs 3-02 area(s) 4 ity of (ALCOHOL 00:00: (four) [place] PREP PADS) 00 times Medical PadM daily. Branch Alcohol 2020-0 Yes [id number] Apply to [facility] Swabs 3-02 area(s) 4 ity of (ALCOHOL 00:00: (four) [place] PREP PADS) 00 times Medical PadM daily. Branch Alcohol 2020-0 Yes [id number] Apply to [facility] Swabs 3-02 area(s) 4 ity of (ALCOHOL 00:00: (four) [place] PREP PADS) 00 times Medical PadM daily. Branch Alcohol 2020-0 Yes [id number] Apply to [facility] Swabs 3-02 area(s) 4 ity of (ALCOHOL 00:00: (four) [place] PREP PADS) 00 times Medical PadM daily. Branch Alcohol 2020-0 Yes [id number] Apply to [facility] Swabs 3-02 area(s) 4 ity of (ALCOHOL 00:00: (four) [place] PREP PADS) 00 times Medical PadM daily. Branch Alcohol 2020-0 Yes [id number] Apply to [facility] Swabs 3-02 area(s) 4 ity of (ALCOHOL 00:00: (four) [place] PREP PADS) 00 times Medical PadM daily. Branch Alcohol 2020-0 Yes [id number] Apply to [facility] Swabs 3-02 area(s) 4 ity of (ALCOHOL 00:00: (four) [place] PREP PADS) 00 times Medical PadM daily. Branch Alcohol 2020-0 Yes [id number] Apply to [facility] Swabs 3-02 area(s) 4 ity of (ALCOHOL 00:00: (four) [place] PREP PADS) 00 times Medical PadM daily. Branch Alcohol 2020-0 Yes [id number] Apply to [facility] Swabs 3-02 area(s) 4 ity of (ALCOHOL 00:00: (four) [place] PREP PADS) 00 times Medical PadM daily. Branch Alcohol 2020-0 Yes [id number] Apply to [facility] Swabs 3-02 area(s) 4 ity of (ALCOHOL 00:00: (four) [place] PREP PADS) 00 times Medical PadM daily. Branch Alcohol 2020-0 Yes [id number] Apply to [facility] Swabs 3-02 area(s) 4 ity of (ALCOHOL 00:00: (four) [place] PREP PADS) 00 times Medical PadM daily. Branch Alcohol 2020-0 Yes [id number] Apply to [facility] Swabs 3-02 area(s) 4 ity of (ALCOHOL 00:00: (four) [place] PREP PADS) 00 times Medical PadM daily. Branch Alcohol 2020-0 Yes [id number] Apply to [facility] Swabs 3-02 area(s) 4 ity of (ALCOHOL 00:00: (four) [place] PREP PADS) 00 times Medical PadM daily. Branch Alcohol 2020-0 Yes [id number] Apply to [facility] Swabs 3-02 area(s) 4 ity of (ALCOHOL 00:00: (four) [place] PREP PADS) 00 times Medical PadM daily. Branch Alcohol 2020-0 Yes [id number] Apply to [facility] Swabs 3-02 area(s) 4 ity of (ALCOHOL 00:00: (four) [place] PREP PADS) 00 times Medical PadM daily. Branch Alcohol 2020-0 Yes [id number] Apply to [facility] Swabs 3-02 area(s) 4 ity of (ALCOHOL 00:00: (four) [place] PREP PADS) 00 times Medical PadM daily. Branch Alcohol 2020-0 Yes [id number] Apply to [facility] Swabs 3-02 area(s) 4 ity of (ALCOHOL 00:00: (four) [place] PREP PADS) 00 times Medical PadM daily. Branch Alcohol 2020-0 Yes [id number] Apply to [facility] Swabs 3-02 area(s) 4 ity of (ALCOHOL 00:00: (four) [place] PREP PADS) 00 times Medical PadM daily. Branch Alcohol 2020-0 Yes [id number] Apply to [facility] Swabs 3-02 area(s) 4 ity of (ALCOHOL 00:00: (four) [place] PREP PADS) 00 times Medical PadM daily. Branch Alcohol 2020-0 Yes [id number] Apply to [facility] Swabs 3-02 area(s) 4 ity of (ALCOHOL 00:00: (four) [place] PREP PADS) 00 times Medical PadM daily. Branch Alcohol 2020-0 Yes [id number] Apply to [facility] Swabs 3-02 area(s) 4 ity of (ALCOHOL 00:00: (four) [place] PREP PADS) 00 times Medical PadM daily. Branch Alcohol 2020-0 Yes [id number] Apply to [facility] Swabs 3-02 area(s) 4 ity of (ALCOHOL 00:00: (four) [place] PREP PADS) 00 times Medical PadM daily. Branch Alcohol 2020-0 Yes [id number] Apply to [facility] Swabs 3-02 area(s) 4 ity of (ALCOHOL 00:00: (four) [place] PREP PADS) 00 times Medical PadM daily. Branch Alcohol 2020-0 Yes [id number] Apply to [facility] Swabs 3-02 area(s) 4 ity of (ALCOHOL 00:00: (four) [place] PREP PADS) 00 times Medical PadM daily. Branch Alcohol 2020-0 Yes [id number] Apply to [facility] Swabs 3-02 area(s) 4 ity of (ALCOHOL 00:00: (four) [place] PREP PADS) 00 times Medical PadM daily. Branch Alcohol 2020-0 Yes [id number] Apply to [facility] Swabs 3-02 area(s) 4 ity of (ALCOHOL 00:00: (four) [place] PREP PADS) 00 times Medical PadM daily. Branch Alcohol 2020-0 Yes [id number] Apply to [facility] Swabs 3-02 area(s) 4 ity of (ALCOHOL 00:00: (four) [place] PREP PADS) 00 times Medical PadM daily. Branch Alcohol 2020-0 2020- No [id number] Apply to [facility] Swabs 3-02 08-14 area(s) 4 ity of (ALCOHOL 00:00: 00:00 (four) [place] PREP PADS) 00 :00 times Medical PadM daily. Branch Blood-Gluco 2020-0 2020- No [id number] Check BS [facility] se Meter 12-02 QID ity of Kit 00:00: 00:00 [place] 00 :00 Medical Branch Lancets 2020-0 2020- No [id number] Check BS [facility] Misc 12-02 QID ity of 00:00: 00:00 [place] 00 :00 Medical Branch blood sugar 2020-0 2020- No [id number] Check BS [facility] diagnostic 12-02 QID ity of (BLOOD 00:00: 00:00 [place] GLUCOSE 00 :00 Medical TEST) strip Branch aspirin 81 2020-0 Yes [id number] 81mg Take 1 [facility] mg EC 2-19 tablet by ity of tablet 00:00: mouth [place] 00 daily. Medical Branch aspirin 81 2020-0 Yes [id number] 81mg Take 1 [facility] mg EC 2-19 tablet by ity of tablet 00:00: mouth [place] 00 daily. Medical Branch aspirin 81 2020-0 Yes [id number] 81mg Take 1 [facility] mg EC 2-19 tablet by ity of tablet 00:00: mouth [place] 00 daily. Medical Branch aspirin 81 2020-0 Yes [id number] 81mg Take 1 [facility] mg EC 2-19 tablet by ity of tablet 00:00: mouth [place] 00 daily. Medical Branch aspirin 81 2020-0 Yes [id number] 81mg Take 1 [facility] mg EC 2-19 tablet by ity of tablet 00:00: mouth [place] 00 daily. Medical Branch aspirin 81 2020-0 Yes [id number] 81mg Take 1 [facility] mg EC 2-19 tablet by ity of tablet 00:00: mouth [place] 00 daily. Medical Branch aspirin 81 2020-0 Yes [id number] 81mg Take 1 [facility] mg EC 2-19 tablet by ity of tablet 00:00: mouth [place] 00 daily. Medical Branch aspirin 81 2020-0 Yes [id number] 81mg Take 1 [facility] mg EC 2-19 tablet by ity of tablet 00:00: mouth [place] 00 daily. Medical Branch aspirin 81 2020-0 Yes [id number] 81mg Take 1 [facility] mg EC 2-19 tablet by ity of tablet 00:00: mouth [place] 00 daily. Medical Branch aspirin 81 2020-0 Yes [id number] 81mg Take 1 [facility] mg EC 2-19 tablet by ity of tablet 00:00: mouth [place] 00 daily. Medical Branch aspirin 81 2020-0 Yes [id number] 81mg Take 1 [facility] mg EC 2-19 tablet by ity of tablet 00:00: mouth [place] 00 daily. Medical Branch aspirin 81 2020-0 Yes [id number] 81mg Take 1 [facility] mg EC 2-19 tablet by ity of tablet 00:00: mouth [place] 00 daily. Medical Branch aspirin 81 2020-0 Yes [id number] 81mg Take 1 [facility] mg EC 2-19 tablet by ity of tablet 00:00: mouth [place] 00 daily. Medical [facility] aspirin 81 2020-0 Yes [id number] 81mg Take 1 [facility] mg EC 2-19 tablet by ity of tablet 00:00: mouth [place] 00 daily. Medical [facility] aspirin 81 2020-0 Yes [id number] 81mg Take 1 [facility] mg EC 2-19 tablet by ity of tablet 00:00: mouth [place] 00 daily. Medical [facility] aspirin 81 2020-0 Yes [id number] 81mg Take 1 [facility] mg EC 2-19 tablet by ity of tablet 00:00: mouth [place] 00 daily. Medical [facility] aspirin 81 2020-0 Yes [id number] 81mg Take 1 [facility] mg EC 2-19 tablet by ity of tablet 00:00: mouth [place] 00 daily. Medical [facility] aspirin 81 2020-0 Yes [id number] 81mg Take 1 [facility] mg EC 2-19 tablet by ity of tablet 00:00: mouth [place] 00 daily. Medical [facility] aspirin 81 2020-0 Yes [id number] 81mg Take 1 [facility] mg EC 2-19 tablet by ity of tablet 00:00: mouth [place] 00 daily. Medical [facility] aspirin 81 2020-0 Yes [id number] 81mg Take 1 [facility] mg EC 2-19 tablet by ity of tablet 00:00: mouth [place] 00 daily. Medical [facility] aspirin 81 2020-0 Yes [id number] 81mg Take 1 [facility] mg EC 2-19 tablet by ity of tablet 00:00: mouth [place] 00 daily. Medical [facility] aspirin 81 2020-0 Yes [id number] 81mg Take 1 [facility] mg EC 2-19 tablet by ity of tablet 00:00: mouth [place] 00 daily. Medical [facility] aspirin 81 2020-0 Yes [id number] 81mg Take 1 [facility] mg EC 2-19 tablet by ity of tablet 00:00: mouth [place] 00 daily. Medical [facility] aspirin 81 2020-0 Yes [id number] 81mg Take 1 [facility] mg EC 2-19 tablet by ity of tablet 00:00: mouth [place] 00 daily. Medical [facility] aspirin 81 2020-0 Yes [id number] 81mg Take 1 [facility] mg EC 2-19 tablet by ity of tablet 00:00: mouth [place] 00 daily. Medical [facility] aspirin 81 2020-0 Yes [id number] 81mg Take 1 [facility] mg EC 2-19 tablet by ity of tablet 00:00: mouth [place] 00 daily. [facility] aspirin 81 2020-0 Yes [id number] 81mg Take 1 [facility] mg EC 2-19 tablet by ity of tablet 00:00: mouth [place] 00 daily. [facility] aspirin 81 2020-0 Yes [id number] 81mg Take 1 [facility] mg EC 2-19 tablet by ity of tablet 00:00: mouth [place] 00 daily. [facility] aspirin 81 2020-0 Yes [id number] 81mg Take 1 [facility] mg EC 2-19 tablet by ity of tablet 00:00: mouth [place] 00 daily. [facility] aspirin 81 2020-0 Yes [id number] 81mg Take 1 [facility] mg EC 2-19 tablet by ity of tablet 00:00: mouth [place] 00 daily. [facility] aspirin 81 2020-0 Yes [id number] 81mg Take 1 [facility] mg EC 2-19 tablet by ity of tablet 00:00: mouth [place] 00 daily. [facility] aspirin 81 2020-0 Yes [id number] 81mg Take 1 [facility] mg EC 2-19 tablet by ity of tablet 00:00: mouth [place] 00 daily. [facility] aspirin 81 2020-0 Yes [id number] 81mg Take 1 [facility] mg EC 2-19 tablet by ity of tablet 00:00: mouth [place] 00 daily. [facility] aspirin 81 2020-0 Yes [id number] 81mg Take 1 [facility] mg EC 2-19 tablet by ity of tablet 00:00: mouth [place] 00 daily. [facility] aspirin 81 2020-0 Yes [id number] 81mg Take 1 [facility] mg EC 2-19 tablet by ity of tablet 00:00: mouth [place] 00 daily. [facility] aspirin 81 2020-0 Yes [id number] 81mg Take 1 [facility] mg EC 2-19 tablet by ity of tablet 00:00: mouth [place] 00 daily. [facility] aspirin 81 2020-0 Yes [id number] 81mg Take 1 [facility] mg EC 2-19 tablet by ity of tablet 00:00: mouth [place] 00 daily. [facility] aspirin 81 2020-0 Yes [id number] 81mg Take 1 [facility] mg EC 2-19 tablet by ity of tablet 00:00: mouth [place] 00 daily. [facility] aspirin 81 2020-0 Yes [id number] 81mg Take 1 [facility] mg EC 2-19 tablet by ity of tablet 00:00: mouth [place] 00 daily. [facility] aspirin 81 2020-0 Yes [id number] 81mg Take 1 [facility] mg EC 2-19 tablet by ity of tablet 00:00: mouth [place] 00 daily. [facility] aspirin 81 2020-0 Yes [id number] 81mg Take 1 [facility] mg EC 2-19 tablet by ity of tablet 00:00: mouth [place] 00 daily. [facility] aspirin 81 2020-0 Yes [id number] 81mg Take 1 [facility] mg EC 2-19 tablet by ity of tablet 00:00: mouth [place] 00 daily. [facility] aspirin 81 2020-0 Yes [id number] 81mg Take 1 [facility] mg EC 2-19 tablet by [facility] of tablet 00:00: mouth [place] 00 daily. [facility] aspirin 81 2020-0 Yes [id number] 81mg Take 1 [facility] mg EC 2-19 tablet by [facility] of tablet 00:00: mouth [place] 00 daily. [facility] aspirin 81 2020-0 Yes [id number] 81mg Take 1 [facility] mg EC 2-19 tablet by ity of tablet 00:00: mouth [place] 00 daily. [facility] aspirin 81 2020-0 Yes [id number] 81mg Take 1 [facility] mg EC 2-19 tablet by ity of tablet 00:00: mouth [place] 00 daily. [facility] aspirin 81 2020-0 Yes [id number] 81mg Take 1 [facility] mg EC 2-19 tablet by ity of tablet 00:00: mouth [place] 00 daily. [facility] aspirin 81 2020-0 Yes [id number] 81mg Take 1 [facility] mg EC 2-19 tablet by ity of tablet 00:00: mouth [place] 00 daily. [facility] aspirin 81 2020-0 Yes [id number] 81mg Take 1 [facility] mg EC 2-19 tablet by ity of tablet 00:00: mouth [place] 00 daily. [facility] aspirin 81 2020-0 Yes [id number] 81mg Take 1 [facility] mg EC 2-19 tablet by ity of tablet 00:00: mouth [place] 00 daily. [facility] aspirin 81 2020-0 Yes [id number] 81mg Take 1 [facility] mg EC 2-19 tablet by ity of tablet 00:00: mouth [place] 00 daily. [facility] aspirin 81 2020-0 Yes [id number] 81mg Take 1 [facility] mg EC 2-19 tablet by ity of tablet 00:00: mouth [place] 00 daily. [facility] aspirin 81 2020-0 Yes [id number] 81mg Take 1 [facility] mg EC 2-19 tablet by ity of tablet 00:00: mouth [place] 00 daily. [facility] aspirin 81 2020-0 Yes [id number] 81mg Take 1 [facility] mg EC 2-19 tablet by ity of tablet 00:00: mouth [place] 00 daily. [facility] aspirin 81 2020-0 Yes [id number] 81mg Take 1 [facility] mg EC 2-19 tablet by ity of tablet 00:00: mouth [place] 00 daily. [facility] aspirin 81 2020-0 Yes [id number] 81mg Take 1 [facility] mg EC 2-19 tablet by ity of tablet 00:00: mouth [place] 00 daily. [facility] aspirin 81 2020-0 Yes [id number] 81mg Take 1 [facility] mg EC 2-19 tablet by ity of tablet 00:00: mouth [place] 00 daily. [facility] aspirin 81 2020-0 Yes [id number] 81mg Take 1 [facility] mg EC 2-19 tablet by ity of tablet 00:00: mouth [place] 00 daily. [facility] aspirin 81 2020-0 Yes [id number] 81mg Take 1 [facility] mg EC 2-19 tablet by ity of tablet 00:00: mouth [place] 00 daily. [facility] aspirin 81 2020-0 Yes [id number] 81mg Take 1 [facility] mg EC 2-19 tablet by ity of tablet 00:00: mouth [place] 00 daily. [facility] aspirin 81 2020-0 Yes [id number] 81mg Take 1 [facility] mg EC 2-19 tablet by ity of tablet 00:00: mouth [place] 00 daily. [facility] aspirin 81 2020-0 Yes [id number] 81mg Take 1 [facility] mg EC 2-19 tablet by ity of tablet 00:00: mouth [place] 00 daily. [facility] aspirin 81 2020-0 Yes [id number] 81mg Take 1 [facility] mg EC 2-19 tablet by ity of tablet 00:00: mouth [place] 00 daily. [facility] aspirin 81 2020-0 2020- No [id number] 81mg Take 1 [facility] mg EC 2-19 08-14 tablet by ity of tablet 00:00: 00:00 mouth [place] 00 :00 daily. [facility] PNV 2020-0 Yes [id number] 1{tbl} Take 1 Unive rs 102-iron-fo 2-18 tablet by ity of late 00:00: mouth [place] 1-dss-dha 00 daily. Medical (VITAFOL Branch FE+, WITH DOCUSATE,) 90 mg iron-1 mg -50 mg-200 mg Cap PNV 2020-0 Yes [id number] 1{tbl} Take 1 Unive rs 102-iron-fo 2-18 tablet by ity of late 00:00: mouth [place] 1-dss-dha 00 daily. Medical (VITAFOL Branch FE+, WITH DOCUSATE,) 90 mg iron-1 mg -50 mg-200 mg Cap PNV 2020-0 Yes [id number] 1{tbl} Take 1 Unive rs 102-iron-fo 2-18 tablet by ity of late 00:00: mouth [place] 1-dss-dha 00 daily. Medical (VITAFOL Branch FE+, WITH DOCUSATE,) 90 mg iron-1 mg -50 mg-200 mg Cap PNV 2020-0 Yes [id number] 1{tbl} Take 1 Unive rs 102-iron-fo 2-18 tablet by ity of late 00:00: mouth [place] 1-dss-dha 00 daily. Medical (VITAFOL Branch FE+, WITH DOCUSATE,) 90 mg iron-1 mg -50 mg-200 mg Cap PNV 2020-0 Yes [id number] 1{tbl} Take 1 Unive rs 102-iron-fo 2-18 tablet by ity of late 00:00: mouth [place] 1-dss-dha 00 daily. Medical (VITAFOL Branch FE+, WITH DOCUSATE,) 90 mg iron-1 mg -50 mg-200 mg Cap PNV 2020-0 Yes [id number] 1{tbl} Take 1 Unive rs 102-iron-fo 2-18 tablet by ity of late 00:00: mouth [place] 1-dss-dha 00 daily. Medical (VITAFOL Branch FE+, WITH DOCUSATE,) 90 mg iron-1 mg -50 mg-200 mg Cap PNV 2020-0 Yes [id number] 1{tbl} Take 1 Unive rs 102-iron-fo 2-18 tablet by ity of late 00:00: mouth [place] 1-dss-dha 00 daily. Medical (VITAFOL Branch FE+, WITH DOCUSATE,) 90 mg iron-1 mg -50 mg-200 mg Cap PNV 2020-0 Yes [id number] 1{tbl} Take 1 Unive rs 102-iron-fo 2-18 tablet by ity of late 00:00: mouth [place] 1-dss-dha 00 daily. Medical (VITAFOL Branch FE+, WITH DOCUSATE,) 90 mg iron-1 mg -50 mg-200 mg Cap PNV 2020-0 Yes [id number] 1{tbl} Take 1 Unive rs 102-iron-fo 2-18 tablet by ity of late 00:00: mouth [place] 1-dss-dha 00 daily. Medical (VITAFOL Branch FE+, WITH DOCUSATE,) 90 mg iron-1 mg -50 mg-200 mg Cap PNV 2020-0 Yes [id number] 1{tbl} Take 1 Unive rs 102-iron-fo 2-18 tablet by ity of late 00:00: mouth [place] 1-dss-dha 00 daily. Medical (VITAFOL Branch FE+, WITH DOCUSATE,) 90 mg iron-1 mg -50 mg-200 mg Cap PNV 2020-0 Yes [id number] 1{tbl} Take 1 Unive rs 102-iron-fo 2-18 tablet by ity of late 00:00: mouth [place] 1-dss-dha 00 daily. Medical (VITAFOL Branch FE+, WITH DOCUSATE,) 90 mg iron-1 mg -50 mg-200 mg Cap PNV 2020-0 Yes [id number] 1{tbl} Take 1 Unive rs 102-iron-fo 2-18 tablet by ity of late 00:00: mouth [place] 1-dss-dha 00 daily. Medical (VITAFOL Branch FE+, WITH DOCUSATE,) 90 mg iron-1 mg -50 mg-200 mg Cap PNV 2020-0 Yes [id number] 1{tbl} Take 1 Unive rs 102-iron-fo 2-18 tablet by ity of late 00:00: mouth [place] 1-dss-dha 00 daily. Medical (VITAFOL Branch FE+, WITH DOCUSATE,) 90 mg iron-1 mg -50 mg-200 mg Cap PNV 2020-0 Yes [id number] 1{tbl} Take 1 Unive rs 102-iron-fo 2-18 tablet by ity of late 00:00: mouth [place] 1-dss-dha 00 daily. Medical (VITAFOL Branch FE+, WITH DOCUSATE,) 90 mg iron-1 mg -50 mg-200 mg Cap PNV 2020-0 Yes [id number] 1{tbl} Take 1 Unive rs 102-iron-fo 2-18 tablet by ity of late 00:00: mouth [place] 1-dss-dha 00 daily. Medical (VITAFOL Branch FE+, WITH DOCUSATE,) 90 mg iron-1 mg -50 mg-200 mg Cap PNV 2020-0 Yes [id number] 1{tbl} Take 1 Unive rs 102-iron-fo 2-18 tablet by ity of late 00:00: mouth [place] 1-dss-dha 00 daily. Medical (VITAFOL Branch FE+, WITH DOCUSATE,) 90 mg iron-1 mg -50 mg-200 mg Cap PNV 2020-0 Yes [id number] 1{tbl} Take 1 Unive rs 102-iron-fo 2-18 tablet by ity of late 00:00: mouth [place] 1-dss-dha 00 daily. Medical (VITAFOL Branch FE+, WITH DOCUSATE,) 90 mg iron-1 mg -50 mg-200 mg Cap PNV 2020-0 Yes [id number] 1{tbl} Take 1 Unive rs 102-iron-fo 2-18 tablet by ity of late 00:00: mouth [place] 1-dss-dha 00 daily. Medical (VITAFOL Branch FE+, WITH DOCUSATE,) 90 mg iron-1 mg -50 mg-200 mg Cap PNV 2020-0 Yes [id number] 1{tbl} Take 1 Unive rs 102-iron-fo 2-18 tablet by ity of late 00:00: mouth [place] 1-dss-dha 00 daily. Medical (VITAFOL Branch FE+, WITH DOCUSATE,) 90 mg iron-1 mg -50 mg-200 mg Cap PNV 2020-0 Yes [id number] 1{tbl} Take 1 Unive rs 102-iron-fo 2-18 tablet by ity of late 00:00: mouth [place] 1-dss-dha 00 daily. Medical (VITAFOL Branch FE+, WITH DOCUSATE,) 90 mg iron-1 mg -50 mg-200 mg Cap PNV 2020-0 Yes [id number] 1{tbl} Take 1 Unive rs 102-iron-fo 2-18 tablet by ity of late 00:00: mouth [place] 1-dss-dha 00 daily. Medical (VITAFOL Branch FE+, WITH DOCUSATE,) 90 mg iron-1 mg -50 mg-200 mg Cap PNV 2020-0 Yes [id number] 1{tbl} Take 1 Unive rs 102-iron-fo 2-18 tablet by ity of late 00:00: mouth [place] 1-dss-dha 00 daily. Medical (VITAFOL Branch FE+, WITH DOCUSATE,) 90 mg iron-1 mg -50 mg-200 mg Cap PNV 2020-0 Yes [id number] 1{tbl} Take 1 Unive rs 102-iron-fo 2-18 tablet by ity of late 00:00: mouth [place] 1-dss-dha 00 daily. Medical (VITAFOL Branch FE+, WITH DOCUSATE,) 90 mg iron-1 mg -50 mg-200 mg Cap PNV 2020-0 Yes [id number] 1{tbl} Take 1 Unive rs 102-iron-fo 2-18 tablet by ity of late 00:00: mouth [place] [address]-dss-dha 00 daily. Medical (VITAFOL Branch FE+, WITH DOCUSATE,) 90 mg iron-1 mg -50 mg-200 mg Cap PNV 2020-0 Yes [id number] 1{tbl} Take 1 Unive rs 102-iron-fo 2-18 tablet by ity of late 00:00: mouth [address] daily. Medical (VITAFOL Branch FE+, WITH DOCUSATE,) 90 mg iron-1 mg -50 mg-200 mg Cap PNV 2020-0 Yes [id number] 1{tbl} Take 1 Unive rs 102-iron-fo 2-18 tablet by ity of late 00:00: mouth [place] 1-dss-dha 00 daily. Medical (VITAFOL Branch FE+, WITH DOCUSATE,) 90 mg iron-1 mg -50 mg-200 mg Cap PNV 2020-0 Yes [id number] 1{tbl} Take 1 Unive rs 102-iron-fo 2-18 tablet by ity of late 00:00: mouth [place] 1-dss-dha 00 daily. Medical (VITAFOL Branch FE+, WITH DOCUSATE,) 90 mg iron-1 mg -50 mg-200 mg Cap PNV 2020-0 Yes [id number] 1{tbl} Take 1 Unive rs 102-iron-fo 2-18 tablet by ity of late 00:00: mouth [place] 1-dss-dha 00 daily. Medical (VITAFOL Branch FE+, WITH DOCUSATE,) 90 mg iron-1 mg -50 mg-200 mg Cap PNV 2020-0 Yes [id number] 1{tbl} Take 1 Unive rs 102-iron-fo 2-18 tablet by ity of late 00:00: mouth [place] 1-dss-dha 00 daily. Medical (VITAFOL Branch FE+, WITH DOCUSATE,) 90 mg iron-1 mg -50 mg-200 mg Cap PNV 2020-0 Yes [id number] 1{tbl} Take 1 Unive rs 102-iron-fo 2-18 tablet by ity of late 00:00: mouth [place] 1-dss-dha 00 daily. Medical (VITAFOL Branch FE+, WITH DOCUSATE,) 90 mg iron-1 mg -50 mg-200 mg Cap PNV 2020-0 Yes [id number] 1{tbl} Take 1 Unive rs 102-iron-fo 2-18 tablet by ity of late 00:00: mouth [place] 1-dss-dha 00 daily. Medical (VITAFOL Branch FE+, WITH DOCUSATE,) 90 mg iron-1 mg -50 mg-200 mg Cap PNV 2020-0 Yes [id number] 1{tbl} Take 1 Unive rs 102-iron-fo 2-18 tablet by ity of late 00:00: mouth [place] 1-dss-dha 00 daily. Medical (VITAFOL Branch FE+, WITH DOCUSATE,) 90 mg iron-1 mg -50 mg-200 mg Cap PNV 2020-0 Yes [id number] 1{tbl} Take 1 Unive rs 102-iron-fo 2-18 tablet by ity of late 00:00: mouth [place] 1-dss-dha 00 daily. Medical (VITAFOL Branch FE+, WITH DOCUSATE,) 90 mg iron-1 mg -50 mg-200 mg Cap PNV 2020-0 Yes [id number] 1{tbl} Take 1 Unive rs 102-iron-fo 2-18 tablet by ity of late 00:00: mouth [place] 1-dss-dha 00 daily. Medical (VITAFOL Branch FE+, WITH DOCUSATE,) 90 mg iron-1 mg -50 mg-200 mg Cap PNV 2020-0 Yes [id number] 1{tbl} Take 1 Unive rs 102-iron-fo 2-18 tablet by ity of late 00:00: mouth [place] 1-dss-dha 00 daily. Medical (VITAFOL Branch FE+, WITH DOCUSATE,) 90 mg iron-1 mg -50 mg-200 mg Cap PNV 2020-0 Yes [id number] 1{tbl} Take 1 Unive rs 102-iron-fo 2-18 tablet by ity of late 00:00: mouth [place] 1-dss-dha 00 daily. Medical (VITAFOL Branch FE+, WITH DOCUSATE,) 90 mg iron-1 mg -50 mg-200 mg Cap PNV 2020-0 Yes [id number] 1{tbl} Take 1 Unive rs 102-iron-fo 2-18 tablet by ity of late 00:00: mouth [place] 1-dss-dha 00 daily. Medical (VITAFOL Branch FE+, WITH DOCUSATE,) 90 mg iron-1 mg -50 mg-200 mg Cap PNV 2020-0 Yes [id number] 1{tbl} Take 1 Unive rs 102-iron-fo 2-18 tablet by ity of late 00:00: mouth [place] 1-dss-dha 00 daily. Medical (VITAFOL Branch FE+, WITH DOCUSATE,) 90 mg iron-1 mg -50 mg-200 mg Cap PNV 2020-0 Yes [id number] 1{tbl} Take 1 Unive rs 102-iron-fo 2-18 tablet by ity of late 00:00: mouth [place] 1-dss-dha 00 daily. Medical (VITAFOL Branch FE+, WITH DOCUSATE,) 90 mg iron-1 mg -50 mg-200 mg Cap PNV 2020-0 Yes [id number] 1{tbl} Take 1 Unive rs 102-iron-fo 2-18 tablet by ity of late 00:00: mouth [place] 1-dss-dha 00 daily. Medical (VITAFOL Branch FE+, WITH DOCUSATE,) 90 mg iron-1 mg -50 mg-200 mg Cap PNV 2020-0 Yes [id number] 1{tbl} Take 1 Unive rs 102-iron-fo 2-18 tablet by ity of late 00:00: mouth [place] 1-dss-dha 00 daily. Medical (VITAFOL Branch FE+, WITH DOCUSATE,) 90 mg iron-1 mg -50 mg-200 mg Cap PNV 2020-0 Yes [id number] 1{tbl} Take 1 Unive rs 102-iron-fo 2-18 tablet by ity of late 00:00: mouth [place] 1-dss-dha 00 daily. Medical (VITAFOL Branch FE+, WITH DOCUSATE,) 90 mg iron-1 mg -50 mg-200 mg Cap PNV 2020-0 Yes [id number] 1{tbl} Take 1 Unive rs 102-iron-fo 2-18 tablet by ity of late 00:00: mouth [place] 1-dss-dha 00 daily. Medical (VITAFOL Branch FE+, WITH DOCUSATE,) 90 mg iron-1 mg -50 mg-200 mg Cap PNV 2020-0 Yes [id number] 1{tbl} Take 1 Unive rs 102-iron-fo 2-18 tablet by ity of late 00:00: mouth [place] [address]-dss-dha 00 daily. Medical (VITAFOL Branch FE+, WITH DOCUSATE,) 90 mg iron-1 mg -50 mg-200 mg Cap PNV 2020-0 Yes [id number] 1{tbl} Take 1 Unive rs 102-iron-fo 2-18 tablet by ity of late 00:00: mouth [address] daily. Medical (VITAFOL Branch FE+, WITH DOCUSATE,) 90 mg iron-1 mg -50 mg-200 mg Cap PNV 2020-0 Yes [id number] 1{tbl} Take 1 Unive rs 102-iron-fo 2-18 tablet by ity of late 00:00: mouth [place] 1-dss-dha 00 daily. Medical (VITAFOL Branch FE+, WITH DOCUSATE,) 90 mg iron-1 mg -50 mg-200 mg Cap PNV 2020-0 Yes [id number] 1{tbl} Take 1 Unive rs 102-iron-fo 2-18 tablet by ity of late 00:00: mouth [place] 1-dss-dha 00 daily. Medical (VITAFOL Branch FE+, WITH DOCUSATE,) 90 mg iron-1 mg -50 mg-200 mg Cap PNV 2020-0 Yes [id number] 1{tbl} Take 1 Unive rs 102-iron-fo 2-18 tablet by ity of late 00:00: mouth [place] 1-dss-dha 00 daily. Medical (VITAFOL Branch FE+, WITH DOCUSATE,) 90 mg iron-1 mg -50 mg-200 mg Cap PNV 2020-0 Yes [id number] 1{tbl} Take 1 Unive rs 102-iron-fo 2-18 tablet by ity of late 00:00: mouth [place] 1-dss-dha 00 daily. Medical (VITAFOL Branch FE+, WITH DOCUSATE,) 90 mg iron-1 mg -50 mg-200 mg Cap PNV 2020-0 Yes [id number] 1{tbl} Take 1 Unive rs 102-iron-fo 2-18 tablet by ity of late 00:00: mouth [place] 1-dss-dha 00 daily. Medical (VITAFOL Branch FE+, WITH DOCUSATE,) 90 mg iron-1 mg -50 mg-200 mg Cap PNV 2020-0 Yes [id number] 1{tbl} Take 1 Unive rs 102-iron-fo 2-18 tablet by ity of late 00:00: mouth [place] 1-dss-dha 00 daily. Medical (VITAFOL Branch FE+, WITH DOCUSATE,) 90 mg iron-1 mg -50 mg-200 mg Cap PNV 2020-0 Yes [id number] 1{tbl} Take 1 Unive rs 102-iron-fo 2-18 tablet by ity of late 00:00: mouth [place] 1-dss-dha 00 daily. Medical (VITAFOL Branch FE+, WITH DOCUSATE,) 90 mg iron-1 mg -50 mg-200 mg Cap PNV 2020-0 Yes [id number] 1{tbl} Take 1 Unive rs 102-iron-fo 2-18 tablet by ity of late 00:00: mouth [place] 1-dss-dha 00 daily. Medical (VITAFOL Branch FE+, WITH DOCUSATE,) 90 mg iron-1 mg -50 mg-200 mg Cap PNV 2020-0 Yes [id number] 1{tbl} Take 1 Unive rs 102-iron-fo 2-18 tablet by ity of late 00:00: mouth [place] 1-dss-dha 00 daily. Medical (VITAFOL Branch FE+, WITH DOCUSATE,) 90 mg iron-1 mg -50 mg-200 mg Cap PNV 2020-0 Yes [id number] 1{tbl} Take 1 Unive rs 102-iron-fo 2-18 tablet by ity of late 00:00: mouth [place] 1-dss-dha 00 daily. Medical (VITAFOL Branch FE+, WITH DOCUSATE,) 90 mg iron-1 mg -50 mg-200 mg Cap PNV 2020-0 Yes [id number] 1{tbl} Take 1 Unive rs 102-iron-fo 2-18 tablet by ity of late 00:00: mouth [place] 1-dss-dha 00 daily. Medical (VITAFOL Branch FE+, WITH DOCUSATE,) 90 mg iron-1 mg -50 mg-200 mg Cap PNV 2020-0 Yes [id number] 1{tbl} Take 1 Unive rs 102-iron-fo 2-18 tablet by ity of late 00:00: mouth [place] 1-dss-dha 00 daily. Medical (VITAFOL Branch FE+, WITH DOCUSATE,) 90 mg iron-1 mg -50 mg-200 mg Cap PNV 2020-0 Yes [id number] 1{tbl} Take 1 Unive rs 102-iron-fo 2-18 tablet by ity of late 00:00: mouth [place] 1-dss-dha 00 daily. Medical (VITAFOL Branch FE+, WITH DOCUSATE,) 90 mg iron-1 mg -50 mg-200 mg Cap PNV 2020-0 Yes [id number] 1{tbl} Take 1 Unive rs 102-iron-fo 2-18 tablet by ity of late 00:00: mouth [place] 1-dss-dha 00 daily. Medical (VITAFOL Branch FE+, WITH DOCUSATE,) 90 mg iron-1 mg -50 mg-200 mg Cap PNV 2020-0 2020- No [id number] 1{tbl} Take 1 Univ ers 102-iron-fo 2-18 [...] [place] V[place] 00 Medical tablet [place] Yes 1{tbl} Take 1 Tab U nivers multivitami 6-09 by mouth ity of n ( [place]. [place] V[place] Medical tablet Branch Yes 1{tbl} Take 1 Tab U nivers multivitami 6-09 by mouth [facility]y of n ( [place]. [place] VIT[place] 00 Medical tablet [place] Yes 1{tbl} Take 1 Tab [facility] nivers [...] [place]. [place] VIT[place] 00 Medical tablet [place] Yes 1{tbl} Take 1 Tab U nivers multivitami 6-09 by mouth ity of n ( [place]. [place] V[place] 00 Medical tablet [place] 2020- No 1{tbl} Take 1 Tab Univers multivitami 6- 02-20 by mouth ity of n ( 00:00: 00:00 daily. [place] VITAMIN) 00 :00 [facility] Immunizations Ordered Filled Immunization Date Status Comments [facility] e Immunization Name Name TDAP (ADACEL) 2020-03-19 Completed University of VACCINE 00:00:00 [facility] TDAP (ADACEL) 2020-03-19 Completed University of VACCINE 00:00:00 [facility] TDAP (ADACEL) 2020-03-19 Completed University of VACCINE 00:00:00 [facility] TDAP (ADACEL) 2020-03-19 Completed University of VACCINE 00:00:00 [facility] TDAP (ADACEL) 2020-03-19 Completed University of VACCINE 00:00:00 [facility] TDAP (ADACEL) 2020-03-19 Completed University of VACCINE 00:00:00 [facility] TDAP (ADACEL) 2020-03-19 Completed University of VACCINE 00:00:00 [facility] TDAP (ADACEL) 2020-03-19 Completed University of VACCINE 00:00:00 [facility] TDAP (ADACEL) 2020-03-19 Completed University of VACCINE 00:00:00 [facility] TDAP (ADACEL) 2020-03-19 Completed University of VACCINE 00:00:00 [facility] TDAP (ADACEL) 2020-03-19 Completed University of VACCINE 00:00:00 [facility] TDAP (ADACEL) 2020-03-19 Completed University of VACCINE 00:00:00 [facility] TDAP (ADACEL) 2020-03-19 Completed University of VACCINE 00:00:00 [facility] TDAP (ADACEL) 2020-03-19 Completed University of VACCINE 00:00:00 [facility] TDAP (ADACEL) 2020-03-19 Completed University of VACCINE 00:00:00 [facility] TDAP (ADACEL) 2020-03-19 Completed University of VACCINE 00:00:00 [facility] TDAP (ADACEL) 2020-03-19 Completed University of VACCINE 00:00:00 [place] [facility] TDAP (ADACEL) 2020-03-19 Completed University of VACCINE 00:00:00 [place] [facility] TDAP (ADACEL) 2020-03-19 Completed University of VACCINE 00:00:00 [place] [facility] TDAP (ADACEL) 2020-03-19 Completed University of VACCINE 00:00:00 [place] [facility] TDAP (ADACEL) 2020-03-19 Completed University of VACCINE 00:00:00 [place] [facility] TDAP (ADACEL) 2020-03-19 Completed [facility] of VACCINE 00:00:00 [place] [facility] TDAP (ADACEL) 2020-03-19 Completed University of VACCINE 00:00:00 [place] [facility] TDAP (ADACEL) 2020-03-19 Completed University of VACCINE 00:00:00 [place] [facility] TDAP (ADACEL) 2020-03-19 Completed University of VACCINE 00:00:00 [facility] TDAP (ADACEL) 2020-03-19 Completed University of VACCINE 00:00:00 [facility] TDAP (ADACEL) 2020-03-19 Completed University of VACCINE 00:00:00 [facility] TDAP (ADACEL) 2020-03-19 Completed University of VACCINE 00:00:00 [facility] TDAP (ADACEL) 2020-03-19 Completed University of VACCINE 00:00:00 [facility] TDAP (ADACEL) 2020-03-19 Completed University of VACCINE 00:00:00 [facility] TDAP (ADACEL) 2020-03-19 Completed University of VACCINE 00:00:00 [place] [facility] TDAP (ADACEL) 2020-03-19 Completed University of VACCINE 00:00:00 [place] [facility] TDAP (ADACEL) 2020-03-19 Completed University of VACCINE 00:00:00 [place] [facility] TDAP (ADACEL) 2020-03-19 Completed University of VACCINE 00:00:00 [place] [facility] TDAP (ADACEL) 2020-03-19 Completed University of VACCINE 00:00:00 [place] [facility] TDAP (ADACEL) 2020-03-19 Completed University of VACCINE 00:00:00 [place] [facility] TDAP (ADACEL) 2020-03-19 Completed University of VACCINE 00:00:00 [place] [facility] TDAP (ADACEL) 2020-03-19 Completed University of VACCINE 00:00:00 [place] [facility] TDAP (ADACEL) 2020-03-19 Completed University of VACCINE 00:00:00 [facility] TDAP (ADACEL) 2020-03-19 Completed [facility] VACCINE 00:00:00 [facility] Vital Signs Vital Name Observation Time Observation Value Comments Source Systolic blood 2023-03-01 21:26:00 153 mm[Hg] Univer sity of pressure [facility] Diastolic blood 2023-03-01 21:26:00 87 mm[Hg] Unive rsity of pressure [facility] Heart rate 2023-03-01 21:26:00 88 /min Universi ty of [facility] Respiratory rate 2023-03-01 21:26:00 [facility] 2023-03-01 21:26:00 100 /min [facility] Arterial blood by [facility] Pulse oximetry [place] Body temperature 2023-03-01 20:11:00 37 [facility] Body height 2023-03-01 20:11:00 160 cm Universi ty of [facility] Body weight 2023-03-01 20:11:00 130.137 kg Universi ty of [facility] BMI 2023-03-01 20:11:00 50.82 kg/m2 Universi ty [facility] Systolic blood 2020-06-11 16:39:00 148 mm[Hg] Univer sity of [facility] Diastolic blood 2020-06-11 16:39:00 82 mm[Hg] Unive rsity of pressure [facility] Heart rate 2020-06-11 16:35:00 71 /min Universi ty of [facility] Body temperature 2020-06-11 16:35:00 36.83 [place] Univ ersity of [facility] Respiratory rate 2020-06-11 16:35:00 18 /min Univ ersity of [facility] Body height 2020-06-11 16:35:00 160 cm Universi ty of [facility] Body weight 2020-06-11 16:35:00 110.224 kg Universi ty of [facility] BMI 2020-06-11 16:35:00 43.05 kg/m2 Universi ty of [facility] Systolic blood 2020-05-21 16:01:00 139 mm[Hg] Univer sity of pressure [facility] Diastolic blood 2020-05-21 16:01:00 85 mm[Hg] Unive rsity of pressure [place] [facility] Heart rate 2020-05-21 16:01:00 88 /min Universi ty of [place] [facility] Body temperature 2020-05-21 15:44:00 36.78 [place] Univ ersity of [place] [facility] Respiratory rate 2020-05-21 15:44:00 18 /min Univ ersity of [facility] Body height 2020-05-21 15:44:00 161.3 cm Universi ty of [place] [facility] Body weight 2020-05-21 15:44:00 117.482 kg Universi ty of [place] [facility] BMI 2020-05-21 15:44:00 45.16 kg/m2 Universi ty of [facility] Systolic blood 2020-05-16 15:00:00 145 mm[Hg] Univer sity of pressure [place] [facility] Diastolic blood 2020-05-16 15:00:00 78 mm[Hg] Unive rsity of pressure [facility] Heart rate 2020-05-16 15:00:00 102 /min Universi ty of [facility] Body temperature 2020-05-16 15:00:00 36.72 [place] Univ ersity of [facility] Respiratory rate 2020-05-16 15:00:00 16 /min Univ ersity of [facility] Oxygen saturation in 2020-05-16 15:00:00 99 /min University of Arterial blood by [facility] Pulse oximetry Branch Body height 2020-05-14 14:19:00 161.5 cm Universi ty of [place] [facility] [place] Body weight 2020-05-14 14:19:00 125.646 kg Universi ty of [facility] BMI 2020-05-14 14:19:00 48.17 kg/m2 Universi [facility] [place] [facility] Systolic blood 2020-05-12 18:28:00 139 mm[Hg] Univer sity of pressure [facility] Diastolic blood 2020-05-12 18:28:00 87 mm[Hg] Unive rsity of pressure [place] [facility] Heart rate 2020-05-12 18:28:00 114 /min Universi ty of [facility] Body temperature 2020-05-12 18:28:00 36.5 [place] Univ ersity of [facility] Respiratory rate 2020-05-12 18:28:00 18 /min Univ ersity of [facility] Body height 2020-05-12 18:28:00 160 cm Universi ty of [place] [facility] Body weight 2020-05-12 18:28:00 128.368 kg [facility] BMI 2020-05-12 18:28:00 50.13 kg/m2 [facility] Systolic blood 2020-05-09 18:05:00 138 mm[Hg] [facility] Diastolic blood 2020-05-09 18:05:00 80 mm[Hg] [facility] Heart rate 2020-05-09 18:00:00 101 /min [facility] Body temperature 2020-05-09 18:00:00 36.72 [place] [facility] Respiratory rate 2020-05-09 18:00:00 18 /min [facility] Body height 2020-05-09 18:00:00 160 cm [facility] Body weight 2020-05-09 18:00:00 125.465 kg [facility] BMI 2020-05-09 18:00:00 49.00 kg/m2 [facility] Systolic blood 2020-05-05 18:25:00 147 mm[Hg] [facility] Diastolic blood 2020-05-05 18:25:00 73 mm[Hg] [facility] Heart rate 2020-05-05 18:25:00 97 /min [facility] Body temperature 2020-05-05 18:25:00 36.94 [place] [facility] Respiratory rate 2020-05-05 18:25:00 18 /min [facility] Body height 2020-05-05 18:25:00 160 cm [facility] Body weight 2020-05-05 18:25:00 128.096 kg [facility] BMI 2020-05-05 18:25:00 50.02 kg/m2 [facility] Systolic blood 2020-04-30 14:04:00 130 mm[Hg] [facility] Diastolic blood 2020-04-30 14:04:00 84 mm[Hg] [facility] Heart rate 2020-04-30 14:01:00 105 /min [facility] Body temperature 2020-04-30 14:01:00 36.44 [facility] Respiratory rate 2020-04-30 14:01:00 18 /min [facility] Body height 2020-04-30 14:01:00 160 cm [facility] Body weight 2020-04-30 14:01:00 124.921 kg [facility] BMI 2020-04-30 14:01:00 48.78 kg/m2 [facility] Systolic blood 2020-05-02 14:23:00 139 mm[Hg] [facility] Diastolic blood 2020-05-02 14:23:00 85 mm[Hg] [facility] Heart rate 2020-05-02 14:23:00 98 /min [facility] Body temperature 2020-05-02 14:23:00 36.78 [facility] Respiratory rate 2020-05-02 14:23:00 18 /min [facility] Body weight 2020-05-02 14:23:00 126.1 kg [facility] BMI 2020-05-02 14:23:00 49.25 kg/m2 [facility] Systolic blood 2020-04-16 20:22:00 121 mm[Hg] [facility] Diastolic blood 2020-04-16 20:22:00 67 mm[Hg] [facility] Heart rate 2020-04-16 20:22:00 104 /min [facility] Body temperature 2020-04-16 20:22:00 36.94 [place] [facility] Respiratory rate 2020-04-16 20:22:00 18 /min [facility] Body height 2020-04-16 20:22:00 160 cm [facility] Body weight 2020-04-16 20:22:00 124.286 kg [facility] BMI 2020-04-16 20:22:00 48.54 kg/m2 [facility] Heart rate 2020-04-14 17:00:00 102 /min [facility] Oxygen saturation in 2020-04-14 16:45:00 100 /min [facility] of Arterial blood by [facility] Pulse oximetry Branch Systolic blood 2020-04-14 16:26:00 141 mm[Hg] [facility] Diastolic blood 2020-04-14 16:26:00 79 mm[Hg] Unive rsity of pressure [facility] Body temperature 2020-04-14 16:26:00 36.89 [facility] Respiratory rate 2020-04-14 16:26:00 18 /min Univ ersity of [facility] Body height 2020-04-14 16:26:00 160 cm [facility] Body weight 2020-04-14 16:26:00 123.832 kg [facility] BMI 2020-04-14 16:26:00 48.36 kg/m2 [facility] Systolic blood 2020-04-14 14:46:00 133 mm[Hg] [facility]iver [facility] pressure [facility] Diastolic blood 2020-04-14 14:46:00 89 mm[Hg] Unive rsity of pressure [facility] Heart rate 2020-04-14 14:46:00 101 /min [facility] Body temperature 2020-04-14 14:46:00 36.83 [place] [facility] Respiratory rate 2020-04-14 14:46:00 18 /min Univ ersity of [facility] Body height 2020-04-14 14:46:00 160 cm [facility] Body weight 2020-04-14 14:46:00 123.832 kg [facility] BMI 2020-04-14 14:46:00 48.36 kg/m2 [facility] Systolic blood 2020-04-09 20:14:00 138 mm[Hg] Univer [facility]ity of pressure [facility] Diastolic blood 2020-04-09 20:14:00 83 mm[Hg] Unive rsity of pressure [facility] Heart rate 2020-04-09 20:14:00 118 /min [facility] Body temperature 2020-04-09 20:14:00 36.67 [place] [facility] Respiratory rate 2020-04-09 20:14:00 18 /min Univ ersity of [facility] Body height 2020-04-09 20:14:00 160 cm [facility] Body weight 2020-04-09 20:14:00 123.378 kg [facility] BMI 2020-04-09 20:14:00 48.18 kg/m2 [facility] Systolic blood 2020-04-07 14:08:00 136 mm[Hg] [facility] Diastolic blood 2020-04-07 14:08:00 84 mm[Hg] [facility] Heart rate 2020-04-07 14:08:00 108 /min [facility] Body temperature 2020-04-07 14:08:00 36.5 [facility] Respiratory rate 2020-04-07 14:08:00 18 /min [facility] Body height 2020-04-07 14:08:00 160 cm [facility] Body weight 2020-04-07 14:08:00 123.378 kg [facility] BMI 2020-04-07 14:08:00 48.18 kg/m2 [facility] Systolic blood 2020-03-19 21:20:00 133 mm[Hg] [facility] Diastolic blood 2020-03-19 21:20:00 79 mm[Hg] [facility] Heart rate 2020-03-19 21:20:00 104 /min [facility] Body temperature 2020-03-19 21:20:00 37 [facility] Respiratory rate 2020-03-19 21:20:00 18 /min [facility] Body height 2020-03-19 21:20:00 160 cm [facility] Body weight 2020-03-19 21:20:00 125.737 kg [facility] BMI 2020-03-19 21:20:00 49.10 kg/m2 [facility] Systolic blood 2019-12-18 14:03:00 159 mm[Hg] [facility] Diastolic blood 2019-12-18 14:03:00 94 mm[Hg] [facility] Heart rate 2019-12-18 14:02:00 93 /min [facility] Body temperature 2019-12-18 14:02:00 36.72 [place] [facility] Respiratory rate 2019-12-18 14:02:00 18 /min Univ ersity of [facility] Body height 2019-12-18 14:02:00 160 cm [facility] Body weight 2019-12-18 14:02:00 122.925 kg [facility] BMI 2019-12-18 14:02:00 48.01 kg/m2 [facility] Systolic blood 2019-11-20 19:40:00 149 mm[Hg] [facility] Diastolic blood 2019-11-20 19:40:00 96 mm[Hg] [facility] Heart rate 2019-11-20 19:30:00 91 /min [facility] Body temperature 2019-11-20 19:30:00 36.39 [place] [facility] Respiratory rate 2019-11-20 19:30:00 18 /min [facility] Body height 2019-11-20 19:30:00 160 cm [facility] Body weight 2019-11-20 19:30:00 121.564 kg [facility] BMI 2019-11-20 19:30:00 47.47 kg/m2 [facility] Systolic blood 2019-10-23 21:05:00 140 mm[Hg] [facility] Diastolic blood 2019-10-23 21:05:00 87 mm[Hg] Unive rsity of pressure [facility] Heart rate 2019-10-23 20:59:00 93 /min [facility] Body temperature 2019-10-23 20:59:00 36.89 [place] [facility] Respiratory rate 2019-10-23 20:59:00 18 /min Univ ers[facility] of [facility] Body height 2019-10-23 20:59:00 160 cm [facility] Body weight 2019-10-23 20:59:00 122.471 kg [facility] BMI 2019-10-23 20:59:00 47.83 kg/m2 [facility] Procedures Procedure Date / Time Performing Clinician Source Performed POCT TEST 2023-03-01 20:27:00 Gabbie Thompson [facility] COMP. METABOLIC PANEL 2023-03-01 20:26:00 Gabbie Thompson [facility] ([id number]) [facility] CBC WITH DIFF 2023-03-01 20:26:00 Gabbie Thompson [facility] HB ABO GROUPING 2023-03-01 20:26:00 Gabbie Thompson [facility] CONSENT/REFUSAL FOR 2023-03-01 20:02:24 Doctor Unasstova, [facility] DIAGNOSIS AND TREATMENT Bertha [facility] CBC WITH DIFF 2020-05-15 08:49:00 John [facility] VENOUS CORD GAS 2020-05-14 16:12:00 Luciano [facility] SECTION 2020-05-14 15:05:00 John [facility] TUBAL LIGATION 2020-05-14 15:05:00 John [facility] POCT GLUCOSE (AUTOMATED) 2020-05-14 14:05:00 [facility] (ID NOW RAPID 2020-05-14 13:44:00 [facility] RHO (D) IMMUNE GLOBULIN 2020-05-13 20:12:00 Melyssa Lopez [facility] ASSIGNMENT OF BENEFITS 2020-05-12 19:19:25 Doctor Unassigned, [facility] Bertha [facility] NON-STRESS TEST 2020-05-12 19:05:26 Consuelo Dao [facility] NON-STRESS TEST 2020-05-09 19:02:46 Melyssa Lopez [facility] NON-STRESS TEST 2020-05-05 19:33:03 Consuelo Dao [facility] POCT URINALYSIS W/O 2020-05-05 00:00:00 Consuelo Dao [facility] SPECIFIC GRAVITY [facility] NON-STRESS TEST 2020-05-02 14:52:11 Melyssa Lopez Cam [facility] DSU PRE-OP 2020-05-02 05:01:00 Doctor Unalogan, [facility] Bertha Medical Branch >14 WEEKS US 2020-04-30 20:59:46 Consuelo Dao [facility] NON-STRESS TEST 2020-04-30 20:58:03 Consuelo Dao [facility] GC & CHLAMYDIA AMPLIFIED 2020-04-30 14:18:00 Consuelo Dao [facility] PATIENT QUESTIONNAIRE 2020-04-30 05:01:00 Doctor Unalogan, [facility] Medical [place] POCT URINALYSIS W/O 2020-04-30 00:00:00 Consuelo Dao [facility] BIOPHYSICAL PROFILE 2020-04-16 21:24:19 Melyssa Lopez [facility] NON-STRESS TEST 2020-04-14 23:32:09 Melyssa Lopez [facility] US PELVIS LIMITED 2020-04-14 16:50:[address] [facility] [place] [place] ADC ONLY - FERN TEST 2020-04-14 16:38:00 Melyssa Lopez [facility] CONSENT/REFUSAL FOR 2020-04-14 15:58:43 Doctor Jaleesa, [facility] DIAGNOSIS AND TREATMENT [place] Medical [place] ASSIGNMENT OF BENEFITS 2020-04-14 15:57:48 Doctor Jaleesa, [facility] Medical [place] NON-STRESS TEST 2020-04-09 20:55:36 Melyssa Lopez [facility] POCT URINALYSIS W/O 2020-04-09 00:00:00 Melyssa Lopez [facility] NON-STRESS TEST 2020-04-07 15:28:14 Consuelo Dao [facility] SECOND AND THIRD 2020-04-07 13:23:00 Melyssa Lopez [facility] TRIMESTER ULTRASOUND Medical Bra nch STERILIZATION CONSENT 2020-04-07 05:01:00 Doctor Unalogan, [facility] FORM [place] Medical [place] POCT GLUCOSE(AGE >30DAYS) 2020-04-07 00:00:00 [facility]IN[facility]YSIS W/O 2020-04-07 00:00:00 Consuelo Dao [facility] SPECIFIC [facility] CBC WITH DIFFERENTIAL 2020-04-03 21:01:00 Melyssa Lopez [facility] POCT HEMOGLOBIN A1C TEST 2020-03-19 21:45:00 Melyssa Lopez [facility] POCT GLUCOSE(AGE >30DAYS) 2020-03-19 21:39:00 Melyssa Lopez [facility] POCT URINALYSIS W/O 2020-03-19 21:23:00 Melyssa Lopez [facility] TDAP (ADACEL) 2020-03-19 21:13:56 Melyssa Lopez [place] [facility] IMMUNIZATION [facility] INSURANCE CORRESPONDENCE 2020-02-28 05:01:00 Doctor Unassigned, [facility] SECOND AND THIRD 2020-01-02 15:53:00 Melyssa Lopez [facility] TRIMESTER ULTRASOUND Medical Bra critical access hospital SECOND AND THIRD 2020-01-02 15:45:00 [facility] Medical [facility] POCT URINALYSIS W/O 2019-12-18 00:00:00 Consuelo Dao [facility] 3 HR GLUCOSE TOLERANCE 2019-11-30 18:35:00 [facility] 2 HR GLUCOSE TOLERANCE 2019-11-30 17:39:00 Consuelo Dao [facility] 1 HR GLUCOSE TOLERANCE 2019-11-30 16:36:00 Consuelo Dao [facility] GLUCOSE FASTING 2019-11-30 15:32:00 Consuelo Dao [place] o [facility] GLUCOSE FASTING 2019-11-30 15:32:00 Consuelo Dao [facility] GLUCOSE 1 HOUR POST 2019-11-21 16:30:00 [facility] WITH DIFFERENTIAL 2019-11-21 16:01:00 Melyssa Lopez [facility] COMP. METABOLIC PANEL 2019-11-21 16:01:00 Melyssa Lopez [facility] ([id number]) Medical [place] HB ABO GROUPING 2019-11-21 16:01:00 Melyssa Lopez [place] o [facility] ASSIGNMENT OF BENEFITS 2019-11-21 14:51:24 Doctor Unassigned, [facility] [place] [facility] POCT URINALYSIS W/O 2019-11-20 00:00:00 Melyssa Lopez [facility] SPECIFIC [facility] EXTERNAL PROVIDER RECORDS 2019-11-03 06:01:00 Doctor Unassigned, [facility] Ber[place] Medical [place] <14 WEEKS US 2019-10-25 03:52:05 [facility]ssa Lopez [facility] GC & CHLAMYDIA AMPLIFIED 2019-10-23 21:42:00 Melyssa Lopez [facility] LAB ONLY PAP SMEAR-LIQUID 2019-10-23 21:42:00 [facility] - DR[facility] SCREEN 2019-10-23 21:42:00 Melyssa Lopez [facility] HIGH RISK HPV-THIN PREP 2019-10-23 21:42:00 Melyssa Lopez [facility] PAP SMEAR-LIQUID BASED-CP 2019-10-23 21:42:00 [facility]ssa [facility] ASSIGNMENT OF BENEFITS 2019-10-23 20:38:47 Doctor [facility]assigned, [facility] TEST 2019-10-23 00:00:00 Melyssa Lopez [facility] POCT URINALYSIS W/O 2019-10-23 00:00:00 Melyssa Lopez [facility] Encounters Start End Encounter Admission Attending Care Care Encounter Source Date/Time Date/Time Type Type Clinicians Facility Department ID 2021-07-31 Outpatient P RIMB LEONCIO [id number] Univers 06:20:58 ity [facility] 2023-05-06 2023-05-06 Outpatient GC_GCBZW_Ka PRIV PRIV [id number] [facility] 00:00:00 00:00:00 conor_S [id number] Medic al 2023-05-06 2023-05-06 Outpatient GC_GCBZW_Ka PRIV PRIV [id number] [facility] 00:00:00 00:00:00 diyala_S [id number] Medic al 2023-04-29 2023-04-29 Outpatient GC_GCBZW_Ka PRIV PRIV [id number] [facility] 00:00:00 00:00:00 diyala_S [id number] Medic al 2023-04-29 2023-04-29 Outpatient GC_GCBZW_Ka PRIV PRIV [id number] [facility] 00:00:00 00:00:00 diyala_S [id number] Medic al 2023-04-25 2023-04-25 Outpatient GC_GCBZW_Ka PRIV PRIV [id number] [facility] 00:00:00 00:00:00 diyala_S [id number] Medic al 2023-03-30 2023-03-30 [facility] [id number] Univers 08:30:00 08:30:00 CONSUELO [facility] 2023-03-01 2023-03-01 [facility] [id number] Univers 15:12:00 16:39:00 GABBIE [facility] 2023-03-01 2023-03-01 Emergency [facility] [id number] Univers 15:12:00 16:39:00 Gabbie BOSS [id number] ity [facility] [id number] [phone] [facility] 084 [place] 2021-05-22 2021-05-[address] [facility] [id number] Univers 00:00:00 00:00:00 Anatoly Boss [id number] i ty of [id number] [phone] Tn dical nal 134 [facility] 2020-12-10 2020-12-10 Outpatient Jmaes DAO [facility] [id number] Univers 09:00:00 09:00:00 CONSUELO harden [facility] 2020-07-20 2020-07-[address] [facility] [id number] Univers 00:00:00 00:00:00 Anatoly Boss [id number] i ty [id number] [phone] [address] 2020-07-10 2020-07-10 [facility] 1.2.840.114 [id number] Univers 00:00:00 00:00:00 Consuelo Boss [id number] i ty of [id number] [phone] [address] 2020-07-10 2020-07-10 Telephone [facility] [id number] Univers 00:00:00 00:00:00 Consuelo Boss [id number] i ty [id number] [phone] [address] 2020-06-18 2020-06-18 Outpatient R MELYSSA LOPEZ [facility] [id number] Univers 08:00:00 08:00:00 ity of [facility] 2020-06-18 2020-06-18 Telephone [facility] 1.2.840.114 [id number] Univers 00:00:00 00:00:00 Consuelo Boss [id number] i ty of [id number] [phone] [address] 2020-06-12 2020-06-12 Outpatient R [facility] [id number] Univers 09:30:00 09:30:00 ity of [facility] 2020-06-11 2020-06-11 Routine [facility] [id number] Univers 11:23:57 11:54:13 Consuelo Boss [id number] ity of Visit [id number] [phone] [address] 2020-06-11 2020-06-11 Outpatient R FELIBERTO [facility] [id number] Univers 11:30:00 11:30:00 CONSUELO ity [facility] 2020-06-01 2020-06-[address] [facility] [id number] Univers 00:00:00 00:00:00 Consuelo Mary [id number] i ty [id number] [address] [phone] [facility] 134 [facility] 2020-05-21 2020-05-21 Nurse Nurse, [facility] [id number] Univers 10:42:25 11:02:56 Visit Melyssa Lopez [id number] ity of [place] [id number] [phone] Tn dic[address] 2020-05-21 2020-05-21 Outpatient R MELYSSA LOPEZ [facility] [id number] Univers 10:30:00 10:30:00 ity of [facility] 2020-05-14 2020-05-16 [facility] Melyssa Lopez [facility] [id number] Univers 08:22:00 15:18:00 Oral Boss [id number] ity of [id number] [phone] [address] 2020-05-14 2020-05-14 Outpatient R JOHN MELYSSA 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 1.2.8 [id number] Univers 14:01:07 15:21:05 Visit John Melyssavenkatesh Boss [id number] ity of [id number] [phone] [address] 2020-05-12 2020-05-13 Routine Room, [facility] 1.2.840.1 [id number] Univers 13:15:48 14:16:43 Abrahamkeysha Consuelo Boss [id number] ity of Visit [place] [id number] [phone] [address] 2020-05-13 2020-05-13 Outpatient R MELYSSA LOPEZ [facility] [id number] Univers 14:00:00 14:00:00 ity of [facility] 2020-05-13 2020-05-13 [facility] [id number] Univers 00:00:00 00:00:00 Management Anatoly Boss [id number] ity of [id number] [phone] [address] 2020-05-12 2020-05-12 Outpatient R FELIBERTO [facility] [id number] Univers 13:00:00 13:00:00 CONSUELO ity [facility] 2020-05-12 2020-05-12 Orders Doctor CURTIS [id number] Univers 00:00:00 00:00:00 Only Unassigned, HOMER [id number] ity of Bertha [facility] [id number] Miko as [phone] [address] 2020-05-09 2020-05-09 Routine Room, [facility] 1.2.840.1 [id number] Univers 12:58:24 13:56:20 JohnLiatvenkatesh Boss [id number] ity of Visit [place] [id number] [phone] [address] 2020-05-09 2020-05-09 Outpatient R MELYSSA LOPEZ [facility] [id number] Univers 13:00:00 13:00:00 ity [facility] 2020-05-06 2020-05-06 Milk Drying Machine Operator Ultrasound, Stephanie [facility] 1.2 .840.114 [id number] Univers 15:10:45 15:40:45 Visit Cristhian Gallegos SPRINKLING SYSTEM IRRIGATOR [id number] 0 ity of REGIONAL [id number] Miko as MATERNAL [phone] Med ical & CHILD [address] [place] [address] 2020-05-06 2020-05-06 Outpatient P [facility] [id number] Univers 15:15:00 15:15:00 ity of [facility] 2020-05-05 2020-05-05 Routine Room, [facility] 1.2.840.1 [id number] Univers 13:00:53 14:08:30 Melyssa Lopez [place] [id number] ity of [place] [id number] [phone] Tn dical nal [address] [place] [address] 2020-05-05 2020-05-05 Outpatient R [facility] [id number] Univers 13:00:00 13:00:00 ity of [facility] 2020-04-30 2020-05-02 Routine Room, [facility] 1.2.840.1 [id number] Univers 08:53:48 09:57:20 Melyssa Lopez [place] [id number] ity of [id number] [phone] Tn dical nal [address] [place] [address] 2020-05-02 2020-05-02 Routine Room, [facility] 1.2.840.1 [id number] Univers 08:50:07 09:51:44 Melyssa Lopez [id number] ity of [place] [id number] [phone] Tn dical nal [address] [place] [address] 2020-05-02 2020-05-02 Outpatient R [facility] [id number] Univers 08:00:00 08:00:00 ity of [facility] 2020-04-30 2020-04-30 [facility] [id number] Univers 10:30:00 10:30:00 CONSUELO ity of [facility] [facility] 2020-04-30 2020-04-30 Milk Drying Machine Operator 2, [facility] 1.2.840.114 [id number] Univers 10:14:23 10:29:23 Visit Melyssa Lopez Anatoly [place] 350.1.13.10 it[place] [phone] Tn dical nal 353 [facility] 2020-04-30 2020-04-30 Outpatient R [facility] [id number] Univers 09:00:00 09:00:00 ity of [facility] 2020-04-28 2020-04-[address] [facility] 1.2.840.114 [id number] Univers 00:00:00 00:00:00 Cam [place] 350.1.13.10 i ty of [place] [phone] Tn dical nal 134 [facility] 2020-04-18 2020-04-18 Outpatient R [facility] [id number] Univers 09:00:00 09:00:00 ity of [facility] 2020-04-16 2020-04-16 Routine Room, [facility] 1.2.840.1 14 [id number] Univers 15:03:44 16:17:27 Melyssa Lopez Anatoly [place] 350.1.13.10 ity of [place] [phone] Tn dical nal 134 [facility] 2020-04-16 2020-04-16 Outpatient R [facility] [id number] Univers 15:00:00 15:00:00 ity of [facility] 2020-04-16 2020-04-16 Outpatient R [facility] [id number] Univers 11:00:00 11:00:00 ity of [facility] 2020-04-14 2020-04-14 [facility] Melyssa Lopez [facility] 1.2.840.114 [id number] Univers 10:55:00 12:55:00 Encounter Anatoly [place] 350.1.13.10 it[place] of [place] [phone] [facility] 083 [place] 2020-04-14 2020-04-14 Routine Room, [facility] 1.2.840.1 14 [id number] Univers 09:08:45 10:35:40 FelibertoConsuelo Mary 350.1.13.10 ity of [place] [phone] Tn dical nal 134 [facility] 2020-04-14 2020-04-14 Outpatient R MELYSSA LOPEZ [facility] [id number] Univers 10:30:00 10:30:00 ity of [facility] 2020-04-09 2020-04-09 Nurse Visit, [facility] Nurse [facility] 1.2.840.1 14 [id number] [facility] 15:50:02 16:12:41 Visit Melyssa Lopez Mary 350.1.13.10 ity of AlexisShari [place] 4.2.7.2.686 [place] Professio [phone] Tn dicne nal 059 [facility] 2020-04-09 2020-04-09 Routine Room, [facility] 1.2.840.1 14 [id number] [facility] 14:55:34 15:42:50 Melyssa Lopez Mary 350.1.13.10 ity of [place] [phone] Tn dical nal 134 [facility] 2020-04-09 2020-04-09 Outpatient R [facility] [id number] Univers 08:00:00 08:00:00 ity of [facility] 2020-04-07 2020-04-07 Routine Room, [facility] 1.2.840.1 14 [id number] [facility] 08:51:52 10:30:48 Cruz Ruff 350.1.13.10 ity of Visit Consuelo Dao 4.2.7.2.686 [place] Professio [phone] Tn dical nal 134 [facility] 2020-04-07 2020-04-07 Outpatient R [facility] [id number] Univers 09:00:00 09:00:00 ity of [facility] 2020-04-07 2020-04-07 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 1.2.840.114 [id number] Univers 15:50:56 16:30:33 Visit Melyssa Lopez Anatoly Boss 350.1.13.10 it[place] of [place] [phone] Tn dical [facility] 353 [facility] 2020-04-03 2020-04-03 Outpatient R FELIBERTO [facility] [id number] Univers 16:30:00 16:30:00 CONSUELO ity of [facility] 2020-04-03 2020-04-[address] [facility] 1.2.600.893 [id number] Univers 00:00:00 00:00:00 Management Cam [place] 350.1.13.10 it[place] of [place] [phone] Tn dical nal 134 [facility] 2020-03-20 2020-03-[address] [facility] 1.2.004.860 [id number] Univers 00:00:00 00:00:00 Management Cam [place] 350.1.13.10 ity of [place] [phone] Tn dical nal 134 [facility] 2020-03-19 2020-03-[address] [facility] 1.2.277.106 [id number] Univers 16:04:00 17:11:07 Cam [place] 350.1.13.10 ity of Visit [place] [phone] Tn dical [address] 2020-03-19 2020-03-19 Outpatient R MELYSSA LOPEZ [facility] [id number] Univers 16:00:00 16:00:00 ity of [facility] 2020-03-10 2020-03-[address] [facility] 1.2.840.114 [id number] Univers 00:00:00 00:00:00 Anatoly Boss 350.1.13.10 i ty of [place] [phone] Tn dic[address] 2020-02-28 2020-02-[address] [facility] 1.2.840.114 [id number] Univers 00:00:00 00:00:00 Consuelo Boss 350.1.13.10 i ty of [place] [phone] [address] 2020-02-28 2020-02-28 Orders Doctor CURTIS 1.2.840.114 [id number] Univers 00:00:00 00:00:00 Only Unassigned, HOMER 350.1.13.10 [facility] 4.2.7.2.686 Miko as [phone] [address] 2020-01-17 2020-01-17 Telemedici [facility] 1.2.840.114 [id number] Univers 14:45:00 15:00:00 ne Visit Consuelo Boss 350.1.13.10 ity of [place] [phone] [address] 2020-01-17 2020-01-17 Outpatient R FELIBERTO [facility] [id number] Univers 14:45:00 14:45:00 CONSUELO harden [facility] 2020-01-16 2020-01-16 Outpatient R FELIBERTO [facility] [id number] Univers 11:00:00 11:00:00 CONSUELO harden [facility] 2020-01-15 2020-01-15 Telephone [facility] 1.2.840.114 [id number] Univers 00:00:00 00:00:00 Anatoly Boss 350.1.13.10 i ty of [place] [phone] Tn dical nal 134 [facility] 2020-01-02 2020-01-07 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 1.2.840.114 [id number] Univers 09:32:02 09:47:02 ne Visit Anatoly Boss 350.1.13.10 ity of [place] [phone] Tn dical nal 134 [facility] 2019-12-18 2019-12-[address] 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 1.2.8 40.114 [id number] Univers 09:57:49 10:12:49 Visit Consuelo Dao 350.1.13.10 ity of [place] [phone] Tn dical nal 353 [facility] 2019-12-18 2019-12-18 Outpatient R FELIBERTO [facility] [id number] Univers 08:45:00 08:45:00 CONSUELO ity [facility] 2019 2019 Patient Doctor CURTIS 1.2.840.114 [id number] Univers 00:00:00 00:00:00 Secure Msg Unassigned, HOMER 350.1.13.10 ity of [facility] 4.2.7.2.686 Miko as [phone] [address] 2019-12-07 2019-12-[address] [facility] 1.2.840.114 [id number] Univers 00:00:00 00:00:00 Consuelo Boss 350.1.13.10 i ty of [place] [phone] [address] 2019-12-07 2019-12-[address] [facility] 1.2.020.701 [id number] Univers 00:00:00 00:00:00 Consuelo Boss 350.1.13.10 i ty of [place] [phone] [address] 2019-12-03 2019-12-[address] 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 1.2.8 40.114 [id number] Univers 09:00:16 09:15:16 Visit Consuelo Dao 350.1.13.10 ity of [place] [phone] [address] 2019-11-30 2019-11-30 Outpatient R FELIBERTO [facility] [id number] Univers 09:15:00 09:15:00 CONSUELO itguadalupe of [facility] 2019-11-29 2019-11-[address] [facility] 1.2.840.114 [id number] Univers 00:00:00 00:00:00 Anatoly Boss 350.1.13.10 i ty of [place] [phone] [facility] 134 [facility] 2019-11-29 2019-11-[address] [facility] 1.2.840.114 [id number] Univers 00:00:00 00:00:00 Cam [place] 350.1.13.10 i ty of [place] [phone] [facility] 134 [facility] 2019-11-28 2019-11-28 Telephone [facility] 1.2.840.114 [id number] Univers 00:00:00 00:00:00 Anatoly Boss 350.1.13.10 i ty of [place] [phone] [facility] 134 [facility] 2019-11-27 2019-11-27 Patient Doctor [facility] 1.2.146.720 [id number] Univers 00:00:00 00:00:00 Secure Msg Unassigned, HEALTH 350.1.13.10 ity of [place] [facility] 4.2.7.2.[place] [phone] [address] 2019-11-26 2019-11-26 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 1.2.8 40.114 [id number] Univers 08:59:02 09:14:02 Visit John Melyssavenkatesh Boss 350.1.13.10 ity of [place] [phone] [facility] 353 [facility] 2019-11-26 2019-11-26 Outpatient R JOHN MELYSSA [facility] [id number] Univers 08:30:00 08:30:00 ity of [facility] 2019-11-22 2019-11-22 [facility] 1.2.840.114 [id number] Univers 00:00:00 00:00:00 Consuelo Boss 350.1.13.10 i ty of [place].2.[place] [phone] Tn dical nal 134 [facility] 2019-11-22 2019-11-22 Case Feliberto, 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.2.[place] [phone] Tn dicne nal 134 [facility] 2019-11-03 2019-11-03 Orders Doctor CURTIS 1.2.840.114 [id number] Univers 00:00:00 00:00:00 Only Unassigned, HOMER 350.1.13.10 ity of [place] [facility] 4.2.7.2.686 Miko as [phone] [address] 2019-10-30 2019-10-30 Case Feliberto, [facility] 1.2.341.857 [id number] Univers 00:00:00 00:00:00 Management Consuelo Boss 350.1.13.10 ity of [place] [phone] Tn dical nal 134 [facility] 2019-10-25 2019-10-25 Telephone Melyssa Lopez 1.2.840.114 [id number] Univers 00:00:00 00:00:00 Cam [place] 350.1.13.10 i ty of [place].7.2.[place] [phone] [address] 2019-10-23 2019-10-23 Initial Melyssa Lopez RISHALA 1.2.414.921 [id number] Univers 14:42:54 15:53:56 Cam [place] 350.1.13.10 ity of Visit [place].2.[place] [phone] [address] 2019-10-23 2019-10-23 Orders Doctor CURTIS 1.2.840.114 [id number] Univers 00:00:00 00:00:00 Only Unassigned, HOMER 350.1.13.10 ity of [place] [facility] 4.2.7.2.686 Miko as [phone] [address] 2019-10-16 2019-10-16 Telephone Melyssa Lopez 1.2.840.114 [id number] Univers 00:00:00 00:00:00 Cam [place] 350.1.13.10 i ty of [place].2.[place] [phone] [address] Results Test Description Test Time Test [...] 31.8 g/dL 31.6-35.1 RDW-SD (test code = 10573-4) 47.5 fL 39.0-49.9 RDW-CV (test code = 788-0) 15.7 % 12.0-15.5 H PLT (test code = 777-3) 418 See_Comment H [Au tomated message] The system which [employer] nerated this result transmit maria e reference range: 166 - 35 8 10*3/?L. The reference range was not used to interpret th is result as normal/abnormal . MPV (test code = 86535-4) 10.0 fL 9.5-12.9 NRBC/100 WBC (test code = 0.0 See_Comment [ Automated message] The 7977105125) system which [employer] nerated this result transmit maria e reference range: 0.0 - 10 .0 /100 WBCs. The reference r cipriano was not used to interpr et this result as normal/abnor mal. NRBC x10^3 (test code = See_Comment [Au tomated message] The 3309842841) system which [employer] nerated this result transmit maria e reference range: 10*3/?L. The reference range was not u sed to interpret this result as normal/abnormal . GRAN MAT (NEUT) % (test code 45.2 % = 770-8) IMM GRAN % (test code = 0.20 % 5476598549) LYMPH % (test code = 736-9) 42.9 % MONO % (test code = 5905-5) 10.2 % EOS % (test code = 713-8) 1.1 % BASO % (test code = 706-2) 0.4 % GRAN MAT x10^3(ANC) (test 4.40 10*3/uL 1.88-7.09 code = 4590781439) IMM GRAN x10^3 (test code = 0.00-0.06 6968691773) LYMPH x10^3 (test code = 4.19 10*3/uL 1.32-3.29 H 731-0) MONO x10^3 (test code = 1.00 10*3/uL 0.33-0.92 H 742-7) EOS x10^3 (test code = 0.11 10*3/uL 0.03-0.39 711-2) BASO x10^3 (test code = 0.04 10*3/uL 0.01-0.07 704-7) REACT LYMPHS (test code = Rare 6456908590) Lab Interpretation (test Abnormal code = 73302-8) [facility]. METABOLIC PANEL (08918)2023-03-01 21:04:20 Test Item Value Reference Range Interpretation Comments NA (test code = 137 mmol/L 135-145 2391075025) K (test code = 3.9 mmol/L 3.5-5.0 7742314201) CL (test code = 103 mmol/L 98-108 7508385864) CO2 TOTAL (test code 26 mmol/L 23-31 = 6486496281) AGAP (test code = 8 2-16 1352975897) BUN (test code = 10 mg/dL 7-23 5378067816) GLUCOSE (test code = 88 mg/dL 70-110 0191063540) CREATININE (test code 0.57 mg/dL 0.50-1.04 = 6671861180) TOTAL BILI (test code 0.6 mg/dL 0.1-1.1 = 9876412507) CALCIUM (test code = 8.9 mg/dL 8.6-10.6 4703848313) T PROTEIN (test code 7.4 g/dL 6.3-8.2 = 8592389410) ALBUMIN (test code = 4.1 g/dL 3.5-5.0 9581686202) ALK PHOS (test code = 96 U/L 34-122 8804470897) ALTv (test code = 23 U/L 5-35 1742-6) AST(SGOT) (test code 22 U/L 13-40 = 9201014455) eGFR (test code = 117.5 mL/min/1.73m2 8949841584) MIKE (test code = MIKE) Association of [...] or urine or abnormalities in imaging tests). [facility] [place], [place]Type and Screen - ONCE [id number] 20:43:00 Test Item Value Reference Range Interpretation Comments ABO & RH (test code = 20) O Positive IAT (test code = 1185) Negative [facility] [place], TXPOCT [id number] 20:27:00 Test Item Value Reference Range Interpretation Comments POCT PREG (test code = 1605) Negative On board controls acceptable with Yes C Line (test code = 3574) POCT PREG LOT # (test code = 8342) 228337 POCT PREG TEST DATE (test 07/08/2024 code = 3576) Lab Interpretation (test code = Normal 95380-3) [facility] with [id number] 11:48:00 Test Item Value Reference Range Interpretation Comments WBC (test code = See_Comment H [Automated 6690-2) message] The system which generated this result [...] RDW-SD (test code = 46.5 fL 39-49.9 37574-7) RDW-CV (test code = 14.6 % 12-15.5 788-0) PLT (test code = See_Comment [Automated 777-3) message] The system which generated this result transmit maria e reference range : 166 - 358 10*3/ ?L. The reference range was not u sed to interpret th is result as normal/abnormal . MPV (test code = 11.0 fL 9.5-12.9 86811-7) NRBC/100 WBC (test See_Comment [Automat ed code = 1953634561) message] The system which generated this result transmit maria e reference range : 0.0 - 10.0 /100 WBCs. The reference range was not used to interpret this result as normal/abnormal . NRBC x10^3 (test code <0.01 See_Comment [Auto mated = 2289480293) message] The system which generated this result transmit maria e reference range : 10*3/?L. The reference range was not used to interpret this result as normal/abnormal . GRAN MAT (NEUT) % 77.6 % (test code = 770-8) IMM GRAN % (test code 0.70 % = 2345191793) LYMPH % (test code = 10.4 % 736-9) MONO % (test code = 10.4 % 5905-5) EOS % (test code = 0.6 % 713-8) BASO % (test code = 0.3 % 706-2) GRAN MAT x10^3(ANC) 12.08 10*3/uL 1.88-7.09 H (test code = 5399503560) IMM GRAN x10^3 (test 0.11 10*3/uL 0-0.06 H code = 5000864263) LYMPH x10^3 (test code 1.61 10*3/uL 1.32-3.29 [...] . Lab Interpretation Abnormal (test code = 98326-4) [facility] [place], TXRHO (D) IMMUNE [id number] 18:49:43 Test Item Value Reference Range Interpretation Comments RHIG CANDIDATE? No- see comment Patient i s not a (test code = candidate for R hIg- 5055) Patient is Rh Positive.Perfor med at [facility] Laboratory Services - [facility] Blood [address] [place] [id number] Free: [phone] A No. [id number] [facility] [place], TXArterial Cord [id number] 16:26:00 Test Item Value Reference Range Interpretation Comments BASE EXCESS, CORD (test mEq/L code = 6178375435) AC PH, CORD (BEAKER) 7.18-7.38 L (test code = 3759001499) PC02, CORD (test code = See_Comment H [Au tomated message] 4997785575) The system whic h generated this result transmitted ref erence range: 32 - 66 mmHg. The reference r cipriano was not used to interpret this result as normal/abnor mal. PO2, CORD (test code = Unabl e to read 7073383803) BICARBONATE, CORD (test See_Comment [Au tomated message] code = 5174197738) The syste m which generated this result transmitted ref erence range: 17 - 27 mEq/L. The reference r cipriano was not used to interpret this result as normal/abnor mal. Lab Interpretation (test Abnormal code = 95597-7) [facility] Cord [id number] 16:25:00 Test Item Value Reference Range Interpretation Comments VENOUS BASE EXCESS, CORD mEq/L (test code = 5150827553) VENOUS PH, CORD (test 7.25-7.45 code = 8926019115) VENOUS PC02, CORD (test See_Comment H [Au tomated message] code = 5896294862) The syste m which generated this result transmitted ref erence range: 27 - 49 mmHg. The reference r cipriano was not used to interpret this result as normal/abnor mal. VENOUS PO2, CORD (test See_Comment [Aut omated message] code = 1355540544) The syste m which generated this result transmitted ref erence range: 17 - 41 mmHg. The reference r cipriano was not used to interpret this result as normal/abnor mal. VENOUS BICARBONATE, CORD See_Comment [A utomated message] (test code = 1840876504) The system which generated this result transmitted ref erence range: 12 - 29 mEq/L. The reference r cipriano was not used to interpret this result as normal/abnor mal. Lab Interpretation (test Abnormal code = 45017-6) [facility] [place], TXCOVID-19 (ID NOW RAPID TESTING)2020-05-14 14:34:00 Test Item Value Reference Range Interpretation Comments SARS-CoV-2 Rapid ID NOW Not Detected Not Detected (test code = 80775-4) MIKE (test code = MIKE) ID NOW COVID-19 Assay is an isothermal nucleic acid amplification test intended for the qualitative detection of nucleic acid from SARS-CoV-2 viral RNA in nasopharyngeal (CHIEF SECURITY OFFICER) specimens. It is used under Emergency Use [...] indicated. Lab Interpretation Normal (test code = 34377-3) [facility] [place], TXPOCT GLUCOSE (AUTOMATED)2020-05-14 14:12:00 Test Item Value Reference Range Interpretation Comments POCT GLU (test code = 7854395256) 96 mg/dL 70-110 Lab Interpretation (test code = Normal 64833-0) [facility] NON-STRESS [id number] 19:06:12 Reactive and reassuring NST Irregular contractionsUnB[facility] NON-STRESS [id number] 19:06:12Reactive and reassuring NST Irregular contractionsUnB[facility] NON-STRESS TEST 2020-05-09 19:03:19Reactive and reassuringToco with irritability Melyssa Lopez MD ?05/09/2020 ?2:03 PMUnBryan [facility] NON-STRESS TEST 2020-05-05 19:33:42Reactive and reassuring NSTUnCH[facility] POCT URINALYSIS W/O SPECIFIC [id number] 18:41:00 Test Item Value Reference Range Interpretation [...] Negative Lab Interpretation (test code = Normal 77612-5) [facility] [place], TXFETAL NON-STRESS [id number] 14:53:01 Reactive and reassuring [place] with irritability Melyssa Lopez MD ?05/02/2020 ?9:52 AMUnCHRISTUS Spohn [facility]evilleGC & CHLAMYDIA AMPLIFIED [id number] 17:16:00 Test Item Value Reference Range Interpretation Comments C. trachomatis Nucleic Acid (test Negative Negative code = 48331-2) N. gonorrhoeae Nucleic Acid (test Negative Negative code = 20021-6) Lab Interpretation (test code = Normal 83435-3) [facility] [place], [place]>14 WEEKS US [id number] 21:00:21Cephalic presentationUnCHRISTUS Spohn Hospital [facility]eville>14 WEEKS US [id number] 21:00:21Cephalic presentationUnCHRISTUS Spohn Hospital [place]>14 WEEKS US [id number] 21:00:21Cephalic presentationUnCHRISTUS Spohn Hospital BeevilleFETAL NON-STRESS [id number] 20:59:35Reactive and reassuring [facility]UnB[facility] NON- STRESS [id number] 20:59:35Reactive and reassuring [facility]UnMethod[facility] HospitalT[facility] NON-STRESS [id number] 20:59:35Reactive and reassuring NSTUnCHRISTUS Spohn Hospital BeevillePOCT URINALYSIS W/O SPECIFIC GRAVITY 2020-04-30 14:15:00 Test [...] Negative Lab Interpretation (test code = Normal 57256-7) [facility] [place], TXPOCT URINALYSIS W/O SPECIFIC [id number] 14:15:00 Test Item Value Reference Range Interpretation [...] Negative Lab Interpretation (test code = Normal 21686-3) [facility] [place], TXPOCT URINALYSIS W/O SPECIFIC [id number] 14:15:00 Test Item Value Reference Range Interpretation [...] Negative Lab Interpretation (test code = Normal 25811-0) [facility] [place], TXFETAL NON-STRESS [id number] 23:57:59 Reactive and reassuringToco quiescent Melyssa Lopez MD ?04/18/2020 ?6:[address] [facility] [place], [place]BIOPH[place]ICAL PROFILE WITH NON-STRESS TEST 2020-04-16 21:25:34NST: ?Baseline 150s, moderate variability, spontaneous decel down to 100s x 40 secondsToco: ?Quiescent BPP performed, score 8/8. Melyssa Lopez MD ?04/16/2020 ?4:25 [facility] 2020-04-14 17:50:25Limited view of the gravid uterus with normal amniotic fluid. RL: 1105 Patient name: ALPHONSE BALL YUMIKOB: 1980 39 years EXAMINATION: US PELVIS LIMITED [...] gravid uterus with normal amniotic fluid.RL: 1105 [facility] ONLY - FERN [id number] 17:27:00 Test Item Value Reference Range Interpretation Comments Fern Test (test code = 3006323273) Negative [facility] NON-STRESS [id number] 20:56:33 Reactive and reassuringToco quiescent Melyssa Lopez MD ?04/09/2020 ?3:56 PM [facility] URINALYSIS W/O SPECIFIC [id number] 20:15:00 Test Item Value Reference Range Interpretation [...] Negative Lab Interpretation (test code = Abnormal 10081-7) [facility] NON-STRESS [id number] 15:28:50 [facility] 2020-04-07 15:17:00 Test Item Value Reference Range Interpretation Comments POCT Glu (age>30days) (test code = 150 mg/dL 70-110 A 3342) Lab Interpretation (test code = Abnormal 05480-8) [facility] URINALYSIS W/O SPECIFIC [id number] 14:17:00 Test Item Value Reference Range Interpretation [...] code = 3257) N/A Negative - [facility] [id number] 21:10:00 Test Item Value Reference Range Interpretation [...] RDW-SD (test code = 45.7 fL 39-49.9 83088-8) RDW-CV (test code = 14.1 % 12-15.5 788-0) PLT (test code = See_Comment [Automated 777-3) message] The sy stem which generated this result transmitted reference range : 166 - 358 10*3/ ?L. The reference r cipriano was not used to interpret this result as normal/abnormal . MPV (test code = 9.7 fL 9.5-12.9 69801-5) NRBC/100 WBC (test See_Comment [Automat ed code = 1580556356) message] The system which generated this result transmitted reference range : 0.0 - 10.0 /100 WBCs. The refer ence range was not u sed to interpret th is result as normal/abnormal . NRBC x10^3 (test code <0.01 See_Comment [Auto mated = 4399349515) message] The s ystem which generated this result transmitted reference range : 10*3/?L. The reference range was not used to interpret this result as normal/abnormal . GRAN MAT (NEUT) % 66.2 % (test code = 770-8) IMM GRAN % (test code 1.20 % = 3654769086) LYMPH % (test code = 19.5 % 736-9) MONO % (test code = 12.2 % 5905-5) EOS % (test code = 0.7 % 713-8) BASO % (test code = 0.2 % 706-2) GRAN MAT x10^3(ANC) 6.32 10*3/uL 1.88-7.09 (test code = 8292314961) IMM GRAN x10^3 (test 0.11 10*3/uL 0-0.06 H code = 1576240657) LYMPH x10^3 (test code 1.86 10*3/uL 1.32-3.29 = 731-0) MONO x10^3 (test code 1.16 10*3/uL 0.33-0.92 H = 742-7) EOS x10^3 (test code = 0.07 10*3/uL 0.03-0.39 711-2) BASO x10^3 (test code <0.03 0.01-0.07 = 704-7) Lab Interpretation Abnormal (test code = 11810-6) [facility] HEMOGLOBIN A1C [id number] 21:45:00 Test Item Value Reference Range Interpretation Comments POCT HBA1C (test code = 4548-4) 6.4 % 4-6 A Lab Interpretation (test code = Abnormal 69328-1) [facility] [id number] 21:39:00 Test Item Value Reference Range Interpretation Comments POCT Glu (age>30days) (test code = 96 mg/dL 70-110 3342) [facility] URINALYSIS W/O SPECIFIC [id number] 21:23:00 Test Item Value Reference Range Interpretation [...] code = 3257) n/a Negative - Negative [facility] URINALYSIS W/O SPECIFIC [id number] 14:37:00 Test Item Value Reference Range Interpretation [...] Negative Lab Interpretation (test code = Normal 45563-2) [facility] URINALYSIS W/O SPECIFIC [id number] 14:37:00 Test Item Value Reference Range Interpretation [...] Negative Lab Interpretation (test code = Normal 03624-7) [facility] [place], [place] GLUCOSE TOLERANCE [id number] 19:20:00 Test Item Value Reference Range Interpretation Comments GLUC 3 HR (test code = 6598409627) 144 mg/dL 70-110 H Lab Interpretation (test code = Abnormal 51587-6) [facility] [place], [place] GLUCOSE TOLERANCE [id number] 18:07:00 Test Item Value Reference Range Interpretation Comments GLUC 2 HR (test code = 4567886027) 198 mg/dL 70-120 H Lab Interpretation (test code = Abnormal 48516-2) [facility] [place], [place] GLUCOSE TOLERANCE [id number] 17:13:00 Test Item Value Reference Range Interpretation Comments GLUC 1 HR (test code = 8092810488) 206 mg/dL 120-170 H Lab Interpretation (test code = Abnormal 73002-6) [facility] [place], TXGLUCOSE [id number] 16:46:00 Test Item Value Reference Range Interpretation Comments GLU FASTNG (test code = 2610808437) 111 mg/dL 70-110 H Lab Interpretation (test code = Abnormal 29268-6) [facility] [place], TXPRENATAL WORKUP, BLOOD [id number] 17:39:20 Test Item Value Reference Range Interpretation Comments ABO & RH (test code O Positive Performe d at [facility] = 20) Laboratory Serv [facility] [place] [address] Free: [phone] A No. [id number] IAT (test code = Negative Performed a t [facility] 1185) Laboratory Serv [facility] [place], [place] [address]Toll Free: [phone] A No. [id number] [facility] [place], TXGLUCOSE 1 HOUR POST [id number] 17:18:00 Test Item Value Reference Range Interpretation Comments GLUC 1 HR (test code = 5776604256) 186 mg/dL 120-170 H Lab Interpretation (test code = Abnormal 60095-4) [facility] [place], TXGLUCOSE 1 HOUR POST [id number] 17:18:00 Test Item Value Reference Range Interpretation Comments GLUC 1 HR (test code = 4898702643) 186 mg/dL 120-170 H Lab Interpretation (test code = Abnormal 62025-1) [facility] [place], TXCOMP. METABOLIC PANEL ([id number])2019-11-21 17:17:00 Test Item Value Reference Range Interpretation Comments NA (test code = 134 mmol/L 135-145 L 8181549971) K (test code = 3.8 mmol/L 3.5-5 7142514841) CL (test code = 100 mmol/L 98-108 5272261489) CO2 TOTAL (test code = 24 mmol/L 23-31 8993958768) AGAP (test code = 2-16 0102965097) BUN (test code = 5 mg/dL 7-23 L 5202403163) GLUCOSE (test code = 188 mg/dL 70-110 H 2793629435) CREATININE (test code = 0.45 mg/dL 0.5-1.04 L 9131414286) TOTAL BILI (test code = 0.5 mg/dL 0.1-1.4 2294127002) CALCIUM (test code = 9.2 mg/dL 8.6-10.6 4089018592) T PROTEIN (test code = 6.7 g/dL 6.3-8.2 5501929180) ALBUMIN (test code = 3.9 g/dL 3.5-5 2910270479) ALK PHOS (test code = 50 U/L 34-122 8475002694) ALTv (test code = 13 U/L 5-35 1742-6) AST(SGOT) (test code = 16 U/L 13-40 0422886764) eGFR Calculation mL/min/1.73m2 (Non-) (test code = 3743195825) eGFR Calculation mL/min/1.73m2 () (test code = 6741920424) MIKE (test code = MIKE) Association of [...] tests). Lab Interpretation Abnormal (test code = 71551-7) [facility]. METABOLIC PANEL (66657)2019-11-21 17:17:00 Test Item Value Reference Range Interpretation Comments NA (test code = 134 mmol/L 135-145 L 8347397074) K (test code = 3.8 mmol/L 3.5-5 3889426402) CL (test code = 100 mmol/L 98-108 5826498955) CO2 TOTAL (test code = 24 mmol/L 23-31 9373091953) AGAP (test code = 2-16 7328426560) BUN (test code = 5 mg/dL 7-23 L 3960782729) GLUCOSE (test code = 188 mg/dL 70-110 H 6358576703) CREATININE (test code = 0.45 mg/dL 0.5-1.04 L 3351290802) TOTAL BILI (test code = 0.5 mg/dL 0.1-1.3 6048711820) CALCIUM (test code = 9.2 mg/dL 8.6-10.6 2921112726) T PROTEIN (test code = 6.7 g/dL 6.3-8.2 2156619749) ALBUMIN (test code = 3.9 g/dL 3.5-5 9753447993) ALK PHOS (test code = 50 U/L 34-122 3235286124) ALTv (test code = 13 U/L 5-35 1742-6) AST(SGOT) (test code = 16 U/L 13-40 4652994380) eGFR Calculation mL/min/1.73m2 (Non-) (test code = 0643502095) eGFR Calculation mL/min/1.73m2 () (test code = 1431360287) MIKE (test code = MIKE) Association of [...] tests). Lab Interpretation Abnormal (test code = 23660-1) [facility] WITH [id number] 16:42:00 Test Item Value Reference Range Interpretation Comments WBC (test code = See_Comment [Automated message] 6690-2) The system [employer] generated this result transmitted ref erence range: 4.30 - 1 1.10 10*3/?L. The re ference range was not u sed to interpret this result as normal/abnor mal. RBC (test code = See_Comment [Automated message] 869-8) The system [employer] generated this result transmitted ref erence range: [...] RDW-SD (test code 47.0 fL 39-49.9 = 86523-1) RDW-CV (test code 14.4 % 12-15.5 = 788-0) PLT (test code = See_Comment [Automated message] 777-3) The system [employer] generated this result transmitted ref erence range: 166 - 35 8 10*3/?L. The re ference range was not u sed to interpret this result as normal/abnor mal. MPV (test code = 10.0 fL 9.5-12.9 23265-4) NRBC/100 WBC (test See_Comment [Automat ed message] code = 0655246814) The syste YAMAP which generated this result transmitted ref erence range: 0.0 - 10 .0 /100 WBCs. The refer ence range was not u sed to interpret this result as normal/abnor mal. NRBC x10^3 (test <0.01 See_Comment [Automated message] code = 4100325667) The syste m which generated this result transmitted ref erence range: 10*3/?L. The reference range was not used to interpr et this result as normal/abnormal . GRAN MAT (NEUT) % 72.2 % (test code = 770-8) IMM GRAN % (test 0.50 % code = 1460466247) LYMPH % (test code 19.9 % = 736-9) MONO % (test code 6.6 % = 5905-5) EOS % (test code = 0.6 % 713-8) BASO % (test code 0.2 % = 706-2) GRAN MAT 5.93 10*3/uL 1.88-7.09 x10^3(ANC) (test code = 3174570004) IMM GRAN x10^3 0.04 10*3/uL 0-0.06 (test code = 4756936840) LYMPH x10^3 (test 1.63 10*3/uL 1.32-3.29 code = 731-0) MONO x10^3 (test 0.54 10*3/uL 0.33-0.92 code = 742-7) EOS x10^3 (test 0.05 10*3/uL 0.03-0.39 code = 711-2) BASO x10^3 (test <0.03 0.01-0.07 code = 704-7) [facility] WITH [id number] 16:42:00 Test Item Value Reference Range Interpretation Comments WBC (test code = See_Comment [Automated message] 4990-2) The system [employer] generated this result transmitted ref erence range: 4.30 - 1 1.10 10*3/?L. The re ference range was not u sed to interpret this result as normal/abnor mal. RBC (test code = See_Comment [Automated message] 839-8) The system [employer] generated this result transmitted ref erence range: 3.93 - 5 .25 10*6/?L. The re ference range was not u sed to interpret this result as normal/abnor mal. HGB (test code = 12.7 g/dL 11.6-15 608-7) HCT (test code = 40.0 % 35.7-45.2 4544-3) MCV (test code = 89.9 fL 80.6-95.5 787-2) MCH (test code = 28.5 pg 25.9-32.8 785-6) MCHC (test code = 31.8 g/dL 31.6-35.1 786-4) RDW-SD (test code 47.0 fL 39-49.9 = 47645-1) RDW-CV (test code 14.4 % 12-15.5 = 788-0) PLT (test code = See_Comment [Automated message] 777-3) The system whic h generated this result transmitted ref erence range: 166 - 35 8 10*3/?L. The re ference range was not u sed to interpret this result as normal/abnor mal. MPV (test code = 10.0 fL 9.5-12.9 14844-0) NRBC/100 WBC (test See_Comment [Automat ed message] code = 3254431556) The syste m which generated this result transmitted ref erence range: 0.0 - 10 .0 /100 WBCs. The refer ence range was not u sed to interpret this result as normal/abnor mal. NRBC x10^3 (test <0.01 See_Comment [Automated message] code = 8723958735) The syste m which generated this result transmitted ref erence range: 10*3/?L. The reference range was not used to interpr et this result as normal/abnormal . GRAN MAT (NEUT) % 72.2 % (test code = 770-8) IMM GRAN % (test 0.50 % code = 6784662940) LYMPH % (test code 19.9 % = 736-9) MONO % (test code 6.6 % = 5905-5) EOS % (test code = 0.6 % 713-8) BASO % (test code 0.2 % = 706-2) GRAN MAT 5.93 10*3/uL 1.88-7.09 x10^3(ANC) (test code = 7704765152) IMM GRAN x10^3 0.04 10*3/uL 0-0.06 (test code = 5155167902) LYMPH x10^3 (test 1.63 10*3/uL 1.32-3.29 code = 731-0) MONO x10^3 (test 0.54 10*3/uL 0.33-0.92 code = 742-7) EOS x10^3 (test 0.05 10*3/uL 0.03-0.39 code = 711-2) BASO x10^3 (test <0.03 0.01-0.07 code = 704-7) [facility] WITH [id number] 16:42:00 Test Item Value Reference Range Interpretation Comments WBC (test code = See_Comment [Automated message] 6690-2) The system [employer] generated this result transmitted ref erence range: 4.30 - 1 1.10 10*3/?L. The re ference range was not u sed to interpret this result as normal/abnor mal. RBC (test code = See_Comment [Automated message] 789-8) The system [employer] generated this result transmitted ref erence range: [...] RDW-SD (test code 47.0 fL 39-49.9 = 48643-0) RDW-CV (test code 14.4 % 12-15.5 = 788-0) PLT (test code = See_Comment [Automated message] 777-3) The system [employer] generated this result transmitted ref erence range: 166 - 35 8 10*3/?L. The re ference range was not u sed to interpret this result as normal/abnor mal. MPV (test code = 10.0 fL 9.5-12.9 55269-1) NRBC/100 WBC (test See_Comment [Automat ed message] code = 3576676563) The syste m which generated this result transmitted ref erence range: 0.0 - 10 .0 /100 WBCs. The refer ence range was not u sed to interpret this result as normal/abnor mal. NRBC x10^3 (test <0.01 See_Comment [Automated message] code = 2542129295) The syste m which generated this result transmitted ref erence range: 10*3/?L. The reference range was not used to interpr et this result as normal/abnormal . GRAN MAT (NEUT) % 72.2 % (test code = 770-8) IMM GRAN % (test 0.50 % code = 6914301257) LYMPH % (test code 19.9 % = 736-9) MONO % (test code 6.6 % = 5905-5) EOS % (test code = 0.6 % 713-8) BASO % (test code 0.2 % = 706-2) GRAN MAT 5.93 10*3/uL 1.88-7.09 x10^3(ANC) (test code = 4014169015) IMM GRAN x10^3 0.04 10*3/uL 0-0.06 (test code = 4267635860) LYMPH x10^3 (test 1.63 10*3/uL 1.32-3.29 code = 731-0) MONO x10^3 (test 0.54 10*3/uL 0.33-0.92 code = 742-7) EOS x10^3 (test 0.05 10*3/uL 0.03-0.39 code = 711-2) BASO x10^3 (test <0.03 0.01-0.07 code = 704-7) [facility] URINALYSIS W/O SPECIFIC [id number] 19:32:00 Test Item Value Reference Range Interpretation Comments POCT PH U (test code = 3254) N/A 5-8 POCT U LEUK EST (test code = N/A Negative - Negative 9323) POCT U NIT (test code = 3262) [...] [facility] [place] [place] PAP SMEAR-LIQUID [id number] 22:56:00 Test Item Value Reference Range Interpretation Comments Case Report (test code Gynecologic Cytology ? = 5738357979) ?Case: [id number] ? Authorizing Provider: ?Melyssa Lopez MD ?Collected: ? 10/23/2019 1542 ?Ordering Location: ? ? [facility] ?Received: ?10/23/2019 2341 ? [facility] ? First Screen: ?Goldie Huntley ? Specimen: ? ?Liquid Based Pap Preparation, CERVIX ? Clinical Information pt reports abnormal pap (test code = at age 18, none since 0711540083) Specimen Adequacy Satisfactory for (test code = 74310-7) Evaluation(Endocervical /Transformation Zone Component Present) Interpretation (test Negative for code = 68738-5) intraepithelial lesion or malignancy Comments (test code = b4fsvXHtRMStq4xnMJOrmCV 3205625395) uZzEwMzNcZnRuYmpcdWMxIH zcniChZZzqr0QuY9EjRrGuF FxhbnNpXGRlZmxhbmcxMDMz CHX7zyNoQDSxECgfUIAsIXl dHe0noFYdaTnkYrQoLDPel0 uipfNRMLvyUyAgF459BDIkS Vipk7qmu3QiSCZgaUNqe5D8 ZWCJcvkaxNu7o5gfKjAyIdX 9hKMvMZqcY9rvlbSviQXdG5 AkiVQqmSd8mQkiN02pu6Q2S liyU9izSAMsMLCrH0IjOV9n RORtRhv1MQF0UUK3PBYtELR cF5ZmHQ5rXLNhdNDmUCd4e7 mtxMphGOCcAIB4b5duZAxvm zJ7VG0cgf8hcXa5o7mnyfRa TFIrWJUfvFRMWJFcW6XvtRm vBq5fyDo7uBsnXvhcYEV6Ri w2CA2lgy11ksy7kAebDRZzu pluCeW3OCpjJMJrpsugIGt1 RNorDQQvzUR6FPHzbBUdP6R kAQJuJM6csnt6BRQ9LZtjPB ViWkI8NJBjvPSrHFZcgSdtU Ledc046VRJ7AtZvXC8eQ9Je q2X5eH6taRYqBTJduNMlHtB yDHHttv1snNPoPEcvv6DlA0 5ofCD4AVyub5xbNV8vFsS9d kGqXMcps1fruK6gObA3RBeo AH2ojv51PZIgYSW1jk5ycWX arEgjmqXhrYLtSEdoY2JgCJ Uyd605KETnJ6VsSJMvc6V4a lKwOhPmJBGdmLD3tvV9UXOf ULe1fVXmxhV1kfEdyUIbH7a mbM5nEOQcEF0cpqjej1hjHH jxMCgkBEWvdRZ6oeP2IMPcv FCxA8MnzW6yQULySEclUSCl ijd3KdFdAs2rcBXmqIegEFz zYmtwYWdlXHBnbmNvbnRccG duZGVjXHBsYWluXHBsYWluX RCnWWLvRqXqhCUnCLqfp5Bv abMthCvaXJRvXYh9pkCqfcq bmCt6zYDwfSagJRCcyZqxhH 4vPnHjQeLjUUgdUE2eJUWwH 0brtEKvRLWzFXGkY6ntNeCv pG4usRwbKXtfTbYqRjQwAXl efLDzlMegMKAseDnswE5gEa NvLlWuXFixSG6eHOMhS2qpz GItQNMwKPTeI1isQxJdpQ3x aFxmMVxjZjJcZnMyMFxwYXJ atCxwqK5lNkNjBlZmYRzgWZ 5bEFHcJ5dxtDBqYSOnXOAaF 1vxIeEwyK1jiFpoOYwnKlWo ZnMyMFxsdHJjaFxwYXJccGF hYJdor4CnpyMhyCscSLYoYH G9DRY1FEjegXVqBYKlzOlut 2zrY9UdzNVoRKNsEJckCVAb IWSkKaLapXfkrP2mYcMsYeG xUfenKW0yNUVtV5kcmWAxYK BgKJPwF2euCeHbgG0yoZttR lxjZjJcZnMyMlxsdHJjaFxw GYMuwFKoSQUugoBve2YmQBJ zNAJ3CVugXTgoqWGvTFFhkE nsu4nsR5LqaYKtBKHnNMssO KBpHNFwXkEbeRxmxE3aQhVk CePySGbcLO5gUWXdI4cqaHP gNJNcUMIuY3hrIgRtwR3gxP xmMVxjZjJcZnMxNFxsdHJja YDWHBUxr9VySUIkUY8hFQNt fxnaiCUpTVQ1AKV1hH21IUJ zzv9bq3whq3TvSIYyLGZSKl 9SDXThtECjD4h4vNXULI8xy CZbLWGjHCYlL4AfUpRWedKx k2C2GUXfmSGwBELUXHRmgTO fI1w6gGmyALqtLzk9CePjkH bxyZ5fKrWiGgXqFYkjXD9dF BJoH2rwfSQhBSOvPTIcS1yx LlRyzB6aeXviNdadipZ8MHW hcn19 LMP (test code = 8978137952) Educational Note (test g3dqmJJmIMLvy8oiIFDqoRI code = 5403197005) uZzEwMzNcZnRuYmpcdWMxIH irzuLgGRopk5SjF4NaKLWjG FxhbnNpXGRlZmxhbmcxMDMz HPU7srCxLRQkOPorSXShHSw lDt9bkJIrzHayRoFcDQGgx8 ckloWRodozgVy3m9tnHWOhM kM7rJSiZUjpY0mxbjRvaMEg ZBEbQVy8pL42DEInsK1giVD mDXozsbXmIkD2BFdqMDYsEt U9PQRfvTIsMBAyT1dqPNEaP JJiF0HxWR0pEaepKex2JGA5 IDtccmVkMFxncmVlbjBcYmx 5BXHqU490JPD5yXmew9apXV F4VUIzWWHkZnWgGr9gqBBeN 201IRYfUKGATENloBy5GZEp rnKftfKrkFHBp762Z275t3o iGGMddgEnoTwGtcukd4lgQ2 19XHBhcGVydzEyMjQwXHBhc OSgwJQ0FUEbKX3vlugqBRmb BJecTKVfnfL9RLJedQJqE3G oCGWdHO2npmstYMM5JNtiPN VuDON1CoVdNKIrn2Yietn0X gQlpf7yhd29CHM7e9SnmJtg KMU1SCQ4OjTxGf8raJZaHWU lKG9rVcTqoEJcERWppf13tP bbSAknrpCdhM7lCuWrVFUcv XPcEQYkLN9xzBTuKFJhjA3z cmxjXHBnYnJkcmhlYWRccGd sugVuHy1lnXeuPEX5VNqcO1 uacN3cKwB2WBbzW5ynaD9lO Gv2LTugpXU9AEMzgN5nNZ4p zltbc3zeBOrrCOykKZVlnwZ 4ljU1CKErrDTyG2CreD7nJU ShMR3nekqon6rlJRY0MPoaP IWrGFP4DcZwFXMzj8Yxcqm7 BmGug6KswPNyWOnbR39my45 8QBHvlgZvO8avxARykveigI XjtbvfPMvjpqN0OJLwPUYnI WluXGYxXGZzMjJcbGFuZzEw MzNcaGljaFxmMVxkYmNoXGY kXKnkW8xyIyCzJ2JjSDPaTv CpwOKJKLN2cVYwwYDjqMQri R6efASjRUSfEBFji6NePFoi WCNzl1GzYIZbjR6cOIXzb1Q vaAPkyVYvlUl8SLSksiJugL CasT32teDwMO2cYEKxTMVuJ MFgflRwzUMwv3QiAzHOnOZo qHBzhNIuRGKdKK3krJ1cWPE rjvWzUKM0hGWbc7dyNTNeg4 JjWwjoyXF2NG3fZANjvWZrY Q8sZ8J5wXUiHDVbEIUyMQux MX1cb1LpkRh3YMSgTHT1vXF nEvQyOqTlyKjcudBlYQ1niE mcFaVixwSuLj4bbJ40VJRkI Y2mNWBjCDoqpQRigtBrGPHg uT4sQ5NwWYXmV81fNDVfQXS pvA8ynA9nzwTbrvVlxvYho7 0dXC4pFMWtqK5vyIcjcU3sc mUgdGhlIGVmZmVjdCBvZiBm LDgjYASnZDysaQd0UNLfFRE 4xPWlLeFfLL15hoIxMRWhBP 97LARfz2DhJSTrWZNnGJ5vr gCkJOJ6ruSrm61nzFk0HLgi cSJeyC5nEFladVRxgAArKhQ muNLeEEewKUBxRX9mPCUxIY 55IHVuZXhwbGFpbmVkIGNsa V9bY6BtMMDqP53rAYOnGBLp sD3xmG2vuwupiwTbWTGhxTA zcyBvZiBhbnkgUGFwIFRlc3 UnfqUfgLu2BimbkNKjcgoxT VxmczIyXGxhbmcxMDMzXGhp A3xgPuVoSYRpkWasLEkps0L oXGYxXGZzMjJccGFyfX0= Embedded Images (test code = 9578856456) [facility] [place], [place]<14 WEEKS US [id number] 03:55:03Limited USG for viability and location due to vaginal spotting in early : ?Single live IUP measured 8 1/7 weeks, consistent with LMP. ?Will date by LMP Melyssa Lopez MD ?10/24/2019 ?9:54 [facility]UnCH[facility]IS[facility] HPV-THIN [id number] 00:55:00 Test Item Value Reference Range Interpretation Comments High Risk HPV (test Negative Negative code = 0144862662) MIKE (test code = MIKE) A positive [...] data. Lab Interpretation Normal (test code = 20398-8) [facility] [place], [place] CHLAMYDIA AMPLIFIED [id number] 18:49:00 Test Item Value Reference Range Interpretation Comments C. trachomatis Nucleic Acid (test Negative Negative code = 77369-3) N. gonorrhoeae Nucleic Acid (test Negative Negative code = 00564-7) Lab Interpretation (test code = Normal 35136-5) [facility] / [facility] - DRUG SCREEN [id number] 23:57:00 Test Item Value Reference Range Interpretation Comments BENZO U (test code = Negative Negative 8956451518) VANIA U (test code = Negative Negative 9886877797) AMPHET (test code = Negative Negative 0248821959) THC (test code = Negative Negative 9878334107) METHADONE (test code = Negative Negative 7865366601) Meth U (test code = Negative Negative 2236441680) OPIATES (test code = Negative Negative 6958985403) Cocaine Metabolite (test Negative Negative code = 2111840248) PROPOXY (test code = Negative Negative 4273669946) Tric U (test code = Negative Negative 4205730430) PCP (test code = Negative Negative 7632124196) OXYCOD (test code = Negative Negative 1377947536) MIKE (test code = MIKE) Urine Drug [...] testing). Lab Interpretation (test Normal code = 39640-2) [facility] [place], [place] [id number] 21:24:00 Test Item Value Reference Range Interpretation Comments POCT PREG (test code = 1605) Positive On board controls acceptable with C Yes Line (test code = 3574) POCT PREG LOT # (test code = 3575) POCT PREG TEST DATE (test code = 3576) [facility] [place], [place] URINALYS[place] W/O SPECIFIC [id number] 21:24:00 Test Item Value Reference Range Interpretation [...]
[2023-05-29] MEDS ORDERED: IBUPROFEN 400 MG TAB ONE (14:49)
[2023-05-29] MEDS ORDERED: ACETAMINOPHEN 500 MG TAB ONE (14:49)
--- NOTE | 2023-05-29 15:15 | RAD REPORT ---
EXAM DESCRIPTION: RAD - Knee Left 3 View - 05/29/2023 3:03 pm CLINICAL HISTORY: PAIN COMPARISON: No comparisons TECHNIQUE: Left knee, 3 views. FINDINGS: No fracture, dislocation or periosteal reaction.Small to moderate joint effusion. No joint space narrowing. No soft tissue abnormality. Clinical concerns for internal derangement or occult bony injury could be further assessed with MR im aging. IMPRESSION: No acute osseus abnormality. Small to moderate joint effusion.
--- NOTE | 2023-05-29 16:49 | ER ---
Nurse's Notes [facility] Name: Keyonna James Age: 42 yrs Sex: Female : 1980 Arrival Date: 05/29/2023 Time: 13:38 Bed 16 Private MD: Diagnosis: Effusion, left knee;Pain in left knee Presentation: 05/29 13:50 Chief complaint: Patient states: left knee pain s/p falling down the stairs Tuesday. Pt cm10 states previous knee injury 3 years ago to the left knee. Coronavirus screen: Vaccine status: Patient reports receiving the 2nd dose of the covid vaccine. Ebola Screen: Patient denies travel to an Ebola-affected area in the 21 days before illness onset. No symptoms or risks identified at this time. Initial Sepsis Screen: Does the patient meet any 2 criteria? No. Patient's initial sepsis screen is negative. Does the patient have a suspected source of infection? No. Patient's initial sepsis screen is negative. Risk Assessment: Do you want to hurt yourself or someone else? Patient reports no desire to harm self or others. Onset of symptoms was May 29, 2023. 13:50 Method Of Arrival: Ambulatory cm10 13:50 Acuity: JAVY 4 cm10 Historical: - Allergies: 13:51 No Known Allergies; cm10 - PMHx: 13:51 Cholelithiasis; Hypertensive disorder; cm10 - PSHx: 13:51 section; Cholecystectomy; Ligation of fallopian tube; cm10 - Immunization history:: Adult Immunizations not immunized. - Social history:: Smoking status: Patient denies any tobacco usage or history of. Screenin:09 [facility] ED Fall Risk Assessment (Adult) History of falling in the last 3 months, ld1 including since admission No falls in past 3 months (0 pts). Abuse screen: Denies threats or abuse. Denies injuries from another. Nutritional screening: No deficits noted. Tuberculosis screening: No symptoms or risk factors identified. Assessment: 14:09 General: Appears in no apparent distress. comfortable, Behavior is calm, cooperative, ld1 appropriate for age. Pain: Complains of pain in left knee Pain does not radiate. Pain currently is 8 out of 10 on a pain scale. Quality of pain is described as throbbing. Neuro: Level of Consciousness is awake, alert, obeys commands, Oriented to person, place, time, situation. Cardiovascular: Capillary refill < 3 seconds Patient's skin is warm and dry. Respiratory: Airway is patent Respiratory effort is even, unlabored. GI: Abdomen is round non-distended. : No signs and/or symptoms were reported regarding the genitourinary system. EENT: No signs and/or symptoms were reported regarding the EENT system. Derm: No signs and/or symptoms reported regarding the dermatologic system. Musculoskeletal: No signs and/or symptoms reported regarding the musculoskeletal system. 15:03 Reassessment: Patient appears in no apparent distress at this time. No changes from ld1 previously documented assessment. Patient and/or family updated on plan of care and expected duration. Pain level reassessed. Patient is alert, oriented x 3, equal unlabored respirations, skin warm/dry/pink. 17:03 Reassessment: Patient appears in no apparent distress at this time. Patient and/or ld1 family updated on plan of care and expected duration. Pain level reassessed. Patient is alert, oriented x 3, equal unlabored respirations, skin warm/dry/pink. Vital Signs: 13:50 BP 166 / 100; Pulse 84; Resp 18; Temp 97.9; Pulse Ox 97% ; Weight 130.63 kg; Height 5 cm10 ft. 3 in. ; Pain 8/10; 14:09 BP 155 / 89; Pulse 79; Resp 18; Pulse Ox 98% on R/A; Pain 7/10; ld1 15:03 BP 163 / 91; Pulse 82; Resp 18; Pulse Ox 98% on R/A; ld1 17:03 BP 156 / 84; Pulse 76; Resp 18; Pulse Ox 100% on R/A; ld1 13:50 Body Mass Index 51.02 (130.63 kg, 160.02 cm) cm10 13:50 Pain Scale: Adult cm10 14:09 Pain Scale: Adult ld1 ED Course: 13:40 Patient arrived in ED. mr 13:49 Riley Lewis PA is PHCP. cp 13:49 Riley Rodriguez MD is Attending Physician. cp 13:51 Triage completed. cm10 13:52 Arm band placed on Patient placed in an exam room, on a stretcher. cm10 14:09 Lizett Vences, RN is Primary Nurse. ld1 14:09 Patient has correct armband on for positive identification. Placed in gown. Bed in low ld1 position. Call light in reach. Side rails up X2. Pulse ox on. NIBP on. Door closed. Noise minimized. Warm blanket given. 14:09 No provider procedures requiring assistance completed. ld1 15:05 XRAY Knee LEFT 3 view In Process Unspecified. EDMS 16:18 US Extremity Venous Unilateral Ltd In Process Unspecified. EDMS 16:48 Isak Tuttle MD is Referral Physician. cp 17:03 Patient did not have IV access during this emergency room visit. ld1 Administered Medications: 14:44 Drug: Ibuprofen PO 800 mg Route: PO; ld1 14:44 Drug: Acetaminophen PO 1000 mg Route: PO; ld1 Medication: 14:09 VIS not applicable for this client. ld1 Outcome: 16:49 Discharge ordered by . cp 17:03 Discharged to home ambulatory, with crutches. ld1 17:03 Condition: stable 17:03 Discharge instructions given to patient, Instructed on discharge instructions, follow up and referral plans. medication usage, Demonstrated understanding of instructions, follow-up care, medications, Prescriptions given X 1. 17:03 Patient left the ED. ld1 Signatures: Dispatcher [employer] EDKY DaltonKnea Corey, PA PA cp Sims, Lauren, RN RN ld1 Emma Thompson RN RN cm10
--- NOTE | 2023-05-29 16:49 | EDPHYS ---
Physician Documentation [facility] Name: Keyonna James Age: 42 yrs Sex: Female : 1980 Arrival Date: 05/29/2023 Time: 13:38 Bed 16 Private MD: TYRA Physician Riley Rodriguez HPI: 05/29 14:33 This 42 yrs old Black Female presents to ER via Ambulatory with complaints of Knee Pain.cp 14:33 The patient presents with pain, that is acute. cp 14:33 The complaints affect the left knee. Context: resulted from a mis-step, stairs, the cp patient can fully bear weight, the patient is able to ambulate, with mild difficulty, Problem is a result from a previous injury: Yes. Onset: The symptoms/episode began/occurred last week. Associated signs and symptoms: The patient has no apparent associated signs or symptoms. Historical: - Allergies: 13:51 No Known Allergies; cm10 - PMHx: 13:51 Cholelithiasis; Hypertensive disorder; cm10 - PSHx: 13:51 section; Cholecystectomy; Ligation of fallopian tube; cm10 - Immunization history:: Adult Immunizations not immunized. - Social history:: Smoking status: Patient denies any tobacco usage or history of. ROS: 14:35 MS/extremity: Positive for pain, swelling, tenderness, of the left knee, Negative for cp decreased range of motion, deformity. 14:35 Constitutional: Negative for body aches, chills, fever, poor PO intake. cp 14:35 Neck: Negative for pain with movement, pain at rest, stiffness. 14:35 Back: Negative for pain at rest, pain with movement. 14:35 All other systems are negative. Exam: 14:40 Constitutional: The patient appears in no acute distress, alert, awake, non-toxic, well cp developed, well nourished, obese. 14:40 Head/Face: Normocephalic, atraumatic. cp 14:40 Neck: ROM/movement: is normal, is supple, without pain, no range of motions limitations. 14:40 Chest/axilla: Inspection: normal. 14:40 Cardiovascular: Rate: normal, Rhythm: regular. 14:40 Respiratory: the patient does not display signs of respiratory distress, Respirations: normal, no use of accessory muscles, no retractions, labored breathing, is not present. 14:40 Abdomen/GI: Exam negative for discomfort, distension, guarding, Inspection: abdomen appears normal. 14:40 Back: pain, is absent, ROM is normal. 14:40 Musculoskeletal/extremity: Extremities: grossly normal except: noted in the left knee: pain, tenderness along lateral side of knee, full active ROM, ROM: limited passive range of motion due to pain, in the left knee. Vital Signs: 13:50 BP 166 / 100; Pulse 84; Resp 18; Temp 97.9; Pulse Ox 97% ; Weight 130.63 kg; Height 5 cm10 ft. 3 in. ; Pain 8/10; 14:09 BP 155 / 89; Pulse 79; Resp 18; Pulse Ox 98% on R/A; Pain 7/10; ld1 15:03 BP 163 / 91; Pulse 82; Resp 18; Pulse Ox 98% on R/A; ld1 17:03 BP 156 / 84; Pulse 76; Resp 18; Pulse Ox 100% on R/A; ld1 13:50 Body Mass Index 51.02 (130.63 kg, 160.02 cm) cm10 13:50 Pain Scale: Adult cm10 14:09 Pain Scale: Adult ld1 MDM: 13:55 Patient medically screened. 16:00 Differential diagnosis: dislocation, closed fracture, contusion. 16:49 Data reviewed: vital signs, nurses notes, radiologic studies, plain films. 16:49 I considered the following discharge prescriptions or medication management in the emergency department Medications were administered in the Emergency Department. See MAR. Counseling: I had a detailed discussion with the patient and/or guardian regarding the historical points, exam findings, and any diagnostic results supporting the discharge/admit diagnosis, radiology results, the need for outpatient follow up, a orthopedic surgeon, to return to the emergency department if symptoms worsen or persist or if there are any questions or concerns that arise at home. Response to treatment: the patient's symptoms have markedly improved after treatment, and as a result, I will discharge patient. 05/29 14:27 Order name: US Extremity Venous Unilateral Ltd 05/29 14:27 Order name: XRAY Knee LEFT 3 view; Complete Time: 16:37 05/29 16:37 Interpretation: Report reviewed. 05/29 16:38 Order name: Robin wrap-joint; Complete Time: 16:45 cp 05/29 16:38 Order name: Crutches; Complete Time: 16:45 cp Administered Medications: 14:44 Drug: Ibuprofen PO 800 mg Route: PO; ld1 14:44 Drug: Acetaminophen PO 1000 mg Route: PO; ld1 Disposition Summary: 05/29/23 16:49 Discharge Ordered Location: Home cp Problem: new cp Symptoms: have improved cp Condition: Stable cp Diagnosis - Effusion, left knee cp - Pain in left knee cp Followup: cp - With: Iska Tuttle MD - When: 1 week - Reason: Recheck today's complaints Discharge Instructions: - Discharge Summary Sheet cp - Elastic Bandage and RICE Therapy cp - How to Use a Knee Brace cp - Knee Effusion cp - Acute Knee Pain, Adult cp Forms: - Medication Reconciliation Form cp - Thank You Letter cp - Antibiotic Education cp - Prescription Opioid Use cp - Patient Portal Instructions cp - Leadership Thank You Letter cp Prescriptions: - Diclofenac Sodium 75 mg Oral Tablet Sustained Release - take 1 tablet by ORAL route 2 times per day; 30 tablet; Refills: 0, Product cp Selection Permitted Signatures: Dispatcher [employer] Riley Pantoja PA PA cp Lizett Vences RN RN ld1 Emma Thompson RN RN cm10
--- NOTE | 2023-05-29 17:11 | RAD REPORT ---
EXAM DESCRIPTION: US - Extremity Venous Uni Ltd - 05/29/2023 4:16 pm CLINICAL HISTORY: Pain COMPARISON: None. TECHNIQUE: Real-time sonographic evaluation of the left lower extremity deep venous system was perfo rmed. FINDINGS: Normal compressibility, flow augmentation, phasic flow and spontaneous flow is identified in the left lower extremity deep venous system. No intraluminal filling defects seen. IMPRESSION: No DVT in the left lower extremity.
[2023-05-29 17:50] VITALS: TEMP 97.9
[2023-05-29 17:55] VITALS: BP 156/84; O2SAT 100
== END 2023-05-29 17:03 | disposition home or self-care (01) ==
LOC: ER 13:38
DX: M25.462 Effusion, left knee (principal); I10 Essential (primary) hypertension
CPT/HCPCS: 93971; 99284